=== PATIENT | female | born 1935 | race Caucasian/White ===

== ENCOUNTER 2017-07-25 06:03 | Emergency (ER) | payer MEDICARE ==
--- NOTE | 2017-07-25 06:33 | ERPHSYRPT ---
- History of Present Illness Source: patient Exam Limitations: no limitations Patient Subjective Stated Complaint: pt states she feels Sob and had a feeling of "impending doom". denies any pain. states sob worse this morning. Triage Nursing Assessment: pt pink, warm, dry. pt able to speak in full sentences. lung sounds clear and equal. Hx Tetanus, Diphtheria Vaccination/Date Given: Yes (up to date) Hx Influenza Vaccination/Date Given: Yes Hx Pneumococcal Vaccination/Date Given: Yes Immunizations Up to Date: Yes <ANDIE HUBER - Last Filed: 07/25/17 07:16> <DIONICIO JOHNSON - Last Filed: 07/25/17 07:58> - History of Present Illness Time Seen by Provider: 07/25/17 06:25 Physician History: YESTERDAY PT HAD A FEELING OF IMPENDING DOOM, NAUSEA AND HER HEART SKIPPING. FOR THE PAST HOUR PT HAS HAD SHORTNESS OF AIR. PT ALSO C/O CHRONIC LOW BACK PAIN FOR YEARS. PT DENIES CHEST PAIN, ABDOMINAL PAIN, VOMITING. (ANDIE HUBER) Allergies/Adverse Reactions: metoclopramide HCl [From Reglan] Allergy (Verified 07/25/17 06:24) Sulfa (Sulfonamide Antibiotics) Allergy (Verified 07/25/17 06:24) Home Medications: Amlodipine Besylate/Benazepril [Amlodipine-Benazepril 10-20 mg] 1 each PO DAILY 07/03/16 [History] Atenolol 50 mg [Tenormin 50 mg] 100 mg PO DAILY 07/03/16 [History] Atorvastatin Calcium [Lipitor 20MG Tablet] 20 mg PO DAILY 07/03/16 [History] Gabapentin [Neurontin] 100 mg PO 5XD 07/03/16 [History] Glimepiride 2 mg [Amaryl 2 MG] 2 mg PO DAILY 07/03/16 [History] Zafirlukast 20 mg [Accolate 20 mg] 20 mg PO BID 07/03/16 [History] Acetaminophen/Diphenhydramine [Tylenol Pm Ex-Strength Caplet] 1 each PO HS 08/26 [History] Docusate Sodium 100 mg PO HS 08/26/16 [History] Hydrocodone Bit/Acetaminophen [Hydrocodon-Acetaminophen 5-325] 1 each PO BID 12/11 [History] Magnesium Oxide 400 mg [Mag-Ox 400] 400 mg PO DAILY 08/26/16 [History] Oxazepam 15 mg PO DAILY 08/26/16 [History] Sennosides 8.6 mg PO HS 08/26/16 [History] Vit C/Shahnaz AC/Lut/Copper/Znox [Preservision Lutein Softgel] 1 each PO BID [History] Cyanocobalamin/Folic Acid [Vitamin F09-Iognu Acid Tablet] 1 each PO DAILY [History] - Review of Systems Constitutional: Other (FEELING OF IMPENDING DOOM) Respiratory: Dyspnea Cardiac: Palpitations Abdominal/Gastrointestinal: Nausea Musculoskeletal: Back Pain (CHRONIC) All Other Systems: Reviewed and Negative <ANDIE HUBER - Last Filed: 07/25/17 07:16> - Past Medical History Pertinent Past Medical History: Yes Neurological History: No Pertinent History ENT History: No Pertinent History Cardiac History: Arrhythmia, Other Respiratory History: Asthma Endocrine Medical History: Diabetes Type II Musculoskeletal History: No Pertinent History GI Medical History: Hernia History: No Pertinent History Psycho-Social History: No Pertinent History Female Reproductive Disorders: Breast Cancer - Past Surgical History Past Surgical History: Yes Neuro Surgical History: No Pertinent History Cardiac: No Pertinent History Respiratory: No Pertinent History Gastrointestinal: No Pertinent History Genitourinary: No Pertinent History Musculoskeletal: No Pertinent History Female Surgical History: Mastectomy Other Surgical History: tonsillectomy, L mastectomy - Social History Smoking Status: Never smoker Exposure to second hand smoke: No Drug Use: none Patient Lives Alone: No <ANDIE HUBER - Last Filed: 07/25/17 07:16> - Physical Exam General Appearance: alert Eye Exam: PERRL/EOMI Ears, Nose, Throat Exam: pharynx normal, moist mucous membranes Neck Exam: normal inspection Respiratory Exam: lungs clear Cardiovascular Exam: murmur (3/6 SYSTOLIC MURMUR) Gastrointestinal/Abdomen Exam: soft, normal bowel sounds Back Exam: normal inspection Extremity Exam: normal inspection Neurologic Exam: alert, cooperative Skin Exam: warm, dry SpO2 Interpretation: normal SpO2: 97 Oxygen Delivery: Room Air <ANDIE HUBER - Last Filed: 07/25/17 07:16> <DIONICIO JOHNSON - Last Filed: 07/25/17 07:58> - Nursing Vital Signs Nursing Vital Signs: Initial Vital Signs Temperature 98.2 F 07/25/17 06:05 Pulse Rate 69 07/25/17 06:05 Respiratory Rate 20 07/25/17 06:05 Blood Pressure 142/80 07/25/17 06:05 O2 Sat by Pulse Oximetry 92 L 07/25/17 06:05 Pain Scale Pain Intensity 0 - Course Nursing assessment & vital signs reviewed: Yes EKG Interpreted by Me: RATE (72), Sinus Rhythm, NORMAL AXIS, NORMAL INTERVALS <ANDIE HUBER - Last Filed: 07/25/17 07:16> Ordered Tests: Active Orders 24 hr Category Date Time Status Stem Roller STAT Care 07/25/17 06:41 Active EKG-ER Only STAT Care 07/25/17 06:37 Active IV Insertion STAT Care 07/25/17 06:37 Active Oxygen-ED Only NASAL CANNULA 2 lpm Care 07/25/17 06:37 Active Pulse Oximetry (ED) STAT Care 07/25/17 06:37 Active CHEST 1 VIEW (PORTABLE) Stat Exams 07/25/17 06:41 Taken AMYLASE Stat Lab 07/25/17 06:30 Completed CBC W DIFF Stat Lab 07/25/17 06:30 Completed CMP Stat Lab 07/25/17 06:30 Completed CULTURE,URINE Stat Lab 07/25/17 06:39 Received LIPASE Stat Lab 07/25/17 06:30 Completed MAGNESIUM Stat Lab 07/25/17 06:30 Completed NT PRO BNP Stat Lab 07/25/17 06:30 Completed PROTIME WITH INR Stat Lab 07/25/17 06:30 Completed PTT Stat Lab 07/25/17 06:30 Completed TROPONIN Q3H Lab 07/25/17 06:30 Completed TROPONIN Q3H Lab 07/25/17 09:45 Ordered TROPONIN Q3H Lab 07/25/17 12:45 Ordered TROPONIN Q3H Lab 07/25/17 15:45 Ordered TROPONIN Q3H Lab 07/25/17 18:45 Ordered UA W/ MICROSCOPIC Stat Lab 07/25/17 06:39 Completed Medication Summary Generic Name Dose Route Start Last Admin Trade Name Freq PRN Reason Stop Dose Admin Sodium Chloride 1,000 mls @ 100 mls/hr 07/25/17 06:45 07/25/17 06:46 Sodium Chloride 0.9% 1000 Ml IV 08/24/17 06:44 100 mls/hr .Q10H RICHARD Administration Ceftriaxone Sodium/Dextrose 1 g in 50 mls @ 100 mls/hr 07/25/17 07:46 07:52 Rocephin 1 Gm-D5w 50 Ml Bag IV 07/25/17 08:15 100 mls/hr STAT STA Administration Discontinued Medications Generic Name Dose Route Start Last Admin Trade Name Berenice PRN Reason Stop Dose Admin Furosemide 40 mg 07/25/17 07:46 07/25/17 07:52 Lasix 40 Mg/4 Ml IV 07/25/17 07:47 40 mg STAT ONE Administration Potassium Chloride 40 meq 07/25/17 07:38 07/25/17 07:52 Klor Con 10 Meq PO 07/25/17 07:39 40 meq STAT ONE Administration Lab/Rad Data: Laboratory Result Diagrams 07/25/17 06:30 07/25/17 06:30 Laboratory Results 07/25/17 07/25/17 07/25/17 Range/Units 06:39 06:30 06:30 WBC (4.0-10.5) K/mm3 RBC (4.1-5.4) M/mm3 Hgb (12.0-16.0) gm/dl Hct (35-47) % MCV (78-100) fl MCH (26-32) pg MCHC (32-36) g/dl RDW (11.5-14.0) % Plt Count (150-450) K/mm3 MPV (6-9.5) fl Gran % (36.0-66.0) % Lymphocytes % (24.0-44.0) % Monocytes % (0.0-12.0) % Eosinophils % (0.00-5.0) % Basophils % (0.0-0.4) % Basophils # (0-0.4) INR 1.12 (0.8-3.0) APTT 42.7 H (25.3-37.0) SECONDS Sodium (136-145) mEq/L Potassium (3.5-5.1) mEq/L Chloride (98-107) mEq/L Carbon Dioxide (21-32) mEq/L Anion Gap (5-15) MEQ/L BUN (9-20) mg/dL Creatinine (0.55-1.30) mg/dl Estimated GFR ML/MIN Glucose (70-110) MG/DL Calcium (8.5-10.1) mg/dL Magnesium (1.8-2.4) mg/dL Total Bilirubin (0.2-1.0) mg/dL AST (15-37) U/L ALT (12-78) U/L Alkaline Phosphatase (46-116) U/L Troponin I < 0.017 (0.000-0.056) ng/ml NT-Pro-B Natriuret Pep (0-450) pg/ml Serum Total Protein (6.4-8.2) gm/dL Albumin (3.4-5.0) g/dL Amylase (25-115) U/L Lipase (73-393) U/L Ur Collection Type VOID Urine Color YELLOW (YELLOW) Urine Appearance CLOUDY (CLEAR) Urine pH 6.5 (5-6) Ur Specific [place] 1.015 (1.005-1.025) Urine Protein 30 (Negative) Urine Ketones NEGATIVE (NEGATIVE) Urine Blood LARGE (0-5) Grey/ul Urine Nitrite POSITIVE (NEGATIVE) Urine Bilirubin NEGATIVE (NEGATIVE) Urine Urobilinogen NORMAL (0-1) mg/dL Ur Leukocyte Esterase LARGE (NEGATIVE) Urine Microscopic RBC 10-15 (0-2) /HPF Urine Microscopic WBC 10-15 (0-5) /HPF Ur Epithelial Cells MANY (FEW) /HPF Urine Bacteria MANY (NEGATIVE) /HPF Urine Glucose NEGATIVE (NEGATIVE) mg/dL Specimen Received 07/25/17 0736 07/25/17 07/25/17 Range/Units 06:30 06:30 WBC 6.4 (4.0-10.5) K/mm3 RBC 3.65 L (4.1-5.4) M/mm3 Hgb 11.1 L (12.0-16.0) gm/dl Hct 36.3 (35-47) % MCV 99.5 (78-100) fl MCH 30.4 (26-32) pg MCHC 30.6 L (32-36) g/dl RDW 14.2 H (11.5-14.0) % Plt Count 171 (150-450) K/mm3 MPV 11.6 H (6-9.5) fl Gran % 68.4 H (36.0-66.0) % Lymphocytes % 18.6 L (24.0-44.0) % Monocytes % 8.0 (0.0-12.0) % Eosinophils % 4.7 (0.00-5.0) % Basophils % 0.3 (0.0-0.4) % Basophils # 0.02 (0-0.4) INR (0.8-3.0) APTT (25.3-37.0) SECONDS Sodium 145 (136-145) mEq/L Potassium 3.3 L (3.5-5.1) mEq/L Chloride 108 H (98-107) mEq/L Carbon Dioxide 28.3 (21-32) mEq/L Anion Gap 11.7 (5-15) MEQ/L BUN 12 (9-20) mg/dL Creatinine 0.85 (0.55-1.30) mg/dl Estimated GFR > 60 ML/MIN Glucose 122 H (70-110) MG/DL Calcium 8.8 (8.5-10.1) mg/dL Magnesium 1.8 (1.8-2.4) mg/dL Total Bilirubin 0.40 (0.2-1.0) mg/dL AST 18 (15-37) U/L ALT 10 L (12-78) U/L Alkaline Phosphatase 75 (46-116) U/L Troponin I (0.000-0.056) ng/ml NT-Pro-B Natriuret Pep 1112 H (0-450) pg/ml Serum Total Protein 6.6 (6.4-8.2) gm/dL Albumin 3.3 L (3.4-5.0) g/dL Amylase 135 H (25-115) U/L Lipase 47 L (73-393) U/L Ur Collection Type Urine Color (YELLOW) Urine Appearance (CLEAR) Urine pH (5-6) Ur Specific [place] (1.005-1.025) Urine Protein (Negative) Urine Ketones (NEGATIVE) Urine Blood (0-5) Grey/ul Urine Nitrite (NEGATIVE) Urine Bilirubin (NEGATIVE) Urine Urobilinogen (0-1) mg/dL Ur Leukocyte Esterase (NEGATIVE) Urine Microscopic RBC (0-2) /HPF Urine Microscopic WBC (0-5) /HPF Ur Epithelial Cells (FEW) /HPF Urine Bacteria (NEGATIVE) /HPF Urine Glucose (NEGATIVE) mg/dL Specimen Received <ANDIE HUBER - Last Filed: 07/25/17 07:16> - Progress Progress: improved <DIONICIO JOHNSON - Last Filed: 07/25/17 07:58> - Progress Progress Note: 07/25/17 07:54 Pt has no shortness of breath at rest but admits to worsening shortness of breath with exertion. Pt has a CXR that shows increase vascular congestion and an elevated BNP over 1000 which is her typical BNP. Pt will be given a dose of lasix 40mg IV X 1 dose. Pt also has a UTIand will be treated with rocephin 1 gram IV X 1 dose. Pt will then be given a script for omnicef for 7 days. Pt has an appointment with her oracle data warehouse developer at 1:15pm this afternoon. (DIONICIO JOHNSON) <ANDIE HUBER - Last Filed: 07/25/17 07:16> - Departure Time of Disposition: 07:56 Departure Disposition: Home Critical Care Time: No <DIONICIO JOHNSON - Last Filed: 07/25/17 07:58> - Departure Clinical Impression: CHF (congestive heart failure) Qualifiers: Congestive heart failure type: unspecified congestive heart failure type Congestive heart failure chronicity: acute on chronic Qualified Code(s): I50.9 - Heart failure, unspecified Condition: Stable Referrals: RAY OCHOA [Primary Care Provider] - Instructions: Heart Failure Additional Instructions: Follow up with your oracle data warehouse developer today to discuss possibly increasing your dose of lasix for symptomatic relief of shortness of breath. Prescriptions: Cefdinir [Omnicef] 300 mg PO BID #14 capsule
[2017-07-25] MEDS ORDERED: Sodium Chloride 0.9% 1000 ML 1,000 ML ONE (06:45)
[2017-07-25] MEDS ORDERED: Sodium Chloride 0.9% 1000 ML 1,000 ML IV SCH (06:45)
[2017-07-25 06:58] LABS: BASOPHIL % 0.3 % (0.0-0.4); Eosinophil % 4.7 % (0.00-5.0); Granulocytes % 68.4 % (36.0-66.0); Lymphocytes % 18.6 % (24.0-44.0); Mean Cell Volume 99.5 fl (78-100); Mean Corpuscular Hemoglobin 30.4 pg (26-32); Mean Platelet Volume 11.6 fl (6-9.5); Platelet Count 171 K/mm3 (150-450); Red Blood Count 3.65 M/mm3 (4.1-5.4); Red Cell Distribution Width 14.2 % (11.5-14.0); White Blood Count 6.4 K/mm3 (4.0-10.5)
[2017-07-25 07:14] LABS: INR 1.12 (0.8-3.0); PROTIME 12.7 SECONDS (9.95-12.35)
[2017-07-25 07:16] LABS: PTT 42.7 SECONDS (25.3-37.0)
[2017-07-25 07:17] VITALS: O2SAT 97
[2017-07-25 07:36] LABS: Bilirubin NEGATIVE (NEGATIVE); Blood LARGE Ery/ul (0-5); Collection Type VOID; Glucose NEGATIVE (NEGATIVE); Leukocyte Esterase LARGE (NEGATIVE)
[2017-07-25 07:37] LABS: COMPLETE URINE MICROSCOPIC? YES
[2017-07-25 07:37] LABS: ALBUMIN 3.3 g/dL (3.4-5.0); ALKALINE PHOSPHATASE 75 U/L (46-116); ANION GAP 11.7 MEQ/L (5-15); BLOOD UREA NITROGEN 12 mg/dL (9-20); CHLORIDE 108 mEq/L (98-107); Carbon Dioxide 28.3 mEq/L (21-32); Glucose 122 MG/DL (70-110); LIPASE 47 U/L (73-393); MAGNESIUM 1.8 mg/dL (1.8-2.4); Potassium 3.3 mEq/L (3.5-5.1); SGOT/AST 18 U/L (15-37); SGPT/ALT 10 U/L (12-78); SODIUM 145 mEq/L (136-145); Total Protein 6.6 gm/dL (6.4-8.2)
[2017-07-25] MEDS ORDERED: Klor Con 10 MEQ PO ONE ×2 (07:38→07:51)
[2017-07-25 07:39] LABS: Bacteria MANY /HPF (NEGATIVE); Epithelial Cells MANY /HPF (FEW)
[2017-07-25 07:40] LABS: ADD URINE CULTURE? YES (NO)
[2017-07-25] MEDS ORDERED: Lasix 40 MG/4 ML IV ONE (07:46)
[2017-07-25] MEDS ORDERED: ROCEPHIN 1 Gm-D5w 50 ml Bag** 1 G/50 ML IVPB IV STA (07:46)
[2017-07-25] MEDS ORDERED: Lasix 40 MG/4 ML ONE (07:51)
[2017-07-25] MEDS ORDERED: ROCEPHIN 1 Gm-D5w 50 ml Bag** 1 G/50 ML IVPB IV ONE (07:51)
[2017-07-25 08:57] VITALS: BP 144/77; PULSE 88
--- NOTE | 2017-07-25 09:37 | XRAY ---
Indication: Short of breath. Comparison: September 11, 2016. Portable chest slightly rotated today translating the heart and mediastinal structures. Heart is not enlarged. There is now large hiatal hernia. No focal infiltrate, consolidation, or large effusion. Bony thorax intact again with osteopenia, degenerative changes, and scoliosis. Impression: Hiatal hernia. No acute cardiopulmonary abnormalities.
== END 2017-07-25 08:38 | disposition home or self-care (01) ==
LOC: ED 06:03
DX: I50.9 Heart failure, unspecified (principal); R06.02 Shortness of breath; R11.0 Nausea; M54.5 Low back pain; Z79.899 Other long term (current) drug therapy; E11.9 Type 2 diabetes mellitus without complications; R00.2 Palpitations; R06.00 Dyspnea, unspecified
CPT/HCPCS: 36000; 36415; 71010; 80053; 81000; 82150; 83690; 83735; 83880; 84484; 85025; 85610; 85730; 87077; 87086; 87186; 93005; 93041; 96360; 96361; 96365; 96374; 99284; 99285; J0696; J1940; A9270-GY

== ENCOUNTER 2017-07-31 04:06 | Observation (INO) | payer MEDICARE ==
[2017-07-31] MEDS ORDERED: Zithromax 500 MG/ 250 ML NaCl Premix 500 MG/250 ML IVPB IV STA (04:21)
[2017-07-31] MEDS ORDERED: Xopenex 1.25 MG/0.5 ML UD NEBULE IH ONE ×2 (04:21→04:35)
[2017-07-31] MEDS ORDERED: ROCEPHIN 1 Gm-D5w 50 ml Bag** 1 G/50 ML IVPB IV STA (04:21)
[2017-07-31] MEDS ORDERED: Sodium Chloride 0.9% 1000 ML 1,000 ML IV SCH (04:30)
[2017-07-31] MEDS ORDERED: Sodium Chloride 3 ML UD NEBULES IH ONE (04:35)
[2017-07-31 04:37] LABS: BASOPHIL % 0.2 % (0.0-0.4); Eosinophil % 5.5 % (0.00-5.0); Granulocytes % 53.6 % (36.0-66.0); Lymphocytes % 28.5 % (24.0-44.0); Mean Cell Volume 98.1 fl (78-100); Mean Corpuscular Hemoglobin 30.4 pg (26-32); Mean Platelet Volume 11.4 fl (6-9.5); Monocytes % 12.2 % (0.0-12.0); Platelet Count 206 K/mm3 (150-450); Red Blood Count 3.68 M/mm3 (4.1-5.4); Red Cell Distribution Width 13.6 % (11.5-14.0); White Blood Count 5.1 K/mm3 (4.0-10.5)
--- NOTE | 2017-07-31 04:38 | ERPHSYRPT ---
- History of Present Illness Time Seen by Provider: 07/31/17 04:15 Source: patient Exam Limitations: no limitations Physician History: PT FOR THE PAST WEEK PT HAS HAD A FEELING OF IMPENDING DOOM, NAUSEA AND HER HEART SKIPPING; FOR THE PAST 6 DAYS SHORTNESS OF AIR; FOR THE PAST 2 DAYS COUGH. PT DENIES ABDOMINAL PAIN, CHEST PAIN, VOMITING. Allergies/Adverse Reactions: metoclopramide HCl [From Reglan] Allergy (Verified 07/31/17 04:27) Sulfa (Sulfonamide Antibiotics) Allergy (Verified 07/31/17 04:27) Home Medications: Amlodipine Besylate/Benazepril [Amlodipine-Benazepril 10-20 mg] 1 each PO DAILY 07/03/16 [History] Atenolol 50 mg [Tenormin 50 mg] 100 mg PO DAILY 07/03/16 [History] Atorvastatin Calcium [Lipitor 20MG Tablet] 20 mg PO DAILY 07/03/16 [History] Gabapentin [Neurontin] 100 mg PO 5XD 07/03/16 [History] Glimepiride 2 mg [Amaryl 2 MG] 2 mg PO DAILY 07/03/16 [History] Zafirlukast 20 mg [Accolate 20 mg] 20 mg PO BID 07/03/16 [History] Acetaminophen/Diphenhydramine [Tylenol Pm Ex-Strength Caplet] 1 each PO HS 08/26 [History] Docusate Sodium 100 mg PO HS 08/26/16 [History] Hydrocodone Bit/Acetaminophen [Hydrocodon-Acetaminophen 5-325] 1 each PO BID 12/11 [History] Magnesium Oxide 400 mg [Mag-Ox 400] 400 mg PO DAILY 08/26/16 [History] Oxazepam 15 mg PO DAILY 08/26/16 [History] Sennosides 8.6 mg PO HS 08/26/16 [History] Vit C/Vit E AC/Lut/Copper/Zinc [Preservision Lutein Softgel] 1 each PO BID 08/26 [History] Cyanocobalamin/Folic Acid [Vitamin J73-Bvfvb Acid Tablet] 1 each PO DAILY [History] Hx Tetanus, Diphtheria Vaccination/Date Given: Yes (up to date) Hx Influenza Vaccination/Date Given: Yes Hx Pneumococcal Vaccination/Date Given: Yes - Review of Systems Constitutional: No Fever Respiratory: Cough, Dyspnea Cardiac: Palpitations, No Chest Pain Abdominal/Gastrointestinal: Nausea, No Abdominal Pain, No Vomiting Musculoskeletal: Back Pain (CHRONIC) All Other Systems: Reviewed and Negative - Past Medical History Pertinent Past Medical History: Yes Neurological History: No Pertinent History ENT History: No Pertinent History Cardiac History: Arrhythmia, Other Respiratory History: Asthma Endocrine Medical History: Diabetes Type II Musculoskeletal History: No Pertinent History GI Medical History: Hernia History: No Pertinent History Psycho-Social History: No Pertinent History Female Reproductive Disorders: Breast Cancer - Past Surgical History Past Surgical History: Yes Neuro Surgical History: No Pertinent History Cardiac: No Pertinent History Respiratory: No Pertinent History Gastrointestinal: No Pertinent History Genitourinary: No Pertinent History Musculoskeletal: No Pertinent History Female Surgical History: Mastectomy Other Surgical History: tonsillectomy, L mastectomy - Social History Smoking Status: Never smoker Exposure to second hand smoke: No Drug Use: none Patient Lives Alone: No - Nursing Vital Signs Nursing Vital Signs: Initial Vital Signs Temperature 98.2 F 07/31/17 04:08 Pulse Rate 75 07/31/17 04:08 Respiratory Rate 24 07/31/17 04:08 Blood Pressure 134/68 07/31/17 04:08 O2 Sat by Pulse Oximetry 96 07/31/17 04:08 Pain Scale Pain Intensity 0 - Physical Exam General Appearance: alert Eye Exam: PERRL/EOMI Ears, Nose, Throat Exam: dry mucous membranes, pharyngeal erythema Neck Exam: normal inspection Respiratory Exam: diminished breath sounds (OVER POSTERIOR BASES WITH MINIMAL EXPIRATORY WHEEZING) Cardiovascular Exam: murmur (3/6 SYSTOLIC MURMUR) Gastrointestinal/Abdomen Exam: soft, normal bowel sounds Back Exam: normal inspection Extremity Exam: normal inspection Neurologic Exam: alert, cooperative Skin Exam: warm, dry SpO2 Interpretation: normal SpO2: 96 Oxygen Delivery: Room Air - Course Nursing assessment & vital signs reviewed: Yes EKG Interpreted by Me: RATE (76), NORMAL AXIS, Non-specific ST Changes, Other ( SINUS ARRHYTHMIA) - Radiology Exams Chest X-ray Interpretation: Interpreted by me, No Pneumonia - CT Exams Chest CT Interpretation: Tele-radiologist Report (NO PE. FOCAL INFILTRATE AND POSSIBLY INTERSTITIAL PNEUMONITIS ON THE RIGHT. SEE REST OF REPORT.) Ordered Tests: Active Orders 24 hr Category Date Time Status Rug Hooker STAT Care 07/31/17 04:23 Active Clean Catch Urine Specimen STAT Care 07/31/17 04:21 Active EKG-ER Only STAT Care 07/31/17 04:21 Active EKG-ER Only STAT Care 07/31/17 04:54 Active IV Insertion STAT Care 07/31/17 04:21 Active Oxygen-ED Only NASAL CANNULA 2 lpm Care 07/31/17 04:21 Active Pulse Oximetry (ED) STAT Care 07/31/17 04:21 Active CHEST 2 VIEWS (PA AND LAT) Stat Exams 07/31/17 04:22 Taken CHEST WITH CONTRAST [CT] Stat Exams 07/31/17 05:21 Taken BLOOD CULTURE Stat Lab 07/31/17 04:50 Received CBC W DIFF Stat Lab 07/31/17 04:25 Completed CMP Stat Lab 07/31/17 04:25 Completed CULTURE, THROAT Stat Lab 07/31/17 04:52 Received CULTURE,SPUTUM Stat Lab 07/31/17 04:22 Uncollected CULTURE,URINE Stat Lab 07/31/17 06:31 Received D-DIMER QUANTITATION Stat Lab 07/31/17 04:25 Completed MAGNESIUM Stat Lab 07/31/17 04:25 Completed [place] Screen Stat Lab 07/31/17 04:25 Completed NT PRO BNP Stat Lab 07/31/17 04:25 Completed STREP SCREEN-BETA A Stat Lab 07/31/17 04:52 Completed TROPONIN Q3H Lab 07/31/17 04:25 Completed TROPONIN Q3H Lab 07/31/17 07:30 Ordered TROPONIN Q3H Lab 07/31/17 10:30 Ordered TROPONIN Q3H Lab 07/31/17 13:30 Ordered TROPONIN Q3H Lab 07/31/17 16:30 Ordered UA W/ MICROSCOPIC Stat Lab 07/31/17 06:31 Completed Respiratory Nebulizer STAT RT 07/31/17 04:46 Completed Medication Summary Generic Name Dose Route Start Last Admin Trade Name Freq PRN Reason Stop Dose Admin Sodium Chloride 1,000 mls @ 250 mls/hr 07/31/17 04:30 07/31/17 05:03 Sodium Chloride 0.9% 1000 Ml IV 08/30/17 04:29 250 mls/hr .Q4H RICHARD Administration Discontinued Medications Generic Name Dose Route Start Last Admin Trade Name Freq PRN Reason Stop Dose Admin Ceftriaxone Sodium/Dextrose 1 g in 50 mls @ 100 mls/hr 07/31/17 04:21 05:03 Rocephin 1 Gm-D5w 50 Ml Bag IV 07/31/17 04:50 100 mls/hr STAT STA Administration Azithromycin 500 mg in 250 mls @ 250 mls/hr 07/31/17 04:21 07/31/17 06:32 Zithromax 500 Mg/ 250 Ml Nacl Premix IV 07/31/17 05:20 250 mls/hr STAT STA Administration Azithromycin Confirm 07/31/17 04:56 Zithromax 500 Mg/ 250 Ml Nacl Premix Administered 07/31/17 04:57 Dose 500 mg in 250 mls @ ud IV .STK-MED ONE Ceftriaxone Sodium/Dextrose Confirm 07/31/17 04:56 Rocephin 1 Gm-D5w 50 Ml Bag Administered 07/31/17 04:57 Dose 1 g in 50 mls @ ud IV .STK-MED ONE Magnesium Sulfate/Dextrose 100 mls @ 200 mls/hr 07/31/17 05:22 07/31/17 06:36 Magnesium 1 Gm / 100 Ml D5w IV 07/31/17 05:51 200 mls/hr STAT ONE Administration Magnesium Sulfate/Dextrose Confirm 07/31/17 06:36 Magnesium 1 Gm / 100 Ml D5w Administered 07/31/17 06:37 Dose 100 mls @ ud IV .STK-MED ONE Levalbuterol HCl 1.25 mg 07/31/17 04:21 07/31/17 04:44 Xopenex 1.25 Mg/0.5 Ml Ud Nebule IH 07/31/17 04:22 1.25 mg STAT ONE Administration Levalbuterol HCl Confirm 07/31/17 04:35 Xopenex 1.25 Mg/0.5 Ml Ud Nebule Administered 07/31/17 04:36 Dose 1.25 mg IH .STK-MED ONE Ondansetron HCl 4 mg 07/31/17 05:01 07/31/17 05:03 Zofran Odt 4 Mg PO 07/31/17 05:02 4 mg STAT ONE Administration Ondansetron HCl Confirm 07/31/17 05:02 Zofran Odt 4 Mg Administered 07/31/17 05:03 Dose 4 mg .ROUTE .[email or web address] ONE Sodium Chloride Confirm 07/31/17 04:35 Sodium Chloride 3 Ml Ud Nebules Administered 07/31/17 04:36 Dose 3 ml IH .SoapetsK-MED ONE Lab/Rad Data: Laboratory Result Diagrams 07/31/17 04:25 07/31/17 04:25 Laboratory Results 07/31/17 07/31/17 07/31/17 Range/Units 06:31 04:52 04:52 WBC (4.0-10.5) K/mm3 RBC (4.1-5.4) M/mm3 Hgb (12.0-16.0) gm/dl Hct (35-47) % MCV (78-100) fl MCH (26-32) pg MCHC (32-36) g/dl RDW (11.5-14.0) % Plt Count (150-450) K/mm3 MPV (6-9.5) fl Gran % (36.0-66.0) % Lymphocytes % (24.0-44.0) % Monocytes % (0.0-12.0) % Eosinophils % (0.00-5.0) % Basophils % (0.0-0.4) % Basophils # (0-0.4) D-Dimer (0-500) ng/mL Sodium (136-145) mEq/L Potassium (3.5-5.1) mEq/L Chloride (98-107) mEq/L Carbon Dioxide (21-32) mEq/L Anion Gap (5-15) MEQ/L BUN (9-20) mg/dL Creatinine (0.55-1.30) mg/dl Estimated GFR ML/MIN Glucose (70-110) MG/DL Calcium (8.5-10.1) mg/dL Magnesium (1.8-2.4) mg/dL Total Bilirubin (0.2-1.0) mg/dL AST (15-37) U/L ALT (12-78) U/L Alkaline Phosphatase (46-116) U/L Troponin I (0.000-0.056) ng/ml NT-Pro-B Natriuret Pep (0-450) pg/ml Serum Total Protein (6.4-8.2) gm/dL Albumin (3.4-5.0) g/dL Ur Collection Type CLEAN CATCH Urine Color YELLOW (YELLOW) Urine Appearance HAZY (CLEAR) Urine pH 8.0 (5-6) Ur Specific [place] 1.010 (1.005-1.025) Urine Protein TRACE (Negative) Urine Ketones SMALL (NEGATIVE) Urine Blood NEGATIVE (0-5) Grey/ul Urine Nitrite NEGATIVE (NEGATIVE) Urine Bilirubin NEGATIVE (NEGATIVE) Urine Urobilinogen NORMAL (0-1) mg/dL Ur Leukocyte Esterase 2+ (NEGATIVE) Urine Microscopic RBC 5-10 (0-2) /HPF Urine Microscopic WBC 15-25 (0-5) /HPF Ur Epithelial Cells MODERATE (FEW) /HPF Urine Bacteria MODERATE (NEGATIVE) /HPF Urine Mucus SLIGHT (NEGATIVE) /HPF Urine Glucose NEGATIVE (NEGATIVE) mg/dL Monoscreen (Negative) Influenza Type A Ag NEGATIVE (NEGATIVE) Influenza Type B Ag NEGATIVE (NEGATIVE) RSV (PCR) NEGATIVE (Negative) Streptococcus Screen NEGATIVE (Negative) Specimen Received 07-3107/31/17 07/31/17 07/31/17 Range/Units 04:25 04:25 04:25 WBC (4.0-10.5) K/mm3 RBC (4.1-5.4) M/mm3 Hgb (12.0-16.0) gm/dl Hct (35-47) % MCV (78-100) fl MCH (26-32) pg MCHC (32-36) g/dl RDW (11.5-14.0) % Plt Count (150-450) K/mm3 MPV (6-9.5) fl Gran % (36.0-66.0) % Lymphocytes % (24.0-44.0) % Monocytes % (0.0-12.0) % Eosinophils % (0.00-5.0) % Basophils % (0.0-0.4) % Basophils # (0-0.4) D-Dimer 587 H* (0-500) ng/mL Sodium (136-145) mEq/L Potassium (3.5-5.1) mEq/L Chloride (98-107) mEq/L Carbon Dioxide (21-32) mEq/L Anion Gap (5-15) MEQ/L BUN (9-20) mg/dL Creatinine (0.55-1.30) mg/dl Estimated GFR ML/MIN Glucose (70-110) MG/DL Calcium (8.5-10.1) mg/dL Magnesium (1.8-2.4) mg/dL Total Bilirubin (0.2-1.0) mg/dL AST (15-37) U/L ALT (12-78) U/L Alkaline Phosphatase (46-116) U/L Troponin I < 0.017 (0.000-0.056) ng/ml NT-Pro-B Natriuret Pep (0-450) pg/ml Serum Total Protein (6.4-8.2) gm/dL Albumin (3.4-5.0) g/dL Ur Collection Type Urine Color (YELLOW) Urine Appearance (CLEAR) Urine pH (5-6) Ur Specific [place] (1.005-1.025) Urine Protein (Negative) Urine Ketones (NEGATIVE) Urine Blood (0-5) Grey/ul Urine Nitrite (NEGATIVE) Urine Bilirubin (NEGATIVE) Urine Urobilinogen (0-1) mg/dL Ur Leukocyte Esterase (NEGATIVE) Urine Microscopic RBC (0-2) /HPF Urine Microscopic WBC (0-5) /HPF Ur Epithelial Cells (FEW) /HPF Urine Bacteria (NEGATIVE) /HPF Urine Mucus (NEGATIVE) /HPF Urine Glucose (NEGATIVE) mg/dL Monoscreen NEGATIVE (Negative) Influenza Type A Ag (NEGATIVE) Influenza Type B Ag (NEGATIVE) RSV (PCR) (Negative) Streptococcus Screen (Negative) Specimen Received 07/31/17 07/31/17 Range/Units 04:25 04:25 WBC 5.1 (4.0-10.5) K/mm3 RBC 3.68 L (4.1-5.4) M/mm3 Hgb 11.2 L (12.0-16.0) gm/dl Hct 36.1 (35-47) % MCV 98.1 (78-100) fl MCH 30.4 (26-32) pg MCHC 31.0 L (32-36) g/dl RDW 13.6 (11.5-14.0) % Plt Count 206 (150-450) K/mm3 MPV 11.4 H (6-9.5) fl Gran % 53.6 (36.0-66.0) % Lymphocytes % 28.5 (24.0-44.0) % Monocytes % 12.2 H (0.0-12.0) % Eosinophils % 5.5 H (0.00-5.0) % Basophils % 0.2 (0.0-0.4) % Basophils # 0.01 (0-0.4) D-Dimer (0-500) ng/mL Sodium 145 (136-145) mEq/L Potassium 3.5 (3.5-5.1) mEq/L Chloride 107 (98-107) mEq/L Carbon Dioxide 24.9 (21-32) mEq/L Anion Gap 16.4 H (5-15) MEQ/L BUN 9 (9-20) mg/dL Creatinine 0.90 (0.55-1.30) mg/dl Estimated GFR > 60 ML/MIN Glucose 123 H (70-110) MG/DL Calcium 9.0 (8.5-10.1) mg/dL Magnesium 1.7 L (1.8-2.4) mg/dL Total Bilirubin 0.40 (0.2-1.0) mg/dL AST 19 (15-37) U/L ALT 13 (12-78) U/L Alkaline Phosphatase 92 (46-116) U/L Troponin I (0.000-0.056) ng/ml NT-Pro-B Natriuret Pep 1338 H (0-450) pg/ml Serum Total Protein 6.6 (6.4-8.2) gm/dL Albumin 2.9 L (3.4-5.0) g/dL Ur Collection Type Urine Color (YELLOW) Urine Appearance (CLEAR) Urine pH (5-6) Ur Specific [place] (1.005-1.025) Urine Protein (Negative) Urine Ketones (NEGATIVE) Urine Blood (0-5) Grey/ul Urine Nitrite (NEGATIVE) Urine Bilirubin (NEGATIVE) Urine Urobilinogen (0-1) mg/dL Ur Leukocyte Esterase (NEGATIVE) Urine Microscopic RBC (0-2) /HPF Urine Microscopic WBC (0-5) /HPF Ur Epithelial Cells (FEW) /HPF Urine Bacteria (NEGATIVE) /HPF Urine Mucus (NEGATIVE) /HPF Urine Glucose (NEGATIVE) mg/dL Monoscreen (Negative) Influenza Type A Ag (NEGATIVE) Influenza Type B Ag (NEGATIVE) RSV (PCR) (Negative) Streptococcus Screen (Negative) Specimen Received - Progress Discussed with : Marvin (OBS - [id number]) - Departure Time of Disposition: 07:11 Departure Disposition: Observation Clinical Impression: PNEUMONIA, UTI, MILD HYPOMAGNESEMIA, DM Condition: Stable Critical Care Time: No Referrals: RAY OCHOA [Primary Care Provider] -
[2017-07-31] MEDS ORDERED: ROCEPHIN 1 Gm-D5w 50 ml Bag** 1 G/50 ML IVPB IV ONE (04:56)
[2017-07-31] MEDS ORDERED: Sodium Chloride 0.9% 1000 ML 1,000 ML ONE (04:56)
[2017-07-31] MEDS ORDERED: Zithromax 500 MG/ 250 ML NaCl Premix 500 MG/250 ML IVPB IV ONE (04:56)
[2017-07-31] MEDS ORDERED: ZOFRAN ODT 4 MG PO ONE (05:01)
[2017-07-31] MEDS ORDERED: ZOFRAN ODT 4 MG ONE (05:02)
[2017-07-31 05:13] LABS: ALBUMIN 2.9 g/dL (3.4-5.0); ALKALINE PHOSPHATASE 92 U/L (46-116); ANION GAP 16.4 MEQ/L (5-15); BLOOD UREA NITROGEN 9 mg/dL (9-20); CHLORIDE 107 mEq/L (98-107); Carbon Dioxide 24.9 mEq/L (21-32); Glucose 123 MG/DL (70-110); MAGNESIUM 1.7 mg/dL (1.8-2.4); Potassium 3.5 mEq/L (3.5-5.1); SGOT/AST 19 U/L (15-37); SGPT/ALT 13 U/L (12-78); SODIUM 145 mEq/L (136-145); Total Protein 6.6 gm/dL (6.4-8.2)
[2017-07-31] MEDS ORDERED: Magnesium 1 Gm / 100 Ml D5W*** 100 ML IV ONE ×2 (05:22→06:36)
[2017-07-31 06:32] LABS: Bilirubin NEGATIVE (NEGATIVE); Blood NEGATIVE Ery/ul (0-5); Collection Type CLEAN CATCH; Glucose NEGATIVE (NEGATIVE); Leukocyte Esterase 2+ (NEGATIVE)
[2017-07-31 06:33] LABS: COMPLETE URINE MICROSCOPIC? YES
[2017-07-31 06:38] LABS: ADD URINE CULTURE? YES (NO); Bacteria MODERATE /HPF (NEGATIVE); Epithelial Cells MODERATE /HPF (FEW); Mucus SLIGHT /HPF (NEGATIVE); WBC 15-25 /HPF (0-5)
[2017-07-31] MEDS ORDERED: Phenergan 25 MG INJ ONE (07:21)
[2017-07-31] MEDS ORDERED: Phenergan 25 MG INJ IV ONE (07:25)
[2017-07-31] MEDS ORDERED: NovoLOG Insulin SQ PRN (07:47)
[2017-07-31] MEDS ORDERED: TYLENOL 325 MG PO PRN (07:47)
--- NOTE | 2017-07-31 08:47 | PCM.HP ---
History of Present Illness - Chief Complaint Chief Complaint: pneumonia History of Present Illness: is a 82 year old female pt of mine from [facility] with PMHx breast cancer who came to the ER this morning with chest discomfort, nausea, and feeling of impending doom. She has been feeling poorly for the past 5d; was in the ER 5d ago and dx with UTI, sent home on antibiotics. She has also been c/o nausea and decreased appetite; her weight has been steady for the past 1 year but she lost 3 lb in the past week or so. No fever. Some cough. In ER today she was found to have pneumonia and was admitted for further treatment. - Review of Systems Respiratory: Cough, Short Of Breath, Wheezing Cardiac: Chest Pain Abdominal/Gastrointestinal: Nausea, Appetite Changes Neurological: Dizziness (briefly in ER today) Psychological: Depression (at times thinks,"just kill me now" but she would never take action) All Other Systems: Reviewed and Negative Medications & Allergies Home Medications: Home Medication List Amlodipine Besylate/Benazepril [Amlodipine-Benazepril 10-20 mg] 1 each PO DAILY 07/03/16 [History Confirmed 07/25/17] Atenolol 50 mg [Tenormin 50 mg] 100 mg PO DAILY 07/03/16 [History Confirmed 07/25/17] Atorvastatin Calcium [Lipitor 20MG Tablet] 20 mg PO DAILY 07/03/16 [History Confirmed 07/25/17] Gabapentin [Neurontin] 100 mg PO 5XD 07/03/16 [History Confirmed 07/25/17] Glimepiride 2 mg [Amaryl 2 MG] 2 mg PO DAILY 07/03/16 [History Confirmed 07/25/17] Zafirlukast 20 mg [Accolate 20 mg] 20 mg PO BID 07/03/16 [History Confirmed 07/25/17] Dabigatran Etexilate Mesylate [Pradaxa] 150 mg PO BID #60 capsule 07/14/16 [Rx Confirmed 07/25/17] PANTOPRAZOLE 40 mg Tablet [Protonix 40MG Tablet] 40 mg PO DAILY #30 tab [Rx Confirmed 07/25/17] Furosemide 20 mg [Lasix 20 mg] 20 mg PO DAILY #30 tablet 07/18/16 [Rx Confirmed 07/25/17] Potassium Chloride 20 Meq Tab [Potassium Chloride 20 MEQ TABLET] 20 meq PO DAILY #30 tab 07/18/16 [Rx Confirmed 07/25/17] Acetaminophen/Diphenhydramine [Tylenol Pm Ex-Strength Caplet] 1 each PO HS 08/26 [History Confirmed 07/25/17] Docusate Sodium 100 mg PO HS 08/26/16 [History Confirmed 07/25/17] Hydrocodone Bit/Acetaminophen [Hydrocodon-Acetaminophen 5-325] 1 each PO BID 12/11 [History Confirmed 07/25/17] Magnesium Oxide 400 mg [Mag-Ox 400] 400 mg PO DAILY 08/26/16 [History Confirmed 07/25/17] Oxazepam 15 mg PO DAILY 08/26/16 [History Confirmed 07/25/17] Sennosides 8.6 mg PO HS 08/26/16 [History Confirmed 07/25/17] Vit C/Vit E AC/Lut/Copper/Zinc [Preservision Lutein Softgel] 1 each PO BID 08/26 [History Confirmed 07/25/17] Diltiazem HCl [Cardizem] 180 mg PO DAILY #30 08/29/16 [Rx Confirmed 07/25/17] Cefdinir [Omnicef] 300 mg PO BID #14 capsule 07/25/17 [Rx] Cyanocobalamin/Folic Acid [Vitamin D02-Ziiik Acid Tablet] 1 each PO DAILY [History Confirmed 07/25/17] Allergies/Adverse Reactions: Allergies Allergy/AdvReac Type Severity Reaction Status Date / Time metoclopramide HCl Allergy Verified 07/31/17 04:27 [From Reglan] Sulfa (Sulfonamide Allergy Verified 07/31/17 04:27 Antibiotics) - Past Medical History Past Medical History: Yes Neurological History: No Pertinent History ENT History: No Pertinent History Cardiac History: Arrhythmia, Other Respiratory History: Asthma Endocrine Medical History: Diabetes Type II Musculoskelatal History: No Pertinent History GI Medical History: Hernia History: No Pertinent History Pyscho-Social History: No Pertinent History Reproductive Disorders: Breast Cancer - Female History Are you now?: No - Past Surgical History Past Surgical History: Yes Neuro Surgical History: No Pertinent History Cardiac History: No Pertinent History Respiratory Surgery: No Pertinent History GI Surgical History: No Pertinent History Genitourinary Surgical Hx: No Pertinent History Musculskeletal Surgical Hx: No Pertinent History Female Surgical History: Mastectomy Other Surgical History: tonsillectomy, L mastectomy april 10 - Social History Smoking Status: Former smoker How long have you smoked: 10 Exposure to second hand smoke: No Alcohol: None Drug Use: none - Physical Exam Vital Signs: Vital Signs - 24 hr Temp Pulse Resp BP Pulse Ox 07/31/17 08:10 98.8 F 86 18 150/66 92 L 07/31/17 07:47 98.8 F 86 18 150/66 92 L 07/31/17 07:38 117 H 28 H 112/61 98 07/31/17 07:11 96 07/31/17 06:54 92 H 20 152/77 95 07/31/17 06:42 79 22 123/65 96 07/31/17 04:46 74 25 H 97 07/31/17 04:38 96 07/31/17 04:08 98.2 F 75 24 134/68 96 General Appearance: no apparent distress Neurologic Exam: alert, oriented x 3, cooperative Eye Exam: eyes nml inspection Ears, Nose, Throat Exam: moist mucous membranes Neck Exam: normal inspection, non-tender, No lymphadenopathy Respiratory Exam: diminished breath sounds, No crackles/rales, No rhonchi, No wheezing Cardiovascular Exam: regular rate/rhythm, murmur (sys murmur III/) Gastrointestinal/Abdomen Exam: soft, hernia (midline, as usual, large hernia), No tenderness, No guarding, No rebound Back Exam: normal inspection Extremity Exam: normal inspection, No pedal edema, No swelling Skin Exam: normal color, warm, dry Results - Other Procedures and Tests Respiratory Therapy 07/31/17 08:38 RT Screen per Nursing Assess ONCE Assessment/Plan (1) Pneumonia Current Visit: Yes Status: Acute Qualifiers: Pneumonia type: due to unspecified organism Laterality: right Lung location: lower lobe of lung Qualified Code(s): J18.1 - Lobar pneumonia, unspecified organism Assessment & Plan: Admitted on IV rocephin and zithromax. She will likely need a few days of IV antibiotics before she is discharged home. Code(s): J18.9 - PNEUMONIA, UNSPECIFIED ORGANISM (2) Hypomagnesemia Current Visit: Yes Status: Acute Code(s): E83.42 - HYPOMAGNESEMIA (3) Atrial fibrillation Current Visit: No Status: Chronic Qualifiers: Atrial fibrillation type: chronic Qualified Code(s): I48.2 - Chronic atrial fibrillation Assessment & Plan: Heart sounds RRR currently. Code(s): I48.91 - UNSPECIFIED ATRIAL FIBRILLATION (4) Diabetes mellitus Current Visit: No Status: Chronic Qualifiers: Diabetes mellitus type: type 2 Code(s): E11.9 - TYPE 2 DIABETES MELLITUS WITHOUT COMPLICATIONS (5) HTN (hypertension) Current Visit: No Status: Chronic Qualifiers: Hypertension type: essential hypertension Qualified Code(s): I10 - Essential (primary) hypertension Code(s): I10 - ESSENTIAL (PRIMARY) HYPERTENSION (6) Renal insufficiency Current Visit: No Status: Chronic Assessment & Plan: Cr is low currently. (7) HX: breast cancer Current Visit: Yes Status: Acute Code(s): Z85.3 - PERSONAL HISTORY OF MALIGNANT NEOPLASM OF BREAST
[2017-07-31] MEDS ORDERED: PROVENTIL 2.5 MG/3 ML NEB IH PRN (09:16)
--- NOTE | 2017-07-31 10:32 | XRAY ---
Exam: Two-view chest from 0434 hours on 07/31/2017 Comparison: AP portable chest film from 07/25/2017 and two-view chest from 09/11/2016. Indication: Short of air. Findings: AP and lateral upright images were obtained on the emergency department cart. The heart size appears at the upper limits of normal. There is at least a moderate sized retrocardiac hiatal hernia representing no change. Significant hyperinflation of the lungs is seen consistent with advanced COPD. A couple surgical clips overlie the left axilla. Apparently, the patient is status post left mastectomy. I do not see any significant lung consolidations or air space infiltrates. No central vascular congestion is seen. No pneumothorax or significant pleural effusion is evident. I cannot exclude minimal pleural reaction at the right lung base, as the right hemidiaphragm is less distinct as compared to the left hemidiaphragm on the AP image. Some chronic central bronchial wall thickening is seen. Impression: 1. The heart size appears at the upper limits of normal. No findings of acute heart failure or pulmonary edema are seen. 2. No significant air space infiltrates or pleural effusions are seen. Minimal pleural reaction adjacent to the right hemidiaphragmatic surface cannot be excluded. 3. Marked hyperinflation of the lungs consistent with advanced COPD. 4. There is at least a moderate sized retrocardiac hiatal hernia representing no change. 5. Status post left mastectomy. A couple surgical clips overlie the left axilla.
[2017-07-31] MEDS ORDERED: PROVENTIL 2.5 MG/3 ML NEB IH SCH (11:00)
[2017-07-31] MEDS ORDERED: Zofran 4 MG/2 ML VIAL IV PRN (11:30)
[2017-07-31] MEDS ORDERED: MEDICATION INTERVENTION MC PRN (11:34)
--- NOTE | 2017-07-31 11:53 | XRAY ---
Exam: CTA of the chest with IV contrast from 07/31/2017. CTDI: 20.94 Comparison: CTA of the chest with IV contrast from 07/03/2016. Indication: Dyspnea, elevated d-dimer (587). Technique: Post-IV contrast axial images were obtained through the chest using the PE protocol. 80 ML's of Isovue 370 contrast material was given intravenously. Reconstructed coronal MIP images and sagittal images were created and reviewed. The cytometry technologist stated that the patient was unable to lie in a completely supine position on the CT table. She had difficulty holding her breath. The patient appears rotated slightly toward the right. Findings: The central pulmonary arterial vasculature is adequately opacified. I see no filling defects to suggest acute or chronic pulmonary emboli. No thoracic aortic aneurysm or dissection is seen. The heart size appears borderline to slightly enlarged. Extensive coronary artery vascular calcification is seen. No abnormal mediastinal or perihilar soft tissue lymphadenopathy is seen. I again see a moderate size retrocardiac hiatal hernia. A small granulomatous calcification is seen within the medial left infrahilar projection. There is some asymmetric enlargement of the inferior aspect of the left lobe of the thyroid gland which extends through the thoracic inlet. There appears to be a 2 cm in diameter oval-shaped low-attenuation lesion within the lower pole of the left thyroid lobe. I believe this is unchanged from 05/03/2016. This would probably be difficult to image with ultrasound, as it appears retrosternal on axial image #70 of series #3. Previously noted mild posterior pleural effusions have largely resolved, although I believe there is a small amount of posterior compression atelectasis and mild posterior pleural thickening within the right lung. I believe there is a small amount of focally prominent posterior right apical pleural-parenchymal scarring on axial images #12 through #16 of series #4. Follow-up is indicated. Second, on axial images #28 through #30 there is a 7 mm in diameter nodule within the inferior aspect of the right upper lobe which is not seen on the prior study of 07/03/2016. Follow-up will be needed in this regard as well. Third, on axial image #29 there is a suggestion of a 4-5 mm nodule at the posterior right lung base on series #4. This is difficult to compare with the prior study because of the presence of the posterior right pleural effusion at that time. Fourth, on axial images #65 through #79 of series #3 there appear to be 2 soft tissue nodules adjacent to each other within the medial right lower lobe, the larger measuring about 7 mm in diameter on axial image #72 and the smaller one measuring about 5 mm in diameter on axial image #78. Follow-up will be needed. No other air space infiltrates or pneumothorax is seen. The patient is status post left mastectomy and a couple surgical clips are seen within the left axilla. Within the upper abdomen, the liver demonstrates some mild decreased attenuation. The liver reveals a 10 mm in diameter oval-shaped low-attenuation nodule at the upper lateral margin of the left hepatic lobe on axial image #118 and #119 which I believe is partially seen on axial image #121 from 07/03/2016 in retrospect. This likely represents a small hepatic cyst. It measures +9.5 Hounsfield units on axial image #118. In addition, there is a smaller stable, probable 7 mm cyst seen more inferiorly within the left lobe of the liver on axial image #128 which is essentially unchanged from axial image #131 from 07/03/2016. The adrenal glands appear unremarkable. Cholelithiasis is partially seen on the most inferior images. I also note of bilateral renal cysts, the largest measuring 4.7 cm in maximum diameter on the right. The superior portion of a ventral abdominal hernia is included on the 2 most inferior images. Nondilated small bowel is partially seen within this ventral hernia. This is incompletely evaluated by this study. Correlate clinically as to whether further investigation with a CT of the abdomen and pelvis is needed. Skeleton: A mild generalized compression fracture deformity of T9 with greater loss of the anterior vertebral body height than the posterior vertebral body height is again seen representing no change from 07/03/2016. Scoliosis is evident. There is a prominent Schmorl's node within the central aspect of the superior vertebral endplate of T12. There is also some increased loss of the T11 vertebral body height as compared 07/03/2016, largely due to erosions or Schmorl's nodes involving the inferior vertebral endplate of T11. Discitis would be in the differential diagnosis, although I believe this is less likely. Impression: 1. The current study reveals no CT evidence of acute or recurrent pulmonary embolism, thoracic aortic aneurysm, or aortic dissection. 2. Previously noted bilateral pleural effusions have essentially resolved, although I believe there is some residual minor posterior pleural thickening and adjacent subpleural atelectatic changes on the right. 3. Furthermore, there appear to be several small nodules at the inferior aspect of the right upper lobe and the posterior right lung base within the right lower lobe, as described above, which cannot be confirmed as stable. A follow-up CT examination in 6 months is recommended for monitoring. Also, there is some mild posterior right apical pleural-parenchymal density which likely represents scarring/atelectasis. The follow-up CT study will be helpful in this regard as well for monitoring. 4. Moderate sized hiatal hernia and inferior pole left thyroid lobe 2 cm nodule are again seen representing no significant change from 07/03/2016. 5. Other incidental findings within the abdomen, as described above. 6. Skeletal findings, as described above.
[2017-07-31] MEDS: PRADAXA 75 MG PO SCH ×2 (12:38→21:40)
[2017-07-31] MEDS: MAG-OX 400 PO SCH (12:38)
[2017-07-31] MEDS: Cardizem CD 180 MG PO SCH (12:39)
[2017-07-31] MEDS: ZOCOR 20MG PO SCH (12:39)
[2017-07-31] MEDS: Protonix 40MG Tablet PO SCH (12:40)
[2017-07-31] MEDS: TENORMIN 50 MG PO SCH (12:40)
[2017-07-31] MEDS: Neurontin 100 MG PO SCH ×2 (12:40→21:49)
[2017-07-31] MEDS: NORVASC 5 MG PO SCH (12:43)
[2017-07-31] MEDS: ACCOLATE 20 MG PO SCH ×2 (12:43→21:40)
[2017-07-31] MEDS: Lasix 40 MG PO SCH (12:56)
[2017-07-31] MEDS: Klor Con 10 MEQ PO SCH (12:56)
[2017-07-31] MEDS: Senokot-S Tablet PO SCH ×2 (12:56→21:39)
[2017-07-31] MEDS: Phenergan 25 MG INJ IV PRN ×2 (13:38→18:57)
[2017-07-31] MEDS: Sodium Chloride 0.9% 1000 ML 1,000 ML IV SCH (14:52)
[2017-07-31] MEDS: Norco 10/325 MG Tablet PO PRN (21:43)
[2017-07-31] MEDS: BENADRYL 25 MG CAPSULE PO SCH (21:44)
[2017-07-31] MEDS: TYLENOL EXTRA STRENGTH 500 MG PO SCH (21:45)
[2017-07-31] MEDS ORDERED: [UNRECOGNIZED DRUG - OTHER] PO SCH (22:00)
[2017-07-31] MEDS ORDERED: ACETAMINOPHEN PO SCH (22:00)
[2017-07-31] MEDS ORDERED: NON-FORMULARY ITEM (Dabigatran Etexilate Mesylate [Pradaxa] 150 MG) PO SCH (22:00)
[2017-07-31] MEDS ORDERED: DIPHENHYDRAMINE PO SCH (22:00)
[2017-08-01] MEDS: Sodium Chloride 0.9% 1000 ML 1,000 ML IV SCH ×3 (00:29→22:21)
[2017-08-01 05:40] LABS: BASOPHIL % 0.4 % (0.0-0.4); Eosinophil % 8.2 % (0.00-5.0); Granulocytes % 49.1 % (36.0-66.0); Mean Cell Volume 100.9 fl (78-100); Mean Corpuscular Hemoglobin 30.4 pg (26-32); Mean Platelet Volume 11.5 fl (6-9.5); Monocytes % 12.3 % (0.0-12.0); Platelet Count 174 K/mm3 (150-450); Red Blood Count 3.35 M/mm3 (4.1-5.4)
[2017-08-01 06:04] LABS: ALBUMIN 2.6 g/dL (3.4-5.0); ALKALINE PHOSPHATASE 79 U/L (46-116); BLOOD UREA NITROGEN 4 mg/dL (9-20); CHLORIDE 114 mEq/L (98-107); Carbon Dioxide 25.4 mEq/L (21-32); Glucose 99 MG/DL (70-110); Potassium 3.5 mEq/L (3.5-5.1); SGOT/AST 29 U/L (15-37); SGPT/ALT 13 U/L (12-78); SODIUM 149 mEq/L (136-145)
[2017-08-01] MEDS: Neurontin 100 MG PO SCH ×3 (08:18→22:22)
--- NOTE | 2017-08-01 08:37 | PCM.NOTE ---
Date and Time: 08/01/17 0832 Subjective Assessment: She is feeling better today, no nausea and tolerated breakfast! - Review of Systems Constitutional: No Fever Respiratory: Cough Objective Exam General Appearance: no apparent distress Neurologic Exam: alert, oriented x 3, cooperative Skin Exam: normal color, warm, dry Respiratory Exam: lungs clear, diminished breath sounds, No crackles/rales, No rhonchi, No wheezing Cardiovascular Exam: regular rate/rhythm, murmur (III/ sys murmur) OBJECTIVE DATA Vital Signs: Vital Signs - 24 hr Temp Pulse Resp BP BP Pulse Ox 08/01/17 07:21 64 20 92 L 08/01/17 07:09 97.8 F 74 20 146/67 92 L 08/01/17 06:00 16 08/01/17 04:15 98.1 F 74 19 128/64 93 L 08/01/17 02:00 19 08/01/17 00:00 98.2 F 69 17 122/59 91 L 07/31/17 22:00 17 07/31/17 20:00 98.6 F 67 16 143/67 97 07/31/17 18:00 16 07/31/17 15:00 98.6 F 68 18 118/59 94 L 07/31/17 14:00 20 07/31/17 13:00 89 L 07/31/17 12:40 90 130/54 07/31/17 12:19 81 20 95 07/31/17 11:37 99.0 F 82 18 155/70 92 L 07/31/17 08:57 82 18 93 L Oxygen-Last 24 hours O2 Percentage 2 Liters = 28% O2 Percentage 2 Liters = 28% O2 Percentage 2 Liters = 28% O2 Percentage 2 Liters = 28% Pain Assessment - Last Documented Pain Intensity 6 Pain Scale Used 0-10 Pain Scale Intake and Output: Intake & Output 07/29/17 07/30/17 07/31/17 08/01/17 11:59 11:59 11:59 11:59 Intake Total 2627 Output Total 0 Balance 577 Weight 74.344 kg 73.845 kg Lab Results: Accuchecks Date 07/31/17 Date 07/31/17 Date 07/31/17 Time 22:00 Time 16:30 Time 11:30 Accucheck Value: 126 Accucheck Value: 176 Accucheck Value: 159 Lab Results-Last 24 Hours 07/31/17 07/31/17 07/31/17 Range/Units 10:30 13:50 17:10 WBC (4.0-10.5) K/mm3 RBC (4.1-5.4) M/mm3 Hgb (12.0-16.0) gm/dl Hct (35-47) % MCV (78-100) fl MCH (26-32) pg MCHC (32-36) g/dl RDW (11.5-14.0) % Plt Count (150-450) K/mm3 MPV (6-9.5) fl Gran % (36.0-66.0) % Lymphocytes % (24.0-44.0) % Monocytes % (0.0-12.0) % Eosinophils % (0.00-5.0) % Basophils % (0.0-0.4) % Basophils # (0-0.4) Sodium (136-145) mEq/L Potassium (3.5-5.1) mEq/L Chloride (98-107) mEq/L Carbon Dioxide (21-32) mEq/L Anion Gap (5-15) MEQ/L BUN (9-20) mg/dL Creatinine (0.55-1.30) mg/dl Estimated GFR ML/MIN Glucose (70-110) MG/DL Calcium (8.5-10.1) mg/dL Magnesium (1.8-2.4) mg/dL Total Bilirubin (0.2-1.0) mg/dL AST (15-37) U/L ALT (12-78) U/L Alkaline Phosphatase (46-116) U/L Troponin I < 0.017 0.018 0.020 (0.000-0.056) ng/ml Serum Total Protein (6.4-8.2) gm/dL Albumin (3.4-5.0) g/dL 08/01/17 08/01/17 Range/Units 05:15 05:15 WBC 5.0 (4.0-10.5) K/mm3 RBC 3.35 L (4.1-5.4) M/mm3 Hgb 10.2 L (12.0-16.0) gm/dl Hct 33.8 L (35-47) % MCV 100.9 H (78-100) fl MCH 30.4 (26-32) pg MCHC 30.2 L (32-36) g/dl RDW 14.0 (11.5-14.0) % Plt Count 174 (150-450) K/mm3 MPV 11.5 H (6-9.5) fl Gran % 49.1 (36.0-66.0) % Lymphocytes % 30.0 (24.0-44.0) % Monocytes % 12.3 H (0.0-12.0) % Eosinophils % 8.2 H (0.00-5.0) % Basophils % 0.4 (0.0-0.4) % Basophils # 0.02 (0-0.4) Sodium 149 H (136-145) mEq/L Potassium 3.5 (3.5-5.1) mEq/L Chloride 114 H (98-107) mEq/L Carbon Dioxide 25.4 (21-32) mEq/L Anion Gap 13.0 (5-15) MEQ/L BUN 4 L (9-20) mg/dL Creatinine 0.66 (0.55-1.30) mg/dl Estimated GFR > 60 ML/MIN Glucose 99 (70-110) MG/DL Calcium 8.6 (8.5-10.1) mg/dL Magnesium 2.0 (1.8-2.4) mg/dL Total Bilirubin 0.30 (0.2-1.0) mg/dL AST 29 (15-37) U/L ALT 13 (12-78) U/L Alkaline Phosphatase 79 (46-116) U/L Troponin I (0.000-0.056) ng/ml Serum Total Protein 6.0 L (6.4-8.2) gm/dL Albumin 2.6 L (3.4-5.0) g/dL Assessment/Plan (1) Pneumonia Current Visit: Yes Status: Acute Qualifiers: Pneumonia type: due to unspecified organism Laterality: right Lung location: lower lobe of lung Qualified Code(s): J18.1 - Lobar pneumonia, unspecified organism Assessment & Plan: Some improvement today, on Day #3 of rocephin and zithromax. Still not feeling back to baseline. Systemic symptoms are improved. Will need at least another day of antibiotics before discharged, and possibly several days. Code(s): J18.9 - PNEUMONIA, UNSPECIFIED ORGANISM (2) Hypomagnesemia Current Visit: Yes Status: Acute Assessment & Plan: Normal this morning. Code(s): E83.42 - HYPOMAGNESEMIA (3) Atrial fibrillation Current Visit: No Status: Chronic Qualifiers: Atrial fibrillation type: chronic Qualified Code(s): I48.2 - Chronic atrial fibrillation Assessment & Plan: reg rhythm this morning. On pradaxa. Code(s): I48.91 - UNSPECIFIED ATRIAL FIBRILLATION (4) Diabetes mellitus Current Visit: No Status: Chronic Qualifiers: Diabetes mellitus type: type 2 Assessment & Plan: BS mid 100s since admission Code(s): E11.9 - TYPE 2 DIABETES MELLITUS WITHOUT COMPLICATIONS (5) HTN (hypertension) Current Visit: No Status: Chronic Qualifiers: Hypertension type: essential hypertension Qualified Code(s): I10 - Essential (primary) hypertension Assessment & Plan: Mildly elevated, will continue to observe on home meds. Code(s): I10 - ESSENTIAL (PRIMARY) HYPERTENSION (6) Renal insufficiency Current Visit: No Status: Chronic Assessment & Plan: Kidney function is good here. (7) HX: breast cancer Current Visit: Yes Status: Acute Code(s): Z85.3 - PERSONAL HISTORY OF MALIGNANT NEOPLASM OF BREAST
[2017-08-01] MEDS: ROCEPHIN 1 Gm-D5w 50 ml Bag** 1 G/50 ML IVPB IV SCH (09:42)
[2017-08-01] MEDS: PRADAXA 75 MG PO SCH ×2 (09:42→21:49)
[2017-08-01] MEDS: Protonix 40MG Tablet PO SCH (09:43)
[2017-08-01] MEDS: ZOCOR 20MG PO SCH (09:43)
[2017-08-01] MEDS: NORVASC 5 MG PO SCH (09:43)
[2017-08-01] MEDS: ACCOLATE 20 MG PO SCH ×2 (09:44→21:51)
[2017-08-01] MEDS: Senokot-S Tablet PO SCH ×3 (09:44→21:51)
[2017-08-01] MEDS: MAG-OX 400 PO SCH (09:44)
[2017-08-01] MEDS: Klor Con 10 MEQ PO SCH (09:44)
[2017-08-01] MEDS: Norco 10/325 MG Tablet PO PRN (09:45)
[2017-08-01] MEDS: Lasix 40 MG PO SCH (09:45)
[2017-08-01] MEDS: Cardizem CD 180 MG PO SCH (09:45)
[2017-08-01] MEDS: TENORMIN 50 MG PO SCH (09:47)
[2017-08-01] MEDS ORDERED: OXAZEPAM 15 MG PO SCH (10:00)
[2017-08-01] MEDS ORDERED: DILTIAZEM HCL 180 MG PO SCH (10:00)
[2017-08-01] MEDS ORDERED: NON-FORMULARY ITEM (Amlodipine Besylate 10 Mg [Norvasc 10 Mg] 10 MG) PO SCH (10:00)
[2017-08-01] MEDS ORDERED: NON-FORMULARY ITEM (Potassium Chloride 20 Meq Tab [Potassium Chloride 20 Meq Tablet] 20 ME PO SCH (10:00)
[2017-08-01] MEDS ORDERED: NON-FORMULARY ITEM (Atorvastatin Calcium 20 MG) PO SCH (10:00)
[2017-08-01] MEDS ORDERED: PATIENT OWN MEDICATION PO PRN (10:23)
[2017-08-01] MEDS: Zithromax 500 MG/ 250 ML NaCl Premix 500 MG/250 ML IVPB IV SCH (10:34)
[2017-08-01] MEDS: BENADRYL 25 MG CAPSULE PO SCH (21:51)
[2017-08-01] MEDS: TYLENOL EXTRA STRENGTH 500 MG PO SCH (21:52)
[2017-08-02] MEDS: Norco 10/325 MG Tablet PO PRN (04:57)
[2017-08-02 07:18] VITALS: O2SAT 94
[2017-08-02] MEDS: Sodium Chloride 0.9% 1000 ML 1,000 ML IV SCH (08:42)
[2017-08-02] MEDS: ROCEPHIN 1 Gm-D5w 50 ml Bag** 1 G/50 ML IVPB IV SCH (08:43)
[2017-08-02] MEDS: Cardizem CD 180 MG PO SCH (08:47)
[2017-08-02] MEDS: ACCOLATE 20 MG PO SCH (08:47)
[2017-08-02] MEDS: Lasix 40 MG PO SCH (08:47)
[2017-08-02] MEDS: TENORMIN 50 MG PO SCH (08:47)
[2017-08-02] MEDS: PRADAXA 75 MG PO SCH (08:47)
[2017-08-02] MEDS: Protonix 40MG Tablet PO SCH (08:48)
[2017-08-02] MEDS: ZOCOR 20MG PO SCH (08:48)
[2017-08-02] MEDS: NORVASC 5 MG PO SCH (08:48)
[2017-08-02] MEDS: MAG-OX 400 PO SCH (08:48)
[2017-08-02] MEDS: Klor Con 10 MEQ PO SCH (08:49)
[2017-08-02] MEDS: Neurontin 100 MG PO SCH (08:49)
--- NOTE | 2017-08-02 08:54 | PCM.DS ---
Discharge Summary Date of Admission: 07/31/17 07:44 Admitting Physician: JAE OCASIO Primary Care Provider: RAY OCHOA Allergies Allergies metoclopramide HCl [From Reglan] Allergy (Verified 07/31/17 04:27) Sulfa (Sulfonamide Antibiotics) Allergy (Verified 07/31/17 04:27) Hospital Summary - Hospital Course Hospital Course: Pt admitted through ER with chest pain and feeling of impending doom, found to have UTI and pneumonia and admitted for Iv antibiotics. She felt better yesterday and was able to tolerate po. Last night she was on 2L O2, but she states at home she's on 4L O2 at night. This morning she is feeling well aside from back pain, which is chronic for her. Will have nurses get the pt up and about today, if she desaturates can wear some O2 at home, but will send her home on po antibiotics. - Vitals & Intake/Output Vital Signs: Vital Signs Temperature 97.9 F 08/02/17 06:53 Pulse Rate 64 08/02/17 07:14 Respiratory Rate 18 08/02/17 07:14 Blood Pressure 124/60 08/02/17 06:53 O2 Sat by Pulse Oximetry 94 L 08/02/17 07:14 Oxygen-Last Documented O2 Percentage 4 Liters = 36% Intake & Output: Intake & Output 07/30/17 07/31/17 08/01/17 08/02/17 11:59 11:59 11:59 11:59 Intake Total 3047 5774 Output Total 2500 2450 Balance 547 3324 Weight 74.344 kg 73.845 kg 75.659 kg - Lab Result Diagrams: 08/01/17 05:15 08/01/17 05:15 Lab Results-Last 24 Hrs: Accuchecks Date 08/01/17 Time 22:00 Accucheck Value: 113 Accucheck Value: 112 Accucheck Value: 105 Accucheck Value: 147 Micro Results-Entire Visit: Accuchecks Date 08/01/17 Time 22:00 Accucheck Value: 113 Accucheck Value: 112 Accucheck Value: 105 Accucheck Value: 147 - Procedures and Test Procedures and Tests throughout Hospitalization: Therapy Orders & Screens 07/31/17 08:38 RT Screen per Nursing Assess ONCE Comment: Protocol Order Physician Instructions: Greater than 3 points order RT Admission Screen Reason For Exam: Triggered on Admission Diagnosis: pneumonia Diagnosis: pneumonia Pneumonia: Yes Home O2: Yes Asthma: Yes CHF: No Home CPAP/BIPAP: No Home Nebs/MDI: No Total Points: 12 07/31/17 09:17 Respiratory Nebulizer Comment: albuterol q4prn Diagnosis: pneumonia Discharge Exam General Appearance: no apparent distress, obese Neurologic Exam: alert, oriented x 3, cooperative Skin Exam: warm, dry, pale (as usual) Eye Exam: eyes nml inspection Respiratory Exam: diminished breath sounds, No crackles/rales, No rhonchi, No wheezing Cardiovascular Exam: regular rate/rhythm, normal heart sounds, murmur (III/ sys murmur) Gastrointestinal/Abdomen Exam: soft Extremity Exam: normal inspection Back Exam: normal inspection Final Diagnosis/Problem List - Final Discharge Diagnosis/Problem (1) Pneumonia Current Visit: Yes Status: Acute Assessment & Plan: She is much better, home on 10d po cefdinir today. Finished 3d IV zithromax. O2 at night as usual, in the daytime if needed. (2) UTI (urinary tract infection) Current Visit: Yes Status: Acute Assessment & Plan: culture pending. home on antibiotics as above. (3) Hypomagnesemia Current Visit: Yes Status: Resolved (4) Atrial fibrillation Current Visit: No Status: Chronic Assessment & Plan: stable (5) Diabetes mellitus Current Visit: No Status: Resolved Assessment & Plan: stable (6) HTN (hypertension) Current Visit: No Status: Resolved Assessment & Plan: stable (7) Renal insufficiency Current Visit: No Status: Chronic Assessment & Plan: good here (8) HX: breast cancer Current Visit: Yes Status: Acute - Discharge Disposition: Home, Self-Care Condition: Stable Prescriptions: New Albuterol Sulfate [Albuterol Sulfate Hfa] 4 puff IH QID #1 hfa.aer.ad Cefdinir 300 mg [Omnicef 300 mg] 300 mg PO BID #20 capsule Continue Zafirlukast 20 mg [Accolate 20 mg] 20 mg PO BID Glimepiride 2 mg [Amaryl 2 MG] 2 mg PO DAILY Atorvastatin Calcium [Lipitor 20MG Tablet] 20 mg PO DAILY Atenolol 50 mg [Tenormin 50 mg] 50 mg PO DAILY Gabapentin [Neurontin] 200 mg PO BID PANTOPRAZOLE 40 mg Tablet [Protonix 40MG Tablet] 40 mg PO DAILY #30 tab Dabigatran Etexilate Mesylate [Pradaxa] 150 mg PO BID #60 capsule Potassium Chloride 20 Meq Tab [Potassium Chloride 20 MEQ TABLET] 20 meq PO DAILY #30 tab Magnesium Oxide 400 mg [Mag-Ox 400] 400 mg PO DAILY Oxazepam 15 mg PO HS Acetaminophen/Diphenhydramine [Tylenol Pm Ex-Strength Caplet] 2 each PO HS Diltiazem HCl [Cardizem] 180 mg PO DAILY #30 Cyanocobalamin/Folic Acid [Vitamin X88-Gfjam Acid Tablet] 1 each PO DAILY Vit A/Vit C/Vit E/Zinc/Copper [Preservision Areds Tablet] 2 each PO DAILY Amlodipine Besylate 10 mg [Norvasc 10 MG] 10 mg PO DAILY Furosemide 40 mg [Lasix 40 MG] 40 mg PO DAILY Gabapentin 100 mg PO LUNCH Hydrocodone Bit/Acetaminophen [Hydrocodon-Acetaminophn 10-325] 1 each PO BID PRN Sennosides/Docusate Sodium [Docusate Sodium-Senna Tablet] 1 each PO HS Cholecalciferol (Vitamin D3) [Vitamin D3] 1,000 unit PO DAILY Follow up with: RAY OCHOA [Primary Care Provider] -
[2017-08-02 10:50] VITALS: BP 120/68; PULSE 78
[2017-08-02] MEDS: Zithromax 500 MG/ 250 ML NaCl Premix 500 MG/250 ML IVPB IV SCH (10:55)
== END 2017-08-02 11:20 | disposition home or self-care (01) ==
LOC: ED 04:06 → MED SURG 07:44
PROVIDERS: ADMIT Family Medicine; ATTEND Family Medicine
DX: J18.1 Lobar pneumonia, unspecified organism (principal); N39.0 Urinary tract infection, site not specified; E83.42 Hypomagnesemia; I48.2 Chronic atrial fibrillation; E11.9 Type 2 diabetes mellitus without complications; I10 Essential (primary) hypertension; N28.9 Disorder of kidney and ureter, unspecified; Z85.3 Personal history of malignant neoplasm of breast; Z79.899 Other long term (current) drug therapy
CPT/HCPCS: 36000; 36415; 71020; 71260; 80053; 81000; 82962; 83036; 83735; 83880; 84484; 85025; 85379; 86308; 87040; 87070; 87077; 87086; 87186; 87430; 87631; 93005; 93041; 93268; 94640; 94760; 96360; 96361; 96365; 96366; 96367; 96374; 96375; 99285; G0378; J0456; J0696; J2405; J2550; J3475; Q0162; A9270-GY

== ENCOUNTER 2017-08-08 05:59 | Inpatient (IN) | payer MEDICARE ==
[2017-08-08] MEDS ORDERED: Hydromorphone 1 mg/ml Ampule IV ONE (06:21)
[2017-08-08] MEDS ORDERED: Phenergan 25 MG INJ IV ONE (06:21)
[2017-08-08] MEDS ORDERED: Sodium Chloride 0.9% 1000 ML 1,000 ML IV STA (06:21)
[2017-08-08] MEDS ORDERED: Phenergan 25 MG INJ ONE (06:27)
[2017-08-08] MEDS ORDERED: Hydromorphone 1 mg/ml Ampule ONE (06:28)
[2017-08-08] MEDS ORDERED: Sodium Chloride 0.9% 1000 ML 1,000 ML ONE ×2 (06:29→07:33)
--- NOTE | 2017-08-08 06:31 | ERPHSYRPT ---
- History of Present Illness Time Seen by Provider: 08/08/17 06:14 Historian: patient Exam Limitations: no limitations Patient Subjective Stated Complaint: pt states she has been having nausea and vomiting for several days. states she was admitted recently for pne. states she has not been able to eat anything since sunday. pt also c/o abd pain at times. Triage Nursing Assessment: pt awake and alert, asnwers qeustions approp. pt to room per wheelchiar, transfer to stretcher with assist of 2 with unsteady gait ntoed. respirations nonlabored. abd sof, large hernia noted. bowel sounds present. pt belching frequently. no emesis at this time. Physician History: FOR THE PAST 3 DAYS PT HAS HAD DECREASED APPETITE, LEFT MID-LOWER ABDOMINAL PAIN , NAUSEA, DRY HEAVES AND OCCASIONAL SHORTNESS OF AIR. PT ALSO C/O A HEADACHE YESTERDAY BUT NONE TODAY. LAST BM WAS YESTERDAY & WNL. Allergies/Adverse Reactions: metoclopramide HCl [From Reglan] Allergy (Verified 08/08/17 06:12) Sulfa (Sulfonamide Antibiotics) Allergy (Verified 08/08/17 06:12) Home Medications: Atenolol 50 mg [Tenormin 50 mg] 50 mg PO DAILY 07/03/16 [History] Atorvastatin Calcium [Lipitor 20MG Tablet] 20 mg PO DAILY 07/03/16 [History] Gabapentin [Neurontin] 200 mg PO BID 07/03/16 [History] Glimepiride 2 mg [Amaryl 2 MG] 2 mg PO DAILY 07/03/16 [History] Zafirlukast 20 mg [Accolate 20 mg] 20 mg PO BID 07/03/16 [History] Acetaminophen/Diphenhydramine [Tylenol Pm Ex-Strength Caplet] 2 each PO HS 08/26 [History] Magnesium Oxide 400 mg [Mag-Ox 400] 400 mg PO DAILY 08/26/16 [History] Oxazepam 15 mg PO HS 08/26/16 [History] Cyanocobalamin/Folic Acid [Vitamin W06-Chyis Acid Tablet] 1 each PO DAILY [History] Amlodipine Besylate 10 mg [Norvasc 10 MG] 10 mg PO DAILY 07/31/17 [History] Cholecalciferol (Vitamin D3) [Vitamin D3] 1,000 unit PO DAILY 07/31/17 [History] Furosemide 40 mg [Lasix 40 MG] 40 mg PO DAILY 07/31/17 [History] Gabapentin 100 mg PO LUNCH 07/31/17 [History] Hydrocodone Bit/Acetaminophen [Hydrocodon-Acetaminophn 10-325] 1 each PO BID PRN 07/31/17 [History] Sennosides/Docusate Sodium [Docusate Sodium-Senna Tablet] 1 each PO HS 07/31/17 [History] Vit A/Vit C/Vit E/Zinc/Copper [Preservision Areds Tablet] 2 each PO DAILY [History] Hx Tetanus, Diphtheria Vaccination/Date Given: Yes (up to date) Hx Influenza Vaccination/Date Given: Yes Hx Pneumococcal Vaccination/Date Given: Yes Immunizations Up to Date: Yes - Review of Systems Respiratory: Dyspnea Cardiac: No Chest Pain Abdominal/Gastrointestinal: Abdominal Pain, Nausea, Appetite Changes (DECREASED FOR THE PAST 3 DAYS), Other (DRY HEAVES) Neurological: Headache All Other Systems: Reviewed and Negative - Past Medical History Pertinent Past Medical History: Yes Neurological History: No Pertinent History ENT History: No Pertinent History Cardiac History: Arrhythmia, Other Respiratory History: Asthma, Pneumonia Endocrine Medical History: Diabetes Type II Musculoskeletal History: No Pertinent History GI Medical History: Hernia History: No Pertinent History Psycho-Social History: No Pertinent History Female Reproductive Disorders: Breast Cancer - Past Surgical History Past Surgical History: Yes Neuro Surgical History: No Pertinent History Cardiac: No Pertinent History Respiratory: No Pertinent History Gastrointestinal: No Pertinent History Genitourinary: No Pertinent History Musculoskeletal: No Pertinent History Female Surgical History: Mastectomy Other Surgical History: tonsillectomy, L mastectomy april 10 - Social History Smoking Status: Former smoker How long have you smoked: 10 Exposure to second hand smoke: No Drug Use: none Patient Lives Alone: No - Nursing Vital Signs Nursing Vital Signs: Initial Vital Signs Temperature 99.1 F 08/08/17 06:00 Pulse Rate 79 08/08/17 06:00 Respiratory Rate 20 08/08/17 06:00 Blood Pressure 124/65 08/08/17 06:00 O2 Sat by Pulse Oximetry 96 08/08/17 06:00 Pain Scale Pain Intensity 6 - Physical Exam General Appearance: alert Eye Exam: PERRL/EOMI Ears, Nose, Throat Exam: pharynx normal, moist mucous membranes, other (CERUMEN OCCLUSION OF RIGHT EAC) Neck Exam: normal inspection Respiratory Exam: other (MINIMAL CREPS LEFT POSTERIOR BASE) Cardiovascular Exam: murmur (3/6 SYSTOLIC MURMUR) Gastrointestinal/Abdomen Exam: soft, other (B.S. MILDLY HYPERACTIVE AND NORMOTONIC; LARGE MIDLINE HERNIA WITH TENDERNESS OVER LEFT MID-LOWER ABDOMEN.) Back Exam: normal range of motion Extremity Exam: normal inspection, No pedal edema Neurologic Exam: alert, cooperative Skin Exam: warm, dry SpO2 Interpretation: normal SpO2: 96 Oxygen Delivery: Room Air - Course Nursing assessment & vital signs reviewed: Yes EKG Interpreted by Me: RATE (77), Sinus Rhythm, NORMAL AXIS, NORMAL INTERVALS, Other (ST DEPRESSION V2-V6) - Radiology Exams Chest X-ray Interpretation: Interpreted by me, No Pneumonia - CT Exams Abdomen/Pelvis CT Interpretation: Discussed w/radiologist (COMPARED TO 08/26/16: TINY BIBASILAR EFFUSIONS. AGAIN MODERATE HIATAL HERNIA WITH INTRATHORACIC STOMACH, LARGE VENTRAL HERNIA WITH INCREASING HERNIATED BOWEL LOOPS BUT NO INCARCERATION/ OBSTRUCTION; COLONIC DIVERTICULOSIS. BILATERAL RENAL CYSTS & TINY GALLSTONES. NEW KIRKLAND CATHETER.) Ordered Tests: Active Orders 24 hr Category Date Time Status Cath for Specimen-Straight STAT Care 08/08/17 06:22 Active Catheter-[place] STAT Care 08/08/17 06:57 Active EKG-ER Only STAT Care 08/08/17 06:21 Active IV Insertion STAT Care 08/08/17 06:21 Active ABDOMEN AND PELVIS W/0 CONTRAS [CT] Stat Exams 08/08/17 06:21 Taken CHEST 1 VIEW (PORTABLE) Stat Exams 08/08/17 06:21 Taken AMYLASE Stat Lab 08/08/17 06:30 Completed BLOOD CULTURE Stat Lab 08/08/17 08:05 Ordered CBC W DIFF Stat Lab 08/08/17 06:30 Completed CMP Stat Lab 08/08/17 06:30 Completed CULTURE,URINE Stat Lab 08/08/17 06:45 Received LIPASE Stat Lab 08/08/17 06:30 Completed MAGNESIUM Stat Lab 08/08/17 06:30 Completed TROPONIN Q3H Lab 08/08/17 06:30 Completed TROPONIN Q3H Lab 08/08/17 09:30 Ordered TROPONIN Q3H Lab 08/08/17 12:30 Ordered TROPONIN Q3H Lab 08/08/17 15:30 Ordered TROPONIN Q3H Lab 08/08/17 18:30 Ordered UA W/ MICROSCOPIC Stat Lab 08/08/17 06:45 Completed Medication Summary Generic Name Dose Route Start Last Admin Trade Name Berenice PRN Reason Stop Dose Admin Potassium Chloride 20 meq in 100 mls @ 50 mls/hr 08/08/17 07:23 08/08/17 07: 25 Potassium Chloride 20 Meq In Water 100ml IV 08/08/17 09:22 50 mls/hr STAT ONE Administration Levofloxacin/Dextrose 500 mg in 100 mls @ 100 mls/hr 08/08/17 07:27 Levofloxacin 500mg/100ml D5w IV 08/08/17 08:26 STAT STA Sodium Chloride 1,000 mls @ 50 mls/hr 08/08/17 07:30 08/08/17 07:57 Sodium Chloride 0.9% 1000 Ml IV 09/07/17 07:29 50 mls/hr .Q20H RICHARD Administration Discontinued Medications Generic Name Dose Route Start Last Admin Trade Name Berenice PRN Reason Stop Dose Admin Hydromorphone HCl 0.5 mg 08/08/17 06:21 08/08/17 06:34 Hydromorphone 1 Mg/Ml Ampule IV 08/08/17 06:22 0.5 mg STAT ONE Administration Hydromorphone HCl Confirm 08/08/17 06:28 Hydromorphone 1 Mg/Ml Ampule Administered 08/08/17 06:29 Dose 1 mg .ROUTE .STK-MED ONE Sodium Chloride 1,000 mls @ 999 mls/hr 08/08/17 06:21 08/08/17 06:36 Sodium Chloride 0.9% 1000 Ml IV 08/08/17 07:21 999 mls/hr .Q1H1M STA Administration Sodium Chloride Confirm 08/08/17 06:29 Sodium Chloride 0.9% 1000 Ml Administered 08/08/17 06:30 Dose 1,000 mls @ ud .ROUTE .STK-MED ONE Potassium Chloride Confirm 08/08/17 07:25 Potassium Chloride 20 Meq In Water 100ml Administered 08/08/17 07:26 Dose 100 mls @ ud IV .STK-MED ONE Promethazine HCl 12.5 mg 08/08/17 06:21 08/08/17 06:36 Phenergan 25 Mg Inj IV 08/08/17 06:22 12.5 mg STAT ONE Administration Promethazine HCl Confirm 08/08/17 06:27 Phenergan 25 Mg Inj Administered 08/08/17 06:28 Dose 25 mg .ROUTE .STK-MED ONE Lab/Rad Data: Laboratory Result Diagrams 08/08/17 06:30 08/08/17 06:30 Laboratory Results 08/08/17 08/08/17 08/08/17 Range/Units 06:45 06:30 06:30 WBC (4.0-10.5) K/mm3 RBC (4.1-5.4) M/mm3 Hgb (12.0-16.0) gm/dl Hct (35-47) % MCV (78-100) fl MCH (26-32) pg MCHC (32-36) g/dl RDW (11.5-14.0) % Plt Count (150-450) K/mm3 MPV (6-9.5) fl Gran % (36.0-66.0) % Lymphocytes % (24.0-44.0) % Monocytes % (0.0-12.0) % Eosinophils % (0.00-5.0) % Basophils % (0.0-0.4) % Basophils # (0-0.4) Sodium 146 H (136-145) mEq/L Potassium 3.0 L* (3.5-5.1) mEq/L Chloride 108 H (98-107) mEq/L Carbon Dioxide 25.3 (21-32) mEq/L Anion Gap 15.7 H (5-15) MEQ/L BUN 13 (9-20) mg/dL Creatinine 1.00 (0.55-1.30) mg/dl Estimated GFR 56 ML/MIN Glucose 161 H (70-110) MG/DL Calcium 9.3 (8.5-10.1) mg/dL Magnesium 2.0 (1.8-2.4) mg/dL Total Bilirubin 0.40 (0.2-1.0) mg/dL AST 26 (15-37) U/L ALT 12 (12-78) U/L Alkaline Phosphatase 81 (46-116) U/L Troponin I 0.027 (0.000-0.056) ng/ml Serum Total Protein 6.6 (6.4-8.2) gm/dL Albumin 3.0 L (3.4-5.0) g/dL Amylase 39 (25-115) U/L Lipase 51 L (73-393) U/L Ur Collection Type CLEAN CATCH Urine Color YELLOW (YELLOW) Urine Appearance HAZY (CLEAR) Urine pH 7.0 (5-6) Ur Specific [place] 1.010 (1.005-1.025) Urine Protein 100 (Negative) Urine Ketones MODERATE (NEGATIVE) Urine Blood 250 (0-5) Grey/ul Urine Nitrite NEGATIVE (NEGATIVE) Urine Bilirubin NEGATIVE (NEGATIVE) Urine Urobilinogen NORMAL (0-1) mg/dL Ur Leukocyte Esterase 1+ (NEGATIVE) Urine Microscopic RBC 5-10 (0-2) /HPF Urine Microscopic WBC 5-10 (0-5) /HPF Ur Epithelial Cells MODERATE (FEW) /HPF Urine Bacteria MODERATE (NEGATIVE) /HPF Urine Mucus SLIGHT (NEGATIVE) /HPF Urine Glucose NEGATIVE (NEGATIVE) mg/dL Specimen Received 08-08 0645 08/08/17 Range/Units 06:30 WBC 5.5 (4.0-10.5) K/mm3 RBC 3.68 L (4.1-5.4) M/mm3 Hgb 11.2 L (12.0-16.0) gm/dl Hct 35.9 (35-47) % MCV 97.6 (78-100) fl MCH 30.4 (26-32) pg MCHC 31.2 L (32-36) g/dl RDW 14.0 (11.5-14.0) % Plt Count 254 (150-450) K/mm3 MPV 11.1 H (6-9.5) fl Gran % 64.4 (36.0-66.0) % Lymphocytes % 24.2 (24.0-44.0) % Monocytes % 8.8 (0.0-12.0) % Eosinophils % 2.2 (0.00-5.0) % Basophils % 0.4 (0.0-0.4) % Basophils # 0.02 (0-0.4) Sodium (136-145) mEq/L Potassium (3.5-5.1) mEq/L Chloride (98-107) mEq/L Carbon Dioxide (21-32) mEq/L Anion Gap (5-15) MEQ/L BUN (9-20) mg/dL Creatinine (0.55-1.30) mg/dl Estimated GFR ML/MIN Glucose (70-110) MG/DL Calcium (8.5-10.1) mg/dL Magnesium (1.8-2.4) mg/dL Total Bilirubin (0.2-1.0) mg/dL AST (15-37) U/L ALT (12-78) U/L Alkaline Phosphatase (46-116) U/L Troponin I (0.000-0.056) ng/ml Serum Total Protein (6.4-8.2) gm/dL Albumin (3.4-5.0) g/dL Amylase (25-115) U/L Lipase (73-393) U/L Ur Collection Type Urine Color (YELLOW) Urine Appearance (CLEAR) Urine pH (5-6) Ur Specific [place] (1.005-1.025) Urine Protein (Negative) Urine Ketones (NEGATIVE) Urine Blood (0-5) Grey/ul Urine Nitrite (NEGATIVE) Urine Bilirubin (NEGATIVE) Urine Urobilinogen (0-1) mg/dL Ur Leukocyte Esterase (NEGATIVE) Urine Microscopic RBC (0-2) /HPF Urine Microscopic WBC (0-5) /HPF Ur Epithelial Cells (FEW) /HPF Urine Bacteria (NEGATIVE) /HPF Urine Mucus (NEGATIVE) /HPF Urine Glucose (NEGATIVE) mg/dL Specimen Received - Progress Discussed with DrRod: Ronnie (2014) - Departure Time of Disposition: 08:16 Departure Disposition: Observation Clinical Impression: ABDOMINAL PAIN, UTI, HYPOKALEMIA, DM Condition: Stable Critical Care Time: No Referrals: RAY OCHOA [Primary Care Provider] -
[2017-08-08 06:47] LABS: BASOPHIL % 0.4 % (0.0-0.4); Eosinophil % 2.2 % (0.00-5.0); Granulocytes % 64.4 % (36.0-66.0); Lymphocytes % 24.2 % (24.0-44.0); Mean Cell Volume 97.6 fl (78-100); Mean Corpuscular Hemoglobin 30.4 pg (26-32); Mean Platelet Volume 11.1 fl (6-9.5); Monocytes % 8.8 % (0.0-12.0); Platelet Count 254 K/mm3 (150-450); Red Blood Count 3.68 M/mm3 (4.1-5.4); White Blood Count 5.5 K/mm3 (4.0-10.5)
[2017-08-08 07:05] LABS: Collection Type CLEAN CATCH; Leukocyte Esterase 1+ (NEGATIVE)
[2017-08-08 07:06] LABS: ADD URINE CULTURE? YES (NO); Bacteria MODERATE /HPF (NEGATIVE); Bilirubin NEGATIVE (NEGATIVE); Blood 250 Ery/ul (0-5); COMPLETE URINE MICROSCOPIC? YES; Epithelial Cells MODERATE /HPF (FEW); Glucose NEGATIVE (NEGATIVE); Mucus SLIGHT /HPF (NEGATIVE)
[2017-08-08 07:07] LABS: ANION GAP 15.7 MEQ/L (5-15); BILIRUBIN,TOTAL 0.4 mg/dL (0.2-1.0); Carbon Dioxide 25.3 mEq/L (21-32); Total Protein 6.6 gm/dL (6.4-8.2)
[2017-08-08] MEDS ORDERED: POTASSIUM CHLORIDE 20 mEq IN WATER 100ML 20 MEQ/100 ML BAG IV ONE ×2 (07:23→09:15)
[2017-08-08] MEDS ORDERED: POTASSIUM CHLORIDE 20 mEq IN WATER 100ML 100 ML IV ONE (07:25)
[2017-08-08] MEDS ORDERED: Levofloxacin 500MG/100ML D5W 500 MG/100 ML BAG IV STA (07:27)
[2017-08-08] MEDS ORDERED: Sodium Chloride 0.9% 1000 ML 1,000 ML IV SCH (07:30)
--- NOTE | 2017-08-08 08:57 | XRAY ---
Indication: Upper abdominal pain. Nausea and vomiting. Multiple contiguous axial images obtained through the abdomen and pelvis without contrast as ordered. Comparison: August 26, 2016. Lung bases demonstrates tiny bibasilar pleural effusions less than before with minimal dependent atelectasis. Heart is borderline enlarged. Stable moderate sized hiatal hernia with partial intrathoracic stomach. Again left mastectomy. Noncontrasted stomach and bowel loops appear nonobstructed. Stable scattered descending and sigmoid diverticulosis without diverticulitis. Stable large midline ventral hernia with increasing herniated bowel loops with a few small bowel loops demonstrating nonspecific air-fluid leveling without abnormal distention or edema. Stable tiny gallstone, left hepatic cyst, and bilateral renal cysts. No free fluid/air. New [place] catheter empties the bladder. Remaining liver, pancreas, spleen, adrenal glands, kidneys, ureters, bladder, and uterus appear unremarkable for noncontrast exam. Again mild calcifications of the aortoiliac vessels without AAA. Stable degenerative changes throughout the spine, scoliosis, grade 2 L5 spondylolisthesis, and old right inferior pubic bone fracture. Impression: 1. Again there is a large ventral hernia with increasing herniated bowel loops again without incarceration/obstruction. 2. Stable hiatal hernia with partial intrathoracic stomach, colonic diverticulosis, gallstone, hepatic cyst, and bilateral renal cysts. 3. No new or acute intra-abdominal/pelvic abnormalities as noncontrast exam. 4. Tiny bibasilar effusions. 5. Stable chronic bony findings detailed above. CTDI 22.56
--- NOTE | 2017-08-08 09:03 | XRAY ---
Indication: Upper abdominal pain and nausea. History of left breast cancer with mastectomy. Comparison: July 31, 2017. Portable chest again hyperinflated with borderline cardiomegaly and hiatal hernia. No focal infiltrate, consolidation, or large effusion. Bony thorax intact again with mild osteopenia and degenerative changes. 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 Impression: Nonacute chest with chronic features.
[2017-08-08] MEDS ORDERED: DILAUDID 2 MG INJECTION IV PRN (09:15)
[2017-08-08] MEDS ORDERED: TYLENOL 325 MG PO PRN (09:15)
[2017-08-08] MEDS ORDERED: NovoLOG Insulin SQ PRN (09:15)
[2017-08-08] MEDS ORDERED: Phenergan 25 MG INJ IV PRN (09:15)
[2017-08-08] MEDS ORDERED: PROTONIX 40 MG IV IV SCH (10:00)
[2017-08-08] MEDS: Zofran 4 MG/2 ML VIAL IV PRN (10:54)
[2017-08-08] MEDS: Levofloxacin 500MG/100ML D5W 500 MG/100 ML BAG IV SCH (10:54)
[2017-08-08 13:18] LABS: ANION GAP 11.3 MEQ/L (5-15); BLOOD UREA NITROGEN 12 mg/dL (9-20); CHLORIDE 111 mEq/L (98-107); Carbon Dioxide 26.1 mEq/L (21-32); Glucose 185 MG/DL (70-110); Potassium 3.5 mEq/L (3.5-5.1); SODIUM 145 mEq/L (136-145)
--- NOTE | 2017-08-08 15:22 | PCM.HP ---
History of Present Illness - Chief Complaint Chief Complaint: ABDOMINAL PAIN, UTI, HYPOKALEMIA, DM History of Present Illness: is a 82 year old female who was admitted through the ER with vomiting and UTI. She was recently inpatient for pneumonia, treated and released to home. I saw her in the office yesterday, she was quite nauseated so we gave her 4mg zofran IM and sent her home with scheduled zofran. She did not tolerate this well and came back to the ER today. K+ was 3.0. CT abd/ pelvis revealed known hernias but no bowel obstruction. She had WBC and RBC in her urine, so it was sent for culture. She was admitted on IV levaquin, zofran , and phenergan. Currently she has no nausea and she did tolerate some po for lunch. - Review of Systems Constitutional: Weakness Respiratory: Short Of Breath (with activity) Cardiac: Edema, No Chest Pain Abdominal/Gastrointestinal: Abdominal Pain (intermittent), Nausea, Other (last BM 2d ago, nl.) Musculoskeletal: Back Pain Psychological: Depression (due to illness; no suicidal ideation) All Other Systems: Reviewed and Negative Medications & Allergies Home Medications: Home Medication List Atenolol 50 mg [Tenormin 50 mg] 50 mg PO DAILY 07/03/16 [History Confirmed 08/08/17] Atorvastatin Calcium [Lipitor 20MG Tablet] 20 mg PO DAILY 07/03/16 [History Confirmed 08/08/17] Gabapentin [Neurontin] 100 mg PO 0800,1200,2200 07/03/16 [History Confirmed ] Glimepiride 2 mg [Amaryl 2 MG] 2 mg PO DAILY 07/03/16 [History Confirmed 08/08/17] Zafirlukast 20 mg [Accolate 20 mg] 20 mg PO BID 07/03/16 [History Confirmed 08/08/17] Dabigatran Etexilate Mesylate [Pradaxa] 150 mg PO BID #60 capsule 07/14/16 [Rx Confirmed 08/08/17] PANTOPRAZOLE 40 mg Tablet [Protonix 40MG Tablet] 40 mg PO DAILY #30 tab [Rx Confirmed 08/08/17] Potassium Chloride 20 Meq Tab [Potassium Chloride 20 MEQ TABLET] 20 meq PO DAILY #30 tab 07/18/16 [Rx Confirmed 08/08/17] Acetaminophen/Diphenhydramine [Tylenol Pm Ex-Strength Caplet] 2 each PO HS 08/26 [History Confirmed 08/08/17] Magnesium Oxide 400 mg [Mag-Ox 400] 400 mg PO DAILY 08/26/16 [History Confirmed 08/08/17] Oxazepam 15 mg PO HS 08/26/16 [History Confirmed 08/08/17] Diltiazem HCl [Cardizem] 180 mg PO DAILY #30 08/29/16 [Rx Confirmed 08/08/17] Amlodipine Besylate 10 mg [Norvasc 10 MG] 10 mg PO DAILY 07/31/17 [History Confirmed 08/08/17] Furosemide 40 mg [Lasix 40 MG] 40 mg PO DAILY 07/31/17 [History Confirmed 08/08/17] Gabapentin 200 mg PO 1700 07/31/17 [History Confirmed 08/08/17] Hydrocodone Bit/Acetaminophen [Hydrocodon-Acetaminophn 10-325] 1 each PO BID PRN 07/31/17 [History Confirmed 08/08/17] Sennosides/Docusate Sodium [Docusate Sodium-Senna Tablet] 1 each PO BID [History Confirmed 08/08/17] Albuterol Sulfate [Albuterol Sulfate Hfa] 4 puff IH QID #1 hfa.aer.ad 08/02/17 [ Rx Confirmed 08/08/17] Anastrozole 1 mg PO DAILY 08/08/17 [History Confirmed 08/08/17] Docusate Sodium 100 mg [Colace 100 MG] 100 mg PO BID 08/08/17 [History Confirmed 08/08/17] Allergies/Adverse Reactions: Allergies Allergy/AdvReac Type Severity Reaction Status Date / Time metoclopramide HCl Allergy Verified 08/08/17 06:12 [From Reglan] Sulfa (Sulfonamide Allergy Verified 08/08/17 06:12 Antibiotics) - Past Medical History Past Medical History: Yes Neurological History: No Pertinent History ENT History: No Pertinent History Cardiac History: Arrhythmia, Other Respiratory History: Asthma, Pneumonia Endocrine Medical History: Diabetes Type II Musculoskelatal History: No Pertinent History GI Medical History: Hernia History: No Pertinent History Pyscho-Social History: No Pertinent History Reproductive Disorders: Breast Cancer Comment: A FIB - Female History Are you now?: No - Past Surgical History Past Surgical History: Yes Neuro Surgical History: No Pertinent History Cardiac History: No Pertinent History Respiratory Surgery: No Pertinent History GI Surgical History: No Pertinent History Genitourinary Surgical Hx: No Pertinent History Musculskeletal Surgical Hx: No Pertinent History Female Surgical History: Mastectomy Other Surgical History: tonsillectomy, L mastectomy april 10 - Social History Smoking Status: Former smoker How long have you smoked: 10 Exposure to second hand smoke: No Alcohol: None Drug Use: none - Physical Exam Vital Signs: Vital Signs - 24 hr Temp Pulse Resp BP Pulse Ox 08/08/17 12:00 97.9 F 84 16 155/67 94 L 08/08/17 09:18 98.3 F 85 16 137/65 95 08/08/17 08:49 79 18 116/62 08/08/17 08:16 96 08/08/17 08:05 78 12 151/107 96 08/08/17 06:00 99.1 F 79 20 124/65 96 General Appearance: no apparent distress Neurologic Exam: alert, oriented x 3, cooperative, normal mood/affect Eye Exam: eyes nml inspection Neck Exam: normal inspection, non-tender, No lymphadenopathy Respiratory Exam: normal breath sounds, lungs clear, No crackles/rales, No rhonchi, No wheezing Cardiovascular Exam: regular rate/rhythm, normal heart sounds, murmur (III/ sys murmur) Gastrointestinal/Abdomen Exam: soft, tenderness (generalized ttp), hernia ( mildline, soft), No mass, No guarding, No rebound Back Exam: normal inspection Extremity Exam: No pedal edema, No swelling Skin Exam: normal color, warm, dry, other (scattered stuck on lesions, back) Results - Labs Lab/Micro Results: Accuchecks Accucheck Value: 96 Lab Results-Last 24 Hours 08/08/17 08/08/17 08/08/17 Range/Units 09:30 12:35 12:35 Sodium 145 (136-145) mEq/L Potassium 3.5 (3.5-5.1) mEq/L Chloride 111 H (98-107) mEq/L Carbon Dioxide 26.1 (21-32) mEq/L Anion Gap 11.3 (5-15) MEQ/L BUN 12 (9-20) mg/dL Creatinine 0.83 (0.55-1.30) mg/dl Estimated GFR > 60 ML/MIN Glucose 185 H (70-110) MG/DL Calcium 8.4 L (8.5-10.1) mg/dL Troponin I 0.028 0.029 (0.000-0.056) ng/ml Accuchecks Accucheck Value: 96 - Other Procedures and Tests Respiratory Therapy 08/08/17 11:37 Oxygen NASAL CANNULA 4 lpm Assessment/Plan (1) Nausea Current Visit: Yes Status: Acute Assessment & Plan: improved on anti-emetics. May be due to UTI. Observe; would like her to be able to tolerate po off anti-emetics prior to d/c home. Code(s): R11.0 - NAUSEA (2) Abdominal pain Current Visit: Yes Status: Acute Qualifiers: Abdominal location: epigastric Qualified Code(s): R10.13 - Epigastric pain Assessment & Plan: likely related to hernia; mild and intermittent. Code(s): R10.9 - UNSPECIFIED ABDOMINAL PAIN (3) Hypokalemia Current Visit: Yes Status: Acute Assessment & Plan: repleted; recheck in a.m. Code(s): E87.6 - HYPOKALEMIA (4) UTI (urinary tract infection) Current Visit: Yes Status: Acute Qualifiers: Urinary tract infection type: acute cystitis Hematuria presence: with hematuria Qualified Code(s): N30.01 - Acute cystitis with hematuria Assessment & Plan: on IV levaquin, day #1. Urine culture pending. Code(s): N39.0 - URINARY TRACT INFECTION, SITE NOT SPECIFIED (5) Atrial fibrillation Current Visit: No Status: Chronic Qualifiers: Atrial fibrillation type: chronic Qualified Code(s): I48.2 - Chronic atrial fibrillation Assessment & Plan: currently in sinus rhythm. Code(s): I48.91 - UNSPECIFIED ATRIAL FIBRILLATION (6) Renal insufficiency Current Visit: No Status: Chronic Assessment & Plan: renal function is good currently. observe. (7) Anemia Current Visit: No Status: Chronic Qualifiers: Anemia type: iron deficiency Iron deficiency anemia type: chronic blood loss Qualified Code(s): D50.0 - Iron deficiency anemia secondary to blood loss (chronic) Assessment & Plan: mild. observe. Code(s): D64.9 - ANEMIA, UNSPECIFIED (8) HX: breast cancer Current Visit: No Status: Chronic Code(s): Z85.3 - PERSONAL HISTORY OF MALIGNANT NEOPLASM OF BREAST
[2017-08-08] MEDS ORDERED: Senokot-S Tablet PO SCH (15:45)
[2017-08-08] MEDS ORDERED: MEDICATION INTERVENTION MC PRN (15:48)
[2017-08-08] MEDS: TENORMIN 50 MG PO SCH (15:58)
[2017-08-08] MEDS: NORVASC 5 MG PO SCH (15:58)
[2017-08-08] MEDS: MAG-OX 400 PO SCH (15:58)
[2017-08-08] MEDS ORDERED: Senokot-S Tablet PO PRN (16:00)
[2017-08-08] MEDS: Neurontin 100 MG PO SCH ×2 (17:55→21:14)
[2017-08-08] MEDS: Sodium Chloride 0.9% 1000 ML 1,000 ML IV SCH (20:35)
[2017-08-08] MEDS: Norco 10/325 MG Tablet PO PRN (21:13)
[2017-08-08] MEDS: Colace 100 MG PO SCH (21:14)
[2017-08-08] MEDS: BENADRYL 25 MG CAPSULE PO SCH (21:14)
[2017-08-08] MEDS: PATIENT OWN MEDICATION PO SCH (21:14)
[2017-08-08] MEDS: ACCOLATE 20 MG PO SCH (21:14)
[2017-08-08] MEDS: PRADAXA 75 MG PO SCH (21:14)
[2017-08-08] MEDS: TYLENOL EXTRA STRENGTH 500 MG PO SCH (21:25)
[2017-08-08] MEDS ORDERED: ACETAMINOPHEN PO SCH (22:00)
[2017-08-08] MEDS ORDERED: NON-FORMULARY ITEM (Dabigatran Etexilate Mesylate [Pradaxa] 150 MG) PO SCH (22:00)
[2017-08-08] MEDS ORDERED: DIPHENHYDRAMINE PO SCH (22:00)
[2017-08-08] MEDS ORDERED: OXAZEPAM 15 MG PO SCH (22:00)
[2017-08-08] MEDS ORDERED: [UNRECOGNIZED DRUG - OTHER] PO SCH (22:00)
[2017-08-09 05:44] LABS: BASOPHIL % 0.2 % (0.0-0.4); Eosinophil % 8.9 % (0.00-5.0); Lymphocytes % 28.8 % (24.0-44.0); Mean Cell Volume 100.7 fl (78-100); Mean Platelet Volume 10.9 fl (6-9.5); Monocytes % 11.1 % (0.0-12.0); Platelet Count 187 K/mm3 (150-450); Red Blood Count 3.06 M/mm3 (4.1-5.4); Red Cell Distribution Width 14.2 % (11.5-14.0); White Blood Count 5.3 K/mm3 (4.0-10.5)
[2017-08-09 06:07] LABS: ALBUMIN 2.2 g/dL (3.4-5.0); ALKALINE PHOSPHATASE 63 U/L (46-116); ANION GAP 10.3 MEQ/L (5-15); BLOOD UREA NITROGEN 10 mg/dL (9-20); CHLORIDE 114 mEq/L (98-107); Carbon Dioxide 26.4 mEq/L (21-32); Glucose 101 MG/DL (70-110); Mean Corpuscular Hemoglobin 30.3 pg (26-32); Potassium 3.4 mEq/L (3.5-5.1); SGOT/AST 30 U/L (15-37); SGPT/ALT 11 U/L (12-78); SODIUM 147 mEq/L (136-145); Total Protein 5.3 gm/dL (6.4-8.2)
[2017-08-09] MEDS: Sodium Chloride 0.9% 1000 ML 1,000 ML IV SCH ×2 (06:24→17:20)
[2017-08-09] MEDS: Neurontin 100 MG PO SCH ×4 (07:56→21:38)
--- NOTE | 2017-08-09 08:36 | PCM.NOTE ---
Date and Time: 08/09/17 0832 Subjective Assessment: She is feeling better, last anti-emetic last night and she is tolerating breakfast well with no nausea. Urine culture, final result still pending. - Review of Systems Constitutional: No Fever Abdominal/Gastrointestinal: No Nausea Objective Exam General Appearance: no apparent distress Neurologic Exam: alert, oriented x 3, cooperative Skin Exam: normal color (skin is less pale today), warm, dry Respiratory Exam: normal breath sounds, lungs clear, No crackles/rales, No rhonchi, No wheezing Cardiovascular Exam: regular rate/rhythm, normal heart sounds, murmur (III/ sys murmur as usual) Extremity Exam: No pedal edema, No swelling Back Exam: normal inspection OBJECTIVE DATA Vital Signs: Vital Signs - 24 hr Temp Pulse Resp BP BP Pulse Ox 08/09/17 06:56 97.8 F 68 20 118/58 97 08/09/17 04:00 97.9 F 67 17 122/69 96 08/08/17 23:43 97.9 F 62 20 111/59 98 08/08/17 20:00 98.7 F 65 18 116/72 92 L 08/08/17 18:38 68 18 91 L 08/08/17 15:58 76 133/69 08/08/17 15:31 99.6 F 76 18 133/69 95 08/08/17 12:00 97.9 F 84 16 155/67 94 L 08/08/17 09:18 98.3 F 85 16 137/65 95 08/08/17 08:49 79 18 116/62 Oxygen-Last 24 hours O2 Percentage 4 Liters = 36% O2 Percentage 4 Liters = 36% Pain Assessment - Last Documented Pain Intensity 4 Pain Scale Used 0-10 Pain Scale Intake and Output: Intake & Output 08/06/17 08/07/17 08/08/17 08/09/17 11:59 11:59 11:59 11:59 Intake Total 2462 Output Total 400 Balance 2062 Weight 70.08 kg 73.482 kg Lab Results: Accuchecks Date 08/08/17 Accucheck Value: 94 Accucheck Value: 117 Accucheck Value: 123 Accucheck Value: 96 Lab Results-Last 24 Hours 08/08/17 08/08/17 08/08/17 Range/Units 09:30 12:35 12:35 WBC (4.0-10.5) K/mm3 RBC (4.1-5.4) M/mm3 Hgb (12.0-16.0) gm/dl Hct (35-47) % MCV (78-100) fl MCH (26-32) pg MCHC (32-36) g/dl RDW (11.5-14.0) % Plt Count (150-450) K/mm3 MPV (6-9.5) fl Gran % (36.0-66.0) % Lymphocytes % (24.0-44.0) % Monocytes % (0.0-12.0) % Eosinophils % (0.00-5.0) % Basophils % (0.0-0.4) % Basophils # (0-0.4) Sodium 145 (136-145) mEq/L Potassium 3.5 (3.5-5.1) mEq/L Chloride 111 H (98-107) mEq/L Carbon Dioxide 26.1 (21-32) mEq/L Anion Gap 11.3 (5-15) MEQ/L BUN 12 (9-20) mg/dL Creatinine 0.83 (0.55-1.30) mg/dl Estimated GFR > 60 ML/MIN Glucose 185 H (70-110) MG/DL Calcium 8.4 L (8.5-10.1) mg/dL Magnesium (1.8-2.4) mg/dL Total Bilirubin (0.2-1.0) mg/dL AST (15-37) U/L ALT (12-78) U/L Alkaline Phosphatase (46-116) U/L Troponin I 0.028 0.029 (0.000-0.056) ng/ml Serum Total Protein (6.4-8.2) gm/dL Albumin (3.4-5.0) g/dL 08/08/17 08/08/17 08/09/17 Range/Units 15:40 18:45 05:08 WBC 5.3 (4.0-10.5) K/mm3 RBC 3.06 L (4.1-5.4) M/mm3 Hgb 9.3 L (12.0-16.0) gm/dl Hct 30.8 L (35-47) % MCV 100.7 H (78-100) fl MCH 30.3 (26-32) pg MCHC 30.2 L (32-36) g/dl RDW 14.2 H (11.5-14.0) % Plt Count 187 (150-450) K/mm3 MPV 10.9 H (6-9.5) fl Gran % 51.0 (36.0-66.0) % Lymphocytes % 28.8 (24.0-44.0) % Monocytes % 11.1 (0.0-12.0) % Eosinophils % 8.9 H (0.00-5.0) % Basophils % 0.2 (0.0-0.4) % Basophils # 0.01 (0-0.4) Sodium (136-145) mEq/L Potassium (3.5-5.1) mEq/L Chloride (98-107) mEq/L Carbon Dioxide (21-32) mEq/L Anion Gap (5-15) MEQ/L BUN (9-20) mg/dL Creatinine (0.55-1.30) mg/dl Estimated GFR ML/MIN Glucose (70-110) MG/DL Calcium (8.5-10.1) mg/dL Magnesium (1.8-2.4) mg/dL Total Bilirubin (0.2-1.0) mg/dL AST (15-37) U/L ALT (12-78) U/L Alkaline Phosphatase (46-116) U/L Troponin I 0.031 0.022 (0.000-0.056) ng/ml Serum Total Protein (6.4-8.2) gm/dL Albumin (3.4-5.0) g/dL 08/09/17 08/09/17 Range/Units 05:08 05:08 WBC (4.0-10.5) K/mm3 RBC (4.1-5.4) M/mm3 Hgb (12.0-16.0) gm/dl Hct (35-47) % MCV (78-100) fl MCH (26-32) pg MCHC (32-36) g/dl RDW (11.5-14.0) % Plt Count (150-450) K/mm3 MPV (6-9.5) fl Gran % (36.0-66.0) % Lymphocytes % (24.0-44.0) % Monocytes % (0.0-12.0) % Eosinophils % (0.00-5.0) % Basophils % (0.0-0.4) % Basophils # (0-0.4) Sodium 147 H (136-145) mEq/L Potassium 3.4 L (3.5-5.1) mEq/L Chloride 114 H (98-107) mEq/L Carbon Dioxide 26.4 (21-32) mEq/L Anion Gap 10.3 (5-15) MEQ/L BUN 10 (9-20) mg/dL Creatinine 0.59 (0.55-1.30) mg/dl Estimated GFR > 60 ML/MIN Glucose 101 (70-110) MG/DL Calcium 8.4 L (8.5-10.1) mg/dL Magnesium 1.9 (1.8-2.4) mg/dL Total Bilirubin 0.30 (0.2-1.0) mg/dL AST 30 (15-37) U/L ALT 11 L (12-78) U/L Alkaline Phosphatase 63 (46-116) U/L Troponin I (0.000-0.056) ng/ml Serum Total Protein 5.3 L (6.4-8.2) gm/dL Albumin 2.2 L (3.4-5.0) g/dL Assessment/Plan (1) UTI (urinary tract infection) Current Visit: Yes Status: Acute Qualifiers: Urinary tract infection type: acute cystitis Hematuria presence: with hematuria Qualified Code(s): N30.01 - Acute cystitis with hematuria Assessment & Plan: With recent hospitalization; on IV levaquin. Will keep pt until urine cx is final (tomorrow per lab). Code(s): N39.0 - URINARY TRACT INFECTION, SITE NOT SPECIFIED (2) Nausea Current Visit: Yes Status: Acute Assessment & Plan: much improved, would like to see her eat well today without needing anti- emetics. Code(s): R11.0 - NAUSEA (3) Abdominal pain Current Visit: Yes Status: Acute Qualifiers: Abdominal location: epigastric Qualified Code(s): R10.13 - Epigastric pain Assessment & Plan: no complaint this morning. Code(s): R10.9 - UNSPECIFIED ABDOMINAL PAIN (4) Hypokalemia Current Visit: Yes Status: Acute Assessment & Plan: mild this morning, will recheck tomorrow,now that she's eating more would expect this to be better. Code(s): E87.6 - HYPOKALEMIA (5) Atrial fibrillation Current Visit: No Status: Chronic Qualifiers: Atrial fibrillation type: chronic Qualified Code(s): I48.2 - Chronic atrial fibrillation Assessment & Plan: has been in normal sinus rhythm for me. I discontinued the telemetry. Code(s): I48.91 - UNSPECIFIED ATRIAL FIBRILLATION (6) Renal insufficiency Current Visit: No Status: Chronic Assessment & Plan: BUN/Cr good here. (7) Anemia Current Visit: No Status: Chronic Qualifiers: Anemia type: iron deficiency Iron deficiency anemia type: chronic blood loss Qualified Code(s): D50.0 - Iron deficiency anemia secondary to blood loss (chronic) Assessment & Plan: worsened; could be partially dilutional. will recheck tomorrow. Code(s): D64.9 - ANEMIA, UNSPECIFIED (8) HX: breast cancer Current Visit: No Status: Chronic Code(s): Z85.3 - PERSONAL HISTORY OF MALIGNANT NEOPLASM OF BREAST
[2017-08-09] MEDS: TENORMIN 50 MG PO SCH (09:00)
[2017-08-09] MEDS: NORVASC 5 MG PO SCH (09:00)
[2017-08-09] MEDS: PRADAXA 75 MG PO SCH ×2 (09:00→21:38)
[2017-08-09] MEDS: Cardizem CD 180 MG PO SCH (09:01)
[2017-08-09] MEDS: Colace 100 MG PO SCH ×2 (09:01→21:38)
[2017-08-09] MEDS: ACCOLATE 20 MG PO SCH ×2 (09:01→21:38)
[2017-08-09] MEDS: MAG-OX 400 PO SCH (09:02)
[2017-08-09] MEDS: Protonix 40MG Tablet PO SCH (09:02)
[2017-08-09] MEDS: Levofloxacin 500MG/100ML D5W 500 MG/100 ML BAG IV SCH (09:04)
[2017-08-09] MEDS ORDERED: NON-FORMULARY ITEM (Amlodipine Besylate 10 Mg [Norvasc 10 Mg] 10 MG) PO SCH (10:00)
[2017-08-09] MEDS ORDERED: ANASTROZOLE 1 MG PO SCH (10:00)
[2017-08-09] MEDS ORDERED: DILTIAZEM HCL 180 MG PO SCH (10:00)
[2017-08-09] MEDS: Zofran 4 MG/2 ML VIAL IV PRN (17:27)
[2017-08-09] MEDS: Norco 10/325 MG Tablet PO PRN (21:37)
[2017-08-09] MEDS: BENADRYL 25 MG CAPSULE PO SCH (21:38)
[2017-08-09] MEDS: PATIENT OWN MEDICATION PO SCH (21:38)
[2017-08-09] MEDS: TYLENOL EXTRA STRENGTH 500 MG PO SCH (21:42)
[2017-08-10] MEDS: Sodium Chloride 0.9% 1000 ML 1,000 ML IV SCH (03:23)
[2017-08-10 06:00] LABS: Mean Cell Volume 102.3 fl (78-100); Mean Corpuscular Hemoglobin 30.5 pg (26-32); Mean Platelet Volume 11.2 fl (6-9.5); Platelet Count 165 K/mm3 (150-450); Red Blood Count 3.08 M/mm3 (4.1-5.4); Red Cell Distribution Width 14.2 % (11.5-14.0); White Blood Count 5.2 K/mm3 (4.0-10.5)
[2017-08-10 06:19] LABS: ANION GAP 12.2 MEQ/L (5-15); BLOOD UREA NITROGEN 8 mg/dL (9-20); CHLORIDE 115 mEq/L (98-107); Carbon Dioxide 24.8 mEq/L (21-32); Glucose 115 MG/DL (70-110); Potassium 3.9 mEq/L (3.5-5.1); SODIUM 148 mEq/L (136-145)
[2017-08-10] MEDS: Neurontin 100 MG PO SCH ×2 (07:26→12:24)
--- NOTE | 2017-08-10 08:39 | PCM.DS ---
Discharge Summary Date of Admission: 08/08/17 09:10 Admitting Physician: RAY OCHOA Primary Care Provider: RAY OCHOA Allergies Allergies metoclopramide HCl [From Reglan] Allergy (Verified 08/08/17 06:12) Sulfa (Sulfonamide Antibiotics) Allergy (Verified 08/08/17 06:12) Hospital Summary - Hospital Course Hospital Course: Pt admitted with nausea, UTI. Now eating well, only required anti-emetic x 1 last night after eating more than usual for supper. Urine culture is negative. Home today. - Vitals & Intake/Output Vital Signs: Vital Signs Temperature 98.1 F 08/10/17 07:17 Pulse Rate 61 08/10/17 07:17 Respiratory Rate 18 08/10/17 07:17 Blood Pressure 130/57 08/10/17 07:17 O2 Sat by Pulse Oximetry 99 08/10/17 07:17 Oxygen-Last Documented O2 Percentage 4 Liters = 36% Intake & Output: Intake & Output 08/07/17 08/08/17 08/09/17 08/10/17 11:59 11:59 11:59 11:59 Intake Total 2462 3001 Output Total 400 1999 Balance 206 1001 Weight 70.08 kg 73.482 kg 75.07 kg - Lab Result Diagrams: 08/10/17 05:30 08/10/17 05:30 Lab Results-Last 24 Hrs: Accuchecks Date 08/09/17 Accucheck Value: 108 Accucheck Value: 96 Accucheck Value: 130 Lab Results-Last 24 Hours 08/10/17 08/10/17 Range/Units 05:30 05:30 WBC 5.2 (4.0-10.5) K/mm3 RBC 3.08 L (4.1-5.4) M/mm3 Hgb 9.4 L (12.0-16.0) gm/dl Hct 31.5 L (35-47) % MCV 102.3 H (78-100) fl MCH 30.5 (26-32) pg MCHC 29.8 L (32-36) g/dl RDW 14.2 H (11.5-14.0) % Plt Count 165 (150-450) K/mm3 MPV 11.2 H (6-9.5) fl Sodium 148 H (136-145) mEq/L Potassium 3.9 (3.5-5.1) mEq/L Chloride 115 H (98-107) mEq/L Carbon Dioxide 24.8 (21-32) mEq/L Anion Gap 12.2 (5-15) MEQ/L BUN 8 L (9-20) mg/dL Creatinine 0.56 (0.55-1.30) mg/dl Estimated GFR > 60 ML/MIN Glucose 115 H (70-110) MG/DL Calcium 8.3 L (8.5-10.1) mg/dL Micro Results-Entire Visit: Accuchecks Date 08/09/17 Accucheck Value: 108 Accucheck Value: 96 Accucheck Value: 130 - Procedures and Test Procedures and Tests throughout Hospitalization: Therapy Orders & Screens 08/08/17 09:51 RT Screen per Nursing Assess ONCE Comment: Protocol Order Physician Instructions: Greater than 3 points order RT Admission Screen Reason For Exam: Triggered on Admission Diagnosis: ABDOMINAL PAIN, UTI, HYPOKALEMIA, DM Diagnosis: ABDOMINAL PAIN, UTI, HYPOKALEMIA, DM Pneumonia: Yes Home O2: Yes: 4L HS Asthma: No CHF: No Home CPAP/BIPAP: No Home Nebs/MDI: Yes Total Points: 08/08/17 11:37 Oxygen NASAL CANNULA 4 lpm Comment: Diagnosis: ABDOMINAL PAIN, UTI, HYPOKALEMIA, DM Discharge Exam General Appearance: no apparent distress, obese Neurologic Exam: alert, oriented x 3, cooperative Skin Exam: normal color, warm, dry Eye Exam: eyes nml inspection Respiratory Exam: normal breath sounds, lungs clear, No crackles/rales, No rhonchi, No wheezing Cardiovascular Exam: regular rate/rhythm, normal heart sounds, murmur (III/ sys murmur) Gastrointestinal/Abdomen Exam: soft, normal bowel sounds, distention (chronic hernias present, no change), No tenderness Back Exam: normal inspection Final Diagnosis/Problem List - Final Discharge Diagnosis/Problem (1) UTI (urinary tract infection) Current Visit: Yes Status: Acute Assessment & Plan: Her urine culture is negative, however she was recently treated for UTI and on antibiotics, so I'm unsure if the culture is accuarte. Will discharge to home on 5d of levaquin po. Antiemetics prn. (2) Nausea Current Visit: Yes Status: Resolved (3) Abdominal pain Current Visit: Yes Status: Resolved (4) Hypokalemia Current Visit: Yes Status: Resolved (5) Atrial fibrillation Current Visit: No Status: Chronic Assessment & Plan: has been in sinus rhythm here (6) Renal insufficiency Current Visit: No Status: Chronic Assessment & Plan: very good renal function here. (7) Anemia Current Visit: No Status: Chronic Assessment & Plan: recheck in 1 week. (8) HX: breast cancer Current Visit: No Status: Chronic - Discharge Disposition: Home, Self-Care Condition: Stable Prescriptions: New Levofloxacin [Levaquin] 500 mg PO DAILY #5 tablet Acetaminophen 325 mg [Tylenol 325 mg] 650 mg PO Q4H PRN PRN tablet PRN Reason: Pain And/Or Fever Continue Zafirlukast 20 mg [Accolate 20 mg] 20 mg PO BID Glimepiride 2 mg [Amaryl 2 MG] 2 mg PO DAILY Atorvastatin Calcium [Lipitor 20MG Tablet] 20 mg PO DAILY Atenolol 50 mg [Tenormin 50 mg] 50 mg PO DAILY Gabapentin [Neurontin] 100 mg PO 0800,1200,2200 PANTOPRAZOLE 40 mg Tablet [Protonix 40MG Tablet] 40 mg PO DAILY #30 tab Dabigatran Etexilate Mesylate [Pradaxa] 150 mg PO BID #60 capsule Potassium Chloride 20 Meq Tab [Potassium Chloride 20 MEQ TABLET] 20 meq PO DAILY #30 tab Magnesium Oxide 400 mg [Mag-Ox 400] 400 mg PO DAILY Oxazepam 15 mg PO HS Acetaminophen/Diphenhydramine [Tylenol Pm Ex-Strength Caplet] 2 each PO HS Diltiazem HCl [Cardizem] 180 mg PO DAILY #30 Amlodipine Besylate 10 mg [Norvasc 10 MG] 10 mg PO DAILY Furosemide 40 mg [Lasix 40 MG] 40 mg PO DAILY Gabapentin 200 mg PO 1700 Hydrocodone Bit/Acetaminophen [Hydrocodon-Acetaminophn 10-325] 1 each PO BID PRN Sennosides/Docusate Sodium [Docusate Sodium-Senna Tablet] 1 each PO BID Albuterol Sulfate [Albuterol Sulfate Hfa] 4 puff IH QID #1 hfa.aer.ad Docusate Sodium 100 mg [Colace 100 MG] 200 mg PO HS Follow up with: RAY OCHOA [Primary Care Provider] -
[2017-08-10] MEDS: PRADAXA 75 MG PO SCH (08:52)
[2017-08-10] MEDS: Protonix 40MG Tablet PO SCH (08:52)
[2017-08-10] MEDS: Cardizem CD 180 MG PO SCH (08:52)
[2017-08-10] MEDS: MAG-OX 400 PO SCH (08:53)
[2017-08-10] MEDS: NORVASC 5 MG PO SCH (08:53)
[2017-08-10] MEDS: ACCOLATE 20 MG PO SCH (08:53)
[2017-08-10] MEDS: TENORMIN 50 MG PO SCH (08:54)
[2017-08-10] MEDS: Colace 100 MG PO SCH (08:54)
[2017-08-10] MEDS: Levofloxacin 500MG/100ML D5W 500 MG/100 ML BAG IV SCH ×2 (09:38→10:50)
[2017-08-10 11:17] VITALS: BP 120/62; PULSE 60; O2SAT 94
== END 2017-08-10 12:55 | disposition home or self-care (01) | DRG 690 ==
LOC: ED 05:59 → MED SURG 09:10 → OBSVTOIN 09:10
PROVIDERS: ADMIT Family Medicine; ATTEND Family Medicine
DX: N39.0 Urinary tract infection, site not specified (principal); E87.6 Hypokalemia; I48.91 Unspecified atrial fibrillation; N28.9 Disorder of kidney and ureter, unspecified; D64.9 Anemia, unspecified; Z85.3 Personal history of malignant neoplasm of breast; E11.9 Type 2 diabetes mellitus without complications; R10.9 Unspecified abdominal pain
CPT/HCPCS: 36000; 36415; 51702; 71010; 74176; 80048; 80053; 81000; 82150; 82962; 83690; 83735; 84484; 85025; 85027; 87040; 87086; 93005; 94760; 96360; 96361; 96365; 96374; 96375; 99285; J1170; J1956; J2405; J2550; J3480; P9612; A9270-GY

== ENCOUNTER 2017-08-31 09:22 | Inpatient (IN) | payer MEDICARE ==
[2017-08-31] MEDS ORDERED: Zofran 4 MG/2 ML VIAL IV ONE (09:35)
--- NOTE | 2017-08-31 09:44 | ERPHSYRPT ---
- History of Present Illness Time Seen by Provider: 08/31/17 09:28 Source: patient, family () Patient Subjective Stated Complaint: c/o nausea, fast heart beat, rash to lower abd, urinarty tract infection. Triage Nursing Assessment: ambulated to room per self. skin w/d, color normal, resp easy. denies any chest discomfort. Physician History: CC: nausea HX: 82 y/o patient of Dr Wong with recent hospitalizations for nausea, UTI. She has chronic abdominal hernia. She feels general weakness, nausea, dry heaves , not eating, dysuria. She feels like she still has a UTI despite finishing abtx last weekend. No fever or chills. She has fatigue. No chest pain but feels palpitations and has hx of afib. Symptoms moderate. Timing/Duration: today (worse) Severity: moderate Allergies/Adverse Reactions: metoclopramide HCl [From Reglan] Allergy (Verified 08/31/17 09:35) Sulfa (Sulfonamide Antibiotics) Allergy (Verified 08/31/17 09:35) Home Medications: Atenolol 50 mg [Tenormin 50 mg] 50 mg PO DAILY 07/03/16 [History] Atorvastatin Calcium [Lipitor 20MG Tablet] 20 mg PO DAILY 07/03/16 [History] Gabapentin [Neurontin] 100 mg PO 0800,1200,2200 07/03/16 [History] Glimepiride 2 mg [Amaryl 2 MG] 2 mg PO DAILY 07/03/16 [History] Zafirlukast 20 mg [Accolate 20 mg] 20 mg PO BID 07/03/16 [History] Acetaminophen/Diphenhydramine [Tylenol Pm Ex-Strength Caplet] 2 each PO HS 08/26 [History] Magnesium Oxide 400 mg [Mag-Ox 400] 400 mg PO DAILY 08/26/16 [History] Oxazepam 15 mg PO HS 08/26/16 [History] Amlodipine Besylate 10 mg [Norvasc 10 MG] 10 mg PO DAILY 07/31/17 [History] Furosemide 40 mg [Lasix 40 MG] 40 mg PO DAILY 07/31/17 [History] Hydrocodone Bit/Acetaminophen [Hydrocodon-Acetaminophn 10-325] 1 each PO BID PRN 07/31/17 [History] Sennosides/Docusate Sodium [Docusate Sodium-Senna Tablet] 1 each PO BID [History] Docusate Sodium 100 mg [Colace 100 MG] 200 mg PO HS 08/08/17 [History] Cholecalciferol (Vitamin D3) [Vitamin D3] 1,000 unit PO DAILY 08/31/17 [History] Cyanocobalamin (Vitamin B-12) [Vitamin B12] 2,500 mcg PO DAILY 08/31/17 [History ] Vit A/Vit C/Vit E/Zinc/Copper [Preservision Areds Softgel] 1 each PO BID [History] Hx Tetanus, Diphtheria Vaccination/Date Given: Yes (up to date) Hx Influenza Vaccination/Date Given: No Hx Pneumococcal Vaccination/Date Given: Yes - Review of Systems Constitutional: Fatigue, Malaise, Weakness, No Fever, No Chills Eyes: No Symptoms Ears, Nose, & Throat: No Symptoms Respiratory: No Cough, No Dyspnea Cardiac: Palpitations, No Chest Pain, No Syncope Abdominal/Gastrointestinal: Nausea, Vomiting (dry heaves), No Abdominal Pain, No Diarrhea Genitourinary Symptoms: Dysuria Skin: Rash (under abdominal fold) Neurological: No Focal Weakness, No Headache All Other Systems: Reviewed and Negative - Past Medical History Pertinent Past Medical History: Yes Neurological History: No Pertinent History ENT History: No Pertinent History Cardiac History: Arrhythmia, Other Respiratory History: Asthma, Pneumonia Endocrine Medical History: Diabetes Type II Musculoskeletal History: No Pertinent History GI Medical History: Hernia History: No Pertinent History Psycho-Social History: No Pertinent History Female Reproductive Disorders: Breast Cancer Other Medical History: A FIB - Past Surgical History Past Surgical History: Yes Neuro Surgical History: No Pertinent History Cardiac: No Pertinent History Respiratory: No Pertinent History Gastrointestinal: No Pertinent History Genitourinary: No Pertinent History Musculoskeletal: No Pertinent History Female Surgical History: Mastectomy Other Surgical History: tonsillectomy, L mastectomy april 10 - Social History Smoking Status: Never smoker How long have you smoked: 10 Exposure to second hand smoke: No Drug Use: none Patient Lives Alone: No - Nursing Vital Signs Nursing Vital Signs: Initial Vital Signs Temperature 98 F 08/31/17 09:27 Pulse Rate 79 10/06/17 09:27 Respiratory Rate 18 08/31/17 09:27 Blood Pressure 146/71 08/31/17 09:27 O2 Sat by Pulse Oximetry 97 08/31/17 09:27 Pain Scale Pain Intensity 0 - Physical Exam General Appearance: alert, other (pale, pleasant, smiles, interactive) Eye Exam: PERRL/EOMI Ears, Nose, Throat Exam: dry mucous membranes Neck Exam: normal inspection, supple Respiratory Exam: normal breath sounds Cardiovascular Exam: regular rate/rhythm Gastrointestinal/Abdomen Exam: soft, other (anterior abdominal wall hernia), No tenderness, No distention, No guarding Extremity Exam: normal inspection, normal range of motion Neurologic Exam: alert, oriented x 3, cooperative, sensation nml, No motor deficits Skin Exam: warm, dry, rash (intertriginous rash under abdominal pannus appears to be yeast) SpO2 Interpretation: normal SpO2: 97 Oxygen Delivery: Room Air - Course Nursing assessment & vital signs reviewed: Yes EKG Interpreted by Me: RATE (77), Sinus Rhythm, NORMAL AXIS, NORMAL INTERVALS ( QTc 466), Non-specific ST Changes (L?VH unchanged from prior tracing) - Radiology Exams AAS X-ray Interpretation: Teleradiologist Report, Negative Ordered Tests: Active Orders 24 hr Category Date Time Status Cath for Specimen-Straight STAT Care 08/31/17 09:36 Active EKG-ER Only STAT Care 08/31/17 09:35 Active IV Insertion STAT Care 08/31/17 09:35 Active Rectal Temperature STAT Care 08/31/17 09:37 Active OBSTR/ACUTE ABDOMEN SERIES Stat Exams 08/31/17 09:36 Completed BLOOD CULTURE Stat Lab 08/31/17 11:23 Received CBC W DIFF Stat Lab 08/31/17 10:06 Completed CMP Stat Lab 08/31/17 10:06 Completed CULTURE,URINE Stat Lab 08/31/17 10:06 Received LIPASE Stat Lab 08/31/17 10:06 Completed Lactic Acid Stat Lab 08/31/17 10:06 Results TROPONIN Q3H Lab 08/31/17 10:06 Completed UA W/ MICROSCOPIC Stat Lab 08/31/17 10:06 Completed Medication Summary Generic Name Dose Route Start Last Admin Trade Name Freq PRN Reason Stop Dose Admin Sodium Chloride 1,000 mls @ 100 mls/hr 08/31/17 10:15 08/31/17 10:33 Sodium Chloride 0.9% 1000 Ml IV 09/30/17 09:44 100 mls/hr .Q10H RICHARD Administration Discontinued Medications Generic Name Dose Route Start Last Admin Trade Name Berenice PRN Reason Stop Dose Admin Sodium Chloride 1,000 mls @ 100 mls/hr 08/31/17 09:45 08/31/17 10:33 Sodium Chloride 0.9% 1000 Ml IV 09/30/17 09:44 Not Given .Q10H RICHARD Ondansetron HCl 4 mg 08/31/17 09:35 08/31/17 10:33 Zofran 4 Mg/2 Ml Vial IV 08/31/17 09:36 4 mg STAT ONE Administration Ondansetron HCl Confirm 08/31/17 10:30 Zofran 4 Mg/2 Ml Vial Administered 08/31/17 10:31 Dose 4 mg .ROUTE .STK-MED ONE Promethazine HCl 12.5 mg 08/31/17 11:07 08/31/17 11:10 Phenergan 25 Mg Inj IM 08/31/17 11:08 12.5 mg STAT ONE Administration Promethazine HCl Confirm 08/31/17 11:09 Phenergan 25 Mg Inj Administered 08/31/17 11:10 Dose 25 mg .ROUTE .STK-MED ONE Lab/Rad Data: Laboratory Result Diagrams 08/31/17 10:06 08/31/17 10:06 Laboratory Results 08/31/17 08/31/17 08/31/17 Range/Units 10:06 10:06 10:06 WBC (4.0-10.5) K/mm3 RBC (4.1-5.4) M/mm3 Hgb (12.0-16.0) gm/dl Hct (35-47) % MCV (78-100) fl MCH (26-32) pg MCHC (32-36) g/dl RDW (11.5-14.0) % Plt Count (150-450) K/mm3 MPV (6-9.5) fl Gran % (36.0-66.0) % Lymphocytes % (24.0-44.0) % Monocytes % (0.0-12.0) % Eosinophils % (0.00-5.0) % Basophils % (0.0-0.4) % Basophils # (0-0.4) Sodium (136-145) mEq/L Potassium (3.5-5.1) mEq/L Chloride (98-107) mEq/L Carbon Dioxide (21-32) mEq/L Anion Gap (5-15) MEQ/L BUN (9-20) mg/dL Creatinine (0.55-1.30) mg/dl Estimated GFR ML/MIN Glucose (70-110) MG/DL Lactic Acid 2.7 H (0.4-2.0) Calcium (8.5-10.1) mg/dL Total Bilirubin (0.2-1.0) mg/dL AST (15-37) U/L ALT (12-78) U/L Alkaline Phosphatase (46-116) U/L Troponin I < 0.017 (0.000-0.056) ng/ml Serum Total Protein (6.4-8.2) gm/dL Albumin (3.4-5.0) g/dL Lipase (73-393) U/L Ur Collection Type CATH Urine Color DARK YELLOW (YELLOW) Urine Appearance SLIGHTLY CLOUDY (CLEAR) Urine pH 6.0 (5-6) Ur Specific [place] 1.015 (1.005-1.025) Urine Protein 30 (Negative) Urine Ketones SMALL (NEGATIVE) Urine Blood 250 (0-5) Grey/ul Urine Nitrite POSITIVE (NEGATIVE) Urine Bilirubin NEGATIVE (NEGATIVE) Urine Urobilinogen NORMAL (0-1) mg/dL Ur Leukocyte Esterase 1+ (NEGATIVE) Urine Microscopic RBC >100 (0-2) /HPF Urine Microscopic WBC 10-15 (0-5) /HPF Ur Epithelial Cells RARE (FEW) /HPF Urine Bacteria MANY (NEGATIVE) /HPF Urine Culture Reflexed YES (NO) Urine Glucose NEGATIVE (NEGATIVE) mg/dL Specimen Received 08/31/17 1105 08/31/17 08/31/17 Range/Units 10:06 10:06 WBC 5.5 (4.0-10.5) K/mm3 RBC 3.64 L (4.1-5.4) M/mm3 Hgb 11.2 L (12.0-16.0) gm/dl Hct 35.5 (35-47) % MCV 97.5 (78-100) fl MCH 30.7 (26-32) pg MCHC 31.5 L (32-36) g/dl RDW 13.7 (11.5-14.0) % Plt Count 185 (150-450) K/mm3 MPV 11.7 H (6-9.5) fl Gran % 73.4 H (36.0-66.0) % Lymphocytes % 17.2 L (24.0-44.0) % Monocytes % 7.4 (0.0-12.0) % Eosinophils % 1.8 (0.00-5.0) % Basophils % 0.2 (0.0-0.4) % Basophils # 0.01 (0-0.4) Sodium 146 H (136-145) mEq/L Potassium 3.2 L (3.5-5.1) mEq/L Chloride 109 H (98-107) mEq/L Carbon Dioxide 24.4 (21-32) mEq/L Anion Gap 15.7 H (5-15) MEQ/L BUN 11 (9-20) mg/dL Creatinine 0.75 (0.55-1.30) mg/dl Estimated GFR > 60 ML/MIN Glucose 141 H (70-110) MG/DL Lactic Acid (0.4-2.0) Calcium 9.0 (8.5-10.1) mg/dL Total Bilirubin 0.40 (0.2-1.0) mg/dL AST 23 (15-37) U/L ALT 10 L (12-78) U/L Alkaline Phosphatase 75 (46-116) U/L Troponin I (0.000-0.056) ng/ml Serum Total Protein 6.1 L (6.4-8.2) gm/dL Albumin 3.1 L (3.4-5.0) g/dL Lipase 49 L (73-393) U/L Ur Collection Type Urine Color (YELLOW) Urine Appearance (CLEAR) Urine pH (5-6) Ur Specific [place] (1.005-1.025) Urine Protein (Negative) Urine Ketones (NEGATIVE) Urine Blood (0-5) Grey/ul Urine Nitrite (NEGATIVE) Urine Bilirubin (NEGATIVE) Urine Urobilinogen (0-1) mg/dL Ur Leukocyte Esterase (NEGATIVE) Urine Microscopic RBC (0-2) /HPF Urine Microscopic WBC (0-5) /HPF Ur Epithelial Cells (FEW) /HPF Urine Bacteria (NEGATIVE) /HPF Urine Culture Reflexed (NO) Urine Glucose (NEGATIVE) mg/dL Specimen Received - Progress Progress Note: 08/31/17 11:59 Still nauseated after zofran. IVF, phenergan given. CAlled Dr Wong. Will place in obs for IVF, rehydration, and rocephin to cover UTI. Urine sent for cx. Discussed with .: Marvin Will see patient in: hospital (observation) Counseled pt/family regarding: lab results, diagnosis, need for follow-up, rad results - Departure Time of Disposition: 12:00 Departure Disposition: Observation Clinical Impression: Candidal intertrigo, UTI (urinary tract infection), Dehydration, Cyclical vomiting Condition: Good Critical Care Time: No Referrals: RAY WONG [Primary Care Provider] -
[2017-08-31] MEDS ORDERED: Sodium Chloride 0.9% 1000 ML 1,000 ML IV SCH ×2 (09:45→10:15)
[2017-08-31 10:10] LABS: Lactic Acid 2.7 (0.4-2.0)
[2017-08-31 10:11] LABS: BASOPHIL % 0.2 % (0.0-0.4); Eosinophil % 1.8 % (0.00-5.0); Granulocytes % 73.4 % (36.0-66.0); Lymphocytes % 17.2 % (24.0-44.0); Mean Cell Volume 97.5 fl (78-100); Mean Platelet Volume 11.7 fl (6-9.5); Monocytes % 7.4 % (0.0-12.0); Platelet Count 185 K/mm3 (150-450); Red Blood Count 3.64 M/mm3 (4.1-5.4); Red Cell Distribution Width 13.7 % (11.5-14.0); White Blood Count 5.5 K/mm3 (4.0-10.5)
[2017-08-31 10:12] LABS: Collection Type CATH; Leukocyte Esterase 1+ (NEGATIVE)
[2017-08-31 10:13] LABS: Bilirubin NEGATIVE (NEGATIVE); Blood 250 Ery/ul (0-5); Glucose NEGATIVE (NEGATIVE)
[2017-08-31 10:14] LABS: COMPLETE URINE MICROSCOPIC? YES
[2017-08-31 10:18] LABS: Mean Corpuscular Hemoglobin 30.7 pg (26-32)
[2017-08-31 10:19] LABS: ADD URINE CULTURE? YES (NO); Bacteria MANY /HPF (NEGATIVE); Epithelial Cells RARE /HPF (FEW)
--- NOTE | 2017-08-31 10:28 | XRAY ---
Indication: Nausea and dry heaves. Comparison: Portable chest August 08, 2017. 2 views of the abdomen nonacute and nonobstructed with mild diffuse scattered colonic fecal debris. Solid organs unremarkable. Osseous structures demonstrate osteopenia, levorotoscoliosis, and moderate scattered vascular calcifications. Single PA chest clear. Heart and mediastinal structures within normal limits. Bony thorax intact with osteopenia and moderate dextroscoliosis. 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 Impression: 1. Mild fecal stasis without obstruction. 2. Nonacute one view chest.
[2017-08-31] MEDS ORDERED: Zofran 4 MG/2 ML VIAL ONE (10:30)
[2017-08-31] MEDS ORDERED: Sodium Chloride 0.9% 1000 ML 1,000 ML ONE (10:30)
[2017-08-31 10:42] LABS: ALBUMIN 3.1 g/dL (3.4-5.0); ALKALINE PHOSPHATASE 75 U/L (46-116); ANION GAP 15.7 MEQ/L (5-15); BLOOD UREA NITROGEN 11 mg/dL (9-20); CHLORIDE 109 mEq/L (98-107); Carbon Dioxide 24.4 mEq/L (21-32); Glucose 141 MG/DL (70-110); LIPASE 49 U/L (73-393); Potassium 3.2 mEq/L (3.5-5.1); SGOT/AST 23 U/L (15-37); SGPT/ALT 10 U/L (12-78); SODIUM 146 mEq/L (136-145); Total Protein 6.1 gm/dL (6.4-8.2)
[2017-08-31] MEDS ORDERED: Phenergan 25 MG INJ IM ONE (11:07)
[2017-08-31] MEDS ORDERED: Phenergan 25 MG INJ ONE (11:09)
[2017-08-31] MEDS ORDERED: ROCEPHIN 1 Gm-D5w 50 ml Bag** 1 G/50 ML IVPB IV STA (11:59)
[2017-08-31] MEDS ORDERED: NovoLOG Insulin SQ PRN (12:46)
[2017-08-31] MEDS: SODIUM CHLORIDE 0.45% W/ 20 mEq KCL 1,000 ML IV SCH ×2 (13:08→23:32)
[2017-08-31] MEDS: NYSTOP 30 GM CREAM TOP SCH ×2 (13:09→21:05)
[2017-08-31 13:57] LABS: Lactic Acid 1.9 (0.4-2.0)
[2017-08-31] MEDS ORDERED: ROCEPHIN 1 Gm-D5w 50 ml Bag** 1 G/50 ML IVPB IV ONE (14:00)
[2017-08-31] MEDS: ROCEPHIN 1 Gm-D5w 50 ml Bag** 1 G/50 ML IVPB IV SCH (14:01)
[2017-08-31] MEDS ORDERED: Neurontin 100 MG PO SCH (14:30)
[2017-08-31] MEDS: Zofran 4 MG/2 ML VIAL IV PRN ×2 (14:38→22:46)
[2017-08-31] MEDS: TENORMIN 50 MG PO SCH (15:45)
[2017-08-31] MEDS: ACCOLATE 20 MG PO SCH ×2 (15:45→21:05)
[2017-08-31] MEDS: PRADAXA 75 MG PO SCH ×2 (15:45→20:59)
[2017-08-31] MEDS: Cardizem CD 180 MG PO SCH (15:45)
[2017-08-31] MEDS: NORVASC 5 MG PO SCH ×2 (15:45→15:54)
[2017-08-31] MEDS: PROTONIX 40 MG IV IV SCH (15:45)
--- NOTE | 2017-08-31 16:13 | PCM.HP ---
History of Present Illness - Chief Complaint Chief Complaint: UTI, FAILED OUTPATIENT History of Present Illness: is a 82 year old female pt of mine from [facility] with PMHx breast cancer , CHF, HTN, afib, and PE came to ER today c/o 1d of vomiting. She started yesterday about noon and c/o nausea with vomiting until today. She denies abd pain or fever. This is her third episode of vomiting in the past several months ; she has come in for vomiting and severe nausea, been treated for a UTI, hydrated over several days then released. She is still having some vomiting after admission. Labs are basically wnl. - Review of Systems Constitutional: Weakness Respiratory: Short Of Breath Cardiac: Edema Abdominal/Gastrointestinal: Nausea, Vomiting, Appetite Changes Genitourinary Symptoms: Frequency Musculoskeletal: Back Pain Psychological: Other (some trouble with clarity of thinking) All Other Systems: Reviewed and Negative Medications & Allergies Home Medications: Home Medication List Atenolol 50 mg [Tenormin 50 mg] 50 mg PO DAILY 07/03/16 [History Confirmed 08/31/17] Atorvastatin Calcium [Lipitor 20MG Tablet] 20 mg PO DAILY 07/03/16 [History Confirmed 08/31/17] Gabapentin [Neurontin] 100 mg PO UD 07/03/16 [History Confirmed 08/31/17] Glimepiride 2 mg [Amaryl 2 MG] 2 mg PO DAILY 07/03/16 [History Confirmed 08/31/17] Zafirlukast 20 mg [Accolate 20 mg] 20 mg PO BID 07/03/16 [History Confirmed 08/31/17] Dabigatran Etexilate Mesylate [Pradaxa] 150 mg PO BID #60 capsule 07/14/16 [Rx Confirmed 08/31/17] PANTOPRAZOLE 40 mg Tablet [Protonix 40MG Tablet] 40 mg PO DAILY #30 tab [Rx Confirmed 08/31/17] Potassium Chloride 20 Meq Tab [Potassium Chloride 20 MEQ TABLET] 20 meq PO DAILY #30 tab 07/18/16 [Rx Confirmed 08/31/17] Acetaminophen/Diphenhydramine [Tylenol Pm Ex-Strength Caplet] 2 each PO HS 10/01 /16 [History Confirmed 08/31/17] Magnesium Oxide 400 mg [Mag-Ox 400] 400 mg PO DAILY 08/26/16 [History Confirmed 08/31/17] Oxazepam 15 mg PO HS 08/26/16 [History Confirmed 08/31/17] Amlodipine Besylate 10 mg [Norvasc 10 MG] 10 mg PO DAILY 07/31/17 [History Confirmed 08/31/17] Furosemide 40 mg [Lasix 40 MG] 40 mg PO DAILY 07/31/17 [History Confirmed 08/31/17] Hydrocodone Bit/Acetaminophen [Hydrocodon-Acetaminophn 10-325] 1 each PO BID PRN 07/31/17 [History Confirmed 08/31/17] Docusate Sodium 100 mg [Colace 100 MG] 200 mg PO HS 08/08/17 [History Confirmed 08/31/17] Acetaminophen 325 mg [Tylenol 325 mg] 650 mg PO Q4H PRN PRN tablet [Rx Confirmed 08/31/17] Cholecalciferol (Vitamin D3) [Vitamin D3] 1,000 unit PO DAILY 08/31/17 [History Confirmed 08/31/17] Cyanocobalamin (Vitamin B-12) [Vitamin B12] 2,500 mcg PO DAILY 08/31/17 [ History Confirmed 08/31/17] Diltiazem HCl [Cardizem Cd] 180 mg PO DAILY 08/31/17 [History Confirmed 08/31/17 ] Vit A/Vit C/Vit E/Zinc/Copper [Preservision Areds Softgel] 1 each PO BID [History Confirmed 08/31/17] Allergies/Adverse Reactions: Allergies Allergy/AdvReac Type Severity Reaction Status Date / Time metoclopramide HCl Allergy Verified 08/31/17 13:05 [From Reglan] Sulfa (Sulfonamide Allergy Verified 08/31/17 13:05 Antibiotics) - Past Medical History Past Medical History: Yes Neurological History: No Pertinent History ENT History: No Pertinent History Cardiac History: Arrhythmia, Other Respiratory History: Asthma, Pneumonia Endocrine Medical History: Diabetes Type II Musculoskelatal History: No Pertinent History GI Medical History: Hernia History: No Pertinent History Pyscho-Social History: No Pertinent History Reproductive Disorders: Breast Cancer Comment: A FIB - Female History Are you now?: No - Past Surgical History Past Surgical History: Yes Neuro Surgical History: No Pertinent History Cardiac History: No Pertinent History Respiratory Surgery: No Pertinent History GI Surgical History: No Pertinent History Genitourinary Surgical Hx: No Pertinent History Musculskeletal Surgical Hx: No Pertinent History Female Surgical History: Mastectomy Other Surgical History: tonsillectomy, L mastectomy april 10 - Social History Smoking Status: Never smoker How long have you smoked: 10 Exposure to second hand smoke: No Alcohol: None Drug Use: none - Physical Exam Vital Signs: Vital Signs - 24 hr Temp Pulse Resp BP BP Pulse Ox 08/31/17 15:45 93 H 158/79 08/31/17 13:08 98.1 F 93 H 16 158/79 92 L 08/31/17 12:46 98.1 F 93 H 16 158/79 92 L 08/31/17 12:29 85 18 140/66 08/31/17 12:01 97 08/31/17 11:15 76 18 143/58 99 08/31/17 10:26 99 F 08/31/17 09:27 98 F 79 18 146/71 97 General Appearance: no apparent distress, alert Neurologic Exam: oriented x 3, cooperative Eye Exam: eyes nml inspection Ears, Nose, Throat Exam: moist mucous membranes Neck Exam: normal inspection, non-tender, No lymphadenopathy Respiratory Exam: normal breath sounds, lungs clear, No crackles/rales, No rhonchi, No wheezing Cardiovascular Exam: regular rate/rhythm, normal heart sounds, murmur (II/ sys murmur) Gastrointestinal/Abdomen Exam: soft, normal bowel sounds, distention (ventral hernialarge), No tenderness Back Exam: normal inspection Extremity Exam: swelling (trace pretibial edema bilat) Skin Exam: normal color, warm, dry Results - Labs Lab/Micro Results: Lab Results-Last 24 Hours 08/31/17 Range/Units 13:50 Lactic Acid 1.9 (0.4-2.0) Assessment/Plan (1) Cyclical vomiting Current Visit: Yes Status: Acute Assessment & Plan: Unsure the etiology. She has been diagnosed with diabetic gastroparesis in the past and was in fact on reglan when she had tardive dyskinesia and had to stop. She also has a large ventral hernia. Either one of these could be contributing. After she stops vomiting, I would like to discuss with GI and send her up for an appointment while she is still feeling well. (2) UTI (urinary tract infection) Current Visit: Yes Status: Acute Qualifiers: Urinary tract infection type: acute cystitis Hematuria presence: without hematuria Qualified Code(s): N30.00 - Acute cystitis without hematuria Assessment & Plan: On IV rocephin; last ucx susceptible Code(s): N39.0 - URINARY TRACT INFECTION, SITE NOT SPECIFIED (3) Hypokalemia Current Visit: Yes Status: Acute Code(s): E87.6 - HYPOKALEMIA
[2017-08-31] MEDS: Neurontin 100 MG PO SCH (16:50)
[2017-08-31] MEDS ORDERED: NON-FORMULARY ITEM (Dabigatran Etexilate Mesylate [Pradaxa] 150 MG) PO SCH (22:00)
[2017-08-31] MEDS: TYLENOL 325 MG PO PRN (22:50)
[2017-09-01] MEDS: TYLENOL 325 MG PO PRN (03:51)
[2017-09-01] MEDS: Zofran 4 MG/2 ML VIAL IV PRN ×2 (05:32→11:38)
[2017-09-01 06:20] LABS: BASOPHIL % 0.4 % (0.0-0.4); Eosinophil % 5.3 % (0.00-5.0); Granulocytes % 63.9 % (36.0-66.0); Lymphocytes % 22.7 % (24.0-44.0); Mean Cell Volume 97.2 fl (78-100); Mean Corpuscular Hemoglobin 30.8 pg (26-32); Mean Platelet Volume 11.9 fl (6-9.5); Monocytes % 7.7 % (0.0-12.0); Platelet Count 169 K/mm3 (150-450); Red Cell Distribution Width 13.8 % (11.5-14.0); White Blood Count 4.9 K/mm3 (4.0-10.5)
[2017-09-01 06:40] LABS: ALBUMIN 3.1 g/dL (3.4-5.0); ALKALINE PHOSPHATASE 75 U/L (46-116); ANION GAP 13.7 MEQ/L (5-15); BLOOD UREA NITROGEN 8 mg/dL (9-20); CHLORIDE 109 mEq/L (98-107); Carbon Dioxide 22.9 mEq/L (21-32); Glucose 136 MG/DL (70-110); Potassium 3.5 mEq/L (3.5-5.1); SGOT/AST 27 U/L (15-37); SGPT/ALT 11 U/L (12-78); SODIUM 142 mEq/L (136-145); Total Protein 6.3 gm/dL (6.4-8.2)
[2017-09-01] MEDS: Neurontin 100 MG PO SCH ×3 (07:59→18:27)
[2017-09-01] MEDS: SODIUM CHLORIDE 0.45% W/ 20 mEq KCL 1,000 ML IV SCH ×2 (08:07→18:46)
[2017-09-01] MEDS: PROTONIX 40 MG IV IV SCH (09:24)
[2017-09-01] MEDS: ROCEPHIN 1 Gm-D5w 50 ml Bag** 1 G/50 ML IVPB IV SCH (09:25)
[2017-09-01] MEDS: NYSTOP 30 GM CREAM TOP SCH ×2 (09:26→22:05)
[2017-09-01] MEDS: Cardizem CD 180 MG PO SCH (09:26)
[2017-09-01] MEDS: PRADAXA 75 MG PO SCH ×2 (09:26→22:00)
[2017-09-01] MEDS: TENORMIN 50 MG PO SCH (09:27)
[2017-09-01] MEDS ORDERED: NON-FORMULARY ITEM (Amlodipine Besylate 10 Mg [Norvasc 10 Mg] 10 MG) PO SCH (10:00)
[2017-09-01] MEDS ORDERED: FLUZONE HIGH-DOSE 2017-18 SYR IM ONE (10:00)
[2017-09-01] MEDS ORDERED: Norco 10/325 MG Tablet PO ONE (10:37)
[2017-09-01] MEDS ORDERED: MAG-OX 400 PO ONE (11:00)
--- NOTE | 2017-09-01 12:25 | PCM.NOTE ---
Date and Time: 09/01/17 1220 Subjective Assessment: Patient was upset last night that her home dose of hydrocodone and sleeping medicine was not ordered but she stayed overnight anyway. She would like to try some more solid foods but does report that her stomach seemed to roll all night. - Review of Systems Constitutional: No Symptoms Eyes: No Symptoms Ears, Nose, & Throat: No Symptoms Respiratory: No Symptoms Cardiac: No Symptoms Abdominal/Gastrointestinal: Abdominal Pain, Nausea Genitourinary Symptoms: No Symptoms Musculoskeletal: No Symptoms Skin: No Symptoms Neurological: No Symptoms Objective Exam General Appearance: no apparent distress, other Neurologic Exam: alert, cooperative, normal mood/affect Skin Exam: normal color, warm, dry, No rash Respiratory Exam: normal breath sounds, lungs clear, No crackles/rales, No rhonchi, No wheezing Cardiovascular Exam: regular rate/rhythm, normal heart sounds, No murmur, No friction rub, No gallop Gastrointestinal/Abdomen Exam: soft, normal bowel sounds, other (large hernia, mildly tender, no rigidity), No guarding Extremity Exam: other (no c/c/e) OBJECTIVE DATA Vital Signs: Vital Signs - 24 hr Temp Pulse Resp BP BP Pulse Ox 09/01/17 09:27 72 164/71 09/01/17 07:33 97.2 F 74 18 126/74 95 09/01/17 04:00 97.2 F 74 18 126/74 95 09/01/17 00:00 95.7 F 79 18 128/70 95 08/31/17 20:00 98.2 F 71 18 122/74 96 08/31/17 16:00 98.8 F 75 20 118/65 96 08/31/17 15:45 93 H 158/79 08/31/17 13:08 98.1 F 93 H 16 158/79 92 L 08/31/17 12:46 98.1 F 93 H 16 158/79 92 L 08/31/17 12:29 85 18 140/66 Pain Assessment - Last Documented Pain Intensity 6 Pain Scale Used 0-10 Pain Scale Intake and Output: Intake & Output 08/30/17 08/31/17 09/01/17 09/02/17 06:59 06:59 06:59 06:59 Intake Total 1200 Output Total 350 Balance 850 Weight 71.356 kg Lab Results: Accuchecks Date 09/01/17 Date 09/01/17 Date 08/31/17 Time 11:43 Time 07:24 Time 21:00 Accucheck Value: 155 Accucheck Value: 136 Accucheck Value: 110 Accucheck Value: 141 Lab Results-Last 24 Hours 08/31/17 09/01/17 09/01/17 Range/Units 13:50 05:20 05:20 WBC 4.9 (4.0-10.5) K/mm3 RBC 3.60 L (4.1-5.4) M/mm3 Hgb 11.1 L (12.0-16.0) gm/dl Hct 35.0 (35-47) % MCV 97.2 (78-100) fl MCH 30.8 (26-32) pg MCHC 31.7 L (32-36) g/dl RDW 13.8 (11.5-14.0) % Plt Count 169 (150-450) K/mm3 MPV 11.9 H (6-9.5) fl Gran % 63.9 (36.0-66.0) % Lymphocytes % 22.7 L (24.0-44.0) % Monocytes % 7.7 (0.0-12.0) % Eosinophils % 5.3 H (0.00-5.0) % Basophils % 0.4 (0.0-0.4) % Basophils # 0.02 (0-0.4) Sodium 142 (136-145) mEq/L Potassium 3.5 (3.5-5.1) mEq/L Chloride 109 H (98-107) mEq/L Carbon Dioxide 22.9 (21-32) mEq/L Anion Gap 13.7 (5-15) MEQ/L BUN 8 L (9-20) mg/dL Creatinine 0.61 (0.55-1.30) mg/dl Estimated GFR > 60 ML/MIN Glucose 136 H (70-110) MG/DL Lactic Acid 1.9 (0.4-2.0) Calcium 9.0 (8.5-10.1) mg/dL Magnesium (1.8-2.4) mg/dL Total Bilirubin 0.50 (0.2-1.0) mg/dL AST 27 (15-37) U/L ALT 11 L (12-78) U/L Alkaline Phosphatase 75 (46-116) U/L Serum Total Protein 6.3 L (6.4-8.2) gm/dL Albumin 3.1 L (3.4-5.0) g/dL 09/01/17 Range/Units 05:20 WBC (4.0-10.5) K/mm3 RBC (4.1-5.4) M/mm3 Hgb (12.0-16.0) gm/dl Hct (35-47) % MCV (78-100) fl MCH (26-32) pg MCHC (32-36) g/dl RDW (11.5-14.0) % Plt Count (150-450) K/mm3 MPV (6-9.5) fl Gran % (36.0-66.0) % Lymphocytes % (24.0-44.0) % Monocytes % (0.0-12.0) % Eosinophils % (0.00-5.0) % Basophils % (0.0-0.4) % Basophils # (0-0.4) Sodium (136-145) mEq/L Potassium (3.5-5.1) mEq/L Chloride (98-107) mEq/L Carbon Dioxide (21-32) mEq/L Anion Gap (5-15) MEQ/L BUN (9-20) mg/dL Creatinine (0.55-1.30) mg/dl Estimated GFR ML/MIN Glucose (70-110) MG/DL Lactic Acid (0.4-2.0) Calcium (8.5-10.1) mg/dL Magnesium 1.7 L (1.8-2.4) mg/dL Total Bilirubin (0.2-1.0) mg/dL AST (15-37) U/L ALT (12-78) U/L Alkaline Phosphatase (46-116) U/L Serum Total Protein (6.4-8.2) gm/dL Albumin (3.4-5.0) g/dL Assessment/Plan (1) Cyclical vomiting Current Visit: Yes Status: Acute Assessment & Plan: Continue IV fluids, nausea medication and try to advance diet to full liquids. (2) UTI (urinary tract infection) Current Visit: Yes Status: Acute Qualifiers: Urinary tract infection type: acute cystitis Hematuria presence: without hematuria Qualified Code(s): N30.00 - Acute cystitis without hematuria Assessment & Plan: Urine culture in lab. On ceftriaxone. Code(s): N39.0 - URINARY TRACT INFECTION, SITE NOT SPECIFIED (3) Insomnia Current Visit: Yes Status: Acute Assessment & Plan: Home medication reordered. Code(s): G47.00 - INSOMNIA, UNSPECIFIED (4) Hypomagnesemia Current Visit: Yes Status: Acute Assessment & Plan: Home magnesium oxide reordered. Code(s): E83.42 - HYPOMAGNESEMIA (5) Chronic pain Current Visit: Yes Status: Acute Assessment & Plan: Home pain medication reordered. Code(s): G89.29 - OTHER CHRONIC PAIN
[2017-09-01] MEDS: ACCOLATE 20 MG PO SCH ×2 (12:56→22:00)
[2017-09-01] MEDS ORDERED: MEDICATION INTERVENTION MC SCH (13:30)
[2017-09-01] MEDS ORDERED: NON-FORMULARY ITEM PO SCH (22:00)
[2017-09-01] MEDS: Norco 10/325 MG Tablet PO SCH (22:00)
[2017-09-01] MEDS ORDERED: PATIENT OWN MEDICATION PO SCH (22:00)
[2017-09-02] MEDS: SODIUM CHLORIDE 0.45% W/ 20 mEq KCL 1,000 ML IV SCH (04:47)
[2017-09-02] MEDS: Zofran 4 MG/2 ML VIAL IV PRN (08:51)
[2017-09-02] MEDS: Neurontin 100 MG PO SCH ×2 (08:53→11:47)
[2017-09-02] MEDS: Norco 10/325 MG Tablet PO SCH (08:54)
--- NOTE | 2017-09-02 09:53 | PCM.NOTE ---
Date and Time: 09/02/17 0950 Subjective Assessment: She reports she was able to take some by mouth but she did have a little nausea this AM. She would like to go home later today if her lunch goes ok. - Review of Systems Constitutional: No Symptoms Eyes: No Symptoms Ears, Nose, & Throat: No Symptoms Respiratory: No Symptoms Cardiac: No Symptoms Abdominal/Gastrointestinal: Nausea, No Abdominal Pain, No Diarrhea, No Constipation Genitourinary Symptoms: No Symptoms Musculoskeletal: No Symptoms Objective Exam General Appearance: no apparent distress, alert, obese Neurologic Exam: alert, cooperative, normal mood/affect, other ( at bedside) Skin Exam: normal color, warm, dry, No rash Respiratory Exam: normal breath sounds, lungs clear, No crackles/rales, No rhonchi, No wheezing Cardiovascular Exam: regular rate/rhythm, normal heart sounds, No murmur, No friction rub, No gallop Gastrointestinal/Abdomen Exam: soft, normal bowel sounds, hernia, other (large periumbilical hernia), No tenderness, No distention, No mass, No guarding Extremity Exam: other (no c/c/e) OBJECTIVE DATA Vital Signs: Vital Signs - 24 hr Temp Pulse Resp BP Pulse Ox 09/02/17 07:12 98.2 F 54 L 18 139/62 94 L 09/02/17 04:00 97.4 F 58 L 16 116/64 99 09/02/17 00:00 98 F 51 L 16 125/60 98 09/01/17 20:00 97.2 F 76 18 125/71 98 09/01/17 19:01 95 09/01/17 14:50 98.0 F 59 L 18 131/59 98 09/01/17 12:00 97.2 F 72 18 126/74 95 Oxygen-Last 24 hours O2 Percentage 2 Liters = 28% O2 Percentage 2 Liters = 28% O2 Percentage 2 Liters = 28% Pain Assessment - Last Documented Pain Intensity 4 Pain Scale Used 0-10 Pain Scale Intake and Output: Intake & Output 08/31/17 09/01/17 09/02/17 09/03/17 06:59 06:59 06:59 06:59 Intake Total 1200 4219 Output Total 350 800 Balance 850 3419 Weight 71.356 kg 71.696 kg Lab Results: Accuchecks Date 09/02/17 Date 09/01/17 Date 09/01/17 Time 07:30 Time 21:00 Time 11:43 Accucheck Value: 110 Accucheck Value: 105 Accucheck Value: 155 Assessment/Plan (1) Cyclical vomiting Current Visit: Yes Status: Acute Assessment & Plan: Improving. May go home after lunch today if she tolerates lunch. (2) UTI (urinary tract infection) Current Visit: Yes Status: Acute Qualifiers: Urinary tract infection type: acute cystitis Hematuria presence: without hematuria Qualified Code(s): N30.00 - Acute cystitis without hematuria Code(s): N39.0 - URINARY TRACT INFECTION, SITE NOT SPECIFIED (3) Insomnia Current Visit: Yes Status: Acute Assessment & Plan: Urine culture growing E. Coli susceptible to ceftriaxone. This will be Day 3 of antibiotics for this so this will finish her course. Code(s): G47.00 - INSOMNIA, UNSPECIFIED (4) Hypomagnesemia Current Visit: Yes Status: Acute Assessment & Plan: Continue magnesium Code(s): E83.42 - HYPOMAGNESEMIA (5) Chronic pain Current Visit: Yes Status: Acute Assessment & Plan: Continue home medication. Code(s): G89.29 - OTHER CHRONIC PAIN
[2017-09-02] MEDS ORDERED: MAG-OX 400 PO SCH (10:00)
[2017-09-02 11:32] VITALS: PULSE 60; O2SAT 92
[2017-09-02] MEDS: PRADAXA 75 MG PO SCH (11:43)
[2017-09-02] MEDS: Cardizem CD 180 MG PO SCH (11:43)
[2017-09-02] MEDS: ACCOLATE 20 MG PO SCH (11:43)
[2017-09-02] MEDS: PROTONIX 40 MG IV IV SCH (11:44)
[2017-09-02] MEDS: NYSTOP 30 GM CREAM TOP SCH (11:44)
[2017-09-02] MEDS: TENORMIN 50 MG PO SCH (11:45)
[2017-09-02] MEDS: ROCEPHIN 1 Gm-D5w 50 ml Bag** 1 G/50 ML IVPB IV SCH (11:45)
[2017-09-02 11:47] VITALS: BP 164/71
--- NOTE | 2017-09-03 15:26 | DS ---
DISCHARGE DIAGNOSES: 1) CYCLICAL VOMITING. 2) URINARY TRACT INFECTION. 3) INSOMNIA. 4) HYPOMAGNESEMIA. 5) CHRONIC PAIN. DISCHARGE PHYSICAL EXAMINATION: VITALS: Temperature current 98.2F, temperature max 98.2F, heart rate 51 to 72, respiratory rate 16 to 18, blood pressure 116 to 131 over 59 to 71. Oxygen saturation 95 to 99% on room air. GENERAL: The patient is a pleasant talkative lady sitting up in no acute distress with her at the bedside. She was alert and oriented. CVS: She had a regular rate and rhythm. No murmurs, gallops or rubs were appreciated. CHEST: Clear to auscultation bilaterally. No crackles or wheezes were appreciated. ABDOMEN: Soft, nontender, nondistended with a large periumbilical hernia. No mass. No guarding. EXTREMITIES: No clubbing, cyanosis or edema. SKIN: Warm, dry and intact. HOSPITAL COURSE: 1) CYCLICAL VOMITING: She was given anti-nausea medications during the hospital stay and was able to tolerate lunch without any problems and wanting to return home on her home medications. She will follow up with her primary care doctor, Dr. Wong. 2) URINARY TRACT INFECTION: Her urine culture grew Escherichia coli that was susceptible to ceftriaxone. She was given three days of antibiotics so her course of antibiotics is finished for the urinary tract infection. 3) INSOMNIA: She was continued on her home medication. 4) HYPERMAGNESEMIA: She was continued on her home dose magnesium. 5) CHRONIC PAIN: She was continued on her home dose of pain medication. DISCHARGE MEDICATIONS: Please see the discharge order. DISPOSITION: The patient was discharged to home in fair condition to follow up with Dr. Wong her family doctor in one week.
== END 2017-09-02 13:15 | disposition home or self-care (01) | DRG 999 ==
LOC: ED 09:22 → MED SURG 12:40 → OBSVTOIN 13:21
PROVIDERS: ADMIT Family Medicine; ATTEND Family Medicine
DX: G43.A0 Cyclical vomiting, in migraine, not intractable (principal); N39.0 Urinary tract infection, site not specified; B96.20 Unspecified Escherichia coli [E. coli] as the cause of diseases classified elsewhere; Z79.899 Other long term (current) drug therapy; G47.00 Insomnia, unspecified; E83.42 Hypomagnesemia; G89.29 Other chronic pain; Z85.3 Personal history of malignant neoplasm of breast; E87.6 Hypokalemia; K43.9 Ventral hernia without obstruction or gangrene
CPT/HCPCS: 36000; 36415; 74022; 80053; 81000; 82962; 83605; 83690; 83735; 84484; 85025; 87040; 87077; 87086; 87186; 93005; 94760; 96360; 96361; 96372; 96374; 99285; G0008; J0696; J2405; J2550; P9612; 90662; A9270-GY

== ENCOUNTER 2017-10-10 05:51 | Emergency (ER) | payer MEDICARE ==
[2017-10-10] MEDS ORDERED: Sodium Chloride 0.9% 1000 ML 1,000 ML IV STA (06:30)
--- NOTE | 2017-10-10 06:30 | ERPHSYRPT ---
<TYLER SEGOVIA - Last Filed: 10/10/17 09:29> - History of Present Illness Source: patient Exam Limitations: no limitations Patient Subjective Stated Complaint: pt states she has been vomiting since yesterday. states she was on clear liquid diet for egd prep yesterday and wasnt able to tolerate Triage Nursing Assessment: pt alert and oriented. asnwers questions approp. pt ambulate from wheelchair to stretcher with minimal assist. skin pink warm and dry. respirations nonlabored with lungs cta. abd soft, asymmetrical, ot states she has a large hernia to lt abd. bowel sounds present. Hx Tetanus, Diphtheria Vaccination/Date Given: Yes (up to date) Hx Influenza Vaccination/Date Given: Yes Hx Pneumococcal Vaccination/Date Given: Yes Immunizations Up to Date: Yes <ANDIE HUBER - Last Filed: 10/12/17 21:23> - History of Present Illness Time Seen by Provider: 10/10/17 06:15 Physician History: FOR THE PAST 3 DAYS PT HAS HAD VOMITING X30 WITHOUT BLOOD; FOR THE PAST 2 DAYS DULL ACHING MID ABDOMINAL PAIN, LEFT ANTERIOR CHEST PAIN, HEADACHE AND HEART FLUTTERING. LAST BM WAS YESTERDAY & WNL. (ANDIE HUBER) Allergies/Adverse Reactions: metoclopramide HCl [From Reglan] Allergy (Verified 10/11/17 12:38) vomiting Sulfa (Sulfonamide Antibiotics) Allergy (Verified 10/11/17 12:38) rash Home Medications: Atenolol 50 mg [Tenormin 50 mg] 50 mg PO DAILY 07/03/16 [History] Atorvastatin Calcium [Lipitor 20MG Tablet] 20 mg PO DAILY 07/03/16 [History] Gabapentin [Neurontin] 100 mg PO UD 07/03/16 [History] Glimepiride 2 mg [Amaryl 2 MG] 2 mg PO DAILY 07/03/16 [History] Zafirlukast 20 mg [Accolate 20 mg] 20 mg PO BID 07/03/16 [History] Acetaminophen/Diphenhydramine [Tylenol Pm Ex-Strength Caplet] 2 each PO HS 08/26 [History] Magnesium Oxide 400 mg [Mag-Ox 400] 400 mg PO DAILY 08/26/16 [History] Oxazepam 15 mg PO HS 08/26/16 [History] Furosemide 40 mg [Lasix 40 MG] 40 mg PO DAILY 07/31/17 [History] Hydrocodone Bit/Acetaminophen [Hydrocodon-Acetaminophn 10-325] 1 each PO BID PRN 07/31/17 [History] Docusate Sodium 100 mg [Colace 100 MG] 300 mg PO HS 08/08/17 [History] Cholecalciferol (Vitamin D3) [Vitamin D3] 1,000 unit PO DAILY 08/31/17 [History] Cyanocobalamin (Vitamin B-12) [Vitamin B12] 1,000 mcg PO DAILY 08/31/17 [History ] Diltiazem HCl [Cardizem Cd] 180 mg PO DAILY 08/31/17 [History] Vit A/Vit C/Vit E/Zinc/Copper [Preservision Areds Softgel] 1 each PO BID [History] Esomeprazole Magnesium [Nexium] 20 mg PO DAILY 10/10/17 [History] - Review of Systems Cardiac: Chest Pain, Palpitations Abdominal/Gastrointestinal: Abdominal Pain, Vomiting Neurological: Headache All Other Systems: Reviewed and Negative <ANDIE HUBER - Last Filed: 10/12/17 21:23> - Past Medical History Pertinent Past Medical History: Yes Neurological History: No Pertinent History ENT History: No Pertinent History Cardiac History: Arrhythmia, Other Respiratory History: Asthma, Pneumonia Endocrine Medical History: Diabetes Type II Musculoskeletal History: No Pertinent History GI Medical History: Hernia History: No Pertinent History Psycho-Social History: No Pertinent History Female Reproductive Disorders: Breast Cancer Other Medical History: A FIB - Past Surgical History Past Surgical History: Yes Neuro Surgical History: No Pertinent History Cardiac: No Pertinent History Respiratory: No Pertinent History Gastrointestinal: No Pertinent History Genitourinary: No Pertinent History Musculoskeletal: No Pertinent History Female Surgical History: Mastectomy Other Surgical History: tonsillectomy, L mastectomy april 10 - Social History Smoking Status: Former smoker How long have you smoked: 10 Exposure to second hand smoke: No Drug Use: none Patient Lives Alone: No <ANDIE HUBER - Last Filed: 10/12/17 21:23> <TYLER SEGOVIA - Last Filed: 10/10/17 09:29> - Physical Exam General Appearance: alert Eye Exam: eyes nml inspection Ears, Nose, Throat Exam: dry mucous membranes Neck Exam: normal inspection Respiratory Exam: lungs clear Cardiovascular Exam: murmur (3/6 MURMUR) Gastrointestinal/Abdomen Exam: soft, normal bowel sounds, tenderness (MILD MID ABDOMINAL TENDERNESS), hernia (LARGE MID ABDOMINAL HERNIA) Back Exam: other (KYPHOSIS) Extremity Exam: normal inspection Neurologic Exam: alert, cooperative Skin Exam: pale SpO2 Interpretation: normal SpO2: 97 Oxygen Delivery: Room Air <ANDIE HUBER - Last Filed: 10/12/17 21:23> - Nursing Vital Signs Nursing Vital Signs: Initial Vital Signs Temperature 98.0 F 10/10/17 06:01 Pulse Rate 69 10/10/17 06:01 Respiratory Rate 18 10/10/17 06:01 Blood Pressure 183/82 10/10/17 06:01 O2 Sat by Pulse Oximetry 97 10/10/17 06:01 Pain Scale Pain Intensity 0 - Course Nursing assessment & vital signs reviewed: Yes EKG Interpreted by Me: Other (nsr 68 lvh no stemi, similar to 08/2017) - Radiology Exams Abdomen X-ray Interpretation: Discussed w/ radiologist, Other (nap) - CT Exams Abdomen CT Interpretation: Discussed w/radiologist, Other (nap) <TYLER SEGOVIA - Last Filed: 10/10/17 09:29> - Course Nursing assessment & vital signs reviewed: Yes <ANDIE HUBER - Last Filed: 10/12/17 21:23> Ordered Tests: Medication Summary Discontinued Medications Generic Name Dose Route Start Last Admin Trade Name Berenice PRN Reason Stop Dose Admin Fentanyl Citrate 50 mcg 10/10/17 06:34 10/10/17 06:44 Sublimaze 100 Mcg/2 Ml IV 10/10/17 06:35 50 mcg STAT ONE Administration Fentanyl Citrate Confirm 10/10/17 06:40 Sublimaze 100 Mcg/2 Ml Administered 10/10/17 06:41 Dose 100 mcg .ROUTE .STK-MED ONE Sodium Chloride 1,000 mls @ 999 mls/hr 10/10/17 06:30 10/10/17 06:44 Sodium Chloride 0.9% 1000 Ml IV 10/10/17 07:30 999 mls/hr .Q1H1M STA Administration Sodium Chloride Confirm 10/10/17 06:40 Sodium Chloride 0.9% 1000 Ml Administered 10/10/17 06:41 Dose 1,000 mls @ ud .ROUTE .STK-MED ONE Promethazine HCl 12.5 mg 10/10/17 06:34 10/10/17 06:44 Phenergan 25 Mg Inj IV 10/10/17 06:35 12.5 mg STAT ONE Administration Promethazine HCl Confirm 10/10/17 06:39 Phenergan 25 Mg Inj Administered 10/10/17 06:40 Dose 25 mg .ROUTE .STK-MED ONE Lab/Rad Data: Laboratory Result Diagrams 10/10/17 06:35 10/10/17 06:35 Laboratory Results 10/10/17 10/10/17 10/10/17 Range/Units 07:30 06:35 06:35 WBC (4.0-10.5) K/mm3 RBC (4.1-5.4) M/mm3 Hgb (12.0-16.0) gm/dl Hct (35-47) % MCV (78-100) fl MCH (26-32) pg MCHC (32-36) g/dl RDW (11.5-14.0) % Plt Count (150-450) K/mm3 MPV (6-9.5) fl Gran % (36.0-66.0) % Lymphocytes % (24.0-44.0) % Monocytes % (0.0-12.0) % Eosinophils % (0.00-5.0) % Basophils % (0.0-0.4) % Basophils # (0-0.4) INR 1.03 (0.8-3.0) APTT 31.4 (25.3-37.0) SECONDS Sodium (136-145) mEq/L Potassium (3.5-5.1) mEq/L Chloride (98-107) mEq/L Carbon Dioxide (21-32) mEq/L Anion Gap (5-15) MEQ/L BUN (9-20) mg/dL Creatinine (0.55-1.30) mg/dl Estimated GFR ML/MIN Glucose (70-110) MG/DL Calcium (8.5-10.1) mg/dL Magnesium (1.8-2.4) mg/dL Total Bilirubin (0.2-1.0) mg/dL AST (15-37) U/L ALT (12-78) U/L Alkaline Phosphatase (46-116) U/L Troponin I < 0.017 (0.000-0.056) ng/ml NT-Pro-B Natriuret Pep (0-450) pg/ml Serum Total Protein (6.4-8.2) gm/dL Albumin (3.4-5.0) g/dL Amylase (25-115) U/L Lipase (73-393) U/L Ur Collection Type CATH Urine Color YELLOW (YELLOW) Urine Appearance CLEAR (CLEAR) Urine pH 8.0 (5-6) Ur Specific Holt 1.005 (1.005-1.025) Urine Protein NEGATIVE (Negative) Urine Ketones NEGATIVE (NEGATIVE) Urine Blood 250 (0-5) Grey/ul Urine Nitrite POSITIVE (NEGATIVE) Urine Bilirubin NEGATIVE (NEGATIVE) Urine Urobilinogen NORMAL (0-1) mg/dL Ur Leukocyte Esterase TRACE (NEGATIVE) Urine Microscopic RBC 10-15 (0-2) /HPF Urine Microscopic WBC 2-5 (0-5) /HPF Ur Epithelial Cells FEW (FEW) /HPF Urine Bacteria PACKED (NEGATIVE) /HPF Urine Culture Reflexed YES (NO) Urine Glucose NEGATIVE (NEGATIVE) mg/dL Specimen Received 10/10/17 0730 10/10/17 10/10/17 Range/Units 06:35 06:35 WBC 4.8 (4.0-10.5) K/mm3 RBC 3.65 L (4.1-5.4) M/mm3 Hgb 10.9 L (12.0-16.0) gm/dl Hct 35.8 (35-47) % MCV 98.1 (78-100) fl MCH 29.8 (26-32) pg MCHC 30.4 L (32-36) g/dl RDW 14.2 H (11.5-14.0) % Plt Count 172 (150-450) K/mm3 MPV 11.2 H (6-9.5) fl Gran % 68.2 H (36.0-66.0) % Lymphocytes % 19.7 L (24.0-44.0) % Monocytes % 9.6 (0.0-12.0) % Eosinophils % 2.3 (0.00-5.0) % Basophils % 0.2 (0.0-0.4) % Basophils # 0.01 (0-0.4) INR (0.8-3.0) APTT (25.3-37.0) SECONDS Sodium 144 (136-145) mEq/L Potassium 3.0 L* (3.5-5.1) mEq/L Chloride 109 H (98-107) mEq/L Carbon Dioxide 27.4 (21-32) mEq/L Anion Gap 10.8 (5-15) MEQ/L BUN 12 (9-20) mg/dL Creatinine 0.89 (0.55-1.30) mg/dl Estimated GFR > 60 ML/MIN Glucose 148 H (70-110) MG/DL Calcium 8.7 (8.5-10.1) mg/dL Magnesium 1.9 (1.8-2.4) mg/dL Total Bilirubin 0.40 (0.2-1.0) mg/dL AST 21 (15-37) U/L ALT 12 (12-78) U/L Alkaline Phosphatase 67 (46-116) U/L Troponin I (0.000-0.056) ng/ml NT-Pro-B Natriuret Pep 2271 H (0-450) pg/ml Serum Total Protein 6.5 (6.4-8.2) gm/dL Albumin 3.1 L (3.4-5.0) g/dL Amylase 33 (25-115) U/L Lipase 50 L (73-393) U/L Ur Collection Type Urine Color (YELLOW) Urine Appearance (CLEAR) Urine pH (5-6) Ur Specific Holt (1.005-1.025) Urine Protein (Negative) Urine Ketones (NEGATIVE) Urine Blood (0-5) Grey/ul Urine Nitrite (NEGATIVE) Urine Bilirubin (NEGATIVE) Urine Urobilinogen (0-1) mg/dL Ur Leukocyte Esterase (NEGATIVE) Urine Microscopic RBC (0-2) /HPF Urine Microscopic WBC (0-5) /HPF Ur Epithelial Cells (FEW) /HPF Urine Bacteria (NEGATIVE) /HPF Urine Culture Reflexed (NO) Urine Glucose (NEGATIVE) mg/dL Specimen Received - Progress Progress: improved Discussed with : Marvin Will see patient in: office Counseled pt/family regarding: lab results, diagnosis, need for follow-up, rad results (see Dr Wong with whom the case was discussed, keflex, phenergan warnings, kdur, return if worse) <TYLER SEGOVIA - Last Filed: 10/10/17 09:29> - Departure Time of Disposition: 09:33 Departure Disposition: Home Critical Care Time: No <TYLER SEGOVIA - Last Filed: 10/10/17 09:29> <ANDIE HUBER - Last Filed: 10/12/17 21:23> - Departure Clinical Impression: UTI (urinary tract infection) Qualifiers: Urinary tract infection type: acute cystitis Hematuria presence: with hematuria Qualified Code(s): N30.01 - Acute cystitis with hematuria Vomiting Qualifiers: Vomiting type: unspecified Vomiting Intractability: non-intractable Nausea presence: with nausea Qualified Code(s): R11.2 - Nausea with vomiting, unspecified Condition: Stable Referrals: RAY WONG [Primary Care Provider] - Instructions: Vomiting -- Adult Additional Instructions: see Dr Wong return if worse oral fluids phenergan warnings given kdur keflex Prescriptions: Cephalexin Mh 500 mg [Keflex 500 mg] 1 cap PO QID #40 capsule Promethazine HCl 25 mg [Phenergan 25 mg] 25 mg PO BID #10 tablet
[2017-10-10] MEDS ORDERED: Phenergan 25 MG INJ IV ONE (06:34)
[2017-10-10] MEDS ORDERED: SUBLIMAZE 100 MCG/2 ML IV ONE (06:34)
[2017-10-10] MEDS ORDERED: Phenergan 25 MG INJ ONE (06:39)
[2017-10-10] MEDS ORDERED: SUBLIMAZE 100 MCG/2 ML ONE (06:40)
[2017-10-10] MEDS ORDERED: Sodium Chloride 0.9% 1000 ML 1,000 ML ONE (06:40)
[2017-10-10 06:47] LABS: BASOPHIL % 0.2 % (0.0-0.4); Eosinophil % 2.3 % (0.00-5.0); Granulocytes % 68.2 % (36.0-66.0); Lymphocytes % 19.7 % (24.0-44.0); Mean Cell Volume 98.1 fl (78-100); Mean Platelet Volume 11.2 fl (6-9.5); Monocytes % 9.6 % (0.0-12.0); Platelet Count 172 K/mm3 (150-450); Red Blood Count 3.65 M/mm3 (4.1-5.4); Red Cell Distribution Width 14.2 % (11.5-14.0); White Blood Count 4.8 K/mm3 (4.0-10.5)
[2017-10-10 07:00] LABS: Mean Corpuscular Hemoglobin 29.8 pg (26-32)
[2017-10-10 07:02] LABS: INR 1.03 (0.8-3.0); PROTIME 11.5 SECONDS (9.95-12.35)
[2017-10-10 07:05] LABS: PTT 31.4 SECONDS (25.3-37.0)
[2017-10-10 07:18] LABS: ALBUMIN 3.1 g/dL (3.4-5.0); ALKALINE PHOSPHATASE 67 U/L (46-116); ANION GAP 10.8 MEQ/L (5-15); BLOOD UREA NITROGEN 12 mg/dL (9-20); CHLORIDE 109 mEq/L (98-107); Carbon Dioxide 27.4 mEq/L (21-32); Glucose 148 MG/DL (70-110); LIPASE 50 U/L (73-393); MAGNESIUM 1.9 mg/dL (1.8-2.4); SGOT/AST 21 U/L (15-37); SGPT/ALT 12 U/L (12-78); SODIUM 144 mEq/L (136-145); Total Protein 6.5 gm/dL (6.4-8.2)
[2017-10-10 07:46] LABS: Bilirubin NEGATIVE (NEGATIVE); Blood 250 Ery/ul (0-5); COMPLETE URINE MICROSCOPIC? YES; Collection Type CATH; Glucose NEGATIVE (NEGATIVE); Leukocyte Esterase TRACE (NEGATIVE)
[2017-10-10 07:57] LABS: Bacteria PACKED /HPF (NEGATIVE); Epithelial Cells FEW /HPF (FEW)
[2017-10-10 07:58] LABS: ADD URINE CULTURE? YES (NO)
--- NOTE | 2017-10-10 09:05 | XRAY ---
Indication: Abdomen pain. Multiple contiguous axial images obtained through the abdomen and pelvis without contrast as ordered. Comparison: September 05, 2017. Lung bases again demonstrates small bibasilar pleural effusions with minimal dependent atelectasis less than before. Heart remains borderline enlarged. Stable moderate sized hiatal hernia with partial intrathoracic stomach. Noncontrasted stomach and bowel loops again appear nonobstructed with scattered descending and sigmoid diverticulosis without diverticulitis. Stable large midline ventral hernia with again herniated small/large bowel loops without obstruction/incarceration. Stable tiny gallstone, left hepatic cyst, and bilateral renal cysts. No free fluid/air. There again air bubbles in the urinary bladder lumen slightly increased concerning for airforming bacterial infection. Remaining liver, pancreas, spleen, adrenal glands, kidneys, ureters, bladder, and uterus appear unremarkable for noncontrast exam. Again mild calcifications of the aortoiliac vessels without AAA. Stable degenerative changes throughout the spine, levorotoscoliosis, grade 2 L5 spondylolisthesis, and old right inferior pubic bone fracture. Impression: 1. Stable large ventral hernia with herniated small/large bowel loops again without incarceration/obstruction. 2. Increasing air bubbles in the urinary bladder lumen. Rule out gas-forming bacterial infection. 3. Stable hiatal hernia with partial intrathoracic stomach, colonic diverticulosis, gallstone, hepatic cyst, and bilateral renal cysts. 4. No new intra-abdominal/pelvic abnormalities on this noncontrast exam. CTDI 22.83
[2017-10-10 09:07] VITALS: BP 174/97; PULSE 70
--- NOTE | 2017-10-10 09:07 | XRAY ---
Indication: Abdominal pain. Emesis. Comparison: August 31, 2017. 2 views of the abdomen remains nonacute and nonobstructed with scattered aortic calcifications. Solid organs unremarkable. Osseous structures intact again with osteopenia, degenerative changes, and levorotoscoliosis. Single PA chest remains clear. Heart is not enlarged. Known hiatal hernia and left mastectomy. Bony thorax intact again with osteopenia, scoliosis, and degenerative changes. Impression: 1. Stable nonacute nonobstructed abdomen with chronic features. 2. Stable nonacute one view chest with chronic features.
[2017-10-12 21:23] VITALS: O2SAT 97
== END 2017-10-10 09:52 | disposition home or self-care (01) ==
LOC: ED 05:51
DX: N30.01 Acute cystitis with hematuria (principal); R11.2 Nausea with vomiting, unspecified
CPT/HCPCS: 93041; 96374; 99284; 36000; 96360; 96375; 93005; 82150; 81000; 85610; 85730; 36415; 83690; 83880; 87186; 83735; 85025; 87077; 80053; 84484; 87086; 74022; 74176; P9612; J2550; J3010

== ENCOUNTER 2017-10-11 07:56 | Emergency (ER) | payer MEDICARE ==
[2017-10-11] MEDS ORDERED: BABY ASPIRIN 81 MG CHEW PO ONE (08:36)
[2017-10-11] MEDS ORDERED: CARDIZEM DRIP 100 MG/100 ML D5W 100 ML IV PRN (08:38)
[2017-10-11 08:42] VITALS: O2SAT 97
--- NOTE | 2017-10-11 08:42 | ERPHSYRPT ---
- History of Present Illness Time Seen by Provider: 10/11/17 08:39 Source: patient Exam Limitations: no limitations Patient Subjective Stated Complaint: c/o shortness of breath and dizziness began this morning Triage Nursing Assessment: c/o SOA and dizziness this am. Vomiting after d/c home from ED yesterday and treatment for UTI. States hasn't been able to start abx yet due to vomiting Physician History: mild to mod palpitations and dizzy today, no loc, +shortness of breath, hx atrial fib, no chest pain, no fever, seen recently for NV Timing/Duration: today Severity: mild Modifying Factors: Improves With: nothing Associated Symptoms: shortness of breath, No vomiting, No chest pain, No fever, No syncope Allergies/Adverse Reactions: metoclopramide HCl [From Reglan] Allergy (Verified 10/11/17 12:38) vomiting Sulfa (Sulfonamide Antibiotics) Allergy (Verified 10/11/17 12:38) rash Home Medications: Atenolol 50 mg [Tenormin 50 mg] 50 mg PO DAILY 07/03/16 [History] Atorvastatin Calcium [Lipitor 20MG Tablet] 20 mg PO DAILY 07/03/16 [History] Gabapentin [Neurontin] 100 mg PO UD 07/03/16 [History] Glimepiride 2 mg [Amaryl 2 MG] 2 mg PO DAILY 07/03/16 [History] Zafirlukast 20 mg [Accolate 20 mg] 20 mg PO BID 07/03/16 [History] Acetaminophen/Diphenhydramine [Tylenol Pm Ex-Strength Caplet] 2 each PO HS 08/26 [History] Magnesium Oxide 400 mg [Mag-Ox 400] 400 mg PO DAILY 08/26/16 [History] Oxazepam 15 mg PO HS 08/26/16 [History] Furosemide 40 mg [Lasix 40 MG] 40 mg PO DAILY 07/31/17 [History] Hydrocodone Bit/Acetaminophen [Hydrocodon-Acetaminophn 10-325] 1 each PO BID PRN 07/31/17 [History] Docusate Sodium 100 mg [Colace 100 MG] 300 mg PO HS 08/08/17 [History] Cholecalciferol (Vitamin D3) [Vitamin D3] 1,000 unit PO DAILY 08/31/17 [History] Cyanocobalamin (Vitamin B-12) [Vitamin B12] 1,000 mcg PO DAILY 08/31/17 [History ] Diltiazem HCl [Cardizem Cd] 180 mg PO DAILY 08/31/17 [History] Vit A/Vit C/Vit E/Zinc/Copper [Preservision Areds Softgel] 1 each PO BID [History] Esomeprazole Magnesium [Nexium] 20 mg PO DAILY 10/10/17 [History] Hx Tetanus, Diphtheria Vaccination/Date Given: Yes (up to date) Hx Influenza Vaccination/Date Given: Yes Hx Pneumococcal Vaccination/Date Given: Yes - Review of Systems Constitutional: No Fever Eyes: No Symptoms Ears, Nose, & Throat: No Symptoms Respiratory: Dyspnea, No Cyanosis Cardiac: Palpitations, No Chest Pain, No Syncope Abdominal/Gastrointestinal: No Symptoms Musculoskeletal: No Symptoms Skin: No Symptoms Neurological: Dizziness Psychological: No Symptoms - Past Medical History Pertinent Past Medical History: Yes Neurological History: No Pertinent History ENT History: No Pertinent History Cardiac History: Arrhythmia, Other Respiratory History: Asthma, Pneumonia Endocrine Medical History: Diabetes Type II Musculoskeletal History: No Pertinent History GI Medical History: Hernia History: No Pertinent History Psycho-Social History: No Pertinent History Female Reproductive Disorders: Breast Cancer Other Medical History: A FIB - Past Surgical History Past Surgical History: Yes Neuro Surgical History: No Pertinent History Cardiac: No Pertinent History Respiratory: No Pertinent History Gastrointestinal: No Pertinent History Genitourinary: No Pertinent History Musculoskeletal: No Pertinent History Female Surgical History: Mastectomy Other Surgical History: tonsillectomy, L mastectomy april 10 - Social History Smoking Status: Former smoker How long have you smoked: 10 Exposure to second hand smoke: No Drug Use: none Patient Lives Alone: No - Nursing Vital Signs Nursing Vital Signs: Initial Vital Signs Temperature 97.9 F 10/11/17 08:10 Pulse Rate 126 H 10/11/17 08:10 Respiratory Rate 22 10/11/17 08:10 Blood Pressure 151/75 10/11/17 08:10 O2 Sat by Pulse Oximetry 99 10/11/17 08:10 Pain Scale Pain Intensity 0 - Physical Exam General Appearance: no apparent distress Eye Exam: PERRL/EOMI Ears, Nose, Throat Exam: moist mucous membranes Neck Exam: normal inspection Respiratory Exam: normal breath sounds Cardiovascular Exam: tachycardia, irregular Gastrointestinal/Abdomen Exam: soft, No tenderness Back Exam: No vertebral tenderness Extremity Exam: normal inspection Neurologic Exam: alert, oriented x 3, cooperative Skin Exam: normal color, warm, dry SpO2 Interpretation: normal SpO2: 97 Oxygen Delivery: Room Air - Course Nursing assessment & vital signs reviewed: Yes EKG Interpreted by Me: Other (atrial fib 130 no stemi) - Radiology Exams Chest X-ray Interpretation: Discussed w/ radiologist, Negative - CT Exams Chest CT Interpretation: Discussed w/radiologist, Other (no PE) Ordered Tests: Active Orders 24 hr Category Date Time Status Stereo Compiler STAT Care 10/11/17 08:36 Active EKG-ER Only STAT Care 10/11/17 08:35 Active IV Insertion STAT Care 10/11/17 08:35 Active Pulse Oximetry (ED) STAT Care 10/11/17 08:36 Active CHEST 1 VIEW (PORTABLE) Stat Exams 10/11/17 08:36 Completed CHEST WITH CONTRAST [CT] Stat Exams 10/11/17 09:43 Completed CBC W DIFF Stat Lab 10/11/17 08:15 Completed CMP Stat Lab 10/11/17 08:15 Completed D-DIMER QUANTITATION Stat Lab 10/11/17 08:15 Completed NT PRO BNP Stat Lab 10/11/17 08:15 Completed PROTIME WITH INR Stat Lab 10/11/17 08:15 Completed TROPONIN Q3H Lab 10/11/17 08:15 Completed TROPONIN Q3H Lab 10/11/17 12:00 Received TROPONIN Q3H Lab 10/11/17 14:45 Ordered TROPONIN Q3H Lab 10/11/17 17:45 Ordered TROPONIN Q3H Lab 10/11/17 20:45 Ordered TROPONIN Q3H Lab 10/11/17 22:45 Stop Req Transfer Order Routine Transfer 10/11/17 Ordered Medication Summary Generic Name Dose Route Start Last Admin Trade Name Freq PRN Reason Stop Dose Admin Diltiazem HCl 100 mls @ 5 mls/hr 10/11/17 08:38 10/11/17 08:49 Cardizem Drip 100 Mg/100 Ml D5w IV 11/10/17 08:37 5 mg/hr .Q20H PRN 5 mls/hr HEART RATE/ A-FIB Administration Protocol 5 MG/HR Discontinued Medications Generic Name Dose Route Start Last Admin Trade Name Freq PRN Reason Stop Dose Admin Aspirin 324 mg 10/11/17 08:36 10/11/17 08:47 Baby Aspirin 81 Mg Chew PO 10/11/17 08:37 324 mg STAT ONE Administration Aspirin Confirm 10/11/17 08:43 Baby Aspirin 81 Mg Chew Administered 10/11/17 08:44 Dose 324 mg .ROUTE .STK-MED ONE Nicardipine HCl Confirm 10/11/17 08:44 Cardene 25 Mg/10 Ml Administered 10/11/17 08:45 Dose 25 mg IV .STK-MED ONE Ondansetron HCl 4 mg 10/11/17 09:42 10/11/17 09:54 Zofran 4 Mg/2 Ml Vial IV 10/11/17 09:43 4 mg STAT ONE Administration Ondansetron HCl Confirm 10/11/17 09:53 Zofran 4 Mg/2 Ml Vial Administered 10/11/17 09:54 Dose 4 mg .ROUTE .STK-MED ONE Potassium Bicarbonate 25 meq 10/11/17 09:51 10/11/17 09:54 K-Lyte 25 Meq PO 10/11/17 09:52 25 meq STAT ONE Administration Potassium Bicarbonate Confirm 10/11/17 09:53 K-Lyte 25 Meq Administered 10/11/17 09:54 Dose 25 meq .ROUTE .STK-MED ONE Potassium Chloride 40 meq 10/11/17 10:00 Potassium Chl 40 Meq/30 Ml Oral Solution PO 11/10/17 09:59 DAILY RICHARD Lab/Rad Data: Laboratory Result Diagrams 10/11/17 08:15 10/11/17 08:15 Laboratory Results 10/11/17 10/11/17 10/11/17 Range/Units 08:15 08:15 08:15 WBC (4.0-10.5) K/mm3 RBC (4.1-5.4) M/mm3 Hgb (12.0-16.0) gm/dl Hct (35-47) % MCV (78-100) fl MCH (26-32) pg MCHC (32-36) g/dl RDW (11.5-14.0) % Plt Count (150-450) K/mm3 MPV (6-9.5) fl Gran % (36.0-66.0) % Lymphocytes % (24.0-44.0) % Monocytes % (0.0-12.0) % Eosinophils % (0.00-5.0) % Basophils % (0.0-0.4) % Basophils # (0-0.4) INR 1.02 (0.8-3.0) D-Dimer 851 H* (0-500) ng/mL Sodium 146 H (136-145) mEq/L Potassium 3.0 L* (3.5-5.1) mEq/L Chloride 109 H (98-107) mEq/L Carbon Dioxide 20.2 L (21-32) mEq/L Anion Gap 19.6 H (5-15) MEQ/L BUN 12 (9-20) mg/dL Creatinine 1.05 (0.55-1.30) mg/dl Estimated GFR 53 ML/MIN Glucose 186 H (70-110) MG/DL Calcium 9.2 (8.5-10.1) mg/dL Total Bilirubin 0.50 (0.2-1.0) mg/dL AST 43 H (15-37) U/L ALT 14 (12-78) U/L Alkaline Phosphatase 70 (46-116) U/L Troponin I 0.044 (0.000-0.056) ng/ml NT-Pro-B Natriuret Pep 2427 H (0-450) pg/ml Serum Total Protein 7.0 (6.4-8.2) gm/dL Albumin 3.4 (3.4-5.0) g/dL 10/11/ Range/Units 08:15 WBC 7.1 (4.0-10.5) K/mm3 RBC 3.88 L (4.1-5.4) M/mm3 Hgb 11.8 L (12.0-16.0) gm/dl Hct 37.8 (35-47) % MCV 97.4 (78-100) fl MCH 30.4 (26-32) pg MCHC 31.2 L (32-36) g/dl RDW 14.4 H (11.5-14.0) % Plt Count 208 (150-450) K/mm3 MPV 11.6 H (6-9.5) fl Gran % 66.5 H (36.0-66.0) % Lymphocytes % 23.8 L (24.0-44.0) % Monocytes % 7.1 (0.0-12.0) % Eosinophils % 2.3 (0.00-5.0) % Basophils % 0.3 (0.0-0.4) % Basophils # 0.02 (0-0.4) INR (0.8-3.0) D-Dimer (0-500) ng/mL Sodium (136-145) mEq/L Potassium (3.5-5.1) mEq/L Chloride (98-107) mEq/L Carbon Dioxide (21-32) mEq/L Anion Gap (5-15) MEQ/L BUN (9-20) mg/dL Creatinine (0.55-1.30) mg/dl Estimated GFR ML/MIN Glucose (70-110) MG/DL Calcium (8.5-10.1) mg/dL Total Bilirubin (0.2-1.0) mg/dL AST (15-37) U/L ALT (12-78) U/L Alkaline Phosphatase (46-116) U/L Troponin I (0.000-0.056) ng/ml NT-Pro-B Natriuret Pep (0-450) pg/ml Serum Total Protein (6.4-8.2) gm/dL Albumin (3.4-5.0) g/dL - Progress Progress: improved Discussed with : Marvin Will see patient in: hospital (observation) Counseled pt/family regarding: lab results, diagnosis, rad results - Departure Time of Disposition: 12:40 Departure Disposition: Observation Clinical Impression: Hypokalemia Atrial fibrillation Qualifiers: Atrial fibrillation type: paroxysmal Qualified Code(s): I48.0 - Paroxysmal atrial fibrillation Condition: Stable Critical Care Time: No Referrals: RAY OCHOA [Primary Care Provider] -
[2017-10-11] MEDS ORDERED: BABY ASPIRIN 81 MG CHEW ONE (08:43)
[2017-10-11] MEDS ORDERED: CARDIZEM DRIP 100 MG/100 ML D5W 100 ML IV ONE (08:44)
[2017-10-11] MEDS ORDERED: CARDENE 25 MG/10 ML IV ONE (08:44)
[2017-10-11 08:46] LABS: BASOPHIL % 0.3 % (0.0-0.4); Eosinophil % 2.3 % (0.00-5.0); Granulocytes % 66.5 % (36.0-66.0); INR 1.02 (0.8-3.0); Lymphocytes % 23.8 % (24.0-44.0); Mean Cell Volume 97.4 fl (78-100); Mean Corpuscular Hemoglobin 30.4 pg (26-32); Mean Platelet Volume 11.6 fl (6-9.5); Monocytes % 7.1 % (0.0-12.0); PROTIME 11.3 SECONDS (9.95-12.35); Platelet Count 208 K/mm3 (150-450); Red Blood Count 3.88 M/mm3 (4.1-5.4); Red Cell Distribution Width 14.4 % (11.5-14.0); White Blood Count 7.1 K/mm3 (4.0-10.5)
[2017-10-11 09:01] LABS: ALBUMIN 3.4 g/dL (3.4-5.0); ANION GAP 19.6 MEQ/L (5-15); BILIRUBIN,TOTAL 0.5 mg/dL (0.2-1.0); Carbon Dioxide 20.2 mEq/L (21-32)
--- NOTE | 2017-10-11 09:41 | XRAY ---
Indication: Short of breath. Comparison: One day earlier. Portable chest remains clear. Heart is not enlarged for AP portable technique. Again hiatal hernia and left mastectomy. No new/acute findings.
[2017-10-11] MEDS ORDERED: Zofran 4 MG/2 ML VIAL IV ONE (09:42)
[2017-10-11] MEDS ORDERED: K-LYTE 25 MEQ PO ONE (09:51)
[2017-10-11] MEDS ORDERED: Zofran 4 MG/2 ML VIAL ONE (09:53)
[2017-10-11] MEDS ORDERED: K-LYTE 25 MEQ ONE (09:53)
[2017-10-11] MEDS ORDERED: POTASSIUM CHL 40 MEQ/30 ML ORAL SOLUTION PO SCH (10:00)
--- NOTE | 2017-10-11 11:09 | XRAY ---
Indication: Short of breath and dizziness. Elevated d-dimer. Multiple contiguous axial images obtained through the chest using 80 cc Isovue 370 contrast and PE protocol. Comparison: July 31, 2017. There is adequate opacification of the pulmonary arteries to including lobar and segmental branches. Again no filling defect or pulmonary embolus. Heart remains borderline enlarged. Aorta remains minimally arteriosclerotic without aneurysm/dissection. No pathologic mediastinal/hilar lymphadenopathy. There remains moderate sized hiatal hernia with partial intrathoracic stomach. Examination of the lung parenchyma again demonstrates mild right posterior dependent atelectasis and minimal right apical pleural thickening. No suspicious pulmonary mass, infiltrate, or effusion. Bony thorax again demonstrates moderate degenerative changes throughout the spine, double curvature scoliosis, and remote T9 fracture. Limited upper abdomen again demonstrates fatty liver, tiny left lobe hepatic cyst/hemangioma, tiny gallstone, fatty replaced pancreas, bilateral renal cysts, and partially visualized ventral hernia. Impression: 1. Again negative pulmonary embolus. 2. No new/acute cardiopulmonary abnormalities. 3. Stable hiatal hernia with intrathoracic stomach, scoliosis, remote T9 fracture, fatty liver, hepatic cyst/hemangioma, gallstone, bilateral renal cysts, and partially visualized ventral hernia. CT DI 18.39
[2017-10-11 14:30] VITALS: BP 142/58; PULSE 118
== END 2017-10-11 14:15 | disposition short-term general hospital (02) ==
LOC: ED 07:56
DX: I48.0 Paroxysmal atrial fibrillation (principal); E87.6 Hypokalemia; R06.02 Shortness of breath; R42 Dizziness and giddiness; R00.2 Palpitations; E11.9 Type 2 diabetes mellitus without complications; Z79.899 Other long term (current) drug therapy; Z79.891 Long term (current) use of opiate analgesic
CPT/HCPCS: 36000; 36415; 71010; 71260; 80053; 83880; 84484; 85025; 85379; 85610; 93005; 93041; 96365; 96366; 96374; 99285; J2405; A9270-GY

== ENCOUNTER 2017-10-22 09:41 | Observation (INO) | payer MEDICARE ==
[2017-10-22] MEDS ORDERED: BABY ASPIRIN 81 MG CHEW PO ONE (10:09)
[2017-10-22] MEDS ORDERED: BABY ASPIRIN 81 MG CHEW ONE (10:15)
--- NOTE | 2017-10-22 10:17 | ERPHSYRPT ---
- History of Present Illness Time Seen by Provider: 10/22/17 10:01 Historian: patient Exam Limitations: no limitations Patient Subjective Stated Complaint: pt arrived per wc for low heart rate, sob , nausea. has recently been treated for a uti , pt denies any difficulty with urination Triage Nursing Assessment: pt alert, resp easy, chest clear, skin w/d pale, no edema. moves all ext well Physician History: 82-year-old white female with history of atrial fibrillation, asthma, pneumonia , diabetes Patient arrives with complaint of shortness of breath, she states that yesterday she had a heaviness in her anterior chest today she states she has sharp pains in her upper anterior chest radiating to her back seconds in duration she has had some nausea she states yesterday her heart rate was running low. Patient has not had any fevers that she had some nonspecific lower abdominal pain earlier. Patient has been recently treated for urinary tract infection. Past medical history includes arrhythmia, atrial fibrillation, asthma, pneumonia , diabetes type 2, hernia, breast cancer, Past surgical history includes mastectomy, tonsillectomy Patient is on Pradaxa Social history very distant history of tobacco use quit in the 1960s Timing/Duration: yesterday Activities at Onset: none Quality: other (heaviness yesterday anterior chest today sharp pains upper anterior chest seconds in duration radiating to back occurring around 9:00) Location: substernal, other (left upper chest) Chest Pain Radiation: back Severity of Pain-Max: moderate Severity of Pain-Current: none Modifying Factors: Improves With: nothing Associated Symptoms: nausea, shortness of breath, No vomiting, No palpitations, No heartburn, No abdominal pain, No cough, No hurts to breathe, No diaphoresis, No chills, No fever, No fatigue, No weakness, No swelling/lump in chest, No syncope, No rash, No headache, No dizziness, No edema, No back pain Nitro Today/Relief: no nitro taken today Aspirin Treatment Today: 81 mg x 1 (81 mg in the emergency room) Allergies/Adverse Reactions: metoclopramide HCl [From Reglan] Allergy (Verified 10/22/17 09:55) vomiting Sulfa (Sulfonamide Antibiotics) Allergy (Verified 10/22/17 09:55) rash Home Medications: Atenolol 50 mg [Tenormin 50 mg] 50 mg PO DAILY 07/03/16 [History] Atorvastatin Calcium [Lipitor 20MG Tablet] 20 mg PO DAILY 07/03/16 [History] Gabapentin [Neurontin] 100 mg PO UD 07/03/16 [History] Glimepiride 2 mg [Amaryl 2 MG] 2 mg PO DAILY 07/03/16 [History] Zafirlukast 20 mg [Accolate 20 mg] 20 mg PO BID 07/03/16 [History] Acetaminophen/Diphenhydramine [Tylenol Pm Ex-Strength Caplet] 2 each PO HS 08/26 [History] Oxazepam 15 mg PO HS 08/26/16 [History] Furosemide 40 mg [Lasix 40 MG] 40 mg PO DAILY 07/31/17 [History] Hydrocodone Bit/Acetaminophen [Hydrocodon-Acetaminophn 10-325] 1 each PO BID PRN 07/31/17 [History] Docusate Sodium 100 mg [Colace 100 MG] 300 mg PO HS 08/08/17 [History] Cholecalciferol (Vitamin D3) [Vitamin D3] 1,000 unit PO DAILY 08/31/17 [History] Cyanocobalamin (Vitamin B-12) [Vitamin B12] 1,000 mcg PO DAILY 08/31/17 [History ] Diltiazem HCl [Cardizem Cd] 180 mg PO DAILY 08/31/17 [History] Vit A/Vit C/Vit E/Zinc/Copper [Preservision Areds Softgel] 1 each PO BID [History] Esomeprazole Magnesium [Nexium] 20 mg PO DAILY 10/10/17 [History] Magnesium Oxide 400 mg [Mag-Ox 400] 400 mg DAILY 10/22/17 [History] Hx Tetanus, Diphtheria Vaccination/Date Given: Yes (up to date) Hx Influenza Vaccination/Date Given: Yes Hx Pneumococcal Vaccination/Date Given: Yes - Review of Systems Constitutional: No Fever, No Chills Eyes: No Symptoms Ears, Nose, & Throat: No Symptoms, No Ear Pain, No Ear Discharge, No Hearing Changes, No Tinnitus, No Nose Pain, No Nose Congestion, No Nose Discharge, No Sinus Drainage, No Epistaxis, No Mouth Pain, No Mouth Swelling Respiratory: Dyspnea, No Cough, No Cyanosis, No Dyspnea on Exertion (AYALA), No Stridor, No Wheezing Cardiac: Chest Pain (chest heaviness yesterday, sharp anterior upper left chest radiating to back this morning seconds in duration at 09:00) Abdominal/Gastrointestinal: Abdominal Pain (vague discomfort generalized this morning), Nausea, No Vomiting, No Diarrhea, No Constipation, No Hematemesis, No Hematochezia, No Melena, No Dysphagia, No Appetite Changes Genitourinary Symptoms: Other (recently treated for UTI), No Dysuria Musculoskeletal: No Back Pain, No Neck Pain Skin: No Rash Neurological: No Dizziness, No Focal Weakness, No Sensory Changes Psychological: No Symptoms Endocrine: No Symptoms All Other Systems: Reviewed and Negative - Past Medical History Pertinent Past Medical History: Yes Neurological History: No Pertinent History ENT History: No Pertinent History Cardiac History: Arrhythmia, Other Respiratory History: Asthma, Pneumonia Endocrine Medical History: Diabetes Type II Musculoskeletal History: No Pertinent History GI Medical History: Hernia History: No Pertinent History Psycho-Social History: No Pertinent History Female Reproductive Disorders: Breast Cancer Other Medical History: A FIB - Past Surgical History Past Surgical History: Yes Neuro Surgical History: No Pertinent History Cardiac: Cardiac Catheterization Respiratory: No Pertinent History Gastrointestinal: No Pertinent History Genitourinary: No Pertinent History Musculoskeletal: No Pertinent History Female Surgical History: Mastectomy Other Surgical History: tonsillectomy, L mastectomy april 10 - Social History Smoking Status: Former smoker How long have you smoked: 10 Exposure to second hand smoke: No Drug Use: none Patient Lives Alone: No - Female History Hx Last Menstrual Period: post Hx Now: No - Nursing Vital Signs Nursing Vital Signs: Initial Vital Signs Temperature 97.4 F 10/22/17 09:46 Pulse Rate 73 10/22/17 09:46 Respiratory Rate 18 10/22/17 09:46 Blood Pressure 154/107 10/22/17 09:46 O2 Sat by Pulse Oximetry 97 10/22/17 09:46 Pain Scale Pain Intensity 0 - Physical Exam General Appearance: no apparent distress, alert Eye Exam: PERRL/EOMI, eyes nml inspection Ears, Nose, Throat Exam: normal ENT inspection, moist mucous membranes Neck Exam: normal inspection, non-tender, supple, full range of motion Respiratory Exam: normal breath sounds, lungs clear, No respiratory distress Cardiovascular Exam: normal peripheral pulses, murmur (II/ systolic ejection murmur) Gastrointestinal/Abdomen Exam: soft, No tenderness, No mass Back Exam: normal inspection, No CVA tenderness, No vertebral tenderness Extremity Exam: normal inspection, normal range of motion Neurologic Exam: alert, oriented x 3, cooperative, normal mood/affect, sensation nml, No motor deficits Skin Exam: normal color, warm, dry SpO2 Interpretation: normal (97% on room air) SpO2: 97 Oxygen Delivery: Room Air - Course Nursing assessment & vital signs reviewed: Yes EKG Interpreted by Me: RATE (68), Sinus Rhythm, Other (EKG: Sinus rhythm, 68 bpm , no acute ST or T wave changes , compared to October 11, 2017) - Radiology Exams Chest X-ray Interpretation: Discussed w/ radiologist, Other (portable chest x-ray: Impression: Stable nonacute chest with chronic features.) Ordered Tests: Active Orders 24 hr Category Date Time Status Program Support Assistant STAT Care 10/22/17 10:10 Active Cath for Specimen-Straight STAT Care 10/22/17 10:38 Active EKG-ER Only STAT Care 10/22/17 10:09 Active EKG-ER Only STAT Care 10/22/17 11:14 Active IV Insertion STAT Care 10/22/17 10:09 Active Pulse Oximetry (ED) STAT Care 10/22/17 10:09 Active CHEST 1 VIEW (PORTABLE) Stat Exams 10/22/17 10:10 Completed AMYLASE Stat Lab 10/22/17 10:00 Completed CBC W DIFF Stat Lab 10/22/17 10:00 Completed CMP Stat Lab 10/22/17 10:00 Completed CULTURE,URINE Stat Lab 10/22/17 10:40 Received D-DIMER QUANTITATION Stat Lab 10/22/17 10:00 Completed LIPASE Stat Lab 10/22/17 10:00 Completed NT PRO BNP Stat Lab 10/22/17 10:00 Completed PROTIME WITH INR Stat Lab 10/22/17 10:00 Completed PTT Stat Lab 10/22/17 10:00 Completed TROPONIN Q3H Lab 10/22/17 10:00 Completed TROPONIN Q3H Lab 10/22/17 13:15 Ordered TROPONIN Q3H Lab 10/22/17 16:15 Ordered TROPONIN Q3H Lab 10/22/17 19:15 Ordered TROPONIN Q3H Lab 10/22/17 22:15 Ordered UA W/ MICROSCOPIC Stat Lab 10/22/17 10:40 Completed Transfer Order Routine Transfer 10/22/17 Ordered Medication Summary Discontinued Medications Generic Name Dose Route Start Last Admin Trade Name Berenice PRN Reason Stop Dose Admin Aspirin 81 mg 10/22/17 10:09 10/22/17 10:17 Baby Aspirin 81 Mg Chew PO 10/22/17 10:10 81 mg STAT ONE Administration Aspirin Confirm 10/22/17 10:15 Baby Aspirin 81 Mg Chew Administered 10/22/17 10:16 Dose 81 mg .ROUTE .STK-MED ONE Potassium Chloride 20 meq 10/22/17 11:03 10/22/17 11:09 Klor Con 10 Meq PO 10/22/17 11:04 20 meq STAT ONE Administration Potassium Chloride Confirm 10/22/17 11:07 Klor Con 10 Meq Administered 10/22/17 11:08 Dose 20 meq PO .STK-MED ONE Lab/Rad Data: Laboratory Result Diagrams 10/22/17 10:00 10/22/17 10:00 Laboratory Results 10/22/17 10/22/17 10/22/17 Range/Units 10:40 10:00 10:00 WBC (4.0-10.5) K/mm3 RBC (4.1-5.4) M/mm3 Hgb (12.0-16.0) gm/dl Hct (35-47) % MCV (78-100) fl MCH (26-32) pg MCHC (32-36) g/dl RDW (11.5-14.0) % Plt Count (150-450) K/mm3 MPV (6-9.5) fl Gran % (36.0-66.0) % Lymphocytes % (24.0-44.0) % Monocytes % (0.0-12.0) % Eosinophils % (0.00-5.0) % Basophils % (0.0-0.4) % Basophils # (0-0.4) INR (0.8-3.0) APTT (25.3-37.0) SECONDS D-Dimer (0-500) ng/mL Sodium (136-145) mEq/L Potassium (3.5-5.1) mEq/L Chloride (98-107) mEq/L Carbon Dioxide (21-32) mEq/L Anion Gap (5-15) MEQ/L BUN (9-20) mg/dL Creatinine (0.55-1.30) mg/dl Estimated GFR ML/MIN Glucose (70-110) MG/DL Calcium (8.5-10.1) mg/dL Total Bilirubin (0.2-1.0) mg/dL AST (15-37) U/L ALT (12-78) U/L Alkaline Phosphatase (46-116) U/L Troponin I 0.025 (0.000-0.056) ng/ml NT-Pro-B Natriuret Pep (0-450) pg/ml Serum Total Protein (6.4-8.2) gm/dL Albumin (3.4-5.0) g/dL Amylase 29 (25-115) U/L Lipase 50 L (73-393) U/L Ur Collection Type VOID Urine Color YELLOW (YELLOW) Urine Appearance CLEAR (CLEAR) Urine pH 7.0 (5-6) Ur Specific Reagan 1.005 (1.005-1.025) Urine Protein NEGATIVE (Negative) Urine Ketones NEGATIVE (NEGATIVE) Urine Blood 5-10 (0-5) Grey/ul Urine Nitrite NEGATIVE (NEGATIVE) Urine Bilirubin NEGATIVE (NEGATIVE) Urine Urobilinogen NORMAL (0-1) mg/dL Ur Leukocyte Esterase TRACE (NEGATIVE) Urine Microscopic RBC 0-2 (0-2) /HPF Urine Microscopic WBC 5-10 (0-5) /HPF Ur Epithelial Cells FEW (FEW) /HPF Urine Bacteria FEW (NEGATIVE) /HPF Urine Culture Reflexed YES (NO) Urine Glucose NEGATIVE (NEGATIVE) mg/dL Specimen Received 10/22/17 1040 10/22/17 10/22/17 10/22/17 Range/Units 10:00 10:00 10:00 WBC 4.3 (4.0-10.5) K/mm3 RBC 3.64 L (4.1-5.4) M/mm3 Hgb 11.0 L (12.0-16.0) gm/dl Hct 35.2 (35-47) % MCV 96.7 (78-100) fl MCH 30.2 (26-32) pg MCHC 31.3 L (32-36) g/dl RDW 14.3 H (11.5-14.0) % Plt Count 168 (150-450) K/mm3 MPV 11.8 H (6-9.5) fl Gran % 64.7 (36.0-66.0) % Lymphocytes % 23.7 L (24.0-44.0) % Monocytes % 8.1 (0.0-12.0) % Eosinophils % 3.0 (0.00-5.0) % Basophils % 0.5 (0.0-0.4) % Basophils # 0.02 (0-0.4) INR 1.11 (0.8-3.0) APTT 38.2 H (25.3-37.0) SECONDS D-Dimer 896 H* (0-500) ng/mL Sodium 145 (136-145) mEq/L Potassium 3.2 L (3.5-5.1) mEq/L Chloride 110 H (98-107) mEq/L Carbon Dioxide 23.8 (21-32) mEq/L Anion Gap 14.6 (5-15) MEQ/L BUN 14 (9-20) mg/dL Creatinine 0.77 (0.55-1.30) mg/dl Estimated GFR > 60 ML/MIN Glucose 167 H (70-110) MG/DL Calcium 9.0 (8.5-10.1) mg/dL Total Bilirubin 0.30 (0.2-1.0) mg/dL AST 21 (15-37) U/L ALT 14 (12-78) U/L Alkaline Phosphatase 61 (46-116) U/L Troponin I (0.000-0.056) ng/ml NT-Pro-B Natriuret Pep 2742 H (0-450) pg/ml Serum Total Protein 6.7 (6.4-8.2) gm/dL Albumin 3.1 L (3.4-5.0) g/dL Amylase (25-115) U/L Lipase (73-393) U/L Ur Collection Type Urine Color (YELLOW) Urine Appearance (CLEAR) Urine pH (5-6) Ur Specific Reagan (1.005-1.025) Urine Protein (Negative) Urine Ketones (NEGATIVE) Urine Blood (0-5) Grey/ul Urine Nitrite (NEGATIVE) Urine Bilirubin (NEGATIVE) Urine Urobilinogen (0-1) mg/dL Ur Leukocyte Esterase (NEGATIVE) Urine Microscopic RBC (0-2) /HPF Urine Microscopic WBC (0-5) /HPF Ur Epithelial Cells (FEW) /HPF Urine Bacteria (NEGATIVE) /HPF Urine Culture Reflexed (NO) Urine Glucose (NEGATIVE) mg/dL Specimen Received - Progress Progress: improved Air Movement: fair Progress Note: 10/22/17 10:19 82-year-old white female with history of arrhythmia, atrial fibrillation, asthma , pneumonia, diabetes who has had breast cancer in the past with mastectomy. Arrives with complaints of heaviness in her chest yesterday anterior chest shortness of breath today she states she had sharp pains in her left upper chest radiating to her back still has some shortness of breath some nausea. Her chest pains this morning were fleeting in nature. Patient did arrive with a heart rate of 73 blood pressure was elevated at 154/ 107. EKG sinus rhythm 68 bpm, normal axis, no acute ST or T wave changes, blood pressure has come down sponntaneously Patient does state that yesterday she had a low heart rate. Patient is on Pradaxa. Will give patient aspirin 81 mg orally go ahead and run CBC CMP troponin and d- dimer EKG chest x-ray. Patient also with a urinary tract infection recently she has some slight vague abdominal pain will obtain amylase lipase and a urine. Patient appears to be stable at this time 10/22/17 11:16 Patient is feeling better no pain at this time Troponin within normal limits d-dimer is elevated at 896 however it was a 851 on October 11 with a normal CTA chest Patient did have a mildly low potassium of 3.2 she is given potassium 20 mEq orally. She has been given aspirin 81 mg. Case has been discussed with Dr. Wong will place on observation and obtain serial troponins Will obtain consult with Dr. Nunez. currently monitor shows sinus rhythm blood pressure 163/77 - Departure Time of Disposition: 11:29 Departure Disposition: Observation Clinical Impression: Shortness of breath Chest pain Qualifiers: Chest pain type: unspecified Qualified Code(s): R07.9 - Chest pain, unspecified Condition: Fair Critical Care Time: No
[2017-10-22 10:20] LABS: BASOPHIL % 0.5 % (0.0-0.4); Granulocytes % 64.7 % (36.0-66.0); Lymphocytes % 23.7 % (24.0-44.0); Mean Cell Volume 96.7 fl (78-100); Mean Corpuscular Hemoglobin 30.2 pg (26-32); Mean Platelet Volume 11.8 fl (6-9.5); Monocytes % 8.1 % (0.0-12.0); Platelet Count 168 K/mm3 (150-450); Red Blood Count 3.64 M/mm3 (4.1-5.4); Red Cell Distribution Width 14.3 % (11.5-14.0); White Blood Count 4.3 K/mm3 (4.0-10.5)
--- NOTE | 2017-10-22 10:33 | XRAY ---
Indication: Chest pain and short of breath. Comparison: October 11, at 2017. Portable chest remains clear. Heart is not enlarged. Stable hiatal hernia. Bony thorax intact again with mild osteopenia, left mastectomy, and left axillary karma dissection. Impression: Stable nonacute chest with chronic features.
[2017-10-22 10:44] LABS: INR 1.11 (0.8-3.0); PROTIME 12.3 SECONDS (9.95-12.35)
[2017-10-22 10:46] LABS: PTT 38.2 SECONDS (25.3-37.0)
[2017-10-22 10:49] LABS: ALBUMIN 3.1 g/dL (3.4-5.0); ALKALINE PHOSPHATASE 61 U/L (46-116); ANION GAP 14.6 MEQ/L (5-15); BLOOD UREA NITROGEN 14 mg/dL (9-20); CHLORIDE 110 mEq/L (98-107); Carbon Dioxide 23.8 mEq/L (21-32); Glucose 167 MG/DL (70-110); Potassium 3.2 mEq/L (3.5-5.1); SGOT/AST 21 U/L (15-37); SGPT/ALT 14 U/L (12-78); SODIUM 145 mEq/L (136-145); Total Protein 6.7 gm/dL (6.4-8.2)
[2017-10-22 10:50] LABS: LIPASE 50 U/L (73-393)
[2017-10-22 10:58] LABS: Bacteria FEW /HPF (NEGATIVE); Bilirubin NEGATIVE (NEGATIVE); COMPLETE URINE MICROSCOPIC? YES; Collection Type VOID; Epithelial Cells FEW /HPF (FEW); Glucose NEGATIVE (NEGATIVE); Leukocyte Esterase TRACE (NEGATIVE)
[2017-10-22 10:59] LABS: ADD URINE CULTURE? YES (NO)
[2017-10-22] MEDS ORDERED: Klor Con 10 MEQ PO ONE ×2 (11:03→11:07)
[2017-10-22] MEDS ORDERED: ZOFRAN ODT 4 MG PO PRN (17:13)
[2017-10-22] MEDS ORDERED: TYLENOL 325 MG PO PRN (17:13)
[2017-10-22] MEDS ORDERED: MEDICATION INTERVENTION MC PRN (17:31)
[2017-10-22] MEDS: Protonix 40MG Tablet PO SCH (17:52)
[2017-10-22] MEDS: TENORMIN 50 MG PO SCH (17:52)
[2017-10-22] MEDS: Lasix 40 MG/4 ML IV SCH (17:52)
[2017-10-22] MEDS: MAG-OX 400 PO SCH (17:52)
[2017-10-22] MEDS: Neurontin 100 MG PO SCH (17:52)
[2017-10-22 18:20] LABS: MAGNESIUM 1.9 mg/dL (1.8-2.4)
[2017-10-22] MEDS ORDERED: NON-FORMULARY ITEM (Atorvastatin Calcium 20 MG) PO SCH (22:00)
[2017-10-22] MEDS ORDERED: OXAZEPAM 15 MG PO SCH (22:00)
[2017-10-22] MEDS ORDERED: NON-FORMULARY ITEM (Dabigatran Etexilate Mesylate [Pradaxa] 150 MG) PO SCH (22:00)
[2017-10-22] MEDS: PRADAXA 75 MG PO SCH (22:06)
[2017-10-22] MEDS: Colace 100 MG PO SCH (22:07)
[2017-10-22] MEDS: ACCOLATE 20 MG PO SCH (22:07)
[2017-10-22] MEDS: ZOCOR 20MG PO SCH (22:07)
[2017-10-22] MEDS: Norco 10/325 MG Tablet PO PRN (22:20)
[2017-10-23 05:50] LABS: BASOPHIL % 0.4 % (0.0-0.4); Eosinophil % 6.6 % (0.00-5.0); Granulocytes % 51.4 % (36.0-66.0); Lymphocytes % 29.2 % (24.0-44.0); Mean Cell Volume 98.1 fl (78-100); Mean Platelet Volume 11.8 fl (6-9.5); Monocytes % 12.4 % (0.0-12.0); Platelet Count 158 K/mm3 (150-450); Red Blood Count 3.14 M/mm3 (4.1-5.4); Red Cell Distribution Width 14.3 % (11.5-14.0); White Blood Count 5.2 K/mm3 (4.0-10.5)
[2017-10-23 05:59] LABS: Mean Corpuscular Hemoglobin 30.2 pg (26-32)
[2017-10-23 06:10] LABS: ALBUMIN 2.6 g/dL (3.4-5.0); ALKALINE PHOSPHATASE 49 U/L (46-116); ANION GAP 10.9 MEQ/L (5-15); BLOOD UREA NITROGEN 12 mg/dL (9-20); CHLORIDE 110 mEq/L (98-107); Carbon Dioxide 27.3 mEq/L (21-32); Glucose 117 MG/DL (70-110); SGOT/AST 16 U/L (15-37); SGPT/ALT 10 U/L (12-78); SODIUM 146 mEq/L (136-145); Total Protein 5.5 gm/dL (6.4-8.2)
[2017-10-23 06:14] LABS: Potassium 2.9 mEq/L (3.5-5.1)
[2017-10-23] MEDS ORDERED: Sodium Chloride 0.9% 500 ML 500 ML IV SCH (06:30)
[2017-10-23] MEDS: POTASSIUM CHLORIDE 20 mEq IN WATER 100ML 20 MEQ/100 ML BAG IV SCH ×2 (06:45→09:40)
[2017-10-23] MEDS: Neurontin 100 MG PO SCH ×3 (08:21→17:57)
[2017-10-23] MEDS: Amaryl 2 MG PO SCH (08:21)
--- NOTE | 2017-10-23 08:26 | PCM.HP ---
History of Present Illness - Chief Complaint Chief Complaint: CHEST PAIN, SHORTNESS OF BREATH History of Present Illness: is a 82 year old female pt of mine from [facility] who came in yesterday c /o HR into the 40s with SOB. She was admitted with troponin detectable but in the normal range. She had been to [facility] wiht an elevated HR into the 130s the week before. Two days ago she noticed wiht her home pulse ox that her HR was decreased. Yesterday she called Dr. Garcia and he told her to go to the ER. She did have a telecardiology consult wiht him yesterday and he stopped her cardizem. Her other troponins have trended down and the last one was < 0.017. - Review of Systems Respiratory: Short Of Breath (with any exertion. Using bedside commode.) Cardiac: Palpitations Abdominal/Gastrointestinal: Appetite Changes (decreased), No Abdominal Pain Psychological: Anxiety, No Depression, No Suicidal Ideations, No Homicidal Ideations All Other Systems: Reviewed and Negative Medications & Allergies Home Medications: Home Medication List Atenolol 50 mg [Tenormin 50 mg] 50 mg PO DAILY 07/03/16 [History Confirmed 10/22/17] Atorvastatin Calcium [Lipitor 20MG Tablet] 20 mg PO HS 07/03/16 [History Confirmed 10/22/17] Gabapentin [Neurontin] 100 mg PO TID 07/03/16 [History Confirmed 10/22/17] Glimepiride 2 mg [Amaryl 2 MG] 2 mg PO DAILY 07/03/16 [History Confirmed 10/22/17] Zafirlukast 20 mg [Accolate 20 mg] 20 mg PO UD 07/03/16 [History Confirmed 10/22/17] Dabigatran Etexilate Mesylate [Pradaxa] 150 mg PO BID #60 capsule 07/14/16 [Rx Confirmed 10/22/17] Acetaminophen/Diphenhydramine [Tylenol Pm Ex-Strength Caplet] 3 each PO HS 08/26 [History Confirmed 10/22/17] Oxazepam 15 mg PO HS 08/26/16 [History Confirmed 10/22/17] Furosemide 40 mg [Lasix 40 MG] 40 mg PO DAILY 07/31/17 [History Confirmed 10/22/17] Hydrocodone Bit/Acetaminophen [Hydrocodon-Acetaminophn 10-325] 1 each PO BID PRN 07/31/17 [History Confirmed 10/22/17] Docusate Sodium 100 mg [Colace 100 MG] 300 mg PO HS 08/08/17 [History Confirmed 10/22/17] Acetaminophen 325 mg [Tylenol 325 mg] 650 mg PO Q4H PRN PRN tablet [Rx Confirmed 10/22/17] Cholecalciferol (Vitamin D3) [Vitamin D3] 1,000 unit PO DAILY 08/31/17 [History Confirmed 10/22/17] Cyanocobalamin (Vitamin B-12) [Vitamin B12] 1,000 mcg PO DAILY 08/31/17 [ History Confirmed 10/22/17] Diltiazem HCl [Cardizem Cd] 180 mg PO DAILY 08/31/17 [History Confirmed 10/22/17 ] Vit A/Vit C/Vit E/Zinc/Copper [Preservision Areds Softgel] 1 each PO BID [History Confirmed 10/22/17] Esomeprazole Magnesium [Nexium] 20 mg PO DAILY 10/10/17 [History Confirmed 10/22] Ibuprofen 200 mg [Motrin 200 mg] 200 mg PO Q4HPRN PRN 10/22/17 [History Confirmed 10/22/17] Magnesium Oxide 400 mg [Mag-Ox 400] 400 mg PO DAILY 10/22/17 [History Confirmed 10/22/17] Ondansetron [Ondansetron Odt] 4 mg PO Q4H PRN PRN 10/22/17 [History Confirmed ] PANTOPRAZOLE 40 mg Tablet [Protonix 40MG Tablet] 40 mg PO LUNCH 10/22/17 [ History Confirmed 10/22/17] Potassium Chloride 20 Meq Tab [Potassium Chloride 20 MEQ TABLET] 20 meq PO LUNCH 10/22/17 [History Confirmed 10/22/17] Allergies/Adverse Reactions: Allergies Allergy/AdvReac Type Severity Reaction Status Date / Time metoclopramide HCl Allergy Verified 10/22/17 09:55 [From Reglan] Sulfa (Sulfonamide Allergy Verified 10/22/17 09:55 Antibiotics) - Past Medical History Past Medical History: Yes Neurological History: No Pertinent History ENT History: No Pertinent History Cardiac History: Arrhythmia, Other Respiratory History: Asthma, Pneumonia Endocrine Medical History: Diabetes Type II Musculoskelatal History: No Pertinent History GI Medical History: Hernia History: No Pertinent History Pyscho-Social History: No Pertinent History Reproductive Disorders: Breast Cancer Comment: A FIB - Female History Hx Last Menstrual Period: post Are you now?: No - Past Surgical History Past Surgical History: Yes Neuro Surgical History: No Pertinent History Cardiac History: Cardiac Catheterization Respiratory Surgery: No Pertinent History GI Surgical History: No Pertinent History Genitourinary Surgical Hx: No Pertinent History Musculskeletal Surgical Hx: No Pertinent History Female Surgical History: Mastectomy Other Surgical History: tonsillectomy, L mastectomy april 10 - Social History Smoking Status: Former smoker How long have you smoked: 10 Exposure to second hand smoke: No Alcohol: None Drug Use: none - Physical Exam Vital Signs: Vital Signs - 24 hr Temp Pulse Resp BP Pulse Ox 10/23/17 07:03 98.0 F 52 L 16 148/64 95 10/23/17 04:00 97.4 F 62 20 138/63 99 10/23/17 00:00 98.7 F 52 L 18 114/56 98 10/22/17 20:43 97 10/22/17 20:00 98.4 F 71 19 142/69 92 L 10/22/17 17:52 78 10/22/17 16:00 98.2 F 72 18 164/69 96 10/22/17 15:40 99 10/22/17 11:55 98.3 F 66 18 131/60 92 L 10/22/17 11:50 97 10/22/17 11:50 95 10/22/17 10:53 61 20 175/72 95 10/22/17 10:37 66 161/74 97 10/22/17 10:17 97 10/22/17 09:53 18 97 10/22/17 09:46 97.4 F 73 18 154/107 97 Oxygen-Last 24 hours O2 Percentage 3 Liters = 32% General Appearance: no apparent distress, alert, obese Neurologic Exam: oriented x 3, cooperative Eye Exam: eyes nml inspection Neck Exam: normal inspection Respiratory Exam: normal breath sounds, lungs clear, No crackles/rales, No rhonchi, No wheezing Cardiovascular Exam: regular rate/rhythm, normal heart sounds, murmur (III/) Gastrointestinal/Abdomen Exam: soft, normal bowel sounds, distention (chronic hernia) Back Exam: normal inspection, No rash Extremity Exam: No pedal edema, No swelling Skin Exam: normal color, warm, dry, No rash Results - Labs Lab/Micro Results: Accuchecks Date 10/22/17 Time 22:00 Accucheck Value: 113 Accucheck Value: 111 Lab Results-Last 24 Hours 10/22/17 10/22/17 10/22/17 Range/Units 13:20 16:22 16:22 WBC (4.0-10.5) K/mm3 RBC (4.1-5.4) M/mm3 Hgb (12.0-16.0) gm/dl Hct (35-47) % MCV (78-100) fl MCH (26-32) pg MCHC (32-36) g/dl RDW (11.5-14.0) % Plt Count (150-450) K/mm3 MPV (6-9.5) fl Gran % (36.0-66.0) % Lymphocytes % (24.0-44.0) % Monocytes % (0.0-12.0) % Eosinophils % (0.00-5.0) % Basophils % (0.0-0.4) % Basophils # (0-0.4) Sodium (136-145) mEq/L Potassium (3.5-5.1) mEq/L Chloride (98-107) mEq/L Carbon Dioxide (21-32) mEq/L Anion Gap (5-15) MEQ/L BUN (9-20) mg/dL Creatinine (0.55-1.30) mg/dl Estimated GFR ML/MIN Glucose (70-110) MG/DL Calcium (8.5-10.1) mg/dL Magnesium 1.9 (1.8-2.4) mg/dL Total Bilirubin (0.2-1.0) mg/dL AST (15-37) U/L ALT (12-78) U/L Alkaline Phosphatase (46-116) U/L Troponin I 0.034 0.034 (0.000-0.056) ng/ml Serum Total Protein (6.4-8.2) gm/dL Albumin (3.4-5.0) g/dL TSH 3rd Generation 0.933 (0.358-3.740) mIU/L 10/22/17 10/22/17 10/23/17 Range/Units 19:27 22:39 05:10 WBC 5.2 (4.0-10.5) K/mm3 RBC 3.14 L (4.1-5.4) M/mm3 Hgb 9.5 L (12.0-16.0) gm/dl Hct 30.8 L (35-47) % MCV 98.1 (78-100) fl MCH 30.2 (26-32) pg MCHC 30.8 L (32-36) g/dl RDW 14.3 H (11.5-14.0) % Plt Count 158 (150-450) K/mm3 MPV 11.8 H (6-9.5) fl Gran % 51.4 (36.0-66.0) % Lymphocytes % 29.2 (24.0-44.0) % Monocytes % 12.4 H (0.0-12.0) % Eosinophils % 6.6 H (0.00-5.0) % Basophils % 0.4 (0.0-0.4) % Basophils # 0.02 (0-0.4) Sodium (136-145) mEq/L Potassium (3.5-5.1) mEq/L Chloride (98-107) mEq/L Carbon Dioxide (21-32) mEq/L Anion Gap (5-15) MEQ/L BUN (9-20) mg/dL Creatinine (0.55-1.30) mg/dl Estimated GFR ML/MIN Glucose (70-110) MG/DL Calcium (8.5-10.1) mg/dL Magnesium (1.8-2.4) mg/dL Total Bilirubin (0.2-1.0) mg/dL AST (15-37) U/L ALT (12-78) U/L Alkaline Phosphatase (46-116) U/L Troponin I 0.034 < 0.017 (0.000-0.056) ng/ml Serum Total Protein (6.4-8.2) gm/dL Albumin (3.4-5.0) g/dL TSH 3rd Generation (0.358-3.740) mIU/L 10/23/17 Range/Units 05:10 WBC (4.0-10.5) K/mm3 RBC (4.1-5.4) M/mm3 Hgb (12.0-16.0) gm/dl Hct (35-47) % MCV (78-100) fl MCH (26-32) pg MCHC (32-36) g/dl RDW (11.5-14.0) % Plt Count (150-450) K/mm3 MPV (6-9.5) fl Gran % (36.0-66.0) % Lymphocytes % (24.0-44.0) % Monocytes % (0.0-12.0) % Eosinophils % (0.00-5.0) % Basophils % (0.0-0.4) % Basophils # (0-0.4) Sodium 146 H (136-145) mEq/L Potassium 2.9 L* (3.5-5.1) mEq/L Chloride 110 H (98-107) mEq/L Carbon Dioxide 27.3 (21-32) mEq/L Anion Gap 10.9 (5-15) MEQ/L BUN 12 (9-20) mg/dL Creatinine 0.90 (0.55-1.30) mg/dl Estimated GFR > 60 ML/MIN Glucose 117 H (70-110) MG/DL Calcium 8.6 (8.5-10.1) mg/dL Magnesium 2.0 (1.8-2.4) mg/dL Total Bilirubin 0.30 (0.2-1.0) mg/dL AST 16 (15-37) U/L ALT 10 L (12-78) U/L Alkaline Phosphatase 49 (46-116) U/L Troponin I (0.000-0.056) ng/ml Serum Total Protein 5.5 L (6.4-8.2) gm/dL Albumin 2.6 L (3.4-5.0) g/dL TSH 3rd Generation (0.358-3.740) mIU/L Accuchecks Date 10/22/17 Time 22:00 Accucheck Value: 113 Accucheck Value: 111 - Other Procedures and Tests Respiratory Therapy 11/27/17 17:54 Oxygen NASAL CANNULA 3 lpm 10/24/17 05:00 EKG ONCE 10/25/17 05:00 EKG ONCE Assessment/Plan (1) Shortness of breath Current Visit: Yes Status: Acute Assessment & Plan: CA ruled out. Still short of breath with minimal exertion. She did have an elevated d-dimer, but was not much changed from previously elevated d-dimer with negative CTA of the chest. If persistent SOB would consider VQ scan. Code(s): R06.02 - SHORTNESS OF BREATH (2) Bradycardia Current Visit: Yes Status: Acute Assessment & Plan: Dr. Garcia consulted, thank you. Down into the 50s today; 60s-70s yesterday. Code(s): R00.1 - BRADYCARDIA, UNSPECIFIED (3) Chronic pain Current Visit: No Status: Chronic Qualifiers: Chronic pain type: chronic pain syndrome Qualified Code(s): G89.4 - Chronic pain syndrome Assessment & Plan: continue home meds Code(s): G89.29 - OTHER CHRONIC PAIN (4) Atrial fibrillation Current Visit: No Status: Chronic Qualifiers: Atrial fibrillation type: chronic Code(s): I48.91 - UNSPECIFIED ATRIAL FIBRILLATION
[2017-10-23] MEDS: PRADAXA 75 MG PO SCH ×2 (08:33→21:25)
[2017-10-23] MEDS: Norco 10/325 MG Tablet PO PRN ×2 (08:33→21:26)
[2017-10-23] MEDS: ECOTRIN 81 MG PO SCH (08:34)
[2017-10-23] MEDS: TENORMIN 50 MG PO SCH (08:34)
[2017-10-23] MEDS: Protonix 40MG Tablet PO SCH (08:34)
[2017-10-23] MEDS: MAG-OX 400 PO SCH (08:35)
[2017-10-23] MEDS: Lasix 40 MG/4 ML IV SCH (09:39)
[2017-10-23] MEDS ORDERED: NON-FORMULARY ITEM (Esomeprazole Magnesium [Nexium] 20 MG) PO SCH (10:00)
[2017-10-23] MEDS ORDERED: NON-FORMULARY ITEM (Potassium Chloride 20 Meq Tab [Potassium Chloride 20 Meq Tablet] 20 ME PO SCH (12:00)
[2017-10-23] MEDS: Klor Con 10 MEQ PO SCH (12:34)
[2017-10-23] MEDS: NYSTOP 30 GM CREAM TOP SCH ×2 (12:34→21:27)
[2017-10-23] MEDS: ACCOLATE 20 MG PO SCH ×2 (13:00→21:25)
[2017-10-23 16:02] LABS: MAGNESIUM 1.8 mg/dL (1.8-2.4); Potassium 3.8 mEq/L (3.5-5.1)
[2017-10-23] MEDS: Colace 100 MG PO SCH (21:25)
[2017-10-23] MEDS: ZOCOR 20MG PO SCH (21:27)
[2017-10-23] MEDS ORDERED: PATIENT OWN MEDICATION PO SCH (22:00)
--- NOTE | 2017-10-24 08:37 | PCM.DS ---
Discharge Summary Date of Admission: 10/22/17 11:39 Admitting Physician: RAY OCHOA Consults: Consults on Case 10/22/17 11:59 Tele-Health Consult ROUTINE Primary Care Provider: RAY OCHOA Allergies Allergies metoclopramide HCl [From Reglan] Allergy (Verified 10/22/17 09:55) vomiting Sulfa (Sulfonamide Antibiotics) Allergy (Verified 10/22/17 09:55) [facility] Hospital Summary - Hospital Course Hospital Course: Pt went to ER per Dr. Han's suggestion wtih HR in the 40s. The week before she had been to [facility] with tachycardia. Dr. Han stopped her cardizem at this admission. She was sob on admission with elevated D-dimer but level was approximately what her d-dimer was last month with neg CTA chest. She is not having shortness of breath like she was previously. HR has been 52- 76. Austyn po. Up walking well. - Vitals & Intake/Output Vital Signs: Vital Signs Temperature 98.2 F 10/24/17 07:20 Pulse Rate 68 10/24/17 07:20 Respiratory Rate 18 10/24/17 07:20 Blood Pressure 137/65 10/24/17 07:20 O2 Sat by Pulse Oximetry 97 10/24/17 07:26 Oxygen-Last Documented O2 Percentage 3 Liters = 32% Intake & Output: Intake & Output 10/21/17 10/22/17 10/23/17 10/24/17 11:59 11:59 11:59 11:59 Intake Total 1760 1541 Output Total 3300 1100 Balance -1540 441 Weight 71.123 kg - Lab Result Diagrams: 10/23/17 05:10 10/23/17 15:10 Lab Results-Last 24 Hrs: Accuchecks Date 10/23/17 Time 22:00 Accucheck Value: 83 Accucheck Value: 73 Accucheck Value: 114 Lab Results-Last 24 Hours 10/23/17 Range/Units 15:10 Potassium 3.8 (3.5-5.1) mEq/L Magnesium 1.8 (1.8-2.4) mg/dL Micro Results-Entire Visit: Accuchecks Date 10/23/17 Time 22:00 Accucheck Value: 83 Accucheck Value: 73 Accucheck Value: 114 - Procedures and Test Procedures and Tests throughout Hospitalization: Therapy Orders & Screens 10/22/17 17:54 Oxygen NASAL CANNULA 3 lpm Comment: Diagnosis: CHEST PAIN, SHORTNESS OF BREATH 10/22/17 17:56 EKG ONCE Comment: Diagnosis: CHEST PAIN, SHORTNESS OF BREATH 10/23/17 05:00 EKG ONCE Comment: Diagnosis: CHEST PAIN, SHORTNESS OF BREATH 10/23/17 08:47 PT Eval & Treat ( Order) ROUTINE Evaluate: Yes Treat: Yes Reason for Eval:: gen weakness, SOB Diagnosis: CHEST PAIN, SHORTNESS OF BREATH 10/24/17 05:00 EKG ONCE Comment: Diagnosis: CHEST PAIN, SHORTNESS OF BREATH 10/25/17 05:00 EKG ONCE Comment: Diagnosis: CHEST PAIN, SHORTNESS OF BREATH Discharge Exam General Appearance: no apparent distress, alert, obese Neurologic Exam: oriented x 3, cooperative Skin Exam: normal color, warm, dry Eye Exam: eyes nml inspection Neck Exam: non-tender Respiratory Exam: normal breath sounds, lungs clear, No crackles/rales, No rhonchi, No wheezing Cardiovascular Exam: regular rate/rhythm, normal heart sounds, murmur (III/ sys murmur) Gastrointestinal/Abdomen Exam: soft, normal bowel sounds, hernia (midline ventral) Extremity Exam: No pedal edema, No swelling Final Diagnosis/Problem List - Final Discharge Diagnosis/Problem (1) Shortness of breath Current Visit: Yes Status: Acute Assessment & Plan: much improved. (2) Bradycardia Current Visit: Yes Status: Acute Assessment & Plan: improved. If Dr. Han is agreeable, will d/c pt to home on current meds. (3) Chronic pain Current Visit: No Status: Chronic (4) Atrial fibrillation Current Visit: No Status: Chronic - Discharge Disposition: Home, Self-Care Condition: Fair Prescriptions: No Action Zafirlukast 20 mg [Accolate 20 mg] 20 mg PO UD Glimepiride 2 mg [Amaryl 2 MG] 2 mg PO DAILY Atorvastatin Calcium [Lipitor 20MG Tablet] 20 mg PO HS Atenolol 50 mg [Tenormin 50 mg] 50 mg PO DAILY Gabapentin [Neurontin] 100 mg PO TID Dabigatran Etexilate Mesylate [Pradaxa] 150 mg PO BID #60 capsule Oxazepam 15 mg PO HS Acetaminophen/Diphenhydramine [Tylenol Pm Ex-Strength Caplet] 3 each PO HS Furosemide 40 mg [Lasix 40 MG] 40 mg PO DAILY Hydrocodone Bit/Acetaminophen [Hydrocodon-Acetaminophn 10-325] 1 each PO BID PRN Docusate Sodium 100 mg [Colace 100 MG] 300 mg PO HS Acetaminophen 325 mg [Tylenol 325 mg] 650 mg PO Q4H PRN PRN tablet PRN Reason: Pain And/Or Fever Cyanocobalamin (Vitamin B-12) [Vitamin B12] 1,000 mcg PO DAILY Vit A/Vit C/Vit E/Zinc/Copper [Preservision Areds Softgel] 1 each PO BID Cholecalciferol (Vitamin D3) [Vitamin D3] 1,000 unit PO DAILY Diltiazem HCl [Cardizem Cd] 180 mg PO DAILY Esomeprazole Magnesium [Nexium] 20 mg PO DAILY Magnesium Oxide 400 mg [Mag-Ox 400] 400 mg PO DAILY Potassium Chloride 20 Meq Tab [Potassium Chloride 20 MEQ TABLET] 20 meq PO LUNCH PANTOPRAZOLE 40 mg Tablet [Protonix 40MG Tablet] 40 mg PO LUNCH Ibuprofen 200 mg [Motrin 200 mg] 200 mg PO Q4HPRN PRN PRN Reason: Pain Ondansetron [Ondansetron Odt] 4 mg PO Q4H PRN PRN PRN Reason: Nausea Follow up with: SERVANDO HAN [CONSULTING PHYSICIAN] - Call for Appointment (make an appt to be seen in 2 weeks) RAY OCHOA [Primary Care Provider] -
[2017-10-24] MEDS: TENORMIN 50 MG PO SCH (09:16)
[2017-10-24] MEDS: MAG-OX 400 PO SCH (09:16)
[2017-10-24] MEDS: Neurontin 100 MG PO SCH ×3 (09:16→17:02)
[2017-10-24] MEDS: PRADAXA 75 MG PO SCH (09:16)
[2017-10-24] MEDS: NYSTOP 30 GM CREAM TOP SCH (09:25)
[2017-10-24] MEDS: Amaryl 2 MG PO SCH (09:25)
[2017-10-24] MEDS: ECOTRIN 81 MG PO SCH (09:25)
[2017-10-24] MEDS: Protonix 40MG Tablet PO SCH (09:25)
[2017-10-24] MEDS: Norco 10/325 MG Tablet PO PRN (09:31)
[2017-10-24] MEDS ORDERED: Apresoline 25 MG TABLET PO SCH (10:15)
[2017-10-24] MEDS: ACCOLATE 20 MG PO SCH (12:24)
[2017-10-24] MEDS: Klor Con 10 MEQ PO SCH (12:24)
[2017-10-24 15:58] VITALS: BP 165/69; PULSE 68; O2SAT 94
[2017-10-24] MEDS ORDERED: NORVASC 5 MG PO ONE (16:25)
[2017-10-25] MEDS ORDERED: NORVASC 5 MG PO SCH (10:00)
== END 2017-10-24 17:10 | disposition home or self-care (01) ==
LOC: ED 09:41 → MED SURG 11:39
PROVIDERS: ADMIT Family Medicine; ATTEND Family Medicine
DX: R06.02 Shortness of breath (principal); R00.1 Bradycardia, unspecified; G89.4 Chronic pain syndrome; F45.42 Pain disorder with related psychological factors; I48.91 Unspecified atrial fibrillation; E11.9 Type 2 diabetes mellitus without complications; J45.909 Unspecified asthma, uncomplicated; Z79.01 Long term (current) use of anticoagulants; Z79.899 Other long term (current) drug therapy; Z85.3 Personal history of malignant neoplasm of breast; Z87.891 Personal history of nicotine dependence
CPT/HCPCS: 82962 ×3; 93268 ×3; 93041; 99285; 36000; 93005 ×4; 82150; 81000; 84443; 85610; 85730; 36415 ×2; 84132; 83690; 83880; 83735 ×2; 85379; 85025 ×2; 80053 ×2; 84484; 87086; 71010; 97161; 94760 ×3; P9612; G0378; J1940; J3480; Q3014; A9270-GY

== ENCOUNTER 2017-11-21 07:23 | Emergency (ER) | payer MEDICARE ==
[2017-11-21] MEDS ORDERED: Zofran 4 MG/2 ML VIAL IV ONE (07:52)
--- NOTE | 2017-11-21 07:57 | ERPHSYRPT ---
- History of Present Illness Time Seen by Provider: 11/21/17 07:47 Historian: patient Exam Limitations: no limitations Patient Subjective Stated Complaint: PT REPORTS VOMITING BEGINNING VENANCIO YESTERDAY -REPORTS ABD TENDERNESS THAT IS USUAL FOR THE PT SHE HAS A HERNIA-NASUEA- DENIES DIARRHEA Triage Nursing Assessment: PT PALE WARM ET [id number] ALL QUESTIONS APPROPRIATELY-BOWEL SOUNDS HYPOACTIVE-ABD TENDER TO PALP Physician History: 82-year-old white female with history of chronic ventral hernia, arrhythmia, asthma, pneumonia, diabetes Patient states she had vomiting yesterday she has abdominal pain mild today states she feels nauseous today. She has not had any fevers no diarrhea. Past medical history includes arrhythmia, asthma, pneumonia, diabetes type 2, hernia, breast cancer, atrial fibrillation, urinary tract infections. Past surgical history includes cardiac catheter, mastectomy on the left, tonsillectomy Timing/Duration: yesterday Activities at Onset: none Quality: cramping Abdominal Pain Onset Location: other (left fifth middle and upper quadrant) Pain Radiation: no radiation Severity of Pain-Max: moderate Severity of Pain-Current: mild Associated Symptoms: nausea, vomiting, No back, No chest pain, No diaphoresis, No diarrhea, No fever/chills, No fatigue, No headache, No heartburn, No loss of appetite, No neck pain, No rash, No shortness of breath, No syncope Previous symptoms: same symptoms as today Allergies/Adverse Reactions: metoclopramide HCl [From Reglan] Allergy (Verified 11/21/17 07:36) vomiting Sulfa (Sulfonamide Antibiotics) Allergy (Verified 11/21/17 07:36) rash Home Medications: Atenolol 50 mg [Tenormin 50 mg] 50 mg PO DAILY 07/03/16 [History] Atorvastatin Calcium [Lipitor 20MG Tablet] 20 mg PO HS 07/03/16 [History] Gabapentin [Neurontin] 100 mg PO TID 07/03/16 [History] Glimepiride 2 mg [Amaryl 2 MG] 2 mg PO DAILY 07/03/16 [History] Zafirlukast 20 mg [Accolate 20 mg] 20 mg PO UD 07/03/16 [History] Acetaminophen/Diphenhydramine [Tylenol Pm Ex-Strength Caplet] 3 each PO HS 08/26 [History] Oxazepam 15 mg PO HS 08/26/16 [History] Furosemide 40 mg [Lasix 40 MG] 40 mg PO DAILY 07/31/17 [History] Hydrocodone Bit/Acetaminophen [Hydrocodon-Acetaminophn 10-325] 1 each PO BID PRN 07/31/17 [History] Docusate Sodium 100 mg [Colace 100 MG] 300 mg PO HS 08/08/17 [History] Cholecalciferol (Vitamin D3) [Vitamin D3] 1,000 unit PO DAILY 08/31/17 [History] Cyanocobalamin (Vitamin B-12) [Vitamin B12] 1,000 mcg PO DAILY 08/31/17 [History ] Diltiazem HCl [Cardizem Cd] 180 mg PO DAILY 08/31/17 [History] Vit A/Vit C/Vit E/Zinc/Copper [Preservision Areds Softgel] 1 each PO BID [History] Esomeprazole Magnesium [Nexium] 20 mg PO DAILY 10/10/17 [History] Ibuprofen 200 mg [Motrin 200 mg] 200 mg PO Q4HPRN PRN 10/22/17 [History] Magnesium Oxide 400 mg [Mag-Ox 400] 400 mg PO DAILY 10/22/17 [History] PANTOPRAZOLE 40 mg Tablet [Protonix 40MG Tablet] 40 mg PO LUNCH 10/22/17 [ History] Potassium Chloride 20 Meq Tab [Potassium Chloride 20 MEQ TABLET] 20 meq PO LUNCH 10/22/17 [History] Promethazine HCl 25 mg [Phenergan 25 mg] 25 mg PO UD 11/21/17 [History] Hx Tetanus, Diphtheria Vaccination/Date Given: Yes Hx Influenza Vaccination/Date Given: Yes Hx Pneumococcal Vaccination/Date Given: Yes Immunizations Up to Date: Yes - Review of Systems Constitutional: No Fever, No Chills Eyes: No Symptoms Ears, Nose, & Throat: No Symptoms Respiratory: No Cough, No Dyspnea Cardiac: No Chest Pain, No Edema, No Syncope Abdominal/Gastrointestinal: Abdominal Pain (mild left upper and middle quadrant abdominal pain), Nausea, Vomiting, No Diarrhea, No Constipation, No Hematemesis , No Hematochezia, No Melena, No Dysphagia, No Appetite Changes Genitourinary Symptoms: No Dysuria Musculoskeletal: No Back Pain, No Neck Pain Skin: No Rash Neurological: No Dizziness, No Focal Weakness, No Sensory Changes Psychological: No Symptoms Endocrine: No Symptoms All Other Systems: Reviewed and Negative - Past Medical History Pertinent Past Medical History: Yes Neurological History: No Pertinent History ENT History: No Pertinent History Cardiac History: Arrhythmia, Other Respiratory History: Asthma, Pneumonia Endocrine Medical History: Diabetes Type II Musculoskeletal History: No Pertinent History GI Medical History: Hernia History: No Pertinent History Psycho-Social History: No Pertinent History Female Reproductive Disorders: Breast Cancer Other Medical History: A FIB - Past Surgical History Past Surgical History: Yes Neuro Surgical History: No Pertinent History Cardiac: Cardiac Catheterization Respiratory: No Pertinent History Gastrointestinal: No Pertinent History Genitourinary: No Pertinent History Musculoskeletal: No Pertinent History Female Surgical History: Mastectomy Other Surgical History: tonsillectomy, L mastectomy april 10 - Social History Smoking Status: Former smoker How long have you smoked: 10 Exposure to second hand smoke: No Drug Use: none Patient Lives Alone: No - Female History Hx Now: No - Nursing Vital Signs Nursing Vital Signs: Initial Vital Signs Temperature 97.8 F 11/21/17 07:31 Pulse Rate 73 11/21/17 07:31 Respiratory Rate 18 11/21/17 07:31 Blood Pressure 182/68 11/21/17 07:31 O2 Sat by Pulse Oximetry 96 11/21/17 07:31 Pain Scale Pain Intensity 3 - Physical Exam General Appearance: no apparent distress, alert Eye Exam: PERRL/EOMI, eyes nml inspection Ears, Nose, Throat Exam: normal ENT inspection, pharynx normal, moist mucous membranes Neck Exam: normal inspection, non-tender, supple, full range of motion Respiratory Exam: normal breath sounds, lungs clear, No respiratory distress Cardiovascular Exam: regular rate/rhythm, normal heart sounds Gastrointestinal/Abdomen Exam: soft, normal bowel sounds, tenderness (mild left upper and middle quadrant abdominal pain), distention (mildly distended left upper abdomen) Back Exam: normal inspection, normal range of motion, No CVA tenderness, No vertebral tenderness Extremity Exam: normal inspection, normal range of motion, pelvis stable Neurologic Exam: alert, oriented x 3, cooperative, device engineer II-XII nml as tested, normal mood/affect, nml cerebellar function, sensation nml, No motor deficits Skin Exam: normal color, warm, dry SpO2 Interpretation: normal (96%) SpO2: 96 Oxygen Delivery: Room Air - Radiology Exams Abdomen X-ray Interpretation: Discussed w/ radiologist (non obstructive abdomen with moderart fecal stasis, chr hyrerinflated no acute changes) Ordered Tests: Active Orders 24 hr Category Date Time Status IV Insertion STAT Care 11/21/17 07:52 Active OBSTR/ACUTE ABDOMEN SERIES Stat Exams 11/21/17 07:53 Completed AMYLASE Stat Lab 11/21/17 08:00 Completed CBC W DIFF Stat Lab 11/21/17 08:00 Completed CMP Stat Lab 11/21/17 08:00 Completed CULTURE,URINE Stat Lab 11/21/17 08:50 Received LIPASE Stat Lab 11/21/17 08:00 Completed UA W/ MICROSCOPIC Stat Lab 11/21/17 08:50 Completed Medication Summary Generic Name Dose Route Start Last Admin Trade Name Freq PRN Reason Stop Dose Admin Sodium Chloride 1,000 mls @ 100 mls/hr 11/21/17 08:00 11/21/17 08:08 Sodium Chloride 0.9% 1000 Ml IV 12/21/17 07:59 100 mls/hr .Q10H RICHARD Administration Discontinued Medications Generic Name Dose Route Start Last Admin Trade Name Freq PRN Reason Stop Dose Admin Ceftriaxone Sodium/Dextrose 1 g in 50 mls @ 100 mls/hr 11/21/17 09:39 09:51 Rocephin 1 Gm-D5w 50 Ml Bag IV 11/21/17 10:08 100 mls/hr STAT STA Administration Ceftriaxone Sodium/Dextrose Confirm 11/21/17 09:51 Rocephin 1 Gm-D5w 50 Ml Bag Administered 11/21/17 09:52 Dose 1 g in 50 mls @ ud IV .STK-MED ONE Ondansetron HCl 4 mg 11/21/17 07:52 11/21/17 08:08 Zofran 4 Mg/2 Ml Vial IV 11/21/17 07:53 4 mg STAT ONE Administration Ondansetron HCl Confirm 11/21/17 08:06 Zofran 4 Mg/2 Ml Vial Administered 11/21/17 08:07 Dose 4 mg .ROUTE .STK-MED ONE Potassium Chloride 40 meq 11/21/17 08:39 11/21/17 08:45 Klor Con 10 Meq PO 11/21/17 08:40 40 meq STAT ONE Administration Potassium Chloride Confirm 11/21/17 08:45 Klor Con 10 Meq Administered 11/21/17 08:46 Dose 40 meq PO .STK-MED ONE Lab/Rad Data: Laboratory Result Diagrams 11/21/17 08:00 11/21/17 08:00 Laboratory Results 11/21/17 11/21/17 11/21/17 Range/Units 08:50 08:00 08:00 WBC 6.3 (4.0-10.5) K/mm3 RBC 3.23 L (4.1-5.4) M/mm3 Hgb 9.7 L (12.0-16.0) gm/dl Hct 31.6 L (35-47) % MCV 97.8 (78-100) fl MCH 30.0 (26-32) pg MCHC 30.7 L (32-36) g/dl RDW 14.3 H (11.5-14.0) % Plt Count 155 (150-450) K/mm3 MPV 11.4 H (6-9.5) fl Gran % 77.2 H (36.0-66.0) % Lymphocytes % 13.7 L (24.0-44.0) % Monocytes % 6.2 (0.0-12.0) % Eosinophils % 2.7 (0.00-5.0) % Basophils % 0.2 (0.0-0.4) % Basophils # 0.01 (0-0.4) Sodium 147 H (136-145) mEq/L Potassium 3.1 L (3.5-5.1) mEq/L Chloride 112 H (98-107) mEq/L Carbon Dioxide 24.0 (21-32) mEq/L Anion Gap 13.7 (5-15) MEQ/L BUN 19 (9-20) mg/dL Creatinine 0.83 (0.55-1.30) mg/dl Estimated GFR > 60 ML/MIN Glucose 141 H (70-110) MG/DL Calcium 8.6 (8.5-10.1) mg/dL Total Bilirubin 0.30 (0.2-1.0) mg/dL AST 20 (15-37) U/L ALT 8 L (12-78) U/L Alkaline Phosphatase 65 (46-116) U/L Serum Total Protein 6.3 L (6.4-8.2) gm/dL Albumin 2.9 L (3.4-5.0) g/dL Amylase 41 (25-115) U/L Lipase 48 L (73-393) U/L Ur Collection Type VOID Urine Color YELLOW (YELLOW) Urine Appearance CLOUDY (CLEAR) Urine pH 6.0 (5-6) Ur Specific [place] 1.015 (1.005-1.025) Urine Protein 1+ (Negative) Urine Ketones TRACE (NEGATIVE) Urine Blood 250 (0-5) Grey/ul Urine Nitrite POSITIVE (NEGATIVE) Urine Bilirubin NEGATIVE (NEGATIVE) Urine Urobilinogen NORMAL (0-1) mg/dL Ur Leukocyte Esterase 2+ (NEGATIVE) Urine Microscopic RBC >100 (0-2) /HPF Urine Microscopic WBC 25-50 (0-5) /HPF Ur Epithelial Cells RARE (FEW) /HPF Urine Bacteria MANY (NEGATIVE) /HPF Urine Culture Reflexed YES (NO) Urine Glucose NEGATIVE (NEGATIVE) mg/dL Specimen Received 11/21/17 6097 - Progress Progress: improved Progress Note: 11/21/17 09:35 Patient with 25-50 white cells per high-power field greater than 100 red cells. Patient with a chronic UTI but not currently on antibiotics. Will go ahead and give patient Rocephin 1 g IV home on Cipro 500 by mouth twice a day. Patient is feeling better after IV normal saline and Zofran. I have offered to send the patient home with Zofran however she states she will not take it she doesn't like how it makes her feel she states she has Phenergan at home and will take this. - Departure Time of Disposition: 09:42 Departure Disposition: Home Clinical Impression: Nausea and vomiting Qualifiers: Vomiting type: unspecified Vomiting Intractability: non-intractable Qualified Code(s): R11.2 - Nausea with vomiting, unspecified UTI (urinary tract infection) Qualifiers: Urinary tract infection type: site unspecified Hematuria presence: with hematuria Qualified Code(s): N39.0 - Urinary tract infection, site not specified Condition: Fair Critical Care Time: No Referrals: RAY OCHOA [Primary Care Provider] - Instructions: Vomiting -- Adult Additional Instructions: Return home. Plenty of fluids clear fluids only 24-48 hours if nausea or vomiting. Phenergan as prescribed by your family doctor as needed for nausea and vomiting. Cipro 500 mg orally twice a day for 7 days. Follow-up with your family doctor call and arrange an appointment. Return for acute distress or for severe symptoms. Prescriptions: Ciprofloxacin [Cipro 500 MG] 0 mg PO BIDAC #14 tablet
[2017-11-21] MEDS ORDERED: Sodium Chloride 0.9% 1000 ML 1,000 ML IV SCH (08:00)
[2017-11-21] MEDS ORDERED: Zofran 4 MG/2 ML VIAL ONE (08:06)
[2017-11-21] MEDS ORDERED: Sodium Chloride 0.9% 1000 ML 1,000 ML ONE (08:06)
[2017-11-21 08:08] LABS: BASOPHIL % 0.2 % (0.0-0.4); Basophil (Absolute #) 0.01 (0-0.4); Eosinophil % 2.7 % (0.00-5.0); Eosinophil (Absolute #) 0.17 (0-0.5); Granulocyte Absolute (ANC) 4.86 (1.4-6.9); Granulocytes % 77.2 % (36.0-66.0); Hematocrit 31.6 % (35-47); Hemoglobin 9.7 gm/dl (12.0-16.0); Lymphocyte (Absolute #) 0.86 (1.0-4.6); Lymphocytes % 13.7 % (24.0-44.0); Mean Cell Volume 97.8 fl (78-100); Mean Corpuscular Hgb Concent. 30.7 g/dl (32-36); Mean Platelet Volume 11.4 fl (6-9.5); Monocyte (Absolute #) 0.39 (0.0-1.3); Monocytes % 6.2 % (0.0-12.0); Platelet Count 155 K/mm3 (150-450); Red Blood Count 3.23 M/mm3 (4.1-5.4); Red Cell Distribution Width 14.3 % (11.5-14.0); White Blood Count 6.3 K/mm3 (4.0-10.5)
[2017-11-21 08:27] LABS: ALBUMIN 2.9 g/dL (3.4-5.0); ALKALINE PHOSPHATASE 65 U/L (46-116); AMYLASE 41 U/L (25-115); ANION GAP 13.7 MEQ/L (5-15); BLOOD UREA NITROGEN 19 mg/dL (9-20); CHLORIDE 112 mEq/L (98-107); Calcium 8.6 mg/dL (8.5-10.1); Creatinine 1 0.83 mg/dl (0.55-1.30); EST GLOMERULAR FILTRATION RATE > 60 ML/MIN; Glucose 141 MG/DL (70-110); LIPASE 48 U/L (73-393); Potassium 3.1 mEq/L (3.5-5.1); SGOT/AST 20 U/L (15-37); SGPT/ALT 8 U/L (12-78); SODIUM 147 mEq/L (136-145); Total Protein 6.3 gm/dL (6.4-8.2)
[2017-11-21] MEDS ORDERED: Klor Con 10 MEQ PO ONE ×2 (08:39→08:45)
[2017-11-21 09:05] LABS: Appearance CLOUDY (CLEAR); Bilirubin NEGATIVE (NEGATIVE); Blood 250 Ery/ul (0-5); Glucose NEGATIVE (NEGATIVE); Ketones TRACE (NEGATIVE); Leukocyte Esterase 2+ (NEGATIVE); Nitrite POSITIVE (NEGATIVE); Protein,Urine Dip 1+ (Negative); Specific Gravity 1.015 (1.005-1.025); Urobilinogen NORMAL mg/dL (0-1)
[2017-11-21 09:18] LABS: Bacteria MANY /HPF (NEGATIVE); Epithelial Cells RARE /HPF (FEW); WBC 25-50 /HPF (0-5)
--- NOTE | 2017-11-21 09:24 | XRAY ---
Indication: Abdominal pain and vomiting. Comparison: Chest exam October 22, 2017. 2 views of the abdomen nonacute and nonobstructed with mild scattered colonic fecal debris. Solid organs unremarkable. Moderate scattered aortic calcifications. Osseous structures intact with osteopenia, multilevel degenerative spondylosis, and thoracolumbar double curvature scoliosis. Single PA chest hyperinflated and clear. Heart is not enlarged. Again previous left axillary karma dissection. Impression: Mild fecal stasis without obstruction. Nonacute hyperinflated one view chest.
[2017-11-21] MEDS ORDERED: ROCEPHIN 1 Gm-D5w 50 ml Bag** 1 G/50 ML IVPB IV STA (09:39)
[2017-11-21] MEDS ORDERED: ROCEPHIN 1 Gm-D5w 50 ml Bag** 1 G/50 ML IVPB IV ONE (09:51)
[2017-11-21 10:44] VITALS: BP 160/57; PULSE 67; O2SAT 98
== END 2017-11-21 10:47 | disposition home or self-care (01) ==
LOC: ED 07:23
DX: R11.2 Nausea with vomiting, unspecified (principal); N39.0 Urinary tract infection, site not specified; R10.12 Left upper quadrant pain; E11.9 Type 2 diabetes mellitus without complications; J45.909 Unspecified asthma, uncomplicated; Z90.12 Acquired absence of left breast and nipple; Z87.891 Personal history of nicotine dependence; Z79.899 Other long term (current) drug therapy
CPT/HCPCS: 36000; 36415; 74022; 80053; 81000; 82150; 83690; 85025; 87077; 87086; 87186; 96360; 96365; 96374; 99284; J0696; J2405; A9270-GY

== ENCOUNTER 2017-12-24 09:43 | Emergency (ER) | payer MEDICARE ==
[2017-12-24] MEDS ORDERED: Sodium Chloride 0.9% 1000 ML 1,000 ML IV SCH (10:00)
[2017-12-24] MEDS ORDERED: BENADRYL 50 MG/ML IV ONE (10:00)
[2017-12-24] MEDS ORDERED: SUBLIMAZE 100 MCG/2 ML IV ONE (10:00)
[2017-12-24] MEDS ORDERED: Pepcid 20 MG VIAL IV ONE ×2 (10:00→10:22)
--- NOTE | 2017-12-24 10:04 | ERPHSYRPT ---
- History of Present Illness Time Seen by Provider: 12/24/17 09:46 Historian: patient, family Patient Subjective Stated Complaint: pt here for abd pain to left side this morning when trying to get up out of bed, sudden onset.. no nausea or fever Triage Nursing Assessment: pt alert, arrived per wc, resp easy, skin w/d/p. has large hernia to abd , pt states pain pill helped today Physician History: CC: abd pain Hx: 82 y/o patient of Dr Wong. She has abd pain since 8AM upon awakening. Different than usual. Never had this pain before. No V/D. Normal urination. She has large known chronic ventral hernia. She took a vicodin with some relief. Allergies/Adverse Reactions: metoclopramide HCl [From Reglan] Allergy (Verified 12/24/17 10:00) vomiting Sulfa (Sulfonamide Antibiotics) Allergy (Verified 12/24/17 10:00) rash Home Medications: Atenolol 50 mg [Tenormin 50 mg] 50 mg PO DAILY 07/03/16 [History] Atorvastatin Calcium [Lipitor 20MG Tablet] 20 mg PO HS 07/03/16 [History] Gabapentin [Neurontin] 100 mg PO TID 07/03/16 [History] Glimepiride 2 mg [Amaryl 2 MG] 2 mg PO DAILY 07/03/16 [History] Zafirlukast 20 mg [Accolate 20 mg] 20 mg PO UD 07/03/16 [History] Acetaminophen/Diphenhydramine [Tylenol Pm Ex-Strength Caplet] 3 each PO HS 08/26 [History] Oxazepam 15 mg PO HS 08/26/16 [History] Furosemide 40 mg [Lasix 40 MG] 40 mg PO DAILY 07/31/17 [History] Hydrocodone Bit/Acetaminophen [Hydrocodon-Acetaminophn 10-325] 1 each PO BID PRN 07/31/17 [History] Docusate Sodium 100 mg [Colace 100 MG] 300 mg PO HS 08/08/17 [History] Cholecalciferol (Vitamin D3) [Vitamin D3] 1,000 unit PO DAILY 08/31/17 [History] Cyanocobalamin (Vitamin B-12) [Vitamin B12] 1,000 mcg PO DAILY 08/31/17 [History ] Diltiazem HCl [Cardizem Cd] 180 mg PO DAILY 08/31/17 [History] Vit A/Vit C/Vit E/Zinc/Copper [Preservision Areds Softgel] 1 each PO BID [History] Esomeprazole Magnesium [Nexium] 20 mg PO DAILY 10/10/17 [History] Ibuprofen 200 mg [Motrin 200 mg] 200 mg PO Q4HPRN PRN 10/22/17 [History] Magnesium Oxide 400 mg [Mag-Ox 400] 400 mg PO DAILY 10/22/17 [History] PANTOPRAZOLE 40 mg Tablet [Protonix 40MG Tablet] 40 mg PO LUNCH 10/22/17 [ History] Potassium Chloride 20 Meq Tab [Potassium Chloride 20 MEQ TABLET] 20 meq PO LUNCH 10/22/17 [History] Promethazine HCl 25 mg [Phenergan 25 mg] 25 mg PO UD 11/21/17 [History] Dabigatran Etexilate Mesylate [Pradaxa] 150 mg BID 12/24/17 [History] Hx Tetanus, Diphtheria Vaccination/Date Given: Yes Hx Influenza Vaccination/Date Given: Yes Hx Pneumococcal Vaccination/Date Given: Yes - Review of Systems Constitutional: Malaise, Weakness, No Fever, No Chills Eyes: No Symptoms Ears, Nose, & Throat: No Symptoms Respiratory: No Cough, No Dyspnea Cardiac: No Chest Pain Abdominal/Gastrointestinal: Abdominal Pain, No Nausea, No Vomiting, No Diarrhea Genitourinary Symptoms: No Dysuria, No Hematuria Musculoskeletal: No Back Pain Skin: No Rash Neurological: No Headache All Other Systems: Reviewed and Negative - Past Medical History Pertinent Past Medical History: Yes Neurological History: No Pertinent History ENT History: No Pertinent History Cardiac History: Arrhythmia, Other Respiratory History: Asthma, Pneumonia Endocrine Medical History: Diabetes Type II Musculoskeletal History: No Pertinent History GI Medical History: Hernia History: No Pertinent History Psycho-Social History: No Pertinent History Female Reproductive Disorders: Breast Cancer Other Medical History: A FIB - Past Surgical History Past Surgical History: Yes Neuro Surgical History: No Pertinent History Cardiac: Cardiac Catheterization Respiratory: No Pertinent History Gastrointestinal: No Pertinent History Genitourinary: No Pertinent History Musculoskeletal: No Pertinent History Female Surgical History: Mastectomy Other Surgical History: tonsillectomy, L mastectomy april 10 - Social History Smoking Status: Never smoker How long have you smoked: 10 Exposure to second hand smoke: No Drug Use: none Patient Lives Alone: No - Female History Hx Last Menstrual Period: post Hx Now: No - Nursing Vital Signs Nursing Vital Signs: Initial Vital Signs Temperature 98.0 F 12/24/17 09:54 Pulse Rate 78 12/24/17 09:54 Respiratory Rate 18 12/24/17 09:54 Blood Pressure 190/84 12/24/17 09:54 O2 Sat by Pulse Oximetry 98 12/24/17 09:54 Pain Scale Pain Intensity 3 - Physical Exam General Appearance: alert Eye Exam: PERRL/EOMI Ears, Nose, Throat Exam: normal ENT inspection, dry mucous membranes Neck Exam: normal inspection, non-tender, supple Respiratory Exam: normal breath sounds, lungs clear Cardiovascular Exam: regular rate/rhythm, murmur Gastrointestinal/Abdomen Exam: soft, tenderness (mid left lower abdomen, large nonreducible ventral hernia, some redness overlying is mild) Back Exam: normal inspection, normal range of motion Extremity Exam: normal inspection, normal range of motion Neurologic Exam: alert, oriented x 3, 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, 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, sensation nml, No motor deficits Skin Exam: warm, dry, No rash SpO2 Interpretation: normal SpO2: 98 Oxygen Delivery: Room Air - Course Nursing assessment & vital signs reviewed: Yes EKG Interpreted by Me: RATE (67), Sinus Rhythm, NORMAL AXIS, NORMAL INTERVALS ( QTc 451), Q-wave (lateral), NORMAL ST-T Ordered Tests: Active Orders 24 hr Category Date Time Status Cath for Specimen-Straight STAT Care 12/24/17 10:01 Active EKG-ER Only STAT Care 12/24/17 10:00 Active IV Insertion STAT Care 12/24/17 10:00 Active NPO (ED) STAT Care 12/24/17 10:00 Active ABDOMEN AND PELVIS W CONTRAST [CT] Routine Exams 12/24/17 11:23 Completed CBC W DIFF Stat Lab 12/24/17 10:38 Completed CMP Stat Lab 12/24/17 10:38 Completed CULTURE,URINE Stat Lab 12/24/17 10:38 Received LIPASE Stat Lab 12/24/17 10:38 Completed Lactic Acid Stat Lab 12/24/17 10:00 Completed UA W/ MICROSCOPIC Stat Lab 12/24/17 10:38 Completed Medication Summary Generic Name Dose Route Start Last Admin Trade Name Berenice PRN Reason Stop Dose Admin Sodium Chloride 1,000 mls @ 100 mls/hr 12/24/17 10:00 12/24/17 10:28 Sodium Chloride 0.9% 1000 Ml IV 01/23/18 09:59 100 mls/hr .Q10H RICHARD Administration Discontinued Medications Generic Name Dose Route Start Last Admin Trade Name Berenice PRN Reason Stop Dose Admin Diphenhydramine HCl 12.5 mg 12/24/17 10:00 12/24/17 10:24 Benadryl 50 Mg/Ml IV 12/24/17 10:01 12.5 mg STAT ONE Administration Diphenhydramine HCl Confirm 12/24/17 10:22 Benadryl 50 Mg/Ml Administered 12/24/17 10:23 Dose 50 mg .ROUTE .STK-MED ONE Famotidine 20 mg 12/24/17 10:00 12/24/17 10:24 Pepcid 20 Mg Vial IV 12/24/17 10:01 20 mg STAT ONE Administration Famotidine Confirm 12/24/17 10:22 Pepcid 20 Mg Vial Administered 12/24/17 10:23 Dose 20 mg IV .STK-MED ONE Fentanyl Citrate 25 mcg 12/24/17 10:00 12/24/17 10:25 Sublimaze 100 Mcg/2 Ml IV 12/24/17 10:01 25 mcg STAT ONE Administration Fentanyl Citrate Confirm 12/24/17 10:22 Sublimaze 100 Mcg/2 Ml Administered 12/24/17 10:23 Dose 100 mcg .ROUTE .STK-MED ONE Lab/Rad Data: Laboratory Result Diagrams 12/24/17 10:38 12/24/17 10:38 Laboratory Results 12/24/17 12/24/17 12/24/17 Range/Units 10:38 10:38 10:38 WBC 4.5 (4.0-10.5) K/mm3 RBC 3.12 L (4.1-5.4) M/mm3 Hgb 9.4 L (12.0-16.0) gm/dl Hct 31.4 L (35-47) % MCV 100.6 H (78-100) fl MCH 30.1 (26-32) pg MCHC 29.9 L (32-36) g/dl RDW 14.3 H (11.5-14.0) % Plt Count 150 (150-450) K/mm3 MPV 10.6 H (6-9.5) fl Gran % 66.1 H (36.0-66.0) % Lymphocytes % 17.4 L (24.0-44.0) % Monocytes % 11.4 (0.0-12.0) % Eosinophils % 4.9 (0.00-5.0) % Basophils % 0.2 (0.0-0.4) % Basophils # 0.01 (0-0.4) Sodium 148 H (136-145) mEq/L Potassium 3.6 (3.5-5.1) mEq/L Chloride 115 H (98-107) mEq/L Carbon Dioxide 24.6 (21-32) mEq/L Anion Gap 12.3 (5-15) MEQ/L BUN 20 (9-20) mg/dL Creatinine 0.83 (0.55-1.30) mg/dl Estimated GFR > 60 ML/MIN Glucose 80 (70-110) MG/DL Lactic Acid (0.4-2.0) Calcium 8.5 (8.5-10.1) mg/dL Total Bilirubin 0.20 (0.2-1.0) mg/dL AST 18 (15-37) U/L ALT 9 L (12-78) U/L Alkaline Phosphatase 65 (46-116) U/L Serum Total Protein 5.8 L (6.4-8.2) gm/dL Albumin 2.7 L (3.4-5.0) g/dL Lipase 55 L (73-393) U/L Ur Collection Type CATH Urine Color YELLOW (YELLOW) Urine Appearance CLEAR (CLEAR) Urine pH 5.0 (5-6) Ur Specific [place] 1.025 (1.005-1.025) Urine Protein TRACE (Negative) Urine Ketones NEGATIVE (NEGATIVE) Urine Blood 250 (0-5) Grey/ul Urine Nitrite POSITIVE (NEGATIVE) Urine Bilirubin NEGATIVE (NEGATIVE) Urine Urobilinogen NORMAL (0-1) mg/dL Ur Leukocyte Esterase TRACE (NEGATIVE) Urine Microscopic RBC 5-10 (0-2) /HPF Urine Microscopic WBC 5-10 (0-5) /HPF Ur Epithelial Cells FEW (FEW) /HPF Urine Bacteria MODERATE (NEGATIVE) /HPF Urine Culture Reflexed YES (NO) Urine Glucose NEGATIVE (NEGATIVE) mg/dL Specimen Received 12/24 1040 12/24/17 Range/Units 10:00 WBC (4.0-10.5) K/mm3 RBC (4.1-5.4) M/mm3 Hgb (12.0-16.0) gm/dl Hct (35-47) % MCV (78-100) fl MCH (26-32) pg MCHC (32-36) g/dl RDW (11.5-14.0) % Plt Count (150-450) K/mm3 MPV (6-9.5) fl Gran % (36.0-66.0) % Lymphocytes % (24.0-44.0) % Monocytes % (0.0-12.0) % Eosinophils % (0.00-5.0) % Basophils % (0.0-0.4) % Basophils # (0-0.4) Sodium (136-145) mEq/L Potassium (3.5-5.1) mEq/L Chloride (98-107) mEq/L Carbon Dioxide (21-32) mEq/L Anion Gap (5-15) MEQ/L BUN (9-20) mg/dL Creatinine (0.55-1.30) mg/dl Estimated GFR ML/MIN Glucose (70-110) MG/DL Lactic Acid 1.6 (0.4-2.0) Calcium (8.5-10.1) mg/dL Total Bilirubin (0.2-1.0) mg/dL AST (15-37) U/L ALT (12-78) U/L Alkaline Phosphatase (46-116) U/L Serum Total Protein (6.4-8.2) gm/dL Albumin (3.4-5.0) g/dL Lipase (73-393) U/L Ur Collection Type Urine Color (YELLOW) Urine Appearance (CLEAR) Urine pH (5-6) Ur Specific [place] (1.005-1.025) Urine Protein (Negative) Urine Ketones (NEGATIVE) Urine Blood (0-5) Grey/ul Urine Nitrite (NEGATIVE) Urine Bilirubin (NEGATIVE) Urine Urobilinogen (0-1) mg/dL Ur Leukocyte Esterase (NEGATIVE) Urine Microscopic RBC (0-2) /HPF Urine Microscopic WBC (0-5) /HPF Ur Epithelial Cells (FEW) /HPF Urine Bacteria (NEGATIVE) /HPF Urine Culture Reflexed (NO) Urine Glucose (NEGATIVE) mg/dL Specimen Received - Progress Progress Note: 12/24/17 10:05 She is on pradaxa. 12/24/17 13:47 CT scan stable. She has had multiple UTI. She wants to wait on cx. Appt to see Dr Marvin Hankins at 12:30 made. Pt has ambulated to . She appears stable. Counseled pt/family regarding: lab results, diagnosis, need for follow-up, rad results - Departure Time of Disposition: 13:49 Departure Disposition: Home Clinical Impression: Abdominal pain, Ventral hernia Condition: Stable Critical Care Time: No Referrals: RAY WONG [Primary Care Provider] - Instructions: Acute Abdomen (Belly Pain), Adult (DC), Abdominal Hernia (DC) Additional Instructions: ABDOMINAL PAIN 1. There are several different causes for abdominal pain, some of which may not be able to be identified on initial examination. 2. The important thing to remember is that bodily functions can change in a short period of time. If you notice any of the following symptoms, return to the emergency department or consult your doctor immediately: A. Worsening pain or no improvement in the next 12 hours. B. Increasing, severe abdominal pain C. Blood in stool D. Black stools E. Persistent vomiting F. Fever or chills or other symptoms [place] diet. See Dr Wong SundayDecember 26 at 12:30 PM in office. Return for problems or concerns. Check on urine culture results with Dr Wong.
[2017-12-24] MEDS ORDERED: BENADRYL 50 MG/ML ONE (10:22)
[2017-12-24] MEDS ORDERED: SUBLIMAZE 100 MCG/2 ML ONE (10:22)
[2017-12-24] MEDS ORDERED: Sodium Chloride 0.9% 1000 ML 1,000 ML ONE (10:23)
[2017-12-24 10:44] LABS: BASOPHIL % 0.2 % (0.0-0.4); Basophil (Absolute #) 0.01 (0-0.4); Eosinophil % 4.9 % (0.00-5.0); Eosinophil (Absolute #) 0.22 (0-0.5); Granulocyte Absolute (ANC) 2.96 (1.4-6.9); Granulocytes % 66.1 % (36.0-66.0); Hematocrit 31.4 % (35-47); Hemoglobin 9.4 gm/dl (12.0-16.0); Lymphocyte (Absolute #) 0.78 (1.0-4.6); Lymphocytes % 17.4 % (24.0-44.0); Mean Cell Volume 100.6 fl (78-100); Mean Corpuscular Hemoglobin 30.1 pg (26-32); Mean Corpuscular Hgb Concent. 29.9 g/dl (32-36); Mean Platelet Volume 10.6 fl (6-9.5); Monocyte (Absolute #) 0.51 (0.0-1.3); Monocytes % 11.4 % (0.0-12.0); Platelet Count 150 K/mm3 (150-450); Red Blood Count 3.12 M/mm3 (4.1-5.4); Red Cell Distribution Width 14.3 % (11.5-14.0); White Blood Count 4.5 K/mm3 (4.0-10.5)
[2017-12-24 10:50] LABS: Appearance CLEAR (CLEAR); Bilirubin NEGATIVE (NEGATIVE); Blood 250 Ery/ul (0-5); Glucose NEGATIVE (NEGATIVE); Ketones NEGATIVE (NEGATIVE); Leukocyte Esterase TRACE (NEGATIVE); Nitrite POSITIVE (NEGATIVE); Protein,Urine Dip TRACE (Negative); Specific Gravity 1.025 (1.005-1.025); Urobilinogen NORMAL mg/dL (0-1)
[2017-12-24 10:51] LABS: Bacteria MODERATE /HPF (NEGATIVE); Epithelial Cells FEW /HPF (FEW)
[2017-12-24 11:08] LABS: ALBUMIN 2.7 g/dL (3.4-5.0); ALKALINE PHOSPHATASE 65 U/L (46-116); ANION GAP 12.3 MEQ/L (5-15); BLOOD UREA NITROGEN 20 mg/dL (9-20); CHLORIDE 115 mEq/L (98-107); Calcium 8.5 mg/dL (8.5-10.1); Carbon Dioxide 24.6 mEq/L (21-32); Creatinine 1 0.83 mg/dl (0.55-1.30); EST GLOMERULAR FILTRATION RATE > 60 ML/MIN; Glucose 80 MG/DL (70-110); LIPASE 55 U/L (73-393); Potassium 3.6 mEq/L (3.5-5.1); SGOT/AST 18 U/L (15-37); SGPT/ALT 9 U/L (12-78); SODIUM 148 mEq/L (136-145); Total Protein 5.8 gm/dL (6.4-8.2)
--- NOTE | 2017-12-24 12:33 | XRAY ---
Indication: Lower abdominal pain. Multiple contiguous axial images obtained through the abdomen and pelvis using 80 cc Isovue 370 contrast only. Comparison: September 05 and October 10, 2017. Lung bases again demonstrates small bibasilar pleural effusions with dependent atelectasis slightly greater than before. Heart remains borderline enlarged. Stable moderate sized hiatal hernia with partial intrathoracic stomach. Noncontrasted stomach and bowel loops again appear nonobstructed with scattered descending and sigmoid diverticulosis without diverticulitis. Stable large midline ventral hernia with again herniated small/large bowel loops. Today several of the herniated small bowel loops are mildly fluid distended without wall thickening. Stable tiny gallstone, left hepatic cyst, and bilateral renal cysts. No free fluid/air. There is again air bubble in the urinary bladder lumen either from catheterization versus airforming bacterial infection. Remaining liver, pancreas, spleen, adrenal glands, kidneys, ureters, bladder, and uterus appear unremarkable. Again mild calcifications of the aortoiliac vessels without AAA. Stable moderate/advanced degenerative changes throughout the spine, levorotoscoliosis, grade 2 L5 spondylolisthesis, and old right inferior pubic bone fracture. Impression: 1. Stable large ventral hernia with herniated small/large bowel loops. Herniated small bowel loops are now mildly fluid distended. 2. Again air bubble in the urinary bladder lumen either from recent catheterization versus gas-forming bacterial infection. 3. Stable hiatal hernia with partial intrathoracic stomach, colonic diverticulosis, gallstone, hepatic cyst, and bilateral renal cysts. 4. Stable degenerative spondylosis, scoliosis, and grade 2 L5 spondylolisthesis. CTDI 22.83
[2017-12-24 12:39] VITALS: BP 139/62; PULSE 71
[2017-12-24 13:51] VITALS: O2SAT 98
== END 2017-12-24 14:27 | disposition home or self-care (01) ==
LOC: ED 09:43
DX: R10.9 Unspecified abdominal pain (principal); K43.9 Ventral hernia without obstruction or gangrene; E11.9 Type 2 diabetes mellitus without complications; I48.91 Unspecified atrial fibrillation; Z79.01 Long term (current) use of anticoagulants; Z79.899 Other long term (current) drug therapy
CPT/HCPCS: 96374; 99284; 36000; 96360; 96375; 93005; 81000; 36415; 83690; 87186; 85025; 87077; 80053; 87086; 74177; 83605; P9612; J1200; J3010

== ENCOUNTER 2018-09-22 09:05 | Emergency (ER) | payer MEDICARE ==
[2018-09-22] MEDS ORDERED: Zofran 4 MG/2 ML VIAL ONE ×2 (10:06→11:17)
[2018-09-22] MEDS ORDERED: Sodium Chloride 0.9% 1000 ML 1,000 ML ONE (10:06)
[2018-09-22] MEDS ORDERED: Zofran 4 MG/2 ML VIAL IV ONE ×2 (10:15→11:07)
[2018-09-22] MEDS ORDERED: Sodium Chloride 0.9% 1000 ML 1,000 ML IV SCH (10:15)
--- NOTE | 2018-09-22 10:15 | ERPHSYRPT ---
- History of Present Illness Time Seen by Provider: 09/22/18 09:35 Source: patient Exam Limitations: clinical condition Patient Subjective Stated Complaint: pain in the small of her back, hx of multiple UTI's, began vomiting which is usually the start of her UTI's , hasn't ate since Sunday night Triage Nursing Assessment: Pt c/o of back pain in the small of her back, vomiting since , hasn't ate since Sunday, feels that it is a UTI due to a long history of them, denies pain with palpation of abdomen, lungs clear, heart murmur heard, bowel sounds heard in all 4 quadrants, pulses normal, BP 168 /79, tachycardic Physician History: PATIENT WITH A HISTORY OF TYPE 2 DIABETES, HYPERTENSION, FREQUENT URINARY TRACT INFECTIONS COMPLAINS OF URGENCY, FREQUENCY OF URINATION AND DYSURIA X 2 DAYS, POOR APPETITE. DENIES ABDOMINAL PAIN, EMESIS, FEVER. ALSO COMPLAINS OF ASSOCIATED RIGHT FLANK PAIN. Timing/Duration: day(s) Activites at Onset: none Quality: pressure Onset Location: urethral Pain Radiation: right flank Severity of Pain-Max: mild Severity of Pain-Current: mild Sexual intercourse history: non-contributory Modifying Factors: Improves With: urinating Associated Symptoms: abdominal pain, dysuria, urinary frequency, other (URINARY INCONTINENCE) Allergies/Adverse Reactions: metoclopramide HCl [From Reglan] Allergy (Verified 09/22/18 09:30) vomiting Sulfa (Sulfonamide Antibiotics) Allergy (Verified 09/22/18 09:30) rash Home Medications: Atenolol 50 mg [Tenormin 50 mg] 50 mg PO DAILY 07/03/16 [History] Atorvastatin Calcium [Lipitor 20MG Tablet] 20 mg PO HS 07/03/16 [History] Gabapentin [Neurontin] 100 mg PO BID 07/03/16 [History] Glimepiride 2 mg [Amaryl 2 MG] 2 mg PO DAILY 07/03/16 [History] Zafirlukast 20 mg [Accolate 20 mg] 20 mg PO BID 07/03/16 [History] Acetaminophen/Diphenhydramine [Tylenol Pm Ex-Strength Caplet] 2 each PO HS 08/26 [History] Oxazepam 15 mg PO HS 08/26/16 [History] Furosemide 40 mg [Lasix 40 MG] 40 mg PO DAILY 07/31/17 [History] Hydrocodone Bit/Acetaminophen [Hydrocodon-Acetaminophn 10-325] 1 each PO BID PRN 07/31/17 [History] Docusate Sodium 100 mg [Colace 100 MG] 300 mg PO HS 08/08/17 [History] Cholecalciferol (Vitamin D3) [Vitamin D3] 1,000 unit PO DAILY 08/31/17 [History] Cyanocobalamin (Vitamin B-12) [Vitamin B12] 1,000 mcg PO DAILY 08/31/17 [History ] Vit A/Vit C/Vit E/Zinc/Copper [Preservision Areds Softgel] 1 each PO BID [History] Esomeprazole Magnesium [Nexium] 20 mg PO DAILY 10/10/17 [History] Ibuprofen 200 mg [Motrin 200 mg] 200 mg PO Q4HPRN PRN 10/22/17 [History] PANTOPRAZOLE 40 mg Tablet [Protonix 40MG Tablet] 40 mg PO LUNCH 10/22/17 [ History] Promethazine HCl 25 mg [Phenergan 25 mg] 25 mg PO BID 11/21/17 [History] Dabigatran Etexilate Mesylate [Pradaxa] 150 mg PO BID 12/24/17 [History] Diltiazem HCl [Diltiazem 24Hr ER] 120 mg PO DAILY 09/22/18 [History] Famotidine 20 mg [Pepcid 20 MG] 10 mg PO DAILY 09/22/18 [History] Hx Tetanus, Diphtheria Vaccination/Date Given: Yes Hx Influenza Vaccination/Date Given: Yes Hx Pneumococcal Vaccination/Date Given: Yes - Review of Systems Constitutional: No Fever, No Chills Eyes: No Symptoms Ears, Nose, & Throat: No Symptoms Respiratory: No Symptoms, No Cough, No Dyspnea Cardiac: No Symptoms, No Chest Pain, No Edema, No Syncope Abdominal/Gastrointestinal: Abdominal Pain, No Nausea, No Vomiting, No Diarrhea Genitourinary Symptoms: Dysuria, Hesitancy, Incontinence, Urgency Musculoskeletal: No Back Pain, No Neck Pain Skin: No Rash Neurological: No Dizziness, No Focal Weakness, No Sensory Changes Psychological: No Symptoms Endocrine: No Symptoms All Other Systems: Reviewed and Negative - Past Medical History Pertinent Past Medical History: Yes Neurological History: No Pertinent History ENT History: No Pertinent History Cardiac History: Arrhythmia, Other Respiratory History: Asthma, Pneumonia Endocrine Medical History: Diabetes Type II Musculoskeletal History: No Pertinent History GI Medical History: Hernia History: No Pertinent History Psycho-Social History: No Pertinent History Female Reproductive Disorders: Breast Cancer Other Medical History: A FIB - Past Surgical History Past Surgical History: Yes Neuro Surgical History: No Pertinent History Cardiac: Cardiac Catheterization Respiratory: No Pertinent History Gastrointestinal: No Pertinent History Genitourinary: No Pertinent History Musculoskeletal: No Pertinent History Female Surgical History: Mastectomy Other Surgical History: tonsillectomy, L mastectomy april 10 - Social History Smoking Status: Former smoker How long have you smoked: 10 Exposure to second hand smoke: No Drug Use: none Patient Lives Alone: No - Female History Hx Now: No - Nursing Vital Signs Nursing Vital Signs: Initial Vital Signs Temperature 97.9 F 09/22/18 09:10 Pulse Rate 107 H 09/22/18 09:10 Blood Pressure 168/79 09/22/18 09:10 O2 Sat by Pulse Oximetry 98 09/22/18 09:10 Pain Scale Pain Intensity 2 - Physical Exam Neck Exam: normal inspection, non-tender, supple, full range of motion Respiratory Exam: normal breath sounds, lungs clear, No respiratory distress Cardiovascular Exam: regular rate/rhythm, normal heart sounds, normal peripheral pulses Gastrointestinal/Abdomen Exam: soft, normal bowel sounds, hernia (MARKED INFRAUMBILICAL HERNIA, MINIMAL TENDERNESS MEASURING 22 X 12 CM), No tenderness, No mass Back Exam: normal inspection, normal range of motion Extremity Exam: normal inspection, normal range of motion SpO2: 98 Oxygen Delivery: Room Air - CT Exams Abdomen/Pelvis CT Interpretation: Tele-radiologist Report (ANTERIOR ABDOMINAL WALL MIDLINE LARGE HERNIA WITH THE HERNIA SAC MEASURING ABOUT 22 X 10 X 12 CM. NO EVIDENCE OF STRANGULATION) Ordered Tests: Active Orders 24 hr Category Date Time Status Cath for Specimen-Straight STAT Care 09/22/18 10:16 Active IV Insertion STAT Care 09/22/18 10:15 Active ABDOMEN AND PELVIS W/0 CONTRAS [CT] Stat Exams 09/22/18 10:16 Taken BLOOD CULTURE Stat Lab 09/22/18 10:30 Received CBC W DIFF Stat Lab 09/22/18 10:10 Completed CMP Stat Lab 09/22/18 10:10 Completed CULTURE,URINE Stat Lab 09/22/18 10:20 Received UA W/RFX UR CULTURE Stat Lab 09/22/18 10:20 Completed Medication Summary Generic Name Dose Route Start Last Admin Trade Name Berenice PRN Reason Stop Dose Admin Sodium Chloride 1,000 mls @ 200 mls/hr 09/22/18 10:15 09/22/18 10:21 Sodium Chloride 0.9% 1000 Ml IV 10/22/18 10:14 200 mls/hr .Q5H RICHARD Administration Discontinued Medications Generic Name Dose Route Start Last Admin Trade Name Freq PRN Reason Stop Dose Admin Sodium Chloride Confirm 09/22/18 10:06 Sodium Chloride 0.9% 1000 Ml Administered 09/22/18 10:07 Dose 1,000 mls @ ud .ROUTE .STK-MED ONE Morphine Sulfate 2 mg 09/22/18 11:09 09/22/18 11:21 Morphine Sulfate 2 Mg Inj IV 09/22/18 11:10 2 mg STAT ONE Administration Morphine Sulfate Confirm 09/22/18 11:17 Morphine Sulfate 4 Mg Inj Administered 09/22/18 11:18 Dose 4 mg .ROUTE .STK-MED ONE Morphine Sulfate Confirm 09/22/18 11:20 Morphine Sulfate 2 Mg Inj Administered 09/22/18 11:21 Dose 2 mg .ROUTE .STK-MED ONE Ondansetron HCl Confirm 09/22/18 10:06 Zofran 4 Mg/2 Ml Vial Administered 09/22/18 10:07 Dose 4 mg .ROUTE .STK-MED ONE Ondansetron HCl 4 mg 09/22/18 10:15 09/22/18 10:21 Zofran 4 Mg/2 Ml Vial IV 09/22/18 10:16 4 mg STAT ONE Administration Ondansetron HCl 4 mg 09/22/18 11:07 09/22/18 11:19 Zofran 4 Mg/2 Ml Vial IV 09/22/18 11:08 4 mg STAT ONE Administration Ondansetron HCl Confirm 09/22/18 11:17 Zofran 4 Mg/2 Ml Vial Administered 09/22/18 11:18 Dose 4 mg .ROUTE .STK-MED ONE Lab/Rad Data: Laboratory Result Diagrams 09/22/18 10:10 09/22/18 10:10 Laboratory Results 09/22/18 09/22/18 09/22/18 Range/Units 10:20 10:10 10:10 WBC 4.5 (4.0-10.5) K/mm3 RBC 3.37 L (4.1-5.4) M/mm3 Hgb 9.8 L (12.0-16.0) gm/dl Hct 32.4 L (35-47) % MCV 96.1 (78-100) fl MCH 29.0 (26-32) pg MCHC 30.2 L (32-36) g/dl RDW 14.9 H (11.5-14.0) % Plt Count 191 (150-450) K/mm3 MPV 11.7 H (6-9.5) fl Gran % 71.3 H (36.0-66.0) % Eos # (Auto) 0.15 (0-0.5) Absolute Lymphs (auto) 0.70 L (1.0-4.6) Absolute Monos (auto) 0.42 (0.0-1.3) Lymphocytes % 15.6 L (24.0-44.0) % Monocytes % 9.4 (0.0-12.0) % Eosinophils % 3.3 (0.00-5.0) % Basophils % 0.4 (0.0-0.4) % Absolute Granulocytes 3.20 (1.4-6.9) Basophils # 0.02 (0-0.4) Sodium 142 (137-145) mmol/L Potassium 3.7 (3.5-5.1) mmol/L Chloride 110 H (98-107) mmol/L Carbon Dioxide 24 (22-30) mmol/L Anion Gap 11.1 (5-15) MEQ/L BUN 12 (7-17) mg/dL Creatinine 0.67 (0.52-1.04) mg/dL Estimated GFR > 60.0 ML/MIN Glucose 158 H (74-106) mg/dL Calcium 8.9 (8.4-10.2) mg/dL Total Bilirubin 0.30 (0.2-1.3) mg/dL AST 20 (14-36) U/L ALT 11 (0-35) U/L Alkaline Phosphatase 79 (38-126) U/L Serum Total Protein 6.0 L (6.3-8.2) g/dL Albumin 3.2 L (3.5-5.0) g/dL Urine Color YELLOW (YELLOW) Urine Appearance CLEAR (CLEAR) Urine pH 6.0 (5-6) Ur Specific [place] 1.016 (1.005-1.025) Urine Protein NEGATIVE (Negative) Urine Ketones NEGATIVE (NEGATIVE) Urine Blood NEGATIVE (0-5) Grey/ul Urine Nitrite POSITIVE (NEGATIVE) Urine Bilirubin NEGATIVE (NEGATIVE) Urine Urobilinogen NEGATIVE (0-1) mg/dL Ur Leukocyte Esterase NEGATIVE (NEGATIVE) Urine WBC (Auto) 3-5 (0-5) /HPF Urine RBC (Auto) NONE (0-2) /HPF U Hyaline Cast (Auto) 0-2 (0-2) /LPF U Epithel Cells (Auto) RARE (FEW) /HPF Urine Bacteria (Auto) MODERATE (NEGATIVE) /HPF Urine Mucus (Auto) SLIGHT (NEGATIVE) /HPF Urine Culture Reflexed YES (NO) Urine Glucose NEGATIVE (NEGATIVE) mg/dL - Progress Progress Note: 09/22/18 12:44 IV NORMAL SALINE 100MG/HR, LEVAQUIN 500MG IVPB AFTER 2 SETS OF BLOOD CULTURES OBTAINED - Departure Time of Disposition: 13:36 Departure Disposition: Home Clinical Impression: URINARY TRACT INFECTION, ABDOMINAL HERNIA Condition: Stable Critical Care Time: No Referrals: RAY OCHOA [Primary Care Provider] - Additional Instructions: ANTIBIOTIC LEVAQUIN 500MG DAILY FOR 10 DAYS. CONTINUE ALL CURRENT MEDICATIONS. FOLLOWUP WITH YOUR PRIMARY CARE PROVIDER IN 1 WEEK. Prescriptions: Levofloxacin [Levaquin] 500 mg PO DAILY #10 tablet
[2018-09-22 10:25] LABS: BASOPHIL % 0.4 % (0.0-0.4); Basophil (Absolute #) 0.02 (0-0.4); Eosinophil % 3.3 % (0.00-5.0); Eosinophil (Absolute #) 0.15 (0-0.5); Granulocytes % 71.3 % (36.0-66.0); Hematocrit 32.4 % (35-47); Hemoglobin 9.8 gm/dl (12.0-16.0); Lymphocytes % 15.6 % (24.0-44.0); Mean Cell Volume 96.1 fl (78-100); Mean Corpuscular Hgb Concent. 30.2 g/dl (32-36); Mean Platelet Volume 11.7 fl (6-9.5); Monocyte (Absolute #) 0.42 (0.0-1.3); Monocytes % 9.4 % (0.0-12.0); Platelet Count 191 K/mm3 (150-450); Red Blood Count 3.37 M/mm3 (4.1-5.4); Red Cell Distribution Width 14.9 % (11.5-14.0); White Blood Count 4.5 K/mm3 (4.0-10.5)
[2018-09-22 10:47] LABS: ALBUMIN 3.2 g/dL (3.5-5.0); ALKALINE PHOSPHATASE 79 U/L (38-126); ANION GAP 11.1 MEQ/L (5-15); BLOOD UREA NITROGEN 12 mg/dL (7-17); CHLORIDE 110 mmol/L (98-107); Calcium 8.9 mg/dL (8.4-10.2); Carbon Dioxide 24 mmol/L (22-30); Creatinine 1 0.67 mg/dL (0.52-1.04); Glucose 158 mg/dL (74-106); Potassium 3.7 mmol/L (3.5-5.1); SGOT/AST 20 U/L (14-36); SGPT/ALT 11 U/L (0-35); SODIUM 142 mmol/L (137-145)
[2018-09-22 10:59] LABS: Appearance CLEAR (CLEAR); Bilirubin NEGATIVE (NEGATIVE); Blood NEGATIVE Ery/ul (0-5); Glucose NEGATIVE (NEGATIVE); Ketones NEGATIVE (NEGATIVE); Leukocyte Esterase NEGATIVE (NEGATIVE); Nitrite POSITIVE (NEGATIVE); Protein,Urine Dip NEGATIVE (Negative); Specific Gravity 1.016 (1.005-1.025); Urobilinogen NEGATIVE mg/dL (0-1)
[2018-09-22] MEDS ORDERED: MORPHINE SULFATE 2 MG INJ IV ONE (11:09)
[2018-09-22] MEDS ORDERED: MORPHINE SULFATE 4 MG INJ ONE (11:17)
[2018-09-22] MEDS ORDERED: MORPHINE SULFATE 2 MG INJ ONE (11:20)
[2018-09-22 12:50] VITALS: O2SAT 98
[2018-09-22 13:10] VITALS: BP 176/81; PULSE 70
--- NOTE | 2018-09-22 15:43 | XRAY ---
Indication: Lower abdominal pain. Burning urination. Multiple contiguous axial images obtained through the abdomen and pelvis without contrast as ordered. Comparison: December 24, 2017. Lung bases demonstrates slight increasing small bibasilar effusions with compressive atelectasis. Heart remains borderline enlarged. Stable large hiatal hernia with partial intrathoracic stomach. Noncontrasted stomach and bowel loops appear nonobstructed. Stable large midline ventral hernia again with herniated omental fat and small/large bowel loops without incarceration/obstruction. Stable descending and sigmoid diverticulosis. No free fluid/air. Stable tiny gallstone, tiny left hepatic cyst, and bilateral renal cysts. Again tiny air bubble in the urinary bladder lumen either from catheterization versus airforming bacterial infection. Remaining liver, pancreas, spleen, adrenal glands, kidneys, ureters, bladder, and uterus appear unremarkable for noncontrast exam. There remains mild/moderate aortoiliac calcifications without AAA. Osseous structures intact again with advanced multilevel degenerative spondylosis, levorotoscoliosis, grade 2 L4-L5 spondylolisthesis, and old right inferior pubic bone fracture. Impression: 1. Stable large ventral hernia with herniated small bowel and large bowel loops without obstruction/incarceration. 2. Stable large hiatal hernia with partial intrathoracic stomach. 3. Interval increasing small bibasilar pleural effusions with stable borderline cardiomegaly. 4. Stable air bubble in the bladder lumen either from recent catheterization versus gas-forming bacterial infection. 5. Stable colonic diverticulosis, tiny gallstone, hepatic cysts, and bilateral renal cysts. 6. Stable multilevel degenerative spondylosis, scoliosis, and grade 2 L4-L5 spondylolisthesis. Comment: Preliminary interpretation was made by [facility]. No discrepancy. CTDI 23.39
== END 2018-09-22 13:50 | disposition home or self-care (01) ==
LOC: ED 09:05
DX: N39.0 Urinary tract infection, site not specified (principal); K46.9 Unspecified abdominal hernia without obstruction or gangrene; E11.9 Type 2 diabetes mellitus without complications; I10 Essential (primary) hypertension; R39.15 Urgency of urination; R30.0 Dysuria; Z79.899 Other long term (current) drug therapy
CPT/HCPCS: 36415; 74176; 80053; 81001; 85025; 87040; 87086; 96360; 96361; 96374; 96375; 96376; 99284; P9612; 87077; 87186; J2270; J2405

== ENCOUNTER 2018-09-27 06:46 | Inpatient (IN) | payer MEDICARE ==
--- NOTE | 2018-09-27 07:22 | ERPHSYRPT ---
- History of Present Illness Time Seen by Provider: 09/27/18 07:00 Historian: patient, family Exam Limitations: no limitations Patient Subjective Stated Complaint: Pt states she has been nauseous and had episodes of vomiting since Sunday. Has not been able to eat for 2 days. States she wonders if her hernia is causing problems. States she was seen here in the ER on Sunday for the same problem Triage Nursing Assessment: Pt alert & oriented. Was able to transfer from wheelchair to bed on her own. Skin warm, pale, and dry. Bowel sounds hypoactive. Pt has a large hernia in the lower left side of her abdomen Physician History: this is an 83 y/o white female on anticoag tx, pacemaker in place and presents with recurrent abd pain, n/v. pt has known large abd wall hernia. enlarged per pt report since 5 days ago. pt was in this ED for same sx, sent home with tx for and dx of uti. dr. spencer wilkes, general surgeon, has evaluated pts hernia 2 to 3 years ago. pt has not been able to eat or drink in 1 to 2 days. Timing/Duration: day(s) (2), constant Activities at Onset: none Quality: cramping, pressure Abdominal Pain Onset Location: generalized abdomen Pain Radiation: no radiation Severity of Pain-Max: moderate Severity of Pain-Current: moderate Modifying Factors: Improves With: vomiting Associated Symptoms: loss of appetite, nausea, vomiting Previous symptoms: same symptoms as today Allergies/Adverse Reactions: metoclopramide HCl [From Reglan] Allergy (Verified 09/22/18 09:30) vomiting Sulfa (Sulfonamide Antibiotics) Allergy (Verified 09/22/18 09:30) rash Home Medications: Atenolol 50 mg [Tenormin 50 mg] 50 mg PO DAILY 07/03/16 [History] Atorvastatin Calcium [Lipitor 20MG Tablet] 20 mg PO HS 07/03/16 [History] Gabapentin [Neurontin] 100 mg PO BID 07/03/16 [History] Glimepiride 2 mg [Amaryl 2 MG] 2 mg PO DAILY 07/03/16 [History] Zafirlukast 20 mg [Accolate 20 mg] 20 mg PO BID 07/03/16 [History] Acetaminophen/Diphenhydramine [Tylenol Pm Ex-Strength Caplet] 2 each PO HS 08/26 [History] Oxazepam 15 mg PO HS 08/26/16 [History] Furosemide 40 mg [Lasix 40 MG] 40 mg PO DAILY 07/31/17 [History] Hydrocodone Bit/Acetaminophen [Hydrocodon-Acetaminophn 10-325] 1 each PO BID PRN 07/31/17 [History] Docusate Sodium 100 mg [Colace 100 MG] 300 mg PO HS 08/08/17 [History] Cholecalciferol (Vitamin D3) [Vitamin D3] 1,000 unit PO DAILY 08/31/17 [History] Cyanocobalamin (Vitamin B-12) [Vitamin B12] 1,000 mcg PO DAILY 08/31/17 [History ] Vit A/Vit C/Vit E/Zinc/Copper [Preservision Areds Softgel] 1 each PO BID [History] Esomeprazole Magnesium [Nexium] 20 mg PO DAILY 10/10/17 [History] Ibuprofen 200 mg [Motrin 200 mg] 200 mg PO Q4HPRN PRN 10/22/17 [History] PANTOPRAZOLE 40 mg Tablet [Protonix 40MG Tablet] 40 mg PO LUNCH 10/22/17 [ History] Promethazine HCl 25 mg [Phenergan 25 mg] 25 mg PO BID 11/21/17 [History] Dabigatran Etexilate Mesylate [Pradaxa] 150 mg PO BID 12/24/17 [History] Diltiazem HCl [Diltiazem 24Hr ER] 120 mg PO DAILY 09/22/18 [History] Famotidine 20 mg [Pepcid 20 MG] 10 mg PO DAILY 09/22/18 [History] Hx Tetanus, Diphtheria Vaccination/Date Given: Yes Hx Influenza Vaccination/Date Given: (not this year) Hx Pneumococcal Vaccination/Date Given: Yes - Review of Systems Constitutional: No Symptoms Eyes: No Symptoms Ears, Nose, & Throat: No Symptoms Respiratory: No Symptoms Cardiac: No Symptoms Abdominal/Gastrointestinal: Abdominal Pain, Nausea, Vomiting Genitourinary Symptoms: No Symptoms, No Dysuria, No Frequency, No Hematuria Musculoskeletal: No Symptoms Skin: No Symptoms Neurological: No Symptoms Psychological: No Symptoms Endocrine: No Symptoms Hematologic/Lymphatic: No Symptoms Immunological/Allergic: No Symptoms All Other Systems: Reviewed and Negative - Past Medical History Pertinent Past Medical History: Yes Neurological History: No Pertinent History ENT History: No Pertinent History Cardiac History: Arrhythmia, Other Respiratory History: Asthma, Pneumonia Endocrine Medical History: Diabetes Type II Musculoskeletal History: No Pertinent History GI Medical History: Hernia History: No Pertinent History Psycho-Social History: No Pertinent History Female Reproductive Disorders: Breast Cancer Other Medical History: A FIB - Past Surgical History Past Surgical History: Yes Neuro Surgical History: No Pertinent History Cardiac: Cardiac Catheterization Respiratory: No Pertinent History Gastrointestinal: No Pertinent History Genitourinary: No Pertinent History Musculoskeletal: No Pertinent History Female Surgical History: Mastectomy Other Surgical History: tonsillectomy, L mastectomy april 10 - Social History Smoking Status: Former smoker How long have you smoked: 10 Exposure to second hand smoke: No Drug Use: none Patient Lives Alone: No - Female History Hx Now: No - Nursing Vital Signs Nursing Vital Signs: Initial Vital Signs Temperature 98.8 F 09/27/18 07:01 Pulse Rate 60 09/27/18 07:01 Respiratory Rate 18 09/27/18 07:01 Blood Pressure 161/78 09/27/18 07:01 O2 Sat by Pulse Oximetry 95 09/27/18 07:01 Pain Scale Pain Intensity 5 - Physical Exam General Appearance: mild distress, alert, anxiety Eye Exam: PERRL/EOMI, eyes nml inspection Ears, Nose, Throat Exam: normal ENT inspection, moist mucous membranes Neck Exam: normal inspection, non-tender, supple, full range of motion Respiratory Exam: normal breath sounds, lungs clear, airway intact, No chest tenderness, No respiratory distress, No accessory muscle use, No rhonchi, No wheezing, No stridor Cardiovascular Exam: regular rate/rhythm, normal heart sounds, normal peripheral pulses Gastrointestinal/Abdomen Exam: tenderness, guarding, other (very large incarcerated abd wall hernia) Pelvic Exam: not done Rectal Exam: not done Back Exam: normal inspection, normal range of motion, No CVA tenderness, No vertebral tenderness Extremity Exam: normal inspection, normal range of motion, pelvis stable Neurologic Exam: alert, oriented x 3, cooperative, [employer]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 Skin Exam: normal color, warm, dry Lymphatic Exam: adenopathy SpO2 Interpretation: normal SpO2: 95 Oxygen Delivery: Room Air - Course Nursing assessment & vital signs reviewed: Yes Ordered Tests: Active Orders 24 hr Category Date Time Status IV Insertion STAT Care 09/27/18 07:34 Active ABDOMEN AND PELVIS W CONTRAST [CT] Stat Exams 09/27/18 07:27 Completed AMYLASE Stat Lab 09/27/18 07:42 Completed CBC W DIFF Stat Lab 09/27/18 07:42 Completed CMP Stat Lab 09/27/18 07:42 Completed CULTURE,URINE Stat Lab 09/27/18 07:39 Received LIPASE Stat Lab 09/27/18 07:42 Completed Lactic Acid Stat Lab 09/27/18 07:43 Completed UA W/RFX UR CULTURE Stat Lab 09/27/18 07:39 Completed Transfer Order Routine Transfer 09/27/18 Ordered Medication Summary Discontinued Medications Generic Name Dose Route Start Last Admin Trade Name Freq PRN Reason Stop Dose Admin Hydromorphone HCl 0.5 mg 09/27/18 07:26 09/27/18 08:27 Hydromorphone 1 Mg/Ml Ampule IV 09/27/18 07:27 0.5 mg STAT ONE Administration Hydromorphone HCl Confirm 09/27/18 08:26 Hydromorphone 1 Mg/Ml Ampule Administered 09/27/18 08:27 Dose 1 mg .ROUTE .STK-MED ONE Sodium Chloride 1,000 mls @ 999 mls/hr 09/27/18 07:26 09/27/18 07:55 Sodium Chloride 0.9% 1000 Ml IV 09/27/18 08:26 999 mls/hr .Q1H1M STA Administration Sodium Chloride Confirm 09/27/18 07:49 Sodium Chloride 0.9% 1000 Ml Administered 09/27/18 07:50 Dose 1,000 mls @ ud .ROUTE .STK-MED ONE Ondansetron HCl 4 mg 09/27/18 07:26 09/27/18 07:55 Zofran 4 Mg/2 Ml Vial IV 09/27/18 07:27 4 mg STAT ONE Administration Ondansetron HCl Confirm 09/27/18 07:48 Zofran 4 Mg/2 Ml Vial Administered 09/27/18 07:49 Dose 4 mg .ROUTE .STK-MED ONE Lab/Rad Data: Laboratory Result Diagrams 09/27/18 07:42 09/27/18 07:42 Laboratory Results 09/27/18 09/27/18 09/27/18 Range/Units 07:43 07:42 07:42 WBC 4.6 (4.0-10.5) K/mm3 RBC 3.22 L (4.1-5.4) M/mm3 Hgb 9.2 L (12.0-16.0) gm/dl Hct 31.0 L (35-47) % MCV 96.3 (78-100) fl MCH 28.5 (26-32) pg MCHC 29.7 L (32-36) g/dl RDW 15.1 H (11.5-14.0) % Plt Count 197 (150-450) K/mm3 MPV 11.9 H (6-9.5) fl Gran % 72.8 H (36.0-66.0) % Eos # (Auto) 0.04 (0-0.5) Absolute Lymphs (auto) 0.73 L (1.0-4.6) Absolute Monos (auto) 0.46 (0.0-1.3) Lymphocytes % 16.0 L (24.0-44.0) % Monocytes % 10.1 (0.0-12.0) % Eosinophils % 0.9 (0.00-5.0) % Basophils % 0.2 (0.0-0.4) % Absolute Granulocytes 3.31 (1.4-6.9) Basophils # 0.01 (0-0.4) Sodium 141 (137-145) mmol/L Potassium 3.5 (3.5-5.1) mmol/L Chloride 110 H (98-107) mmol/L Carbon Dioxide 24 (22-30) mmol/L Anion Gap 11.0 (5-15) MEQ/L BUN 11 (7-17) mg/dL Creatinine 0.75 (0.52-1.04) mg/dL Estimated GFR > 60.0 ML/MIN Glucose 118 H (74-106) mg/dL Lactic Acid 1.4 (0.4-2.0) Calcium 9.0 (8.4-10.2) mg/dL Total Bilirubin 0.30 (0.2-1.3) mg/dL AST 30 (14-36) U/L ALT 13 (0-35) U/L Alkaline Phosphatase 72 (38-126) U/L Serum Total Protein 6.1 L (6.3-8.2) g/dL Albumin 3.3 L (3.5-5.0) g/dL Amylase 39 (30-110) U/L Lipase 14 L (23-300) U/L Urine Color (YELLOW) Urine Appearance (CLEAR) Urine pH (5-6) Ur Specific [place] (1.005-1.025) Urine Protein (Negative) Urine Ketones (NEGATIVE) Urine Blood (0-5) Grey/ul Urine Nitrite (NEGATIVE) Urine Bilirubin (NEGATIVE) Urine Urobilinogen (0-1) mg/dL Ur Leukocyte Esterase (NEGATIVE) Urine WBC (Auto) (0-5) /HPF Urine RBC (Auto) (0-2) /HPF Urine Bacteria (Auto) (NEGATIVE) /HPF Urine Culture Reflexed (NO) Urine Glucose (NEGATIVE) mg/dL 09/27/18 Range/Units 07:39 WBC (4.0-10.5) K/mm3 RBC (4.1-5.4) M/mm3 Hgb (12.0-16.0) gm/dl Hct (35-47) % MCV (78-100) fl MCH (26-32) pg MCHC (32-36) g/dl RDW (11.5-14.0) % Plt Count (150-450) K/mm3 MPV (6-9.5) fl Gran % (36.0-66.0) % Eos # (Auto) (0-0.5) Absolute Lymphs (auto) (1.0-4.6) Absolute Monos (auto) (0.0-1.3) Lymphocytes % (24.0-44.0) % Monocytes % (0.0-12.0) % Eosinophils % (0.00-5.0) % Basophils % (0.0-0.4) % Absolute Granulocytes (1.4-6.9) Basophils # (0-0.4) Sodium (137-145) mmol/L Potassium (3.5-5.1) mmol/L Chloride (98-107) mmol/L Carbon Dioxide (22-30) mmol/L Anion Gap (5-15) MEQ/L BUN (7-17) mg/dL Creatinine (0.52-1.04) mg/dL Estimated GFR ML/MIN Glucose (74-106) mg/dL Lactic Acid (0.4-2.0) Calcium (8.4-10.2) mg/dL Total Bilirubin (0.2-1.3) mg/dL AST (14-36) U/L ALT (0-35) U/L Alkaline Phosphatase (38-126) U/L Serum Total Protein (6.3-8.2) g/dL Albumin (3.5-5.0) g/dL Amylase (30-110) U/L Lipase (23-300) U/L Urine Color YELLOW (YELLOW) Urine Appearance SLIGHTLY CLOUDY (CLEAR) Urine pH 6.0 (5-6) Ur Specific [place] 1.013 (1.005-1.025) Urine Protein NEGATIVE (Negative) Urine Ketones NEGATIVE (NEGATIVE) Urine Blood NEGATIVE (0-5) Grey/ul Urine Nitrite POSITIVE (NEGATIVE) Urine Bilirubin NEGATIVE (NEGATIVE) Urine Urobilinogen NEGATIVE (0-1) mg/dL Ur Leukocyte Esterase MODERATE (NEGATIVE) Urine WBC (Auto) 16-25 (0-5) /HPF Urine RBC (Auto) 0-2 (0-2) /HPF Urine Bacteria (Auto) PACKED (NEGATIVE) /HPF Urine Culture Reflexed YES (NO) Urine Glucose NEGATIVE (NEGATIVE) mg/dL - Progress Progress: improved, re-examined Progress Note: 09/27/18 10:[address] luanne wilkes, general surgery, at 0958. he will see pt in consult. at [address] avitia, pts pcp, who will admit her. i reviewed pt hx, condition, vs, lab and xray results. Discussed with : Marvin Engel Will see patient in: hospital (full admit) Counseled pt/family regarding: lab results, diagnosis, rad results - Departure Time of Disposition: 10:09 Departure Disposition: In-patient Admission Clinical Impression: Bowel obstruction, UTI (urinary tract infection), Incarcerated ventral hernia Condition: Stable Critical Care Time: No Referrals: RAY AVITIA [Primary Care Provider] -
[2018-09-27] MEDS ORDERED: Sodium Chloride 0.9% 1000 ML 1,000 ML IV STA (07:26)
[2018-09-27] MEDS ORDERED: Hydromorphone 1 mg/ml Ampule IV ONE (07:26)
[2018-09-27] MEDS ORDERED: Zofran 4 MG/2 ML VIAL IV ONE (07:26)
[2018-09-27] MEDS ORDERED: Zofran 4 MG/2 ML VIAL ONE (07:48)
[2018-09-27] MEDS ORDERED: Sodium Chloride 0.9% 1000 ML 1,000 ML ONE (07:49)
[2018-09-27 07:58] LABS: BASOPHIL % 0.2 % (0.0-0.4); Basophil (Absolute #) 0.01 (0-0.4); Eosinophil % 0.9 % (0.00-5.0); Eosinophil (Absolute #) 0.04 (0-0.5); Granulocyte Absolute (ANC) 3.31 (1.4-6.9); Granulocytes % 72.8 % (36.0-66.0); Hemoglobin 9.2 gm/dl (12.0-16.0); Lymphocyte (Absolute #) 0.73 (1.0-4.6); Mean Cell Volume 96.3 fl (78-100); Mean Corpuscular Hemoglobin 28.5 pg (26-32); Mean Corpuscular Hgb Concent. 29.7 g/dl (32-36); Mean Platelet Volume 11.9 fl (6-9.5); Monocyte (Absolute #) 0.46 (0.0-1.3); Monocytes % 10.1 % (0.0-12.0); Platelet Count 197 K/mm3 (150-450); Red Blood Count 3.22 M/mm3 (4.1-5.4); Red Cell Distribution Width 15.1 % (11.5-14.0); White Blood Count 4.6 K/mm3 (4.0-10.5)
[2018-09-27 08:01] LABS: Appearance SLIGHTLY CLOUDY (CLEAR); Bilirubin NEGATIVE (NEGATIVE); Blood NEGATIVE Ery/ul (0-5); Glucose NEGATIVE (NEGATIVE); Ketones NEGATIVE (NEGATIVE); Leukocyte Esterase MODERATE (NEGATIVE); Nitrite POSITIVE (NEGATIVE); Protein,Urine Dip NEGATIVE (Negative); Specific Gravity 1.013 (1.005-1.025); Urobilinogen NEGATIVE mg/dL (0-1)
[2018-09-27] MEDS ORDERED: Hydromorphone 1 mg/ml Ampule ONE (08:26)
[2018-09-27 08:34] LABS: ALBUMIN 3.3 g/dL (3.5-5.0); ALKALINE PHOSPHATASE 72 U/L (38-126); AMYLASE 39 U/L (30-110); BLOOD UREA NITROGEN 11 mg/dL (7-17); CHLORIDE 110 mmol/L (98-107); Carbon Dioxide 24 mmol/L (22-30); Creatinine 1 0.75 mg/dL (0.52-1.04); Glucose 118 mg/dL (74-106); LIPASE 14 U/L (23-300); Potassium 3.5 mmol/L (3.5-5.1); SGOT/AST 30 U/L (14-36); SGPT/ALT 13 U/L (0-35); SODIUM 141 mmol/L (137-145); Total Protein 6.1 g/dL (6.3-8.2)
--- NOTE | 2018-09-27 08:48 | XRAY ---
Indication: Abdomen pain, nausea, and vomiting. Multiple contiguous axial images obtained through the abdomen and pelvis using 80 cc Isovue 370 contrast only. Comparison: September 22, 2018. Lung bases again demonstrates small bibasilar effusions, atelectasis, borderline cardiomegaly, and large hiatal hernia with partial intrathoracic stomach. Stable large ventral hernia again with herniated omental fat and small/large bowel loops. Herniated transverse colon does demonstrate interval increasing fecal debris and distention with little fecal debris and bowel gas distally, possible early/mild obstruction. Stable descending/sigmoid diverticulosis, tiny gallstone, tiny hepatic cyst, fatty replaced pancreas, bilateral renal cysts, and urinary bladder intraluminal air bubbles. No free fluid/air. Remaining spleen and adrenal glands appear unremarkable. Stable mild/moderate aortoiliac calcifications again without AAA. No pathologic retroperitoneal lymphadenopathy. Osseous structures again demonstrates advanced multilevel degenerative spondylosis, levorotoscoliosis, grade 1-2 L4-S1 spondylolisthesis, and old right inferior pubic bone fracture. Impression: 1. Again large ventral hernia with herniated omental fat/bowel loops. Herniated transverse colon demonstrates increasing fecal debris/distention with little distal fecal debris and bowel gas concerning for possible early/mild obstruction. 2. Stable large hiatal hernia with partial intrathoracic stomach and bibasilar effusions. 3. Stable urinary bladder intraluminal air bubbles either from recent catheterization versus gas-forming bacterial infection. 4. Stable colonic diverticulosis, gallstone, hepatic cyst, and bilateral renal cysts. 5. Stable chronic bony findings. CT DI 27.91
[2018-09-27] MEDS ORDERED: ROCEPHIN 1 Gm-D5w 50 ml Bag** 1 G/50 ML IVPB IV ONE ×2 (10:52→10:54)
[2018-09-27] MEDS: Sodium Chloride 0.9% 1000 ML 1,000 ML IV SCH ×2 (11:32→21:57)
[2018-09-27] MEDS ORDERED: NORVASC 5 MG PO ONE (15:11)
[2018-09-27] MEDS ORDERED: MEDICATION INTERVENTION MC SCH (15:15)
[2018-09-27] MEDS: Cardizem CD 120 MG PO SCH (15:20)
[2018-09-27] MEDS: ACCOLATE 20 MG PO SCH ×2 (15:21→21:45)
[2018-09-27] MEDS: TENORMIN 50 MG PO SCH (15:21)
[2018-09-27] MEDS: DILAUDID 2 MG INJECTION IV PRN ×2 (15:24→21:45)
--- NOTE | 2018-09-27 15:49 | PCM.HP ---
History of Present Illness - Chief Complaint Chief Complaint: incarcerated bowel History of Present Illness: is a 83 year old female pt of mine from [facility], with PMHx DMII, afib, CHF (with pacemaker), CVA, aortic stenosis, hx breast ca, hx PE, hx GI hemorrhage and hyper thyroidism who was admitted through ER with partial bowel obstruction and UTI. She was in the hospital 5d ago and released (treated for UTI). She had worsening vomiting the past few days with decreased po intake. She noted that her known ventral hernia was more distended yesterday so she came to the ER last night. She had vomiting. no fever. - Review of Systems Constitutional: Weakness Respiratory: Short Of Breath Cardiac: Palpitations Abdominal/Gastrointestinal: Nausea, Vomiting Genitourinary Symptoms: Frequency Musculoskeletal: Arthralgias Psychological: Anxiety, No Depression, No Suicidal Ideations All Other Systems: Reviewed and Negative Medications & Allergies Home Medications: Home Medication List Atenolol 50 mg [Tenormin 50 mg] 50 mg PO DAILY 07/03/16 [History Confirmed 09/27/18] Atorvastatin Calcium [Lipitor 20MG Tablet] 20 mg PO HS 07/03/16 [History Confirmed 09/27/18] Gabapentin [Neurontin] 100 mg PO BID 07/03/16 [History Confirmed 09/27/18] Glimepiride 2 mg [Amaryl 2 MG] 2 mg PO DAILY 07/03/16 [History Confirmed 09/27/18] Zafirlukast 20 mg [Accolate 20 mg] 20 mg PO BID 07/03/16 [History Confirmed 09/27/18] Acetaminophen/Diphenhydramine [Tylenol Pm Ex-Strength Caplet] 2 each PO HS PRN 08/26/16 [History Confirmed 09/27/18] Oxazepam 15 mg PO HS 08/26/16 [History Confirmed 09/27/18] Furosemide 40 mg [Lasix 40 MG] 20 mg PO DAILY 07/31/17 [History Confirmed 09/27/18] Hydrocodone Bit/Acetaminophen [Hydrocodon-Acetaminophn 10-325] 1 each PO BID PRN 07/31/17 [History Confirmed 09/27/18] Docusate Sodium 100 mg [Colace 100 MG] 200 mg PO HS 08/08/17 [History Confirmed 09/27/18] Vit A/Vit C/Vit E/Zinc/Copper [Preservision Areds Softgel] 1 each PO BID [History Confirmed 09/27/18] Esomeprazole Magnesium [Nexium] 20 mg PO DAILY 10/10/17 [History Confirmed 09/27] Ibuprofen 200 mg [Motrin 200 mg] 200 mg PO Q4HPRN PRN 10/22/17 [History Confirmed 09/27/18] PANTOPRAZOLE 40 mg Tablet [Protonix 40MG Tablet] 40 mg PO LUNCH 10/22/17 [ History Confirmed 09/27/18] Promethazine HCl 25 mg [Phenergan 25 mg] 25 mg PO BID 11/21/17 [History Confirmed 09/27/18] Dabigatran Etexilate Mesylate [Pradaxa] 150 mg PO BID 12/24/17 [History Confirmed 09/27/18] Diltiazem HCl [Diltiazem 24Hr ER] 120 mg PO DAILY 09/22/18 [History Confirmed ] Famotidine 20 mg [Pepcid 20 MG] 20 mg PO HS 09/22/18 [History Confirmed ] Levofloxacin [Levaquin] 500 mg PO DAILY #10 tablet 09/22/18 [Rx Confirmed ] Gabapentin 100 mg PO EVENING MEAL 09/27/18 [History Confirmed 09/27/18] Allergies/Adverse Reactions: Allergies Allergy/AdvReac Type Severity Reaction Status Date / Time metoclopramide HCl Allergy Verified 09/22/18 09:30 [From Reglan] Sulfa (Sulfonamide Allergy Verified 09/22/18 09:30 Antibiotics) - Past Medical History Past Medical History: Yes Neurological History: No Pertinent History ENT History: No Pertinent History Cardiac History: Arrhythmia, Other Respiratory History: Asthma, Pneumonia Endocrine Medical History: Diabetes Type II Musculoskelatal History: No Pertinent History GI Medical History: Hernia History: No Pertinent History Pyscho-Social History: No Pertinent History Reproductive Disorders: Breast Cancer Comment: A FIB - Female History Are you now?: No - Past Surgical History Past Surgical History: Yes Neuro Surgical History: No Pertinent History Cardiac History: Cardiac Catheterization Respiratory Surgery: No Pertinent History GI Surgical History: No Pertinent History Genitourinary Surgical Hx: No Pertinent History Musculskeletal Surgical Hx: No Pertinent History Female Surgical History: Mastectomy Other Surgical History: tonsillectomy, L mastectomy april 10 - Social History Smoking Status: Current some day smoker How long have you smoked: 10 Exposure to second hand smoke: No Alcohol: None Drug Use: none - Physical Exam Vital Signs: Vital Signs - 24 hr Temp Pulse Resp BP Pulse Ox 09/27/18 15:21 78 09/27/18 11:48 98.9 F 67 20 183/77 91 L 09/27/18 11:12 98.9 F 67 20 183/77 91 L 09/27/18 10:44 67 18 180/78 94 L 09/27/18 10:19 95 09/27/18 08:31 71 16 186/66 96 09/27/18 07:01 98.8 F 60 18 161/78 95 General Appearance: no apparent distress, alert, obese Neurologic Exam: oriented x 3, cooperative Eye Exam: eyes nml inspection Ears, Nose, Throat Exam: moist mucous membranes Neck Exam: normal inspection, non-tender, supple, No lymphadenopathy Respiratory Exam: normal breath sounds, lungs clear, No crackles/rales, No rhonchi, No wheezing Cardiovascular Exam: regular rate/rhythm, murmur (II/ sys murmur) Gastrointestinal/Abdomen Exam: soft, distention (ventral hernia), No normal bowel sounds (hyperactive), No tenderness, No mass, No guarding, No rebound Extremity Exam: No pedal edema, No swelling, No tenderness Skin Exam: normal color, warm, dry, No rash Results - Labs Lab/Micro Results: Lab Results-Last 24 Hours 09/27/18 09/27/18 09/27/18 Range/Units 07:39 07:42 07:42 WBC 4.6 (4.0-10.5) K/mm3 RBC 3.22 L (4.1-5.4) M/mm3 Hgb 9.2 L (12.0-16.0) gm/dl Hct 31.0 L (35-47) % MCV 96.3 (78-100) fl MCH 28.5 (26-32) pg MCHC 29.7 L (32-36) g/dl RDW 15.1 H (11.5-14.0) % Plt Count 197 (150-450) K/mm3 MPV 11.9 H (6-9.5) fl Gran % 72.8 H (36.0-66.0) % Eos # (Auto) 0.04 (0-0.5) Absolute Lymphs (auto) 0.73 L (1.0-4.6) Absolute Monos (auto) 0.46 (0.0-1.3) Lymphocytes % 16.0 L (24.0-44.0) % Monocytes % 10.1 (0.0-12.0) % Eosinophils % 0.9 (0.00-5.0) % Basophils % 0.2 (0.0-0.4) % Absolute Granulocytes 3.31 (1.4-6.9) Basophils # 0.01 (0-0.4) Sodium 141 (137-145) mmol/L Potassium 3.5 (3.5-5.1) mmol/L Chloride 110 H (98-107) mmol/L Carbon Dioxide 24 (22-30) mmol/L Anion Gap 11.0 (5-15) MEQ/L BUN 11 (7-17) mg/dL Creatinine 0.75 (0.52-1.04) mg/dL Estimated GFR > 60.0 ML/MIN Glucose 118 H (74-106) mg/dL Lactic Acid (0.4-2.0) Calcium 9.0 (8.4-10.2) mg/dL Total Bilirubin 0.30 (0.2-1.3) mg/dL AST 30 (14-36) U/L ALT 13 (0-35) U/L Alkaline Phosphatase 72 (38-126) U/L Serum Total Protein 6.1 L (6.3-8.2) g/dL Albumin 3.3 L (3.5-5.0) g/dL Amylase 39 (30-110) U/L Lipase 14 L (23-300) U/L Urine Color YELLOW (YELLOW) Urine Appearance SLIGHTLY CLOUDY (CLEAR) Urine pH 6.0 (5-6) Ur Specific [place] 1.013 (1.005-1.025) Urine Protein NEGATIVE (Negative) Urine Ketones NEGATIVE (NEGATIVE) Urine Blood NEGATIVE (0-5) Grey/ul Urine Nitrite POSITIVE (NEGATIVE) Urine Bilirubin NEGATIVE (NEGATIVE) Urine Urobilinogen NEGATIVE (0-1) mg/dL Ur Leukocyte Esterase MODERATE (NEGATIVE) Urine WBC (Auto) 16-25 (0-5) /HPF Urine RBC (Auto) 0-2 (0-2) /HPF Urine Bacteria (Auto) PACKED (NEGATIVE) /HPF Urine Culture Reflexed YES (NO) Urine Glucose NEGATIVE (NEGATIVE) mg/dL 09/27/18 Range/Units 07:43 WBC (4.0-10.5) K/mm3 RBC (4.1-5.4) M/mm3 Hgb (12.0-16.0) gm/dl Hct (35-47) % MCV (78-100) fl MCH (26-32) pg MCHC (32-36) g/dl RDW (11.5-14.0) % Plt Count (150-450) K/mm3 MPV (6-9.5) fl Gran % (36.0-66.0) % Eos # (Auto) (0-0.5) Absolute Lymphs (auto) (1.0-4.6) Absolute Monos (auto) (0.0-1.3) Lymphocytes % (24.0-44.0) % Monocytes % (0.0-12.0) % Eosinophils % (0.00-5.0) % Basophils % (0.0-0.4) % Absolute Granulocytes (1.4-6.9) Basophils # (0-0.4) Sodium (137-145) mmol/L Potassium (3.5-5.1) mmol/L Chloride (98-107) mmol/L Carbon Dioxide (22-30) mmol/L Anion Gap (5-15) MEQ/L BUN (7-17) mg/dL Creatinine (0.52-1.04) mg/dL Estimated GFR ML/MIN Glucose (74-106) mg/dL Lactic Acid 1.4 (0.4-2.0) Calcium (8.4-10.2) mg/dL Total Bilirubin (0.2-1.3) mg/dL AST (14-36) U/L ALT (0-35) U/L Alkaline Phosphatase (38-126) U/L Serum Total Protein (6.3-8.2) g/dL Albumin (3.5-5.0) g/dL Amylase (30-110) U/L Lipase (23-300) U/L Urine Color (YELLOW) Urine Appearance (CLEAR) Urine pH (5-6) Ur Specific [place] (1.005-1.025) Urine Protein (Negative) Urine Ketones (NEGATIVE) Urine Blood (0-5) Grey/ul Urine Nitrite (NEGATIVE) Urine Bilirubin (NEGATIVE) Urine Urobilinogen (0-1) mg/dL Ur Leukocyte Esterase (NEGATIVE) Urine WBC (Auto) (0-5) /HPF Urine RBC (Auto) (0-2) /HPF Urine Bacteria (Auto) (NEGATIVE) /HPF Urine Culture Reflexed (NO) Urine Glucose (NEGATIVE) mg/dL - Radiology Impressions Radiology Exams & Impressions: Radiology Procedures Category Date Time Status ABDOMEN AND PELVIS W CONTRAST [CT] Stat Exams 09/27/18 07:27 Completed Assessment/Plan (1) Bowel obstruction Current Visit: Yes Status: Acute Assessment & Plan: She thinks the distension of her abdomen is better. NPO. No NG tube is needed at this time. surgery has been consulted, thank you. Code(s): K56.609 - UNSP INTESTNL OBST, UNSP TO PARTIAL VERSUS COMPLETE OBST (2) UTI (urinary tract infection) Current Visit: Yes Status: Acute Qualifiers: Urinary tract infection type: acute cystitis Hematuria presence: without hematuria Qualified Code(s): N30.00 - Acute cystitis without hematuria Assessment & Plan: On IV rocephin. UCx is pending. 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 (4) Atrial fibrillation Current Visit: No Status: Chronic Qualifiers: Atrial fibrillation type: chronic Assessment & Plan: rate has been controlled on her meds - she has been seeing Dr. Garcia every 2 to 4 weeks recently and had a pacemaker placed in April 2018. Code(s): I48.91 - UNSPECIFIED ATRIAL FIBRILLATION (5) HX: breast cancer Current Visit: No Status: Resolved Code(s): Z85.3 - PERSONAL HISTORY OF MALIGNANT NEOPLASM OF BREAST
[2018-09-27] MEDS: Neurontin 100 MG PO SCH (17:36)
[2018-09-27] MEDS ORDERED: Dulcolax 10 MG SUPP PR ONE (19:03)
[2018-09-27] MEDS: Ativan 0.5 MG PO SCH (21:45)
[2018-09-27] MEDS ORDERED: OXAZEPAM 15 MG PO SCH (22:00)
[2018-09-27] MEDS ORDERED: PRADAXA 75 MG PO SCH (22:00)
[2018-09-28] MEDS: DILAUDID 2 MG INJECTION IV PRN ×4 (02:51→19:04)
[2018-09-28 05:43] LABS: BASOPHIL % 0.2 % (0.0-0.4); Basophil (Absolute #) 0.01 (0-0.4); Eosinophil % 3.7 % (0.00-5.0); Eosinophil (Absolute #) 0.23 (0-0.5); Granulocyte Absolute (ANC) 3.99 (1.4-6.9); Hemoglobin 8.9 gm/dl (12.0-16.0); Lymphocyte (Absolute #) 1.43 (1.0-4.6); Mean Cell Volume 96.8 fl (78-100); Mean Corpuscular Hemoglobin 28.7 pg (26-32); Mean Corpuscular Hgb Concent. 29.7 g/dl (32-36); Mean Platelet Volume 10.9 fl (6-9.5); Monocyte (Absolute #) 0.57 (0.0-1.3); Monocytes % 9.1 % (0.0-12.0); Platelet Count 173 K/mm3 (150-450); Red Cell Distribution Width 15.4 % (11.5-14.0); White Blood Count 6.2 K/mm3 (4.0-10.5)
[2018-09-28 06:02] LABS: ALKALINE PHOSPHATASE 66 U/L (38-126); ANION GAP 9.3 MEQ/L (5-15); BLOOD UREA NITROGEN 9 mg/dL (7-17); CHLORIDE 112 mmol/L (98-107); Calcium 8.4 mg/dL (8.4-10.2); Carbon Dioxide 24 mmol/L (22-30); Glucose 126 mg/dL (74-106); Potassium 3.6 mmol/L (3.5-5.1); SGOT/AST 69 U/L (14-36); SGPT/ALT 16 U/L (0-35); SODIUM 141 mmol/L (137-145); Total Protein 5.8 g/dL (6.3-8.2)
[2018-09-28 06:32] LABS: INR 1.18 (0.8-3.0)
[2018-09-28] MEDS: Sodium Chloride 0.9% 1000 ML 1,000 ML IV SCH (07:55)
[2018-09-28] MEDS: Cardizem CD 120 MG PO SCH (10:11)
[2018-09-28] MEDS: TENORMIN 50 MG PO SCH (10:11)
[2018-09-28] MEDS: Neurontin 100 MG PO SCH ×2 (10:12→18:12)
[2018-09-28] MEDS: Pepcid 20 MG VIAL IV SCH (10:12)
--- NOTE | 2018-09-28 10:14 | PCM.NOTE ---
Date and Time: 09/28/18 1009 Subjective Assessment: She is having intermittent abdominal pains still took some pain medication a few hours ago. She has no nausea and is hungry. She had a few small hard pellets of stool she states after the suppository. She is considering surgery but leaning against having it done. she denies chest pain or shortness of breath. Objective Exam General Appearance: no apparent distress, alert Neurologic Exam: alert, oriented x 3, cooperative, normal mood/affect, No motor deficits Skin Exam: normal color, warm, dry Eye Exam: PERRL, EOMI, eyes nml inspection Ears, Nose, Throat Exam: normal ENT inspection, pharynx normal, moist mucous membranes Neck Exam: normal inspection, non-tender, supple, full range of motion Respiratory Exam: normal breath sounds, lungs clear, No respiratory distress Cardiovascular Exam: murmur, irregular Gastrointestinal/Abdomen Exam: soft, normal bowel sounds, hernia (large ventral) , No tenderness, No distention, No mass, No guarding, No rebound Extremity Exam: normal inspection, normal range of motion Back Exam: normal inspection, normal range of motion, No CVA tenderness, No vertebral tenderness Pelvic Exam: deferred Rectal Exam: deferred OBJECTIVE DATA Vital Signs: Vital Signs - 24 hr Temp Pulse Resp BP Pulse Ox 09/28/18 08:00 98.0 F 84 17 142/68 91 L 09/28/18 04:00 98.1 F 82 16 135/83 94 L 09/28/18 00:00 98.4 F 86 17 158/72 94 L 09/27/18 20:19 150/66 09/27/18 19:58 98.1 F 67 17 179/77 92 L 09/27/18 16:41 97.8 F 84 18 136/78 95 09/27/18 15:21 78 09/27/18 11:48 98.9 F 67 20 183/77 91 L 09/27/18 11:12 98.9 F 67 20 183/77 91 L 09/27/18 10:44 67 18 180/78 94 L 09/27/18 10:19 95 Pain Assessment - Last Documented Pain Intensity 4 Pain Scale Used 0-10 Pain Scale Intake and Output: Intake & Output 09/25/18 09/26/18 09/27/18 09/28/18 11:59 11:59 11:59 11:59 Intake Total 0 Output Total 250 1300 Balance -250 -1300 Weight 73.5 kg 73.3 kg Lab Results: Lab Results-Last 24 Hours 09/28/18 09/28/18 09/28/18 Range/Units 05:36 05:36 05:36 WBC 6.2 (4.0-10.5) K/mm3 RBC 3.10 L (4.1-5.4) M/mm3 Hgb 8.9 L (12.0-16.0) gm/dl Hct 30.0 L (35-47) % MCV 96.8 (78-100) fl MCH 28.7 (26-32) pg MCHC 29.7 L (32-36) g/dl RDW 15.4 H (11.5-14.0) % Plt Count 173 (150-450) K/mm3 MPV 10.9 H (6-9.5) fl Gran % 64.0 (36.0-66.0) % Eos # (Auto) 0.23 (0-0.5) Absolute Lymphs (auto) 1.43 (1.0-4.6) Absolute Monos (auto) 0.57 (0.0-1.3) Lymphocytes % 23.0 L (24.0-44.0) % Monocytes % 9.1 (0.0-12.0) % Eosinophils % 3.7 (0.00-5.0) % Basophils % 0.2 (0.0-0.4) % Absolute Granulocytes 3.99 (1.4-6.9) Basophils # 0.01 (0-0.4) PT 13.8 H (9.95-12.35) SECONDS INR 1.18 (0.8-3.0) Sodium 141 (137-145) mmol/L Potassium 3.6 (3.5-5.1) mmol/L Chloride 112 H (98-107) mmol/L Carbon Dioxide 24 (22-30) mmol/L Anion Gap 9.3 (5-15) MEQ/L BUN 9 (7-17) mg/dL Creatinine 0.60 (0.52-1.04) mg/dL Estimated GFR > 60.0 ML/MIN Glucose 126 H (74-106) mg/dL Calcium 8.4 (8.4-10.2) mg/dL Total Bilirubin 0.30 (0.2-1.3) mg/dL AST 69 H (14-36) U/L ALT 16 (0-35) U/L Alkaline Phosphatase 66 (38-126) U/L Serum Total Protein 5.8 L (6.3-8.2) g/dL Albumin 3.0 L (3.5-5.0) g/dL Radiology Exams: Radiology Procedures Category Date Time Status ABDOMEN AND PELVIS W CONTRAST [CT] Stat Exams 09/27/18 07:27 Completed Assessment/Plan (1) Large bowel obstruction Current Visit: Yes Status: Acute Assessment & Plan: secondary to ventraly hernia with trapped transverse colon she has passes a small amount of hard stool the pain is improving on nausea currently she is hungry Surgery is following and considering surgery but the patient is not sure she is willing to undergo this. npo surgery following for diet orders change fluids to D5 1/2 ns with 20 KCl monitor lytes in am Code(s): K56.609 - UNSP INTESTNL OBST, UNSP TO PARTIAL VERSUS COMPLETE OBST (2) Ventral hernia Current Visit: Yes Status: Acute Code(s): K43.9 - VENTRAL HERNIA WITHOUT OBSTRUCTION OR GANGRENE (3) Anemia Current Visit: Yes Status: Chronic Qualifiers: Anemia type: iron deficiency Iron deficiency anemia type: chronic blood loss Qualified Code(s): D50.0 - Iron deficiency anemia secondary to blood loss (chronic) Code(s): D64.9 - ANEMIA, UNSPECIFIED (4) Atrial fibrillation Current Visit: Yes Status: Chronic Qualifiers: Atrial fibrillation type: chronic Code(s): I48.91 - UNSPECIFIED ATRIAL FIBRILLATION
[2018-09-28] MEDS: D5W/0.45NS W/ 20mEq KCl 1000 ML 1,000 ML IV SCH ×2 (11:46→22:05)
[2018-09-28] MEDS: ACCOLATE 20 MG PO SCH ×2 (11:46→21:58)
[2018-09-28] MEDS: Zofran 4 MG/2 ML VIAL IV PRN (19:06)
[2018-09-28] MEDS: Ativan 0.5 MG PO SCH (21:58)
[2018-09-29 05:39] LABS: Hematocrit 27.2 % (35-47); Hemoglobin 8.1 gm/dl (12.0-16.0); Mean Cell Volume 97.1 fl (78-100); Mean Corpuscular Hemoglobin 28.9 pg (26-32); Mean Corpuscular Hgb Concent. 29.8 g/dl (32-36); Mean Platelet Volume 11.2 fl (6-9.5); Platelet Count 141 K/mm3 (150-450); Red Cell Distribution Width 15.3 % (11.5-14.0); White Blood Count 4.8 K/mm3 (4.0-10.5)
[2018-09-29 05:42] LABS: ANION GAP 6.7 MEQ/L (5-15); BLOOD UREA NITROGEN 9 mg/dL (7-17); CHLORIDE 111 mmol/L (98-107); Calcium 8.1 mg/dL (8.4-10.2); Carbon Dioxide 24 mmol/L (22-30); Creatinine 1 0.62 mg/dL (0.52-1.04); Glucose 176 mg/dL (74-106); Potassium 3.7 mmol/L (3.5-5.1); SODIUM 138 mmol/L (137-145)
[2018-09-29] MEDS: DILAUDID 2 MG INJECTION IV PRN ×4 (06:31→20:12)
[2018-09-29] MEDS: D5W/0.45NS W/ 20mEq KCl 1000 ML 1,000 ML IV SCH ×2 (06:57→22:59)
[2018-09-29 08:14] LABS: ANISOCYTOSIS 1+; Eosinophil 1 % (0.00-3.0); Hypersegmented Polys 1+; Lymphocytes 7 % (24-44); Monocyte 13 % (0.0-12.0); Neutrophils 79 % (36.0-66.0); Platelet Estimate DECREASED (NORMAL); Polychromasia 1+; Total Cells Counted 100
[2018-09-29] MEDS ORDERED: PROTONIX 40 MG IV IV ONE (08:35)
--- NOTE | 2018-09-29 08:37 | PCM.NOTE ---
Date and Time: 09/29/18823 Objective Exam General Appearance: no apparent distress, alert Neurologic Exam: alert, oriented x 3, cooperative, normal mood/affect, sensation nml, No motor deficits Skin Exam: normal color, warm, dry, pale Eye Exam: PERRL, EOMI, eyes nml inspection, pale conjunctivae Ears, Nose, Throat Exam: normal ENT inspection, pharynx normal, moist mucous membranes Neck Exam: normal inspection, non-tender, supple, full range of motion Respiratory Exam: normal breath sounds, lungs clear, No respiratory distress Cardiovascular Exam: murmur, irregular Gastrointestinal/Abdomen Exam: soft, normal bowel sounds, hernia, No tenderness , No mass, No guarding, No rebound Extremity Exam: normal inspection, normal range of motion, pedal edema (trace kavitha LE) Back Exam: normal inspection, normal range of motion, No CVA tenderness, No vertebral tenderness Pelvic Exam: deferred Rectal Exam: deferred OBJECTIVE DATA Vital Signs: Vital Signs - 24 hr Temp Pulse Resp BP Pulse Ox 09/29/18 07:00 98.6 F 65 18 170/74 96 09/29/18 03:00 97.9 F 63 20 175/77 94 L 09/29/18 00:00 98.1 F 62 17 141/62 93 L 09/28/18 19:27 98.6 F 77 18 170/77 93 L 09/28/18 16:00 98.8 F 76 17 140/67 93 L 09/28/18 12:00 98.8 F 84 18 154/73 90 L 09/28/18 10:11 75 Pain Assessment - Last Documented Pain Intensity 0 Pain Scale Used 0-10 Pain Scale Intake and Output: Intake & Output 09/26/18 09/27/18 09/28/18 09/29/18 11:59 11:59 11:59 10:59 Intake Total 0 1245 Output Total 250 1300 600 Balance -250 -1300 645 Weight 73.5 kg 73.3 kg 75.5 kg Lab Results: Accuchecks Date 09/29/18 Date 09/28/18 Time 07:30 Time 22:00 Accucheck Value: 201 Accucheck Value: 195 Lab Results-Last 24 Hours 09/29/18 09/29/18 Range/Units 05:20 05:20 WBC 4.8 (4.0-10.5) K/mm3 RBC 2.80 L (4.1-5.4) M/mm3 Hgb 8.1 L (12.0-16.0) gm/dl Hct 27.2 L (35-47) % MCV 97.1 (78-100) fl MCH 28.9 (26-32) pg MCHC 29.8 L (32-36) g/dl RDW 15.3 H (11.5-14.0) % Plt Count 141 L (150-450) K/mm3 MPV 11.2 H (6-9.5) fl Segmented Neutrophils 79 H (36.0-66.0) % Lymphocytes (Manual) 7 L (24-44) % Monocytes (Manual) 13 H (0.0-12.0) % Eosinophils (Manual) 1 (0.00-3.0) % Hypersegmented Polys 1+ Platelet Estimate DECREASED (NORMAL) RBC Morphology ABNORMAL Polychromasia 1+ Anisocytosis 1+ Sodium 138 (137-145) mmol/L Potassium 3.7 (3.5-5.1) mmol/L Chloride 111 H (98-107) mmol/L Carbon Dioxide 24 (22-30) mmol/L Anion Gap 6.7 (5-15) MEQ/L BUN 9 (7-17) mg/dL Creatinine 0.62 (0.52-1.04) mg/dL Estimated GFR > 60.0 ML/MIN Glucose 176 H (74-106) mg/dL Calcium 8.1 L (8.4-10.2) mg/dL Magnesium 1.9 (1.6-2.3) mg/dL Assessment/Plan (1) Large bowel obstruction Current Visit: Yes Status: Acute Assessment & Plan: elected against surgery with Dr. Rasheed diet per surgery at clear liquid now will resume her pradaxa as she has elected against surgery decrease her fluids to 60ml/h check iron studies and b12 folate with the normocytic anemia slightly worse this am no evidence of bleeding will give protonix iv today and a chewable tums for the heartburn after drinking all the juice this am she will continue on the chronic famotidine Code(s): K56.609 - UNSP INTESTNL OBST, UNSP TO PARTIAL VERSUS COMPLETE OBST (2) Ventral hernia Current Visit: Yes Status: Acute Code(s): K43.9 - VENTRAL HERNIA WITHOUT OBSTRUCTION OR GANGRENE (3) Anemia Current Visit: Yes Status: Chronic Qualifiers: Anemia type: iron deficiency Iron deficiency anemia type: chronic blood loss Qualified Code(s): D50.0 - Iron deficiency anemia secondary to blood loss (chronic) Code(s): D64.9 - ANEMIA, UNSPECIFIED (4) Atrial fibrillation Current Visit: Yes Status: Chronic Qualifiers: Atrial fibrillation type: chronic Code(s): I48.91 - UNSPECIFIED ATRIAL FIBRILLATION (5) UTI (urinary tract infection) Current Visit: Yes Status: Acute Qualifiers: Urinary tract infection type: acute cystitis Hematuria presence: without hematuria Qualified Code(s): N30.00 - Acute cystitis without hematuria Assessment & Plan: resume the ceftriaxone culture returned E. coli now symptomatic Code(s): N39.0 - URINARY TRACT INFECTION, SITE NOT SPECIFIED
[2018-09-29] MEDS ORDERED: Tums EX 750 MG PO ONE (08:45)
[2018-09-29] MEDS: Pepcid 20 MG VIAL IV SCH (09:00)
[2018-09-29] MEDS: ROCEPHIN 1 Gm-D5w 50 ml Bag** 1 G/50 ML IVPB IV SCH (09:05)
[2018-09-29] MEDS: Neurontin 100 MG PO SCH ×2 (09:08→17:13)
[2018-09-29] MEDS: TENORMIN 50 MG PO SCH (09:08)
[2018-09-29] MEDS: PRADAXA 75 MG PO SCH ×2 (09:08→20:11)
[2018-09-29] MEDS: Cardizem CD 120 MG PO SCH (09:08)
[2018-09-29] MEDS ORDERED: APRESOLINE 20 MG/ML INJ IV ONE (10:51)
[2018-09-29] MEDS: ACCOLATE 20 MG PO SCH ×2 (11:12→20:11)
[2018-09-29] MEDS: Apresoline 25 MG TABLET PO SCH (20:11)
[2018-09-29] MEDS: PATIENT OWN MEDICATION PO SCH (20:12)
[2018-09-30 05:46] LABS: Hematocrit 29.2 % (35-47); Hemoglobin 8.5 gm/dl (12.0-16.0); Mean Cell Volume 97.3 fl (78-100); Mean Corpuscular Hemoglobin 28.3 pg (26-32); Mean Corpuscular Hgb Concent. 29.1 g/dl (32-36); Mean Platelet Volume 11.9 fl (6-9.5); Platelet Count 130 K/mm3 (150-450); Red Cell Distribution Width 15.6 % (11.5-14.0); White Blood Count 3.9 K/mm3 (4.0-10.5)
[2018-09-30 05:57] LABS: ANION GAP 7.2 MEQ/L (5-15); BLOOD UREA NITROGEN 5 mg/dL (7-17); CHLORIDE 112 mmol/L (98-107); Calcium 8.8 mg/dL (8.4-10.2); Carbon Dioxide 26 mmol/L (22-30); Creatinine 1 0.58 mg/dL (0.52-1.04); Glucose 136 mg/dL (74-106); Potassium 4.6 mmol/L (3.5-5.1); SODIUM 141 mmol/L (137-145)
[2018-09-30] MEDS: Zofran 4 MG/2 ML VIAL IV PRN (06:06)
[2018-09-30 06:19] LABS: Iron 25 ug/dL (37-170); Iron Saturation 8 % (20-39); TIBC 330 ug/dL (265-462)
[2018-09-30 07:45] LABS: Slide Review YES
[2018-09-30] MEDS ORDERED: Phenergan 25 MG INJ IV PRN (08:42)
[2018-09-30] MEDS: DILAUDID 2 MG INJECTION IV PRN ×3 (08:59→21:10)
--- NOTE | 2018-09-30 09:08 | PCM.NOTE ---
Date and Time: 09/30/18 09 Subjective Assessment: Over the weekend she was started on CLD. Has opted against surgery. Had some abd pain and nausea earlier this morning. Began having nausea again during our interview. Objective Exam General Appearance: no apparent distress, alert, other (pt woke from sleep to voice) Neurologic Exam: oriented x 3, cooperative Skin Exam: normal color, warm, dry, No rash Ears, Nose, Throat Exam: dry mucous membranes (dry lips) Respiratory Exam: normal breath sounds, lungs clear, No crackles/rales, No rhonchi, No wheezing Cardiovascular Exam: regular rate/rhythm, murmur (III/ murmur) Gastrointestinal/Abdomen Exam: soft, normal bowel sounds, tenderness (mild, diffuse), distention (as usual, but soft), No mass, No guarding, No rebound OBJECTIVE DATA Vital Signs: Vital Signs - 24 hr Temp Pulse Resp BP Pulse Ox 09/30/18 07:08 96 09/30/18 07:00 97.9 F 62 18 169/76 97 09/30/18 03:00 97.9 F 70 18 180/80 94 L 09/29/18 23:00 98.5 F 82 17 121/64 95 09/29/18 19:00 98.5 F 66 18 172/75 92 L 09/29/18 15:00 98.6 F 64 18 163/74 92 L 09/29/18 12:45 94 L 09/29/18 11:00 98.5 F 63 18 141/65 93 L 09/29/18 09:08 65 Oxygen-Last 24 hours O2 Percentage 2 Liters = 28% O2 Percentage 2 Liters = 28% Pain Assessment - Last Documented Pain Intensity 4 Pain Scale Used 0-10 Pain Scale Intake and Output: Intake & Output 09/27/18 09/28/18 09/29/18 09/30/18 12:59 12:59 11:59 11:59 Intake Total 600 Output Total 1550 Balance -950 Weight 75.5 kg Lab Results: Lab Results-Last 24 Hours 09/30/18 09/30/18 09/30/18 Range/Units 05:25 05:25 05:25 WBC 3.9 L (4.0-10.5) K/mm3 RBC 3.00 L (4.1-5.4) M/mm3 Hgb 8.5 L (12.0-16.0) gm/dl Hct 29.2 L (35-47) % MCV 97.3 (78-100) fl MCH 28.3 (26-32) pg MCHC 29.1 L (32-36) g/dl RDW 15.6 H (11.5-14.0) % Plt Count 130 L (150-450) K/mm3 MPV 11.9 H (6-9.5) fl Sodium 141 (137-145) mmol/L Potassium 4.6 (3.5-5.1) mmol/L Chloride 112 H (98-107) mmol/L Carbon Dioxide 26 (22-30) mmol/L Anion Gap 7.2 (5-15) MEQ/L BUN 5 L (7-17) mg/dL Creatinine 0.58 (0.52-1.04) mg/dL Estimated GFR > 60.0 ML/MIN Glucose 136 H (74-106) mg/dL Calcium 8.8 (8.4-10.2) mg/dL Iron 25 L (37-170) ug/dL TIBC 330 (265-462) ug/dL Iron Saturation 8 L (20-39) % Slides for Path Review YES Assessment/Plan (1) Bowel obstruction Current Visit: Yes Status: Acute Qualifiers: Intestinal obstruction type: unspecified Intestinal obstruction extent: partial Qualified Code(s): K56.600 - Partial intestinal obstruction, unspecified as to cause Assessment & Plan: Conservative managment, surgery advancing diet, thank you. Code(s): K56.609 - UNSP INTESTNL OBST, UNSP TO PARTIAL VERSUS COMPLETE OBST (2) UTI (urinary tract infection) Current Visit: Yes Status: Acute Qualifiers: Urinary tract infection type: acute cystitis Hematuria presence: without hematuria Qualified Code(s): N30.00 - Acute cystitis without hematuria Assessment & Plan: On IV rocephin Code(s): N39.0 - URINARY TRACT INFECTION, SITE NOT SPECIFIED (3) Cyclical vomiting Current Visit: Yes Status: Chronic Qualifiers: Vomiting Intractability: non-intractable Nausea presence: unspecified Qualified Code(s): G43.A0 - Cyclical vomiting, not intractable Assessment & Plan: no vomiting here (4) Atrial fibrillation Current Visit: Yes Status: Chronic Qualifiers: Atrial fibrillation type: chronic Code(s): I48.91 - UNSPECIFIED ATRIAL FIBRILLATION (5) HX: breast cancer Current Visit: No Status: Resolved Code(s): Z85.3 - PERSONAL HISTORY OF MALIGNANT NEOPLASM OF BREAST (6) Polyuria Current Visit: Yes Status: Chronic Assessment & Plan: Will consider starting ditropan or similar at some point Code(s): R35.8 - OTHER POLYURIA (7) Muscular deconditioning Current Visit: Yes Status: Chronic Assessment & Plan: Will likely need therapy prior to discharge to home. Code(s): R29.898 - OT SYMPTOMS AND SIGNS INVOLVING THE MUSCULOSKELETAL SYSTEM
[2018-09-30] MEDS: ROCEPHIN 1 Gm-D5w 50 ml Bag** 1 G/50 ML IVPB IV SCH (10:06)
[2018-09-30] MEDS: Neurontin 100 MG PO SCH ×2 (10:06→17:20)
[2018-09-30] MEDS: TENORMIN 50 MG PO SCH (10:06)
[2018-09-30] MEDS: Pepcid 20 MG VIAL IV SCH (10:12)
[2018-09-30] MEDS: Apresoline 25 MG TABLET PO SCH ×3 (10:12→21:10)
[2018-09-30] MEDS: Cardizem CD 120 MG PO SCH (10:12)
--- NOTE | 2018-09-30 10:13 | CONS ---
CONSULT DATE: 09/27/2018 HISTORY: This patient is an 83 year-old female who presents with nausea, vomiting and abdominal pain. She was at the hospital five days ago treated and released for urinary tract infection. She was having nausea and vomiting since that time intermittently. She came back to the emergency room today because she had additional nausea and vomiting. She felt like her ventral hernia was more bloated and more firm feeling and she was also having some abdominal pain and she went to the emergency room last night. She denies any fever. She denies any chest pain or shortness of breath. She took her Pradaxa last night. REVIEW OF SYSTEMS: Twelve systems reviewed and negative except for as noted in the history of present illness. PAST MEDICAL HISTORY: Atrial fibrillation, congestive heart failure, diabetes, hypothyroidism, pulmonary embolism, gastroparesis. PAST SURGICAL HISTORY: Mastectomy 2016. Pacemaker. MEDICATIONS: Reviewed in the EMR including Pradaxa. ALLERGIES: REGLAN, SULFA. SOCIAL HISTORY: Remote tobacco. No alcohol. FAMILY HISTORY: Breast cancer. PHYSICAL EXAMINATION: GENERAL: No acute distress. HEENT: Sclera nonicteric. Extraocular movements intact. NECK: Supple. No JVD. CHEST: Nonlabored breathing. ABDOMEN: Soft, large incarcerated ventral hernia periumbilical left lower abdomen. Hernia contents are soft. There is minimal tenderness on palpation. It is not reducible. The rest of her abdomen is soft and nontender. LAB DATA AND TESTS: White blood cell 4.6, hemoglobin 9.2, PLT 197,000. Creatinine 0.75, lactic acid normal. Glucose 118. CT scan with stable appearance of large ventral hernia with colon and small intestine incarcerated in the hernia with somewhat more stool than on prior CT scan in the colon with the possibility of early or partial bowel obstruction. ASSESSMENT: Large incarcerated ventral hernia. The patient appears nontoxic and does not appear to be any acute ischemia to the bowel in the hernia. Options of surgical repair versus observation discussed extensively with the patient including the tangential risk of bowel ischemia or bowel obstruction if nonoperative management. The patient is aware of the risk. She does not want to have surgery today. She would like to wait and see how things go and decide at a later point whether she will want this fixed or not, repair of this large ventral hernia in this elderly patient with multiple comorbidities would have significant risk of morbidity and mortality. PLAN: Continue NPO, hold anticoagulation and will re-evaluate tomorrow.
[2018-09-30] MEDS: PRADAXA 75 MG PO SCH ×2 (10:23→21:10)
[2018-09-30 11:11] LABS: Folate (Folic Acid) 19.6 ng/mL (2.76 - >20)
[2018-09-30] MEDS: Tums EX 750 MG PO PRN ×2 (11:41→19:46)
[2018-09-30] MEDS: D5W/0.45NS W/ 20mEq KCl 1000 ML 1,000 ML IV SCH (13:02)
[2018-09-30] MEDS: ACCOLATE 20 MG PO SCH ×2 (13:06→21:10)
[2018-09-30] MEDS: NORVASC 5 MG PO SCH (13:09)
[2018-09-30] MEDS: PATIENT OWN MEDICATION PO SCH (21:09)
[2018-10-01] MEDS: Zofran 4 MG/2 ML VIAL IV PRN (07:01)
[2018-10-01] MEDS: D5W/0.45NS W/ 20mEq KCl 1000 ML 1,000 ML IV SCH (07:01)
[2018-10-01] MEDS: DILAUDID 2 MG INJECTION IV PRN ×2 (07:33→13:25)
--- NOTE | 2018-10-01 08:53 | PCM.NOTE ---
Date and Time: 10/01/18 0848 Subjective Assessment: Pt was having some abd pain this morning and required a dose of dilaudid. She also had some nausea. Currently she is feeling hungry. Tolerated cream of chicken soup last night. Had a bowel movement! - Review of Systems Constitutional: No Fever Abdominal/Gastrointestinal: Abdominal Pain, Nausea Objective Exam General Appearance: no apparent distress, alert, obese Neurologic Exam: oriented x 3, cooperative Skin Exam: normal color, warm, dry, No rash Respiratory Exam: normal breath sounds, lungs clear, No crackles/rales, No rhonchi, No wheezing Cardiovascular Exam: regular rate/rhythm, normal heart sounds, murmur (III/ sys murmur) Gastrointestinal/Abdomen Exam: soft, normal bowel sounds, tenderness (mild, of hernia), distention (but soft) Extremity Exam: No pedal edema, No swelling OBJECTIVE DATA Vital Signs: Vital Signs - 24 hr Temp Pulse Resp BP BP Pulse Ox 10/01/18 07:14 97.7 F 68 18 152/66 97 10/01/18 04:00 98 F 75 22 142/62 96 10/01/18 00:00 98.3 F 68 24 131/58 95 09/30/18 21:53 89 L 09/30/18 20:00 98.6 F 65 16 157/72 91 L 09/30/18 16:37 154/70 09/30/18 15:00 97.9 F 68 18 171/74 92 L 09/30/18 11:00 98.4 F 77 18 146/67 92 L 09/30/18 10:06 80 189/84 Oxygen-Last 24 hours O2 Percentage 2 Liters = 28% O2 Percentage 2 Liters = 28% Pain Assessment - Last Documented Pain Intensity 4 Pain Scale Used 0-10 Pain Scale Intake and Output: Intake & Output 09/28/18 09/29/18 09/30/18 10/01/18 12:59 11:59 11:59 11:59 Intake Total 600 2754 Output Total 2350 2400 Balance -1750 354 Weight 75.5 kg 76.1 kg Lab Results: Lab Results-Last 24 Hours 09/30/18 Range/Units 05:28 Vitamin B12 982 H (239-931) pg/mL Folic Acid 19.6 (2.76 - >20) ng/mL Radiology Exams: Radiology Procedures Category Date Time Status ABDOMEN 2 VIEW Urgent Exams 10/01/18 Ordered Multi-Disciplinary Progress Notes: Multi-Disciplinary Progress Notes 09/30/18 09:45 (created 09/30/18 13:11) Case Management Note by Neetu Preciado NORMALLY INDEPENDENT WITH ALL ADL'S. THERE TO ASSIST IF NEEDED. DENIES ADDNL NEEDS FOR DISCHARGE. WILL CONTINUE TO FOLLOW FOR ALL DC NEEDS. Initialized on 09/30/18 13:11 - END OF NOTE Assessment/Plan (1) Bowel obstruction Current Visit: Yes Status: Acute Qualifiers: Intestinal obstruction type: unspecified Intestinal obstruction extent: partial Qualified Code(s): K56.600 - Partial intestinal obstruction, unspecified as to cause Assessment & Plan: Overall improving. Austyn po and had a BM. I did order an XR this morning as she had required pain meds. Labs are also pending. She will be discharged today to swing bed for continued treatment and rehab. Code(s): K56.609 - UNSP INTESTNL OBST, UNSP TO PARTIAL VERSUS COMPLETE OBST (2) UTI (urinary tract infection) Current Visit: Yes Status: Acute Qualifiers: Urinary tract infection type: acute cystitis Hematuria presence: without hematuria Qualified Code(s): N30.00 - Acute cystitis without hematuria Assessment & Plan: treated with IV rocephinx 5d. Will d/c that now. Code(s): N39.0 - URINARY TRACT INFECTION, SITE NOT SPECIFIED (3) Cyclical vomiting Current Visit: Yes Status: Chronic Qualifiers: Vomiting Intractability: non-intractable Nausea presence: unspecified Qualified Code(s): G43.A0 - Cyclical vomiting, not intractable (4) Atrial fibrillation Current Visit: Yes Status: Chronic Qualifiers: Atrial fibrillation type: chronic Code(s): I48.91 - UNSPECIFIED ATRIAL FIBRILLATION (5) HX: breast cancer Current Visit: No Status: Resolved Code(s): Z85.3 - PERSONAL HISTORY OF MALIGNANT NEOPLASM OF BREAST (6) Polyuria Current Visit: Yes Status: Chronic Code(s): R35.8 - OTHER POLYURIA (7) Muscular deconditioning Current Visit: Yes Status: Chronic Code(s): R29.898 - OTH SYMPTOMS AND SIGNS INVOLVING THE MUSCULOSKELETAL SYSTEM
--- NOTE | 2018-10-01 08:59 | PCM.DS ---
Discharge Summary Date of Admission: 09/27/18 11:07 Admitting Physician: RAY OCHOA Consults: Consults on Case 09/27/18 11:12 Consult Surgery ROUTINE Primary Care Provider: RAY OCHOA Allergies Allergies metoclopramide HCl [From Reglan] Allergy (Verified 09/22/18 09:30) vomiting Sulfa (Sulfonamide Antibiotics) Allergy (Verified 09/22/18 09:30) rash Hospital Summary - Hospital Course Hospital Course: Pt is 83 yo with CHF, afib, , hx PE, and hx breast ca with large ventral hernia admitted through ER on 09/27/18 for partial large bowel obstruction. There is large bowel in the ventral hernia on CT scan. Surgery was consulted and discussed surgical intervention with patient; she did start to feel better and opted against surgery. They restarted her blood thinner and started her on CLD. She has been advancing and is now on FLD and tolerating po well. Had a bowel movement yesterday. She is hungry this morning. Will go ahead and transfer her to a swing bed for further tx and rehab. Yesterday pt's WBC, Hgb, and platelets were all decreased - may be dilutional; will observe. Renal function has been preserved. - Vitals & Intake/Output Vital Signs: Vital Signs Temperature 97.7 F 10/01/18 07:14 Pulse Rate 68 10/01/18 07:14 Respiratory Rate 18 10/01/18 07:14 Blood Pressure 152/66 10/01/18 07:14 O2 Sat by Pulse Oximetry 97 10/01/18 07:14 Oxygen-Last Documented O2 Percentage 2 Liters = 28% Intake & Output: Intake & Output 09/28/18 09/29/18 09/30/18 10/01/18 12:59 11:59 11:59 11:59 Intake Total 600 3114 Output Total 2350 3200 Balance -1750 -86 Weight 75.5 kg 76.1 kg - Lab Result Diagrams: 09/30/18 05:25 09/30/18 05:25 Lab Results-Last 24 Hrs: Lab Results-Last 24 Hours 09/30/18 Range/Units 05:28 Vitamin B12 982 H (239-931) pg/mL Folic Acid 19.6 (2.76 - >20) ng/mL Micro Results-Entire Visit: Microbiology 09/27/18 07:39 Urine Culture - Final Clean Catch Midstream Escherichia Coli - Radiology Exams Ordered Rad Exams-Entire Visit: Radiology Procedures Category Date Time Status ABDOMEN 2 VIEW Urgent Exams 10/01/18 Ordered - Procedures and Test Procedures and Tests throughout Hospitalization: Therapy Orders & Screens 09/29/18 12:44 Oxygen NASAL CANNULA 2 lpm Comment: 2l hs Diagnosis: incarcerated bowel 09/30/18 09:08 PT Eval & Treat ( Order) ROUTINE Reason for Eval:: deconditioning Diagnosis: incarcerated bowel Discharge Exam General Appearance: no apparent distress, alert, obese Neurologic Exam: oriented x 3, cooperative Skin Exam: normal color, warm, dry, No rash Eye Exam: eyes nml inspection Ears, Nose, Throat Exam: moist mucous membranes Respiratory Exam: normal breath sounds, lungs clear, No crackles/rales, No rhonchi, No wheezing Cardiovascular Exam: regular rate/rhythm, normal heart sounds, murmur (III/ sys murmur) Gastrointestinal/Abdomen Exam: soft, normal bowel sounds, distention (but soft) , hernia (ventral), No tenderness, No mass, No guarding, No rebound Extremity Exam: No pedal edema, No swelling Final Diagnosis/Problem List - Final Discharge Diagnosis/Problem (1) Bowel obstruction Current Visit: Yes Status: Acute Assessment & Plan: Doing well, advancing diet per surgery. (2) UTI (urinary tract infection) Current Visit: Yes Status: Acute Assessment & Plan: Was treated with 5d IV rocephin. Stopped now. (3) Cyclical vomiting Current Visit: Yes Status: Chronic (4) Atrial fibrillation Current Visit: Yes Status: Chronic (5) HX: breast cancer Current Visit: No Status: Resolved (6) Polyuria Current Visit: Yes Status: Chronic (7) Muscular deconditioning Current Visit: Yes Status: Chronic (8) Thrombocytopenia Current Visit: Yes Status: Acute (9) Leukopenia Current Visit: Yes Status: Acute (10) Anemia Current Visit: Yes Status: Chronic - Discharge Disposition: Swing Bed @ [facility] Condition: Stable Prescriptions: No Action Zafirlukast 20 mg [Accolate 20 mg] 20 mg PO BID Glimepiride 2 mg [Amaryl 2 MG] 2 mg PO DAILY Atorvastatin Calcium [Lipitor 20MG Tablet] 20 mg PO HS Atenolol 50 mg [Tenormin 50 mg] 50 mg PO DAILY Gabapentin [Neurontin] 100 mg PO BID Oxazepam 15 mg PO HS Acetaminophen/Diphenhydramine [Tylenol Pm Ex-Strength Caplet] 2 each PO HS PRN PRN Reason: sleep\ Furosemide 40 mg [Lasix 40 MG] 20 mg PO DAILY Hydrocodone Bit/Acetaminophen [Hydrocodon-Acetaminophn 10-325] 1 each PO BID PRN Docusate Sodium 100 mg [Colace 100 MG] 200 mg PO HS Vit A/Vit C/Vit E/Zinc/Copper [Preservision Areds Softgel] 1 each PO BID Esomeprazole Magnesium [Nexium] 20 mg PO DAILY PANTOPRAZOLE 40 mg Tablet [Protonix 40MG Tablet] 40 mg PO LUNCH Ibuprofen 200 mg [Motrin 200 mg] 200 mg PO Q4HPRN PRN PRN Reason: Pain Promethazine HCl 25 mg [Phenergan 25 mg] 25 mg PO BID Dabigatran Etexilate Mesylate [Pradaxa] 150 mg PO BID Diltiazem HCl [Diltiazem 24Hr ER] 120 mg PO DAILY Famotidine 20 mg [Pepcid 20 MG] 20 mg PO HS Levofloxacin [Levaquin] 500 mg PO DAILY #10 tablet Gabapentin 100 mg PO EVENING MEAL Follow up with: RAY OCHOA [Primary Care Provider] - 1 Week
[2018-10-01 09:01] LABS: BASOPHIL % 0.3 % (0.0-0.4); Basophil (Absolute #) 0.02 (0-0.4); Eosinophil % 4.8 % (0.00-5.0); Granulocyte Absolute (ANC) 4.45 (1.4-6.9); Granulocytes % 71.2 % (36.0-66.0); Hematocrit 33.3 % (35-47); Hemoglobin 9.8 gm/dl (12.0-16.0); Lymphocyte (Absolute #) 0.87 (1.0-4.6); Lymphocytes % 13.9 % (24.0-44.0); Mean Cell Volume 97.7 fl (78-100); Mean Corpuscular Hemoglobin 28.7 pg (26-32); Mean Corpuscular Hgb Concent. 29.4 g/dl (32-36); Mean Platelet Volume 11.7 fl (6-9.5); Monocyte (Absolute #) 0.61 (0.0-1.3); Monocytes % 9.8 % (0.0-12.0); Platelet Count 150 K/mm3 (150-450); Red Blood Count 3.41 M/mm3 (4.1-5.4); Red Cell Distribution Width 15.7 % (11.5-14.0); White Blood Count 6.3 K/mm3 (4.0-10.5)
--- NOTE | 2018-10-01 09:25 | XRAY ---
Indication: Nausea and vomiting. Large ventral hernia. Possible obstruction. Comparison: None 2 views of the abdomen demonstrates nonspecific nonobstructed bowel gas pattern. No free air. Solid organs unremarkable. Osseous structures intact with mild multilevel degenerative spondylosis and marked levorotoscoliosis. Lung bases demonstrates small bibasilar effusions, hiatal hernia, and right-sided dual-lead pacemaker. Impression: Nonacute nonobstructed abdomen. Incidental bibasilar pleural effusions and hiatal hernia.
[2018-10-01 09:56] LABS: ANION GAP 9.8 MEQ/L (5-15); BLOOD UREA NITROGEN 4 mg/dL (7-17); CHLORIDE 110 mmol/L (98-107); Calcium 9.8 mg/dL (8.4-10.2); Carbon Dioxide 26 mmol/L (22-30); Creatinine 1 0.61 mg/dL (0.52-1.04); Glucose 181 mg/dL (74-106); Potassium 4.6 mmol/L (3.5-5.1); SODIUM 141 mmol/L (137-145)
[2018-10-01] MEDS: Pepcid 20 MG VIAL IV SCH (11:09)
[2018-10-01] MEDS: PRADAXA 75 MG PO SCH (11:09)
[2018-10-01] MEDS: NORVASC 5 MG PO SCH (11:09)
[2018-10-01] MEDS: Cardizem CD 120 MG PO SCH (11:10)
[2018-10-01] MEDS: TENORMIN 50 MG PO SCH (11:10)
[2018-10-01] MEDS: Neurontin 100 MG PO SCH (11:11)
[2018-10-01] MEDS: Apresoline 25 MG TABLET PO SCH (11:11)
[2018-10-01 12:18] VITALS: BP 148/68; PULSE 66; O2SAT 96
[2018-10-01] MEDS: ACCOLATE 20 MG PO SCH (12:54)
[2018-10-01] MEDS ORDERED: Colace 100 MG PO SCH (22:00)
== END 2018-10-01 15:02 | disposition swing bed (61) | DRG 389 ==
LOC: ED 06:46 → MED SURG 11:07
PROVIDERS: ADMIT Family Medicine; ATTEND Family Medicine
DX: K56.609 Unspecified intestinal obstruction, unspecified as to partial versus complete obstruction (principal); N39.0 Urinary tract infection, site not specified; G43.A0 Cyclical vomiting, in migraine, not intractable; K43.9 Ventral hernia without obstruction or gangrene; J45.909 Unspecified asthma, uncomplicated; R35.8 Other polyuria; R29.898 Other symptoms and signs involving the musculoskeletal system; D69.6 Thrombocytopenia, unspecified; D72.819 Decreased white blood cell count, unspecified; D64.9 Anemia, unspecified; E11.9 Type 2 diabetes mellitus without complications; I50.9 Heart failure, unspecified; Z86.73 Personal history of transient ischemic attack (TIA), and cerebral infarction without residual deficits; Z85.3 Personal history of malignant neoplasm of breast; Z79.899 Other long term (current) drug therapy; I35.0 Nonrheumatic aortic (valve) stenosis; Z86.711 Personal history of pulmonary embolism; E05.80 Other thyrotoxicosis without thyrotoxic crisis or storm; I48.91 Unspecified atrial fibrillation; Z79.01 Long term (current) use of anticoagulants; Z23 Encounter for immunization; Z72.0 Tobacco use; R10.9 Unspecified abdominal pain; Z95.0 Presence of cardiac pacemaker
CPT/HCPCS: 36000; 36415; 74021; 74177; 80048; 80053; 81001; 82150; 82607; 82746; 82962; 83540; 83550; 83605; 83690; 83735; 85025; 85027; 85610; 87077; 87086; 87186; 90662; 94760; 96360; 96365; 96374; 96375; 99285; G0008; J0360; J0696; J1170; J2405; J2550; 97110-GP; A9270-GY

== ENCOUNTER 2018-10-01 09:54 | Inpatient (IN) | payer MEDICARE ==
[2018-10-01] MEDS ORDERED: Tums EX 750 MG PO PRN (14:35)
[2018-10-01] MEDS ORDERED: Phenergan 25 MG INJ IV PRN (14:35)
[2018-10-01] MEDS: Apresoline 25 MG TABLET PO SCH ×2 (16:56→20:21)
[2018-10-01] MEDS: Neurontin 100 MG PO SCH (18:00)
[2018-10-01] MEDS: PRADAXA 75 MG PO SCH (20:20)
[2018-10-01] MEDS: DILAUDID 2 MG INJECTION IV PRN (20:21)
[2018-10-01] MEDS: Colace 100 MG PO SCH (20:21)
[2018-10-01] MEDS: PATIENT OWN MEDICATION PO SCH (20:31)
[2018-10-01] MEDS: ACCOLATE 20 MG PO SCH (20:36)
[2018-10-02] MEDS: D5W/0.45NS W/ 20mEq KCl 1000 ML 1,000 ML IV SCH ×2 (01:34→17:42)
[2018-10-02] MEDS: Zofran 4 MG/2 ML VIAL IV PRN (07:27)
[2018-10-02] MEDS: DILAUDID 2 MG INJECTION IV PRN ×3 (07:27→20:25)
[2018-10-02] MEDS: NORVASC 5 MG PO SCH (09:05)
[2018-10-02] MEDS: TENORMIN 50 MG PO SCH (09:05)
[2018-10-02] MEDS: Neurontin 100 MG PO SCH ×2 (09:05→17:32)
[2018-10-02] MEDS: PRADAXA 75 MG PO SCH ×2 (09:05→20:30)
[2018-10-02] MEDS: Apresoline 25 MG TABLET PO SCH ×3 (09:05→20:31)
[2018-10-02] MEDS: Pepcid 20 MG VIAL IV SCH (09:06)
[2018-10-02] MEDS: Cardizem CD 120 MG PO SCH (09:06)
--- NOTE | 2018-10-02 09:43 | PROG NOTE ---
HISTORY: An 83 year-old female who just moved over to swing-bed. She has a long-standing ventral hernia. She did have a bowel movement. She was tolerating p.o. She is working on some rehab at this time. Her abdomen is soft. Again, long-standing chronic hernia. She does not desire any repair on this at this time. She is moving and not obstructed. No emergent surgery necessary. Continue medical management. If things change please let our office or Dr. Rasheed know.
[2018-10-02] MEDS ORDERED: Aplisol ID ONE (10:28)
[2018-10-02] MEDS: ACCOLATE 20 MG PO SCH ×2 (11:59→20:28)
[2018-10-02] MEDS: Colace 100 MG PO SCH (20:28)
[2018-10-02] MEDS: PATIENT OWN MEDICATION PO SCH (20:30)
[2018-10-03] MEDS: Zofran 4 MG/2 ML VIAL IV PRN ×2 (05:14→18:45)
[2018-10-03] MEDS: DILAUDID 2 MG INJECTION IV PRN ×3 (05:25→21:43)
[2018-10-03] MEDS: TENORMIN 50 MG PO SCH (09:21)
[2018-10-03] MEDS: Cardizem CD 120 MG PO SCH (09:21)
[2018-10-03] MEDS: Apresoline 25 MG TABLET PO SCH ×3 (09:21→21:42)
[2018-10-03] MEDS: NORVASC 5 MG PO SCH (09:21)
[2018-10-03] MEDS: PRADAXA 75 MG PO SCH ×2 (09:21→21:42)
[2018-10-03] MEDS: Pepcid 20 MG VIAL IV SCH (09:23)
[2018-10-03] MEDS: Neurontin 100 MG PO SCH ×2 (09:24→17:30)
[2018-10-03] MEDS: D5W/0.45NS W/ 20mEq KCl 1000 ML 1,000 ML IV SCH (11:02)
[2018-10-03] MEDS: ACCOLATE 20 MG PO SCH ×2 (12:15→21:43)
[2018-10-03] MEDS: Colace 100 MG PO SCH (21:42)
[2018-10-03] MEDS: PATIENT OWN MEDICATION PO SCH (21:42)
[2018-10-04] MEDS: D5W/0.45NS W/ 20mEq KCl 1000 ML 1,000 ML IV SCH ×2 (03:17→19:53)
[2018-10-04] MEDS: Zofran 4 MG/2 ML VIAL IV PRN (07:31)
[2018-10-04] MEDS: DILAUDID 2 MG INJECTION IV PRN ×2 (09:14→18:53)
[2018-10-04] MEDS: NORVASC 5 MG PO SCH (09:14)
[2018-10-04] MEDS: Cardizem CD 120 MG PO SCH (09:15)
[2018-10-04] MEDS: Apresoline 25 MG TABLET PO SCH ×3 (09:15→21:50)
[2018-10-04] MEDS: PRADAXA 75 MG PO SCH ×2 (09:15→21:49)
[2018-10-04] MEDS: Pepcid 20 MG VIAL IV SCH (09:15)
[2018-10-04] MEDS: Neurontin 100 MG PO SCH ×2 (09:16→17:46)
[2018-10-04] MEDS: TENORMIN 50 MG PO SCH (09:16)
[2018-10-04] MEDS: ACCOLATE 20 MG PO SCH ×2 (11:48→21:53)
[2018-10-04] MEDS: NORCO 5/325 MG PO PRN (13:25)
[2018-10-04] MEDS: PATIENT OWN MEDICATION PO SCH (18:47)
[2018-10-04] MEDS: Colace 100 MG PO SCH (21:49)
[2018-10-05] MEDS: DILAUDID 2 MG INJECTION IV PRN ×2 (05:37→11:47)
[2018-10-05] MEDS: Cardizem CD 120 MG PO SCH (09:36)
[2018-10-05] MEDS: Apresoline 25 MG TABLET PO SCH ×3 (09:36→22:09)
[2018-10-05] MEDS: Neurontin 100 MG PO SCH ×2 (09:41→18:17)
[2018-10-05] MEDS: Pepcid 20 MG VIAL IV SCH (09:41)
[2018-10-05] MEDS: NORVASC 5 MG PO SCH (09:41)
[2018-10-05] MEDS: TENORMIN 50 MG PO SCH (09:42)
[2018-10-05] MEDS: PRADAXA 75 MG PO SCH ×2 (09:42→22:09)
[2018-10-05] MEDS: Zofran 4 MG/2 ML VIAL IV PRN (10:16)
[2018-10-05] MEDS: NORCO 5/325 MG PO PRN ×2 (10:46→19:32)
[2018-10-05] MEDS: D5W/0.45NS W/ 20mEq KCl 1000 ML 1,000 ML IV SCH (11:46)
[2018-10-05] MEDS: ACCOLATE 20 MG PO SCH ×2 (11:47→22:11)
--- NOTE | 2018-10-05 13:16 | PCM.NOTE ---
Date and Time: 10/05/18 1312 Subjective Assessment: Pt has been feeling better but today she is more nauseated than she has been. Has been tolerating full liquid diet for the most part, although pt's diet is limited at baseline. she cannot ever tolerate tomato or milk-based soups. Eating cream of wheat frequently. Asked for IV diluadid today for abd pain, but knows she will need to stay with po pain meds from now on. Has been walking well with PT. Working with OT as well. - Review of Systems Constitutional: No Fever Abdominal/Gastrointestinal: Abdominal Pain, Nausea, No Vomiting Objective Exam General Appearance: no apparent distress, alert, obese Neurologic Exam: oriented x 3, cooperative Skin Exam: normal color, warm, dry, No rash Respiratory Exam: normal breath sounds, lungs clear, No crackles/rales, No rhonchi, No wheezing Cardiovascular Exam: regular rate/rhythm, normal heart sounds, murmur (III/ sys murmur) Gastrointestinal/Abdomen Exam: soft, normal bowel sounds, distention (as usual) , No tenderness, No mass, No guarding, No rebound Extremity Exam: No pedal edema, No swelling Back Exam: normal inspection, No rash OBJECTIVE DATA Vital Signs: Vital Signs - 24 hr Temp Pulse Resp BP BP Pulse Ox 10/05/18 09:42 68 169/74 10/05/18 07:37 97.8 F 68 20 169/74 97 10/04/18 21:45 93 L 10/04/18 19:28 98.4 F 72 16 141/60 93 L Pain Assessment - Last Documented Pain Intensity 5 Pain Scale Used 0-10 Pain Scale Intake and Output: Intake & Output 10/03/18 10/04/18 10/05/18 10/06/18 11:59 11:59 11:59 11:59 Intake Total 1584 3311 1684 Output Total 2800 1250 Balance 1584 511 434 Weight 74.2 kg Assessment/Plan (1) Bowel obstruction Current Visit: No Status: Acute Qualifiers: Intestinal obstruction type: other intestinal obstruction Intestinal obstruction extent: partial Qualified Code(s): K56.690 - Other partial intestinal obstruction Assessment & Plan: Seemed to be improving, but will not stop IV fluids today since she has increased nausea. If feeling better tomorrow, may lock off fluids and advance to soft diet. Code(s): K56.609 - UNSP INTESTNL OBST, UNSP TO PARTIAL VERSUS COMPLETE OBST (2) Atrial fibrillation Current Visit: No Status: Chronic Qualifiers: Atrial fibrillation type: paroxysmal Qualified Code(s): I48.0 - Paroxysmal atrial fibrillation Code(s): I48.91 - UNSPECIFIED ATRIAL FIBRILLATION (3) Muscular deconditioning Current Visit: No Status: Acute Assessment & Plan: in therapy, thank you. Code(s): R29.898 - OT SYMPTOMS AND SIGNS INVOLVING THE MUSCULOSKELETAL SYSTEM (4) Renal insufficiency Current Visit: No Status: Chronic Assessment & Plan: rechecking labs.
[2018-10-05 16:07] LABS: BASOPHIL % 0.4 % (0.0-0.4); Basophil (Absolute #) 0.02 (0-0.4); Eosinophil % 6.2 % (0.00-5.0); Eosinophil (Absolute #) 0.33 (0-0.5); Granulocyte Absolute (ANC) 3.36 (1.4-6.9); Granulocytes % 63.5 % (36.0-66.0); Hematocrit 28.2 % (35-47); Hemoglobin 8.3 gm/dl (12.0-16.0); Lymphocyte (Absolute #) 1.03 (1.0-4.6); Lymphocytes % 19.5 % (24.0-44.0); Mean Cell Volume 97.9 fl (78-100); Mean Corpuscular Hemoglobin 28.8 pg (26-32); Mean Corpuscular Hgb Concent. 29.4 g/dl (32-36); Mean Platelet Volume 13.1 fl (6-9.5); Monocyte (Absolute #) 0.55 (0.0-1.3); Monocytes % 10.4 % (0.0-12.0); Platelet Count 137 K/mm3 (150-450); Red Blood Count 2.88 M/mm3 (4.1-5.4); Red Cell Distribution Width 15.4 % (11.5-14.0); White Blood Count 5.3 K/mm3 (4.0-10.5)
[2018-10-05 16:10] LABS: ALBUMIN 2.6 g/dL (3.5-5.0); ALKALINE PHOSPHATASE 66 U/L (38-126); ANION GAP 10.6 MEQ/L (5-15); BLOOD UREA NITROGEN 10 mg/dL (7-17); CHLORIDE 104 mmol/L (98-107); Calcium 8.6 mg/dL (8.4-10.2); Carbon Dioxide 28 mmol/L (22-30); Glucose 285 mg/dL (74-106); Potassium 4.4 mmol/L (3.5-5.1); SGOT/AST 19 U/L (14-36); SGPT/ALT 17 U/L (0-35); SODIUM 139 mmol/L (137-145); Total Protein 5.1 g/dL (6.3-8.2)
[2018-10-05] MEDS: PATIENT OWN MEDICATION PO SCH (19:27)
[2018-10-05] MEDS: Colace 100 MG PO SCH (22:09)
[2018-10-06] MEDS: D5W/0.45NS W/ 20mEq KCl 1000 ML 1,000 ML IV SCH (03:26)
[2018-10-06] MEDS: Cardizem CD 120 MG PO SCH (08:11)
[2018-10-06] MEDS: PRADAXA 75 MG PO SCH ×2 (08:12→21:11)
[2018-10-06] MEDS: Apresoline 25 MG TABLET PO SCH ×3 (08:12→21:11)
[2018-10-06] MEDS: NORVASC 5 MG PO SCH (08:12)
[2018-10-06] MEDS: Pepcid 20 MG VIAL IV SCH (08:12)
[2018-10-06] MEDS: TENORMIN 50 MG PO SCH (08:12)
[2018-10-06] MEDS: Neurontin 100 MG PO SCH ×3 (08:53→17:53)
[2018-10-06] MEDS: Zofran 4 MG/2 ML VIAL IV PRN ×2 (08:53→17:53)
[2018-10-06] MEDS: ACCOLATE 20 MG PO SCH ×2 (11:50→21:11)
[2018-10-06] MEDS: NORCO 5/325 MG PO PRN ×2 (11:51→21:14)
[2018-10-06] MEDS: PATIENT OWN MEDICATION PO SCH (21:11)
[2018-10-06] MEDS: Colace 100 MG PO SCH (21:11)
[2018-10-07] MEDS: NORCO 5/325 MG PO PRN ×2 (08:17→20:35)
[2018-10-07] MEDS: ZOFRAN ODT 4 MG PO PRN (08:46)
[2018-10-07] MEDS: Apresoline 25 MG TABLET PO SCH ×3 (09:32→20:32)
[2018-10-07] MEDS: Neurontin 100 MG PO SCH ×2 (09:32→17:12)
[2018-10-07] MEDS: TENORMIN 50 MG PO SCH (09:32)
[2018-10-07] MEDS: Cardizem CD 120 MG PO SCH (09:32)
[2018-10-07] MEDS: NORVASC 5 MG PO SCH (09:32)
[2018-10-07] MEDS: PRADAXA 75 MG PO SCH ×2 (09:33→20:31)
[2018-10-07] MEDS: ACCOLATE 20 MG PO SCH ×2 (11:22→20:31)
[2018-10-07] MEDS: Pepcid 20 MG PO SCH ×2 (11:22→20:32)
[2018-10-07] MEDS ORDERED: TYLENOL 325 MG PO PRN (16:23)
[2018-10-07] MEDS ORDERED: PHENERGAN 25 MG PO PRN (16:44)
[2018-10-07] MEDS: PATIENT OWN MEDICATION PO SCH (20:30)
[2018-10-07] MEDS: Colace 100 MG PO SCH (20:31)
[2018-10-08] MEDS: ZOFRAN ODT 4 MG PO PRN (06:20)
[2018-10-08 07:15] VITALS: BP 155/74
[2018-10-08 07:30] VITALS: O2SAT 94
[2018-10-08] MEDS: NORCO 5/325 MG PO PRN (07:54)
--- NOTE | 2018-10-08 08:46 | PCM.DS ---
Discharge Summary Date of Admission: 10/01/18 15:13 Admitting Physician: RAY OCHOA Consults: Consults on Case 10/01/18 14:35 Consult Surgery ROUTINE Primary Care Provider: RAY OCHOA Allergies Allergies metoclopramide HCl [From Reglan] Allergy (Verified 09/22/18 09:30) vomiting Sulfa (Sulfonamide Antibiotics) Allergy (Verified 09/22/18 09:30) rash Hospital Summary - Hospital Course Hospital Course: Pt is 83 yo female with large ventral hernia who was admitted through the ER with increased vomiting and abd pain and was found to have a partial obstruction and large bowel present in the hernia. Also had UTI and was treated with IV antibiotics. She opted against surgery for the hernia and was treated conservatively. She did gradually improve and was moved to a swing bed. During her swing bed stay she has basically done well, aside from a few episodes of vomiting. Her abd pain has improved. She has been doing well with PT. Pt's afib was stable during her stay. Pt's anemia was stable between 8.5-9.5 hgb. Pt has renal insufficiency but her renal function was very good on with eGFR > 60. She is tolerating po well, in general, although some foods make her nauseated and cause vomiting but this is true for her at baseline. - Vitals & Intake/Output Vital Signs: Vital Signs Temperature 97.6 F 10/08/18 07:13 Pulse Rate 86 10/08/18 07:13 Respiratory Rate 20 10/08/18 07:13 Blood Pressure 155/74 10/08/18 07:13 O2 Sat by Pulse Oximetry 94 L 10/08/18 07:29 Oxygen-Last Documented O2 Percentage 2 Liters = 28% Intake & Output: Intake & Output 10/05/18 10/06/18 10/07/18 10/08/18 11:59 11:59 11:59 11:59 Intake Total 1684 1925 1792 240 Output Total 8597 279 4000 1250 Balance 434 1150 -333 -1010 Weight 74.2 kg 75.3 kg - Lab Result Diagrams: 10/05/18 14:45 10/05/18 14:45 - Procedures and Test Procedures and Tests throughout Hospitalization: Therapy Orders & Screens 10/01/18 14:35 Oxygen NASAL CANNULA 2 lpm Comment: 2l hs Diagnosis: incarcerated bowel 10/01/18 16:09 PT Eval & Treat ( Order) ROUTINE Reason for Eval:: DECONDITIONING R/T BOWEL OBSTRUCTION AND INCARCERATED BOWEL Diagnosis: incarcerated bowel 10/01/18 21:36 Respiratory Therapy Assessment DAILY Comment: Diagnosis: incarcerated bowel 10/02/18 10:30 OT Eval and Treat ( Order) ROUTINE Comment: Consulting Provider: Physician Instructions: Reason For Exam: Diagnosis: incarcerated bowel PT Eval & Treat ( Order) ROUTINE Reason for Eval:: deconditioning r/t incarcerated hernia, bowel obstruction Diagnosis: incarcerated bowel Discharge Exam General Appearance: no apparent distress, alert, obese Neurologic Exam: oriented x 3, cooperative Skin Exam: normal color, warm, dry, No rash Ears, Nose, Throat Exam: moist mucous membranes Neck Exam: normal inspection Respiratory Exam: normal breath sounds, lungs clear, No crackles/rales, No rhonchi, No wheezing Cardiovascular Exam: normal heart sounds, murmur (II/ sys murmur), irregular Gastrointestinal/Abdomen Exam: soft, normal bowel sounds, distention (as usual) , No tenderness, No mass, No guarding, No rebound Extremity Exam: No pedal edema, No swelling Final Diagnosis/Problem List - Final Discharge Diagnosis/Problem (1) Bowel obstruction Current Visit: No Status: Resolved Assessment & Plan: Austyn po well. home on phenergan and zofran po prn. (2) Atrial fibrillation Current Visit: No Status: Chronic Assessment & Plan: stable (3) Muscular deconditioning Current Visit: No Status: Acute Assessment & Plan: much improved; has done great in therapy (4) Renal insufficiency Current Visit: No Status: Chronic Assessment & Plan: doing great currently. (5) HTN (hypertension) Current Visit: Yes Status: Acute Assessment & Plan: added hydralazine TID during her stay - Discharge Disposition: Home, Self-Care Condition: Good Prescriptions: New HydrALAzine HCL 25 MG TAB [Apresoline 25 MG TABLET] 25 mg PO TID #90 tablet Continue Zafirlukast 20 mg [Accolate 20 mg] 20 mg PO BID Glimepiride 2 mg [Amaryl 2 MG] 2 mg PO DAILY Atorvastatin Calcium [Lipitor 20MG Tablet] 20 mg PO HS Atenolol 50 mg [Tenormin 50 mg] 50 mg PO DAILY Gabapentin [Neurontin] 100 mg PO BID Oxazepam 15 mg PO HS Acetaminophen/Diphenhydramine [Tylenol Pm Ex-Strength Caplet] 2 each PO HS PRN PRN Reason: sleep\ Furosemide 40 mg [Lasix 40 MG] 20 mg PO DAILY Docusate Sodium 100 mg [Colace 100 MG] 200 mg PO HS Vit A/Vit C/Vit E/Zinc/Copper [Preservision Areds Softgel] 1 each PO BID Esomeprazole Magnesium [Nexium] 20 mg PO DAILY PANTOPRAZOLE 40 mg Tablet [Protonix 40MG Tablet] 40 mg PO LUNCH Promethazine HCl 25 mg [Phenergan 25 mg] 25 mg PO BID Dabigatran Etexilate Mesylate [Pradaxa] 150 mg PO BID Diltiazem HCl [Diltiazem 24Hr ER] 120 mg PO DAILY Famotidine 20 mg [Pepcid 20 MG] 20 mg PO HS Gabapentin 100 mg PO EVENING MEAL Changed Hydrocodone Bit/Acetaminophen [Hydrocodon-Acetaminophn 10-325] 1 each PO TID PRN PRN #90 tablet MDD 3 PRN Reason: Pain Discontinued Ibuprofen 200 mg [Motrin 200 mg] 200 mg PO Q4HPRN PRN PRN Reason: Pain Levofloxacin [Levaquin] 500 mg PO DAILY #10 tablet Follow up with: JARAD BNOILLA [ACTIVE STAFF] - 1 Week RAY OCHOA [Primary Care Provider] - 1 Week
[2018-10-08] MEDS: TENORMIN 50 MG PO SCH (09:20)
[2018-10-08] MEDS: Pepcid 20 MG PO SCH (09:20)
[2018-10-08 09:21] VITALS: PULSE 68
[2018-10-08] MEDS: NORVASC 5 MG PO SCH (09:21)
[2018-10-08] MEDS: Apresoline 25 MG TABLET PO SCH (09:21)
[2018-10-08] MEDS: PRADAXA 75 MG PO SCH (09:21)
[2018-10-08] MEDS: Cardizem CD 120 MG PO SCH (09:21)
[2018-10-08] MEDS: Neurontin 100 MG PO SCH (09:21)
== END 2018-10-08 11:15 | disposition home or self-care (01) | DRG 389 ==
LOC: MED SURG 15:13
PROVIDERS: ADMIT Family Medicine; ATTEND Family Medicine
DX: K56.600 Partial intestinal obstruction, unspecified as to cause (principal); N39.0 Urinary tract infection, site not specified; I48.91 Unspecified atrial fibrillation; R29.898 Other symptoms and signs involving the musculoskeletal system; N28.9 Disorder of kidney and ureter, unspecified; I10 Essential (primary) hypertension; E11.9 Type 2 diabetes mellitus without complications; I50.9 Heart failure, unspecified; E05.90 Thyrotoxicosis, unspecified without thyrotoxic crisis or storm; J45.909 Unspecified asthma, uncomplicated; Z79.899 Other long term (current) drug therapy; Z95.0 Presence of cardiac pacemaker; Z85.3 Personal history of malignant neoplasm of breast; Z72.0 Tobacco use
CPT/HCPCS: 36415; 80053; 85025; 94760; J1170; J2405; J2550; Q0162; 97110-GP; A9270-GY

== ENCOUNTER 2018-10-09 21:44 | Inpatient (IN) | payer MEDICARE ==
[2018-10-09] MEDS ORDERED: MORPHINE SULFATE 2 MG INJ IV ONE ×2 (22:18→23:17)
--- NOTE | 2018-10-09 22:24 | ERPHSYRPT ---
- History of Present Illness Time Seen by Provider: 10/09/18 22:10 Historian: patient, family Exam Limitations: no limitations Patient Subjective Stated Complaint: pt is alert and oriented. pt brought in via ambulance. pt is is lying in semi fowlers in bed. pt states she is having pressure pain in her lower abdomen. pt rates this pain a 9 on a 1-10 scale. pt bowel sounds present x4 quadrants. pt has a large hernia located on her central abdomen leaning towards the left side. belly is soft. herniated area is slightly firm. pt states that she had a small hard bowel movement "earlier today ". pt states that she vomited "earlier today" pt is unsure of the timing. Triage Nursing Assessment: see above Physician History: 83-year-old white female recently released from the hospital where she was admitted for a partial small bowel obstruction patient arrives with complaint of pain in her lower abdomen described as crampy symptoms all day long. She states she had one episode of vomiting she had one hard stool no bloody stools no melena no hematochezia. Past medical history includes arrhythmia, asthma, diabetes, hernia, breast cancer, atrial fib, bowel obstruction Past surgical history includes mastectomy tonsillectomy cardiac catheter pacer Timing/Duration: today (all day) Activities at Onset: none Quality: cramping Abdominal Pain Onset Location: suprapubic Severity of Pain-Max: moderate Severity of Pain-Current: moderate Modifying Factors: Improves With: nothing Associated Symptoms: other (constipation) Previous symptoms: same symptoms as today (released yesterday for small bowel obstruction) Allergies/Adverse Reactions: metoclopramide HCl [From Reglan] Allergy (Verified 09/22/18 09:30) vomiting Sulfa (Sulfonamide Antibiotics) Allergy (Verified 09/22/18 09:30) rash Home Medications: Atenolol 50 mg [Tenormin 50 mg] 50 mg PO DAILY 07/03/16 [History] Atorvastatin Calcium [Lipitor 20MG Tablet] 20 mg PO HS 07/03/16 [History] Gabapentin [Neurontin] 100 mg PO BID 07/03/16 [History] Glimepiride 2 mg [Amaryl 2 MG] 2 mg PO DAILY 07/03/16 [History] Zafirlukast 20 mg [Accolate 20 mg] 20 mg PO BID 07/03/16 [History] Acetaminophen/Diphenhydramine [Tylenol Pm Ex-Strength Caplet] 2 each PO HS PRN 08/26/16 [History] Oxazepam 15 mg PO HS 08/26/16 [History] Furosemide 40 mg [Lasix 40 MG] 20 mg PO DAILY 07/31/17 [History] Docusate Sodium 100 mg [Colace 100 MG] 200 mg PO HS 08/08/17 [History] Vit A/Vit C/Vit E/Zinc/Copper [Preservision Areds Softgel] 1 each PO BID [History] Esomeprazole Magnesium [Nexium] 20 mg PO DAILY 10/10/17 [History] PANTOPRAZOLE 40 mg Tablet [Protonix 40MG Tablet] 40 mg PO LUNCH 10/22/17 [ History] Promethazine HCl 25 mg [Phenergan 25 mg] 25 mg PO BID 11/21/17 [History] Dabigatran Etexilate Mesylate [Pradaxa] 150 mg PO BID 12/24/17 [History] Diltiazem HCl [Diltiazem 24Hr ER] 120 mg PO DAILY 09/22/18 [History] Famotidine 20 mg [Pepcid 20 MG] 20 mg PO HS 09/22/18 [History] Gabapentin 100 mg PO EVENING MEAL 09/27/18 [History] Hx Tetanus, Diphtheria Vaccination/Date Given: Yes Hx Influenza Vaccination/Date Given: (not this year) Hx Pneumococcal Vaccination/Date Given: Yes Immunizations Up to Date: Yes - Review of Systems Constitutional: No Fever, No Chills Eyes: No Symptoms Ears, Nose, & Throat: No Symptoms Respiratory: No Cough, No Dyspnea Cardiac: No Chest Pain, No Edema, No Syncope Abdominal/Gastrointestinal: Abdominal Pain, Nausea, Vomiting, Constipation, No Diarrhea, No Hematemesis, No Hematochezia, No Melena, No Dysphagia, No Appetite Changes Genitourinary Symptoms: No Dysuria Musculoskeletal: No Back Pain, No Neck Pain Skin: No Rash Neurological: No Dizziness, No Focal Weakness, No Sensory Changes Psychological: No Symptoms Endocrine: No Symptoms All Other Systems: Reviewed and Negative - Past Medical History Pertinent Past Medical History: Yes Neurological History: No Pertinent History ENT History: No Pertinent History Cardiac History: Arrhythmia, Other Respiratory History: Asthma, Pneumonia Endocrine Medical History: Diabetes Type II Musculoskeletal History: No Pertinent History GI Medical History: Hernia History: No Pertinent History Psycho-Social History: No Pertinent History Female Reproductive Disorders: Breast Cancer Other Medical History: A FIB - Past Surgical History Past Surgical History: Yes Neuro Surgical History: No Pertinent History Cardiac: Cardiac Catheterization, Pacemaker Respiratory: No Pertinent History Gastrointestinal: No Pertinent History Genitourinary: No Pertinent History Musculoskeletal: No Pertinent History Female Surgical History: Mastectomy Other Surgical History: tonsillectomy, L mastectomy april 10 - Social History Smoking Status: Former smoker How long have you smoked: 10 Exposure to second hand smoke: No Drug Use: none Patient Lives Alone: No - Female History Hx Now: No - Nursing Vital Signs Nursing Vital Signs: Initial Vital Signs Temperature 97.9 F 10/09/18 21:49 Pulse Rate 91 H 10/09/18 21:49 Respiratory Rate 18 10/09/18 21:49 Blood Pressure 139/95 10/09/18 21:49 O2 Sat by Pulse Oximetry 94 L 10/09/18 21:49 Pain Scale Pain Intensity 9 - Physical Exam General Appearance: moderate distress, alert Eye Exam: PERRL/EOMI, eyes nml inspection Ears, Nose, Throat Exam: normal ENT inspection, pharynx normal, moist mucous membranes Neck Exam: normal inspection, non-tender, supple, full range of motion Respiratory Exam: normal breath sounds, lungs clear, No respiratory distress Cardiovascular Exam: regular rate/rhythm, normal heart sounds Gastrointestinal/Abdomen Exam: soft, other (Positive ventral hernia upper abdomen distended, positive bowel sounds tenderness with palpation lower abdomen ), No rebound Rectal Exam: other (rectal examination moderate amount of firm stool, no masses no gross blood) Back Exam: normal inspection, normal range of motion, No CVA tenderness, No vertebral tenderness Extremity Exam: normal inspection, normal range of motion, pelvis stable Neurologic Exam: alert, oriented x 3, cooperative, 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 Small complex ventral hernia again demonstrated containing multiple small bowel loops, appendix and proximal to mid colon. 2. Mild to moderately distended bowel loops within the hernia sac suggesting mild ileus versus partial or developing bowel obstruction. 3. Extensive distal colon diverticulosis 4. Distal colon and rectal thickenin with mild fat stranding. Differential diagnosis includes mild diverticulitis versusdistal colitis. 5 cholelithiasis. 6. Large hiatal hernia 7. Mild posterior pleural effusions and bilateral atelectasis.) Ordered Tests: Active Orders 24 hr Category Date Time Status EKG-ER Only STAT Care 10/10/18 01:04 Active IV Insertion STAT Care 10/09/18 22:18 Active ABDOMEN AND PELVIS W CONTRAST [CT] Stat Exams 10/09/18 23:19 Taken AMYLASE Stat Lab 10/09/18 22:50 Completed CBC W DIFF Stat Lab 10/09/18 22:50 Completed CMP Stat Lab 10/09/18 22:50 Completed LIPASE Stat Lab 10/09/18 22:50 Completed Occult Blood,Stool Other Stat Lab 10/09/18 22:18 Completed UA W/RFX UR CULTURE Stat Lab 10/09/18 22:30 Completed Medication Summary Generic Name Dose Route Start Last Admin Trade Name Freq PRN Reason Stop Dose Admin Sodium Chloride 1,000 mls @ 100 mls/hr 10/09/18 22:30 10/09/18 22:49 Sodium Chloride 0.9% 1000 Ml IV 11/08/18 22:29 100 mls/hr .Q10H RICHARD Administration Discontinued Medications Generic Name Dose Route Start Last Admin Trade Name Freq PRN Reason Stop Dose Admin Morphine Sulfate 2 mg 10/09/18 22:18 10/09/18 22:49 Morphine Sulfate 2 Mg Inj IV 10/09/18 22:19 2 mg STAT ONE Administration Morphine Sulfate Confirm 10/09/18 22:42 Morphine Sulfate 2 Mg Inj Administered 10/09/18 22:43 Dose 2 mg .ROUTE .STK-MED ONE Morphine Sulfate 2 mg 10/09/18 23:17 10/09/18 23:25 Morphine Sulfate 2 Mg Inj IV 10/09/18 23:18 2 mg STAT ONE Administration Morphine Sulfate Confirm 10/09/18 23:21 Morphine Sulfate 2 Mg Inj Administered 10/09/18 23:22 Dose 2 mg .ROUTE .STK-MED ONE Ondansetron HCl 4 mg 10/09/18 22:57 10/09/18 23:02 Zofran 4 Mg/2 Ml Vial IV 10/09/18 22:58 4 mg STAT ONE Administration Ondansetron HCl Confirm 10/09/18 22:58 Zofran 4 Mg/2 Ml Vial Administered 10/09/18 22:59 Dose 4 mg .ROUTE .STK-MED ONE Lab/Rad Data: Laboratory Result Diagrams 10/09/18 22:50 10/09/18 22:50 Laboratory Results 10/09/18 10/09/18 10/09/18 Range/Units 22:50 22:50 22:30 WBC 4.8 (4.0-10.5) K/mm3 RBC 3.08 L (4.1-5.4) M/mm3 Hgb 8.8 L (12.0-16.0) gm/dl Hct 29.9 L (35-47) % MCV 97.1 (78-100) fl MCH 28.5 (26-32) pg MCHC 29.4 L (32-36) g/dl RDW 15.6 H (11.5-14.0) % Plt Count 155 (150-450) K/mm3 MPV 12.0 H (6-9.5) fl Gran % 78.9 H (36.0-66.0) % Eos # (Auto) 0.13 (0-0.5) Absolute Lymphs (auto) 0.54 L (1.0-4.6) Absolute Monos (auto) 0.33 (0.0-1.3) Lymphocytes % 11.3 L (24.0-44.0) % Monocytes % 6.9 (0.0-12.0) % Eosinophils % 2.7 (0.00-5.0) % Basophils % 0.2 (0.0-0.4) % Absolute Granulocytes 3.79 (1.4-6.9) Basophils # 0.01 (0-0.4) Sodium 140 (137-145) mmol/L Potassium 3.8 (3.5-5.1) mmol/L Chloride 107 (98-107) mmol/L Carbon Dioxide 27 (22-30) mmol/L Anion Gap 9.8 (5-15) MEQ/L BUN 17 (7-17) mg/dL Creatinine 0.64 (0.52-1.04) mg/dL Estimated GFR > 60.0 ML/MIN Glucose 162 H (74-106) mg/dL Calcium 8.4 (8.4-10.2) mg/dL Total Bilirubin 0.30 (0.2-1.3) mg/dL AST 24 (14-36) U/L ALT 13 (0-35) U/L Alkaline Phosphatase 93 (38-126) U/L Serum Total Protein 5.7 L (6.3-8.2) g/dL Albumin 2.9 L (3.5-5.0) g/dL Amylase 62 (30-110) U/L Lipase 11 L (23-300) U/L Urine Color YELLOW (YELLOW) Urine Appearance CLEAR (CLEAR) Urine pH 7.0 (5-6) Ur Specific [place] 1.017 (1.005-1.025) Urine Protein NEGATIVE (Negative) Urine Ketones NEGATIVE (NEGATIVE) Urine Blood SMALL (0-5) Grey/ul Urine Nitrite NEGATIVE (NEGATIVE) Urine Bilirubin NEGATIVE (NEGATIVE) Urine Urobilinogen NEGATIVE (0-1) mg/dL Ur Leukocyte Esterase NEGATIVE (NEGATIVE) Urine WBC (Auto) 3-5 (0-5) /HPF Urine RBC (Auto) 11-15 (0-2) /HPF U Hyaline Cast (Auto) 0-2 (0-2) /LPF U Epithel Cells (Auto) RARE (FEW) /HPF Urine Bacteria (Auto) RARE (NEGATIVE) /HPF Urine Mucus (Auto) SLIGHT (NEGATIVE) /HPF Urine Culture Reflexed NO (NO) Urine Glucose NEGATIVE (NEGATIVE) mg/dL Stool Occult Blood (Negative) Slides for Path Review YES 10/09/18 Range/Units 22:18 WBC (4.0-10.5) K/mm3 RBC (4.1-5.4) M/mm3 Hgb (12.0-16.0) gm/dl Hct (35-47) % MCV (78-100) fl MCH (26-32) pg MCHC (32-36) g/dl RDW (11.5-14.0) % Plt Count (150-450) K/mm3 MPV (6-9.5) fl Gran % (36.0-66.0) % Eos # (Auto) (0-0.5) Absolute Lymphs (auto) (1.0-4.6) Absolute Monos (auto) (0.0-1.3) Lymphocytes % (24.0-44.0) % Monocytes % (0.0-12.0) % Eosinophils % (0.00-5.0) % Basophils % (0.0-0.4) % Absolute Granulocytes (1.4-6.9) Basophils # (0-0.4) Sodium (137-145) mmol/L Potassium (3.5-5.1) mmol/L Chloride (98-107) mmol/L Carbon Dioxide (22-30) mmol/L Anion Gap (5-15) MEQ/L BUN (7-17) mg/dL Creatinine (0.52-1.04) mg/dL Estimated GFR ML/MIN Glucose (74-106) mg/dL Calcium (8.4-10.2) mg/dL Total Bilirubin (0.2-1.3) mg/dL AST (14-36) U/L ALT (0-35) U/L Alkaline Phosphatase (38-126) U/L Serum Total Protein (6.3-8.2) g/dL Albumin (3.5-5.0) g/dL Amylase (30-110) U/L Lipase (23-300) U/L Urine Color (YELLOW) Urine Appearance (CLEAR) Urine pH (5-6) Ur Specific [place] (1.005-1.025) Urine Protein (Negative) Urine Ketones (NEGATIVE) Urine Blood (0-5) Grey/ul Urine Nitrite (NEGATIVE) Urine Bilirubin (NEGATIVE) Urine Urobilinogen (0-1) mg/dL Ur Leukocyte Esterase (NEGATIVE) Urine WBC (Auto) (0-5) /HPF Urine RBC (Auto) (0-2) /HPF U Hyaline Cast (Auto) (0-2) /LPF U Epithel Cells (Auto) (FEW) /HPF Urine Bacteria (Auto) (NEGATIVE) /HPF Urine Mucus (Auto) (NEGATIVE) /HPF Urine Culture Reflexed (NO) Urine Glucose (NEGATIVE) mg/dL Stool Occult Blood POSITIVE (Negative) Slides for Path Review - Progress Progress: improved Progress Note: 10/09/18 22:23 This is a 83-year-old white female with history of arrhythmia, asthma, diabetes , hernia, breast cancer, atrial fibrillation She was released yesterday from the hospital where she was admitted for small bowel obstruction She states that she's been having lower abdominal pain all day long she states she feels like she is constipated. On physical examination patient does have a distended ventral wall hernia in the upper abdomen this does not appear to be tender she also has tenderness with palpation in the lower abdomen. Appropriate labs have been ordered IV morphine and Zofran have been ordered IV normal saline 100 mL per hour have been ordered 10/10/18 01:21 Patient shortly after arrival began to complain bitterly about pain in her abdomen Rectal exam was noted she was noted to have positive stool in her bowel have her finger poked right through it. Patient was given IV morphine normal saline at 100 per hour and Zofran. Patient had a large bowel movement and felt better. Unfortunately CT of the abdomen shows a large complex ventral hernia again demonstrating multiple small bowel loops, appendix and proximal to mid colon there was mild to moderately distended bowel loops within the hernia sac suggesting mild ileus versus partial or developing bowel obstruction There is extensive distal colon diverticulosis. There was distal colon and rectal thickening with mild fat stranding differential diagnosis included mild diverticulitis versus nonspecific distal colitis. There was cholelithiasis. A large hiatal hernia. And mild posterior pleural effusions and bibasilar atelectasis. After return from CT patient did appear to be much more comfortable. It was felt in view of the patient's CT findings, the findings of pleural fluid in the patient's lung bases that patient should most likely be placed on observation. I've discussed case with Dr. richardson for Dr. Wong. Will place patient on observation keep patient nothing by mouth. Provide IV normal saline at 60 mL per hour provide IV morphine as needed for pain, IV Zofran. Dr. Richardson has contacted the patient's nurse and has placed oral orders for further orders. - Departure Time of Disposition: 01:25 Departure Disposition: Observation Clinical Impression: Bilateral pleural effusion Abdominal pain Qualifiers: Abdominal location: lower abdomen, unspecified Qualified Code(s): R10.30 - Lower abdominal pain, unspecified Ventral hernia Qualifiers: Obstruction and gangrene presence: with obstruction but without gangrene Qualified Code(s): K43.6 - Other and unspecified ventral hernia with obstruction , without gangrene Constipation Qualifiers: Constipation type: unspecified constipation type Qualified Code(s): K59.00 - Constipation, unspecified Condition: Fair Critical Care Time: No Referrals: RAY WONG [Primary Care Provider] -
[2018-10-09] MEDS ORDERED: Sodium Chloride 0.9% 1000 ML 1,000 ML IV SCH (22:30)
[2018-10-09] MEDS ORDERED: Sodium Chloride 0.9% 1000 ML 1,000 ML ONE (22:42)
[2018-10-09] MEDS ORDERED: MORPHINE SULFATE 2 MG INJ ONE ×2 (22:42→23:21)
[2018-10-09] MEDS ORDERED: Zofran 4 MG/2 ML VIAL IV ONE (22:57)
[2018-10-09] MEDS ORDERED: Zofran 4 MG/2 ML VIAL ONE (22:58)
[2018-10-09 23:15] LABS: Appearance CLEAR (CLEAR); Bilirubin NEGATIVE (NEGATIVE); Blood SMALL Ery/ul (0-5); Glucose NEGATIVE (NEGATIVE); Ketones NEGATIVE (NEGATIVE); Leukocyte Esterase NEGATIVE (NEGATIVE); Nitrite NEGATIVE (NEGATIVE); Protein,Urine Dip NEGATIVE (Negative); Specific Gravity 1.017 (1.005-1.025); Urobilinogen NEGATIVE mg/dL (0-1)
[2018-10-09 23:16] LABS: ALBUMIN 2.9 g/dL (3.5-5.0); ALKALINE PHOSPHATASE 93 U/L (38-126); AMYLASE 62 U/L (30-110); ANION GAP 9.8 MEQ/L (5-15); BLOOD UREA NITROGEN 17 mg/dL (7-17); CHLORIDE 107 mmol/L (98-107); Calcium 8.4 mg/dL (8.4-10.2); Carbon Dioxide 27 mmol/L (22-30); Creatinine 1 0.64 mg/dL (0.52-1.04); Glucose 162 mg/dL (74-106); LIPASE 11 U/L (23-300); Potassium 3.8 mmol/L (3.5-5.1); SGOT/AST 24 U/L (14-36); SGPT/ALT 13 U/L (0-35); SODIUM 140 mmol/L (137-145); Total Protein 5.7 g/dL (6.3-8.2)
[2018-10-09 23:37] LABS: BASOPHIL % 0.2 % (0.0-0.4); Basophil (Absolute #) 0.01 (0-0.4); Eosinophil % 2.7 % (0.00-5.0); Eosinophil (Absolute #) 0.13 (0-0.5); Granulocyte Absolute (ANC) 3.79 (1.4-6.9); Granulocytes % 78.9 % (36.0-66.0); Hematocrit 29.9 % (35-47); Hemoglobin 8.8 gm/dl (12.0-16.0); Lymphocyte (Absolute #) 0.54 (1.0-4.6); Lymphocytes % 11.3 % (24.0-44.0); Mean Cell Volume 97.1 fl (78-100); Mean Corpuscular Hemoglobin 28.5 pg (26-32); Mean Corpuscular Hgb Concent. 29.4 g/dl (32-36); Monocyte (Absolute #) 0.33 (0.0-1.3); Monocytes % 6.9 % (0.0-12.0); Platelet Count 155 K/mm3 (150-450); Red Blood Count 3.08 M/mm3 (4.1-5.4); Red Cell Distribution Width 15.6 % (11.5-14.0); White Blood Count 4.8 K/mm3 (4.0-10.5)
[2018-10-10 00:52] LABS: Slide Review 1 YES
[2018-10-10] MEDS ORDERED: MORPHINE SULFATE 2 MG INJ IV PRN (02:15)
[2018-10-10] MEDS ORDERED: NovoLOG Insulin SQ PRN (02:15)
[2018-10-10] MEDS ORDERED: Sodium Chloride 0.9% 1000 ML 1,000 ML IV SCH (02:15)
[2018-10-10] MEDS ORDERED: Pepcid 20 MG ONE (04:05)
[2018-10-10] MEDS: Pepcid 20 MG PO SCH ×2 (04:12→21:36)
[2018-10-10 06:09] LABS: Hemoglobin 7.8 gm/dl (12.0-16.0); Mean Cell Volume 97.5 fl (78-100); Mean Corpuscular Hgb Concent. 28.9 g/dl (32-36); Mean Platelet Volume 12.7 fl (6-9.5); Platelet Count 145 K/mm3 (150-450); Red Blood Count 2.77 M/mm3 (4.1-5.4); Red Cell Distribution Width 15.5 % (11.5-14.0); White Blood Count 8.5 K/mm3 (4.0-10.5)
[2018-10-10 06:43] LABS: ALBUMIN 2.2 g/dL (3.5-5.0); ALKALINE PHOSPHATASE 72 U/L (38-126); ANION GAP 7.1 MEQ/L (5-15); BLOOD UREA NITROGEN 17 mg/dL (7-17); CHLORIDE 108 mmol/L (98-107); Calcium 7.8 mg/dL (8.4-10.2); Carbon Dioxide 29 mmol/L (22-30); Creatinine 1 0.62 mg/dL (0.52-1.04); Glucose 150 mg/dL (74-106); Potassium 3.7 mmol/L (3.5-5.1); SGOT/AST 17 U/L (14-36); SGPT/ALT 11 U/L (0-35); SODIUM 140 mmol/L (137-145); Total Protein 4.7 g/dL (6.3-8.2)
[2018-10-10 06:46] LABS: Mean Corpuscular Hemoglobin 28.1 pg (26-32)
[2018-10-10] MEDS ORDERED: ACETAMINOPHEN PO PRN (06:50)
[2018-10-10] MEDS ORDERED: [UNRECOGNIZED DRUG - OTHER] PO PRN (06:50)
[2018-10-10] MEDS ORDERED: DIPHENHYDRAMINE PO PRN (06:50)
[2018-10-10] MEDS ORDERED: MEDICATION INTERVENTION MC SCH (07:30)
[2018-10-10] MEDS ORDERED: TYLENOL EXTRA STRENGTH 500 MG PO PRN (08:00)
[2018-10-10] MEDS ORDERED: BENADRYL 25 MG CAPSULE PO PRN (08:00)
[2018-10-10 08:30] LABS: BAND 3 % (0.0-2.0); Hypochromia 1+; Lymphocytes 16 % (24-44); Neutrophils 81 % (36.0-66.0); Platelet Estimate NORMAL (NORMAL); Total Cells Counted 100
--- NOTE | 2018-10-10 08:56 | XRAY ---
Indication: Lower abdomen pain. Small bowel obstruction. Multiple contiguous axial images obtained through the abdomen and pelvis using 80 cc Isovue 370 contrast only. Comparison: September 22 and September 27, 2018. Lung bases again demonstrates small bibasilar effusions, bilateral compressive atelectasis, borderline cardiomegaly, and large hiatal hernia with partial intrathoracic stomach. There remains large ventral hernia with herniated omental fat and small/large bowel loops. Herniated small bowel loops now demonstrates mild fluid distention with fluid leveling but without bowel wall thickening, either ileus versus partial obstruction. Again scattered descending and sigmoid diverticulosis with now minimal pericolonic stranding concerning for early/mild diverticulitis. Tiny left pelvic free fluid presumed reactive. No walled off fluid collection or free air. Stable gallstone, hepatic cysts, fatty replaced pancreas, bilateral renal cysts, urinary bladder intraluminal air bubble, and moderate aortoiliac calcifications. No AAA or pathologic retroperitoneal lymphadenopathy. Impression: 1. Again large ventral hernia with herniated omental fat and bowel loops. Herniated small bowel bowel loops now fluid distended with fluid leveling, ileus versus partial obstruction. 2. New mild/early diverticulitis involving the descending and sigmoid colon with tiny pelvic free fluid. 3. Stable large hiatal hernia with partial intrathoracic stomach and bibasilar effusions. 4. Stable gallstone, hepatic cyst, bilateral renal cysts, and urinary bladder intraluminal air bubble. Comment: Preliminary interpretation was made by C. No discrepancy. CTDI 23.09
--- NOTE | 2018-10-10 09:01 | PCM.HP ---
History of Present Illness - Chief Complaint Chief Complaint: Abdominal pain, ventral hernia, constipation, blilateral pleural effusion History of Present Illness: is a 83 year old female pt of mine from [facility] with DM and ventral hernia with recent hospitalization with large bowel obstruction (no surgery done ) who was discharged to home 2 d ago and returned to ER last night with abdominal pain. In the ER she had a CT scan which showed again bowel in the ventral hernia, small bowel, with appendix and part of the large bowel. Stranding present concerning for colitis possibly. Final read pending. WBC nl. Hgb was 8.8 yesterday (7.8 this morning). BMP nl. She was manually disimpacted in the ER and felt much better afterward. This morning she is disoriented on awakening. 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 For me she knows she is at [facility] but thinks the year is 1972. Thinks her pain is a lot better. She feels "well enough to go home today." She says she remembers being sick yesterday, "the worst feeling I've ever had before." She did remember being disimpacted. C/o vomiting yesterday to the medical student ( denies to me); denying chest pain/palpitations, no fever. She did have several large BMs overnight according to the nurse. We did have a long discussion again about surgery - she still is adamant that she does not want any abdominal surgery. - Review of Systems All Other Systems: Unable due to condition Medications & Allergies Home Medications: Home Medication List Atenolol 50 mg [Tenormin 50 mg] 50 mg PO DAILY 07/03/16 [History Confirmed 10/09/18] Atorvastatin Calcium [Lipitor 20MG Tablet] 20 mg PO HS 07/03/16 [History Confirmed 10/09/18] Gabapentin [Neurontin] 100 mg PO BID 07/03/16 [History Confirmed 10/09/18] Glimepiride 2 mg [Amaryl 2 MG] 2 mg PO DAILY 07/03/16 [History Confirmed 10/09/18] Zafirlukast 20 mg [Accolate 20 mg] 20 mg PO BID 07/03/16 [History Confirmed 10/09/18] Acetaminophen/Diphenhydramine [Tylenol Pm Ex-Strength Caplet] 2 each PO HS PRN 08/26/16 [History Confirmed 10/09/18] Oxazepam 15 mg PO HS 08/26/16 [History Confirmed 10/09/18] Furosemide 40 mg [Lasix 40 MG] 20 mg PO DAILY 07/31/17 [History Confirmed 10/09/18] Docusate Sodium 100 mg [Colace 100 MG] 200 mg PO HS 08/08/17 [History Confirmed 10/09/18] Vit A/Vit C/Vit E/Zinc/Copper [Preservision Areds Softgel] 1 each PO BID [History Confirmed 10/09/18] Esomeprazole Magnesium [Nexium] 20 mg PO DAILY 10/10/17 [History Confirmed 10/09] PANTOPRAZOLE 40 mg Tablet [Protonix 40MG Tablet] 40 mg PO LUNCH 10/22/17 [ History Confirmed 10/09/18] Promethazine HCl 25 mg [Phenergan 25 mg] 25 mg PO BID 11/21/17 [History Confirmed 10/09/18] Dabigatran Etexilate Mesylate [Pradaxa] 150 mg PO BID 12/24/17 [History Confirmed 10/09/18] Diltiazem HCl [Diltiazem 24Hr ER] 120 mg PO DAILY 09/22/18 [History Confirmed ] Famotidine 20 mg [Pepcid 20 MG] 20 mg PO HS 09/22/18 [History Confirmed ] Gabapentin 100 mg PO EVENING MEAL 09/27/18 [History Confirmed 10/09/18] HydrALAzine HCL 25 MG TAB [Apresoline 25 MG TABLET] 25 mg PO TID #90 tablet 10/08/18 [Rx Confirmed 10/09/18] Hydrocodone Bit/Acetaminophen [Hydrocodon-Acetaminophn 10-325] 1 each PO TID PRN PRN #90 tablet MDD 3 10/08/18 [Rx Confirmed 10/09/18] Allergies/Adverse Reactions: Allergies Allergy/AdvReac Type Severity Reaction Status Date / Time metoclopramide HCl Allergy Verified 09/22/18 09:30 [From Reglan] Sulfa (Sulfonamide Allergy Verified 09/22/18 09:30 Antibiotics) - Past Medical History Past Medical History: Yes Neurological History: No Pertinent History ENT History: No Pertinent History Cardiac History: Arrhythmia, Other Respiratory History: Asthma, Pneumonia Endocrine Medical History: Diabetes Type II Musculoskelatal History: No Pertinent History GI Medical History: Hernia History: No Pertinent History Pyscho-Social History: No Pertinent History Reproductive Disorders: Breast Cancer Comment: A FIB, heart murmer - Female History Are you now?: No - Past Surgical History Past Surgical History: Yes Neuro Surgical History: No Pertinent History Cardiac History: Cardiac Catheterization, Pacemaker Respiratory Surgery: No Pertinent History GI Surgical History: No Pertinent History Genitourinary Surgical Hx: No Pertinent History Musculskeletal Surgical Hx: No Pertinent History Female Surgical History: Mastectomy Other Surgical History: L mastectomy april 10 - Social History Smoking Status: Former smoker How long have you smoked: 10 Exposure to second hand smoke: No Alcohol: None Drug Use: none - Physical Exam Vital Signs: Vital Signs - 24 hr Temp Pulse Resp BP Pulse Ox 10/10/18 08:14 90 L 10/10/18 08:00 98.6 F 73 21 102/52 94 L 10/10/18 04:04 97 10/10/18 03:07 97.9 F 79 18 127/62 94 L 10/10/18 03:00 95 10/10/18 01:40 91 H 96 10/10/18 01:27 94 L 10/10/18 00:40 67 111/68 96 10/09/18 23:50 100 H 97 10/09/18 23:00 93 H 20 138/75 97 10/09/18 22:39 92 H 149/73 94 L 10/09/18 21:49 97.9 F 91 H 18 139/95 94 L Oxygen-Last 24 hours O2 Percentage 2 Liters = 28% O2 Percentage 2 Liters = 28% O2 Percentage 2 Liters = 28% O2 Percentage 2 Liters = 28% General Appearance: no apparent distress, alert, obese Neurologic Exam: cooperative, disoriented (not oriented to year but does seem to remember recent events fairly well) Ears, Nose, Throat Exam: dry mucous membranes Respiratory Exam: normal breath sounds, lungs clear, No crackles/rales, No rhonchi, No wheezing Cardiovascular Exam: normal heart sounds, murmur (II/ sys murmur), irregular ( regularly irregular) Gastrointestinal/Abdomen Exam: soft, normal bowel sounds, tenderness (mild, mid abd), No distention (much less distension than on previous admission), No mass, No guarding, No rebound Back Exam: normal inspection, No rash Extremity Exam: No pedal edema, No swelling Skin Exam: normal color, warm, dry, No rash Results - Labs Lab/Micro Results: Lab Results-Last 24 Hours 10/09/18 10/09/18 10/09/18 Range/Units 22:18 22:30 22:50 WBC 4.8 (4.0-10.5) K/mm3 RBC 3.08 L (4.1-5.4) M/mm3 Hgb 8.8 L (12.0-16.0) gm/dl Hct 29.9 L (35-47) % MCV 97.1 (78-100) fl MCH 28.5 (26-32) pg MCHC 29.4 L (32-36) g/dl RDW 15.6 H (11.5-14.0) % Plt Count 155 (150-450) K/mm3 MPV 12.0 H (6-9.5) fl Gran % 78.9 H (36.0-66.0) % Eos # (Auto) 0.13 (0-0.5) Absolute Lymphs (auto) 0.54 L (1.0-4.6) Absolute Monos (auto) 0.33 (0.0-1.3) Lymphocytes % 11.3 L (24.0-44.0) % Monocytes % 6.9 (0.0-12.0) % Eosinophils % 2.7 (0.00-5.0) % Basophils % 0.2 (0.0-0.4) % Absolute Granulocytes 3.79 (1.4-6.9) Segmented Neutrophils (36.0-66.0) % Band Neutrophils (0.0-2.0) % Lymphocytes (Manual) (24-44) % Basophils # 0.01 (0-0.4) Hypochromia Platelet Estimate (NORMAL) RBC Morphology Sodium (137-145) mmol/L Potassium (3.5-5.1) mmol/L Chloride (98-107) mmol/L Carbon Dioxide (22-30) mmol/L Anion Gap (5-15) MEQ/L BUN (7-17) mg/dL Creatinine (0.52-1.04) mg/dL Estimated GFR ML/MIN Glucose (74-106) mg/dL Calcium (8.4-10.2) mg/dL Total Bilirubin (0.2-1.3) mg/dL AST (14-36) U/L ALT (0-35) U/L Alkaline Phosphatase (38-126) U/L Serum Total Protein (6.3-8.2) g/dL Albumin (3.5-5.0) g/dL Amylase (30-110) U/L Lipase (23-300) U/L Urine Color YELLOW (YELLOW) Urine Appearance CLEAR (CLEAR) Urine pH 7.0 (5-6) Ur Specific [place] 1.017 (1.005-1.025) Urine Protein NEGATIVE (Negative) Urine Ketones NEGATIVE (NEGATIVE) Urine Blood SMALL (0-5) Grey/ul Urine Nitrite NEGATIVE (NEGATIVE) Urine Bilirubin NEGATIVE (NEGATIVE) Urine Urobilinogen NEGATIVE (0-1) mg/dL Ur Leukocyte Esterase NEGATIVE (NEGATIVE) Urine WBC (Auto) 3-5 (0-5) /HPF Urine RBC (Auto) 11-15 (0-2) /HPF U Hyaline Cast (Auto) 0-2 (0-2) /LPF U Epithel Cells (Auto) RARE (FEW) /HPF Urine Bacteria (Auto) RARE (NEGATIVE) /HPF Urine Mucus (Auto) SLIGHT (NEGATIVE) /HPF Urine Culture Reflexed NO (NO) Urine Glucose NEGATIVE (NEGATIVE) mg/dL Stool Occult Blood POSITIVE (Negative) Slides for Path Review YES 10/09/18 10/10/18 10/10/18 Range/Units 22:50 05:35 05:35 WBC 8.5 (4.0-10.5) K/mm3 RBC 2.77 L (4.1-5.4) M/mm3 Hgb 7.8 L (12.0-16.0) gm/dl Hct 27.0 L (35-47) % MCV 97.5 (78-100) fl MCH 28.1 (26-32) pg MCHC 28.9 L D (32-36) g/dl RDW 15.5 H (11.5-14.0) % Plt Count 145 L (150-450) K/mm3 MPV 12.7 H (6-9.5) fl Gran % (36.0-66.0) % Eos # (Auto) (0-0.5) Absolute Lymphs (auto) (1.0-4.6) Absolute Monos (auto) (0.0-1.3) Lymphocytes % (24.0-44.0) % Monocytes % (0.0-12.0) % Eosinophils % (0.00-5.0) % Basophils % (0.0-0.4) % Absolute Granulocytes (1.4-6.9) Segmented Neutrophils 81 H (36.0-66.0) % Band Neutrophils 3 H (0.0-2.0) % Lymphocytes (Manual) 16 L (24-44) % Basophils # (0-0.4) Hypochromia 1+ Platelet Estimate NORMAL (NORMAL) RBC Morphology ABNORMAL Sodium 140 140 (137-145) mmol/L Potassium 3.8 3.7 (3.5-5.1) mmol/L Chloride 107 108 H (98-107) mmol/L Carbon Dioxide 27 29 (22-30) mmol/L Anion Gap 9.8 7.1 (5-15) MEQ/L BUN 17 17 (7-17) mg/dL Creatinine 0.64 0.62 (0.52-1.04) mg/dL Estimated GFR > 60.0 > 60.0 ML/MIN Glucose 162 H 150 H (74-106) mg/dL Calcium 8.4 7.8 L (8.4-10.2) mg/dL Total Bilirubin 0.30 0.20 (0.2-1.3) mg/dL AST 24 17 (14-36) U/L ALT 13 11 (0-35) U/L Alkaline Phosphatase 93 72 (38-126) U/L Serum Total Protein 5.7 L 4.7 L (6.3-8.2) g/dL Albumin 2.9 L 2.2 L (3.5-5.0) g/dL Amylase 62 (30-110) U/L Lipase 11 L (23-300) U/L Urine Color (YELLOW) Urine Appearance (CLEAR) Urine pH (5-6) Ur Specific [place] (1.005-1.025) Urine Protein (Negative) Urine Ketones (NEGATIVE) Urine Blood (0-5) Grey/ul Urine Nitrite (NEGATIVE) Urine Bilirubin (NEGATIVE) Urine Urobilinogen (0-1) mg/dL Ur Leukocyte Esterase (NEGATIVE) Urine WBC (Auto) (0-5) /HPF Urine RBC (Auto) (0-2) /HPF U Hyaline Cast (Auto) (0-2) /LPF U Epithel Cells (Auto) (FEW) /HPF Urine Bacteria (Auto) (NEGATIVE) /HPF Urine Mucus (Auto) (NEGATIVE) /HPF Urine Culture Reflexed (NO) Urine Glucose (NEGATIVE) mg/dL Stool Occult Blood (Negative) Slides for Path Review - Radiology Impressions Radiology Exams & Impressions: Radiology Procedures Category Date Time Status ABDOMEN AND PELVIS W CONTRAST [CT] Stat Exams 10/09/18 23:19 Taken - Other Procedures and Tests Respiratory Therapy 10/10/18 02:15 Oxygen NASAL CANNULA 2 lpm Assessment/Plan (1) Abdominal pain Current Visit: Yes Status: Acute Qualifiers: Abdominal location: lower abdomen, unspecified Qualified Code(s): R10.30 - Lower abdominal pain, unspecified Assessment & Plan: Pt reports much better today and she did have several large BMs. Will try CLD this morning. On CT, initial report with question of diverticulitis vs colitis. Await final read. Code(s): R10.9 - UNSPECIFIED ABDOMINAL PAIN (2) Bilateral pleural effusion Current Visit: Yes Status: Acute Code(s): J90 - PLEURAL EFFUSION, NOT ELSEWHERE CLASSIFIED (3) Ventral hernia Current Visit: Yes Status: Acute Qualifiers: Obstruction and gangrene presence: with obstruction but without gangrene Qualified Code(s): K43.6 - Other and unspecified ventral hernia with obstruction , without gangrene Assessment & Plan: Pt seems adamant about no surgery. Code(s): K43.9 - VENTRAL HERNIA WITHOUT OBSTRUCTION OR GANGRENE (4) Candidal intertrigo Current Visit: No Status: Acute Assessment & Plan: per RN - nystatin cream. Code(s): B37.2 - CANDIDIASIS OF SKIN AND NAIL (5) Large bowel obstruction Current Visit: No Status: Resolved Code(s): K56.609 - UNSP INTESTNL OBST, UNSP TO PARTIAL VERSUS COMPLETE OBST (6) Atrial fibrillation Current Visit: No Status: Chronic Qualifiers: Atrial fibrillation type: paroxysmal Qualified Code(s): I48.0 - Paroxysmal atrial fibrillation Code(s): I48.91 - UNSPECIFIED ATRIAL FIBRILLATION (7) HX: breast cancer Current Visit: No Status: Resolved Code(s): Z85.3 - PERSONAL HISTORY OF MALIGNANT NEOPLASM OF BREAST (8) DNR (do not resuscitate) Current Visit: Yes Status: Acute Assessment & Plan: Pt has signed the DNR order.
[2018-10-10] MEDS: ACCOLATE 20 MG PO SCH ×2 (09:37→21:30)
[2018-10-10] MEDS: Amaryl 2 MG PO SCH (09:37)
[2018-10-10] MEDS: Cardizem CD 120 MG PO SCH (09:37)
[2018-10-10] MEDS: Neurontin 100 MG PO SCH ×3 (09:37→18:46)
[2018-10-10] MEDS: Apresoline 25 MG TABLET PO SCH ×3 (09:37→23:07)
[2018-10-10] MEDS: Ocuvite Tablet PO SCH ×2 (09:38→21:36)
[2018-10-10] MEDS: TENORMIN 50 MG PO SCH (09:38)
[2018-10-10] MEDS: LASIX 20 MG PO SCH (09:38)
[2018-10-10] MEDS: Norco 10/325 MG Tablet PO PRN ×2 (09:45→21:37)
[2018-10-10] MEDS ORDERED: COPPER PO SCH (10:00)
[2018-10-10] MEDS ORDERED: VIT C PO SCH (10:00)
[2018-10-10] MEDS ORDERED: Lasix 40 MG PO SCH (10:00)
[2018-10-10] MEDS ORDERED: ZINC PO SCH (10:00)
[2018-10-10] MEDS ORDERED: VIT E PO SCH (10:00)
[2018-10-10] MEDS ORDERED: VIT A PO SCH (10:00)
[2018-10-10] MEDS: Protonix 40MG Tablet PO SCH (11:58)
[2018-10-10] MEDS: Colace 100 MG PO SCH (21:36)
[2018-10-10] MEDS: ZOCOR 20MG PO SCH (21:37)
[2018-10-10] MEDS: NYSTOP 30 GM CREAM TOP SCH ×2 (21:41→21:42)
[2018-10-10] MEDS ORDERED: OXAZEPAM 15 MG PO SCH (22:00)
[2018-10-10] MEDS ORDERED: NON-FORMULARY ITEM (Atorvastatin Calcium 20 MG) PO SCH (22:00)
[2018-10-11] MEDS ORDERED: D50W 50ML Vial IV ONE
[2018-10-11] MEDS ORDERED: D50W 50 ml Abboject IV ONE ×2 (00:03)
[2018-10-11] MEDS ORDERED: Sodium Chloride 0.9% 250 ML 250 ML IV SCH ×2 (00:30→01:01)
[2018-10-11] MEDS ORDERED: Sodium Chloride 0.9% 500 ML 500 ML IV ONE ×2 (01:53→05:59)
[2018-10-11 02:27] LABS: BASOPHIL % 0.2 % (0.0-0.4); Basophil (Absolute #) 0.01 (0-0.4); Eosinophil % 3.6 % (0.00-5.0); Eosinophil (Absolute #) 0.19 (0-0.5); Granulocyte Absolute (ANC) 3.76 (1.4-6.9); Granulocytes % 70.7 % (36.0-66.0); Hematocrit 24.1 % (35-47); Lymphocyte (Absolute #) 0.81 (1.0-4.6); Lymphocytes % 15.3 % (24.0-44.0); Mean Cell Volume 98.8 fl (78-100); Mean Platelet Volume 11.6 fl (6-9.5); Monocyte (Absolute #) 0.54 (0.0-1.3); Monocytes % 10.2 % (0.0-12.0); Platelet Count 140 K/mm3 (150-450); Red Blood Count 2.44 M/mm3 (4.1-5.4); Red Cell Distribution Width 15.7 % (11.5-14.0); White Blood Count 5.3 K/mm3 (4.0-10.5)
[2018-10-11 02:32] LABS: Mean Corpuscular Hemoglobin 28.6 pg (26-32)
[2018-10-11] MEDS: Dextrose 5% -0.45 NaCl 1000 ML 1,000 ML IV SCH ×2 (02:35→16:42)
[2018-10-11] MEDS ORDERED: LEVOPHED 4 MG/4 ML 4,000 MCG in Dextrose 5%/Water IV Soln. 500 ML 500 ML IV PRN (03:30)
[2018-10-11 04:43] LABS: ABO TYPING B; Antibody Screen NEGATIVE (NEGATIVE); RH TYPING POSITIVE
[2018-10-11] MEDS: FLAGYL 500 MG IVPB 500 MG/100 ML BAG IV SCH ×4 (04:47→23:37)
[2018-10-11] MEDS ORDERED: Lasix 20 MG/2 ML IV PRN (05:21)
[2018-10-11] MEDS: Zosyn 3.375GM/100 Ml D5W 3.375 GM/100 ML IVPB IV SCH ×3 (05:40→17:02)
[2018-10-11] MEDS: Neurontin 100 MG PO SCH ×3 (07:41→17:06)
--- NOTE | 2018-10-11 08:06 | PCM.NOTE ---
Date and Time: 10/11/18 08 Subjective Assessment: Last night pt's blood pressure dropped into the 80s; 500cc bolus of IVF was given and it stayed low. Stat CBC showed hgb 7.0 She was transferred to ICU, given another 500cc bolus and her BP increased to 120s-130s systolic. She did not have good access until this morning when [facility] had to do another IV, thank you. She says her stomach feels "pretty good" this morning. Tolerated CLD yesterday. Had another BM yesterday. Today is oriented to place and time. - Review of Systems Constitutional: No Fever Abdominal/Gastrointestinal: No Abdominal Pain Objective Exam General Appearance: no apparent distress, alert, obese Neurologic Exam: oriented x 3, cooperative Skin Exam: normal color, warm, dry, No rash Respiratory Exam: normal breath sounds, lungs clear, No crackles/rales, No rhonchi, No wheezing Cardiovascular Exam: regular rate/rhythm, normal heart sounds, murmur (II/Vi sys murmur) Gastrointestinal/Abdomen Exam: soft, normal bowel sounds, No distention OBJECTIVE DATA Vital Signs: Vital Signs - 24 hr Temp Pulse Resp BP BP Pulse Ox 10/11/18 07:09 98 10/11/18 04:10 64 18 132/66 97 10/11/18 03:55 98.2 F 77 18 121/64 94 L 10/11/18 02:40 80/42 10/11/18 01:15 80/40 10/11/18 00:35 66/38 10/11/18 00:05 78/39 10/11/18 00:00 98.1 F 63 20 86/44 93 L 10/10/18 20:14 98.3 F 64 25 H 100/67 92 L 10/10/18 16:00 98.4 F 74 18 119/55 94 L 10/10/18 12:00 98.4 F 88 18 126/59 94 L 10/10/18 09:38 80 129/61 10/10/18 08:14 90 L Oxygen-Last 24 hours O2 Percentage 2 Liters = 28% O2 Percentage 2 Liters = 28% O2 Percentage 2 Liters = 28% Pain Assessment - Last Documented Pain Intensity 4 Pain Scale Used FLACC Intake and Output: Intake & Output 11/13/18 11/14/18 11/15/18 11/16/18 11:59 11:59 11:59 11:59 Intake Total 120 2444 Output Total 50 700 Balance 70 1744 Weight 71.8 kg Lab Results: Accuchecks Date 10/11/18 Date 10/11/18 Date 10/10/18 Date 10/10/18 Time 06:53 Time 04:05 Time 16:30 Time 11:30 Accucheck Value: 120 Accucheck Value: 81 Accucheck Value: 107 Accucheck Value: 65 Accucheck Value: 93 Accucheck Value: 41 Accucheck Value: 89 Accucheck Value: 50 Accucheck Value: 55 Accucheck Value: 78 Lab Results-Last 24 Hours 10/10/18 10/10/18 10/11/18 Range/Units 05:35 23:58 02:15 WBC 5.3 (4.0-10.5) K/mm3 RBC 2.44 L (4.1-5.4) M/mm3 Hgb 7.0 L (12.0-16.0) gm/dl Hct 24.1 L (35-47) % MCV 98.8 (78-100) fl MCH 28.6 (26-32) pg MCHC 29.0 L (32-36) g/dl RDW 15.7 H (11.5-14.0) % Plt Count 140 L (150-450) K/mm3 MPV 11.6 H (6-9.5) fl Gran % 70.7 H (36.0-66.0) % Eos # (Auto) 0.19 (0-0.5) Absolute Lymphs (auto) 0.81 L (1.0-4.6) Absolute Monos (auto) 0.54 (0.0-1.3) Lymphocytes % 15.3 L (24.0-44.0) % Monocytes % 10.2 (0.0-12.0) % Eosinophils % 3.6 (0.00-5.0) % Basophils % 0.2 (0.0-0.4) % Absolute Granulocytes 3.76 (1.4-6.9) Segmented Neutrophils 81 H (36.0-66.0) % Band Neutrophils 3 H (0.0-2.0) % Lymphocytes (Manual) 16 L (24-44) % Basophils # 0.01 (0-0.4) Hypochromia 1+ Platelet Estimate NORMAL (NORMAL) RBC Morphology ABNORMAL Glucose 32 L* (74-106) mg/dL ABO Group Rh Factor Antibody Screen (NEGATIVE) Crossmatch (COMPATIBLE) 10/11/18 10/11/18 10/11/18 Range/Units 03:45 03:45 03:45 WBC (4.0-10.5) K/mm3 RBC (4.1-5.4) M/mm3 Hgb (12.0-16.0) gm/dl Hct (35-47) % MCV (78-100) fl MCH (26-32) pg MCHC (32-36) g/dl RDW (11.5-14.0) % Plt Count (150-450) K/mm3 MPV (6-9.5) fl Gran % (36.0-66.0) % Eos # (Auto) (0-0.5) Absolute Lymphs (auto) (1.0-4.6) Absolute Monos (auto) (0.0-1.3) Lymphocytes % (24.0-44.0) % Monocytes % (0.0-12.0) % Eosinophils % (0.00-5.0) % Basophils % (0.0-0.4) % Absolute Granulocytes (1.4-6.9) Segmented Neutrophils (36.0-66.0) % Band Neutrophils (0.0-2.0) % Lymphocytes (Manual) (24-44) % Basophils # (0-0.4) Hypochromia Platelet Estimate (NORMAL) RBC Morphology Glucose (74-106) mg/dL ABO Group B Rh Factor POSITIVE Antibody Screen NEGATIVE (NEGATIVE) Crossmatch COMPATIBLE COMPATIBLE (COMPATIBLE) Radiology Exams: Radiology Procedures Category Date Time Status ABDOMEN AND PELVIS W CONTRAST [CT] Stat Exams 10/09/18 23:19 Completed Multi-Disciplinary Progress Notes: Multi-Disciplinary Progress Notes 10/10/18 11:13 Case Management Note by Neetu Preciado DISCUSSION WITH PT REGARDING NEEDS ON DISCHARGE WITH RECENT READMISSION. DISCUSSED REHAB STAY AT [facility] FOR 18/06 NURSING CARE VS HOME WITH HOME HEALTHCARE SERVICES. PT/ HAVE ADAMANTLY DENIED THE NEED FOR HOME SERVICES. PT REPORTS THAT SHE WILL TALK WITH , [employer]. HESITANT TO GO FOR REHAB, BUT NOT OPPOSED. WILL CONTINUE TO FOLLOW FOR ALL DC NEEDS. Initialized on 10/10/18 11:13 - END OF NOTE Assessment/Plan (1) Anemia Current Visit: No Status: Chronic Qualifiers: Anemia type: iron deficiency Iron deficiency anemia type: chronic blood loss Qualified Code(s): D50.0 - Iron deficiency anemia secondary to blood loss (chronic) Assessment & Plan: Receiving 2 units PRBC today. Will recheck CBC in a.m. and if tolerating diet well may be able to d/c to home on Sunday. Code(s): D64.9 - ANEMIA, UNSPECIFIED (2) Abdominal pain Current Visit: Yes Status: Resolved Qualifiers: Abdominal location: lower abdomen, unspecified Qualified Code(s): R10.30 - Lower abdominal pain, unspecified Assessment & Plan: advancing diet slowly. FLD today. Code(s): R10.9 - UNSPECIFIED ABDOMINAL PAIN (3) Bilateral pleural effusion Current Visit: Yes Status: Acute Code(s): J90 - PLEURAL EFFUSION, NOT ELSEWHERE CLASSIFIED (4) Ventral hernia Current Visit: Yes Status: Chronic Qualifiers: Obstruction and gangrene presence: without obstruction or gangrene Qualified Code(s): K43.9 - Ventral hernia without obstruction or gangrene Assessment & Plan: Doing much better. Does not want surgery. Code(s): K43.9 - VENTRAL HERNIA WITHOUT OBSTRUCTION OR GANGRENE (5) Candidal intertrigo Current Visit: No Status: Chronic Code(s): B37.2 - CANDIDIASIS OF SKIN AND NAIL (6) Large bowel obstruction Current Visit: No Status: Resolved Code(s): K56.609 - UNSP INTESTNL OBST, UNSP TO PARTIAL VERSUS COMPLETE OBST (7) Atrial fibrillation Current Visit: No Status: Chronic Qualifiers: Atrial fibrillation type: paroxysmal Qualified Code(s): I48.0 - Paroxysmal atrial fibrillation Code(s): I48.91 - UNSPECIFIED ATRIAL FIBRILLATION (8) HX: breast cancer Current Visit: No Status: Resolved Code(s): Z85.3 - PERSONAL HISTORY OF MALIGNANT NEOPLASM OF BREAST (9) DNR (do not resuscitate) Current Visit: Yes Status: Acute
[2018-10-11] MEDS: Norco 10/325 MG Tablet PO PRN ×3 (08:32→21:12)
[2018-10-11 08:47] LABS: Appearance SLIGHTLY CLOUDY (CLEAR); Bilirubin NEGATIVE (NEGATIVE); Blood SMALL Ery/ul (0-5); Glucose NEGATIVE (NEGATIVE); Ketones NEGATIVE (NEGATIVE); Leukocyte Esterase MODERATE (NEGATIVE); Nitrite NEGATIVE (NEGATIVE); Protein,Urine Dip NEGATIVE (Negative); Specific Gravity 1.004 (1.005-1.025); Urobilinogen NEGATIVE mg/dL (0-1)
[2018-10-11] MEDS: ACCOLATE 20 MG PO SCH ×2 (09:11→21:14)
[2018-10-11] MEDS: Amaryl 2 MG PO SCH (09:11)
[2018-10-11] MEDS: Cardizem CD 120 MG PO SCH (09:11)
[2018-10-11] MEDS: NYSTOP 30 GM CREAM TOP SCH ×2 (09:12→21:16)
[2018-10-11] MEDS: Apresoline 25 MG TABLET PO SCH ×3 (09:12→21:20)
[2018-10-11] MEDS: TENORMIN 50 MG PO SCH (09:13)
[2018-10-11] MEDS: Protonix 40MG Tablet PO SCH (11:19)
[2018-10-11] MEDS: Ocuvite Tablet PO SCH ×2 (11:24→21:13)
[2018-10-11] MEDS: LASIX 20 MG PO SCH (12:13)
[2018-10-11 14:09] LABS: Hematocrit 36.7 % (35-47); Hemoglobin 11.1 gm/dl (12.0-16.0)
[2018-10-11 15:59] LABS: 027 TOX PROD PRESUMPTIVE NEGATIVE (NEGATIVE); TOXIGENIC C. DIFF ORG NEGATIVE (NEGATIVE)
[2018-10-11] MEDS: Colace 100 MG PO SCH (21:13)
[2018-10-11] MEDS: Pepcid 20 MG PO SCH (21:13)
[2018-10-11] MEDS: ZOCOR 20MG PO SCH (21:14)
[2018-10-11] MEDS: PATIENT OWN MEDICATION PO SCH (21:17)
[2018-10-12] MEDS: Zosyn 3.375GM/100 Ml D5W 3.375 GM/100 ML IVPB IV SCH ×5 (00:24→23:13)
[2018-10-12] MEDS: Dextrose 5% -0.45 NaCl 1000 ML 1,000 ML IV SCH (04:24)
[2018-10-12 05:57] LABS: Hemoglobin 9.9 gm/dl (12.0-16.0); Mean Cell Volume 95.1 fl (78-100); Mean Corpuscular Hemoglobin 28.5 pg (26-32); Platelet Count 130 K/mm3 (150-450); Red Blood Count 3.47 M/mm3 (4.1-5.4); Red Cell Distribution Width 16.2 % (11.5-14.0)
[2018-10-12] MEDS: FLAGYL 500 MG IVPB 500 MG/100 ML BAG IV SCH ×4 (06:04→23:13)
[2018-10-12] MEDS: Norco 10/325 MG Tablet PO PRN ×2 (08:36→20:43)
[2018-10-12] MEDS: Zofran 4 MG/2 ML VIAL IV PRN ×2 (08:36→17:54)
[2018-10-12] MEDS: Cardizem CD 120 MG PO SCH (09:20)
[2018-10-12] MEDS: LASIX 20 MG PO SCH (09:20)
[2018-10-12] MEDS: ACCOLATE 20 MG PO SCH ×2 (09:20→20:42)
[2018-10-12] MEDS: NYSTOP 30 GM CREAM TOP SCH ×2 (09:20→20:42)
[2018-10-12] MEDS: Amaryl 2 MG PO SCH (09:20)
[2018-10-12] MEDS: Ocuvite Tablet PO SCH ×2 (09:20→20:43)
[2018-10-12] MEDS: Neurontin 100 MG PO SCH ×3 (10:46→17:02)
--- NOTE | 2018-10-12 11:10 | PCM.NOTE ---
Date and Time: 10/12/18 1105 Subjective Assessment: Patient reports she doesn't remember much form when she was in the ICU. She reports some continued stomach upset and nausea today. She reports a hemorrhoid that is bleeding. She says she has seen Dr. Pancho Rasheed in the past about her hernia which she has had for at least a year and he told her that he would not do surgery on it unless is was absolutely necessary. She reports she thinks she had to have a blood transfusion in the past too and had one yesterday. - Review of Systems Constitutional: Fatigue Eyes: No Symptoms Ears, Nose, & Throat: No Symptoms Respiratory: No Symptoms Cardiac: No Symptoms Abdominal/Gastrointestinal: Abdominal Pain, Nausea Genitourinary Symptoms: No Symptoms Musculoskeletal: No Symptoms Skin: No Symptoms Objective Exam General Appearance: no apparent distress, alert Neurologic Exam: alert, cooperative, normal mood/affect Skin Exam: normal color, warm, dry, No rash Respiratory Exam: normal breath sounds, lungs clear, No crackles/rales, No rhonchi, No wheezing Cardiovascular Exam: regular rate/rhythm, murmur, other (III/ systolic ejection murmur), No friction rub, No gallop Gastrointestinal/Abdomen Exam: soft, normal bowel sounds, tenderness, distention , hernia, other (large abdominal wall hernia causing distension), No mass, No guarding Extremity Exam: other (no c/c/e) OBJECTIVE DATA Vital Signs: Vital Signs - 24 hr Temp Pulse Resp BP Pulse Ox 10/12/18 09:00 97.5 F 89 18 134/65 97 10/12/18 04:15 97.9 F 66 16 112/58 94 L 10/11/18 23:55 97.9 F 68 18 94/54 96 10/11/18 21:10 132/60 10/11/18 19:51 98.3 F 55 L 18 109/55 95 10/11/18 19:35 96 10/11/18 16:10 97.8 F 74 20 126/58 95 10/11/18 11:51 98 F 68 18 131/47 97 Oxygen-Last 24 hours O2 Percentage 2 Liters = 28% O2 Percentage 2 Liters = 28% O2 Percentage 2 Liters = 28% O2 Percentage 2 Liters = 28% O2 Percentage 2 Liters = 28% O2 Percentage 2 Liters = 28% Oxygen Flowrate (L/min)-RT 2 Pain Assessment - Last Documented Pain Intensity 7 Pain Scale Used 0-10 Pain Scale Intake and Output: Intake & Output 10/10/18 10/11/18 10/12/18 10/13/18 06:59 06:59 06:59 06:59 Intake Total 2564 3556 Output Total 750 3350 Balance 1814 206 Weight 71.8 kg 71.8 kg Lab Results: Accuchecks Date 10/12/18 Date 10/11/18 Date 10/11/18 Date 10/11/18 Time 07:30 Time 22:00 Time 16:27 Time 11:16 Accucheck Value: 73 Accucheck Value: 199 Accucheck Value: 95 Accucheck Value: 99 Lab Results-Last 24 Hours 10/11/18 10/11/18 10/12/18 Range/Units 14:00 15:05 05:20 WBC (4.0-10.5) K/mm3 RBC (4.1-5.4) M/mm3 Hgb 11.1 L D (12.0-16.0) gm/dl Hct 36.7 (35-47) % MCV (78-100) fl MCH (26-32) pg MCHC (32-36) g/dl RDW (11.5-14.0) % Plt Count (150-450) K/mm3 MPV (6-9.5) fl Hemoglobin A1c 5.83 (4.5-6.0) % Stl C. diff Tox B Gene NEGATIVE (NEGATIVE) C.difficile 027-NAP1-B1 PRESUMPTIVE NEGATIVE (NEGATIVE) 10/12/18 Range/Units 05:29 WBC 5.0 (4.0-10.5) K/mm3 RBC 3.47 L (4.1-5.4) M/mm3 Hgb 9.9 L (12.0-16.0) gm/dl Hct 33.0 L (35-47) % MCV 95.1 (78-100) fl MCH 28.5 (26-32) pg MCHC 30.0 L D (32-36) g/dl RDW 16.2 H (11.5-14.0) % Plt Count 130 L (150-450) K/mm3 MPV 12.0 H (6-9.5) fl Hemoglobin A1c (4.5-6.0) % Stl C. diff Tox B Gene (NEGATIVE) C.difficile 027-NAP1-B1 (NEGATIVE) Multi-Disciplinary Progress Notes: Multi-Disciplinary Progress Notes 10/11/18 15:18 Case Management Note by Marleni King AT [facility] VERIFIED THEY RECEIVED INITIAL ADMISSION DOCUMENTS REQUESTED Initialized on 10/11/18 15:18 - END OF NOTE 10/11/18 15:05 Case Management Note by Marleni King S/W PATIENT AND , BOTH CONTINUE TO REFUSE A REHAB STAY BUT AGREE TO HAVING [facility] SET UP. THEY WERE GIVEN PROVIDER PREFERENCE LIST. JERZY AT [facility] CONTACTED. THEY ACCEPTED PATIENT. ALL REQUESTED DOCUMENTS FAXED AT THIS TIME TO [phone]. CONFIRMATION RECEIVED. FAMILY NOTIFIED. NURSING IS TO FAX DC INSTRUCTIONS TO [phone] AND CALL [phone] TO NOTIFY THEM WHEN PATIENT IS DCD HOME. THIS WAS ADDED TO REPORT SHEETS. PATIENT AND SPOUSE FEEL LIKE THEY MANAGE WELL AT HOME. SHE CAN AFFORD ANY SCRIPTS UPON DC AND WILL HAVE TRANSPORTATION FOR ANY FOLLOW-UP APTS. THEY CONTINUE TO REPORT AN ADEQUATE HOME ENVIRONMENT AND DENIES THE NEED FOR ANY NEW EQUIPMENT OR ANY OTHER SERVICES. Initialized on 10/11/18 15:05 - END OF NOTE Assessment/Plan (1) Anemia Current Visit: Yes Status: Acute Onset Date: ~10/10/18 Qualifiers: Anemia type: iron deficiency Iron deficiency anemia type: chronic blood loss Qualified Code(s): D50.0 - Iron deficiency anemia secondary to blood loss (chronic) Assessment & Plan: Hemoccult was positive. Pt received 2 units PRBC's yesterday. Poor candidate for colonoscopy. If continued blood loss, may consider upper endoscopy. Code(s): D64.9 - ANEMIA, UNSPECIFIED (2) Blood in stool Current Visit: Yes Status: Acute Code(s): K92.1 - MELENA (3) Abdominal pain Current Visit: Yes Status: Acute Onset Date: ~10/10/18 Qualifiers: Abdominal location: lower abdomen, unspecified Qualified Code(s): R10.30 - Lower abdominal pain, unspecified Assessment & Plan: Continue zosyn and metronidazole. Code(s): R10.9 - UNSPECIFIED ABDOMINAL PAIN (4) Ventral hernia Current Visit: Yes Status: Chronic Onset Date: ~10/10/18 Qualifiers: Obstruction and gangrene presence: without obstruction or gangrene Qualified Code(s): K43.9 - Ventral hernia without obstruction or gangrene Code(s): K43.9 - VENTRAL HERNIA WITHOUT OBSTRUCTION OR GANGRENE (5) Nausea Current Visit: Yes Status: Acute Code(s): R11.0 - NAUSEA (6) Atrial fibrillation Current Visit: No Status: Chronic Qualifiers: Atrial fibrillation type: paroxysmal Qualified Code(s): I48.0 - Paroxysmal atrial fibrillation Assessment & Plan: I was covering for Dr. Wong when patient was admitted and I held her Pradaxa at that time incase she decided she did want to have surgery. It has still been held and would hold off on starting it now as she just required a transfusion for what appears to have been a GI bleed. Code(s): I48.91 - UNSPECIFIED ATRIAL FIBRILLATION (7) GI bleed Current Visit: Yes Status: Acute Assessment & Plan: Continue protonix. Recheck Hgb tomorrow. Code(s): K92.2 - GASTROINTESTINAL HEMORRHAGE, UNSPECIFIED (8) Urinary tract infection Current Visit: Yes Status: Acute Assessment & Plan: remove catheter; on zosyn. Await culture results currently a gram neg. Code(s): N39.0 - URINARY TRACT INFECTION, SITE NOT SPECIFIED
[2018-10-12] MEDS: Protonix 40MG Tablet PO SCH (11:22)
[2018-10-12] MEDS: PHENERGAN 25 MG PO PRN (12:35)
[2018-10-12] MEDS: Colace 100 MG PO SCH (20:42)
[2018-10-12] MEDS: ZOCOR 20MG PO SCH (20:43)
[2018-10-12] MEDS: PATIENT OWN MEDICATION PO SCH (20:43)
[2018-10-12] MEDS: Pepcid 20 MG PO SCH (20:43)
[2018-10-13 06:16] LABS: ANION GAP 6.7 MEQ/L (5-15); BLOOD UREA NITROGEN 8 mg/dL (7-17); CHLORIDE 109 mmol/L (98-107); Calcium 7.8 mg/dL (8.4-10.2); Carbon Dioxide 26 mmol/L (22-30); Creatinine 1 0.73 mg/dL (0.52-1.04); SODIUM 139 mmol/L (137-145)
[2018-10-13] MEDS: FLAGYL 500 MG IVPB 500 MG/100 ML BAG IV SCH ×4 (06:18→23:26)
[2018-10-13] MEDS: Zosyn 3.375GM/100 Ml D5W 3.375 GM/100 ML IVPB IV SCH ×3 (06:18→17:21)
[2018-10-13 06:27] LABS: Glucose 31 mg/dL (74-106)
[2018-10-13 06:28] LABS: Potassium 2.6 mmol/L (3.5-5.1)
[2018-10-13 06:31] LABS: BASOPHIL % 0.2 % (0.0-0.4); Basophil (Absolute #) 0.01 (0-0.4); Eosinophil % 6.3 % (0.00-5.0); Eosinophil (Absolute #) 0.26 (0-0.5); Granulocyte Absolute (ANC) 2.62 (1.4-6.9); Granulocytes % 63.8 % (36.0-66.0); Hematocrit 32.6 % (35-47); Hemoglobin 10.1 gm/dl (12.0-16.0); Lymphocyte (Absolute #) 0.65 (1.0-4.6); Lymphocytes % 15.8 % (24.0-44.0); Mean Cell Volume 93.9 fl (78-100); Mean Corpuscular Hemoglobin 29.1 pg (26-32); Mean Platelet Volume 12.4 fl (6-9.5); Monocyte (Absolute #) 0.57 (0.0-1.3); Monocytes % 13.9 % (0.0-12.0); Platelet Count 144 K/mm3 (150-450); Red Blood Count 3.47 M/mm3 (4.1-5.4); Red Cell Distribution Width 15.9 % (11.5-14.0); White Blood Count 4.1 K/mm3 (4.0-10.5)
[2018-10-13] MEDS ORDERED: Klor Con 10 MEQ PO ONE (06:52)
[2018-10-13] MEDS: Zofran 4 MG/2 ML VIAL IV PRN ×2 (07:23→18:19)
[2018-10-13] MEDS: Neurontin 100 MG PO SCH ×3 (08:00→17:22)
[2018-10-13] MEDS: Dextrose 5% -0.45 NaCl 1000 ML 1,000 ML IV SCH ×3 (08:16→20:29)
[2018-10-13] MEDS: POTASSIUM CHLORIDE 20 mEq IN WATER 100ML 20 MEQ/100 ML BAG IV SCH ×2 (08:19→10:11)
[2018-10-13] MEDS: PHENERGAN 25 MG PO PRN (10:10)
[2018-10-13] MEDS: Ocuvite Tablet PO SCH ×2 (10:10→20:24)
[2018-10-13] MEDS: Cardizem CD 120 MG PO SCH (10:10)
[2018-10-13] MEDS: ACCOLATE 20 MG PO SCH ×2 (10:10→20:24)
[2018-10-13] MEDS: Norco 10/325 MG Tablet PO PRN ×2 (10:11→20:24)
[2018-10-13] MEDS: NYSTOP 30 GM CREAM TOP SCH ×2 (10:12→20:25)
--- NOTE | 2018-10-13 11:13 | PCM.NOTE ---
Date and Time: 10/13/18 1106 Subjective Assessment: Patient had hypoglycemia on her AM labs this AM. They gave her orange juice and ensure which she says has upset her stomach. She has belching now. Her potassium was also found to be low and she is too nauseated to take potassium by mouth right now. Her urine culture grew E. coli that is susceptible to Zosyn. - Review of Systems Constitutional: Weakness Eyes: No Symptoms Ears, Nose, & Throat: No Symptoms Respiratory: No Symptoms Abdominal/Gastrointestinal: Nausea, No Abdominal Pain, No Vomiting, No Diarrhea , No Constipation Genitourinary Symptoms: No Symptoms Musculoskeletal: No Symptoms Skin: No Symptoms Objective Exam General Appearance: no apparent distress, alert, obese Neurologic Exam: alert, cooperative, normal mood/affect Skin Exam: normal color, warm, dry, No rash Respiratory Exam: normal breath sounds, lungs clear, No crackles/rales, No rhonchi, No wheezing Cardiovascular Exam: regular rate/rhythm, normal heart sounds, No murmur, No friction rub, No gallop Gastrointestinal/Abdomen Exam: soft, normal bowel sounds, distention, other ( large known abdominal wall hernia), No tenderness, No mass, No guarding Extremity Exam: other (no c/c/e) OBJECTIVE DATA Vital Signs: Vital Signs - 24 hr Temp Pulse Resp BP Pulse Ox 10/13/18 09:00 96.5 F 104 H 17 134/62 96 10/13/18 08:22 91 H 16 96 10/13/18 03:59 97.9 F 97 H 16 100/52 96 10/12/18 23:58 98.1 F 89 16 96/53 94 L 10/12/18 20:08 98.0 F 89 19 128/60 97 10/12/18 19:25 97 10/12/18 16:45 97.9 F 101 H 18 144/61 96 10/12/18 13:00 98.2 F 105 H 18 133/62 96 Oxygen-Last 24 hours O2 Percentage 2 Liters = 28% O2 Percentage 2 Liters = 28% O2 Percentage 2 Liters = 28% O2 Percentage 2 Liters = 28% O2 Percentage 2 Liters = 28% Pain Assessment - Last Documented Pain Intensity 2 Pain Scale Used 0-10 Pain Scale Intake and Output: Intake & Output 10/11/18 10/12/18 10/13/18 10/14/18 06:59 06:59 06:59 06:59 Intake Total 9633 3887 1581 Output Total 762 3350 1400 100 Balance 1814 206 977 -100 Weight 71.8 kg Lab Results: Accuchecks Date 10/13/18 Date 10/12/18 Date 10/12/18 Date 10/12/18 Time 07:30 Time 21:38 Time 16:30 Time 11:30 Accucheck Value: 115 Accucheck Value: 129 Accucheck Value: 155 Lab Results-Last 24 Hours 10/13/18 10/13/18 10/13/18 Range/Units 05:15 05:15 05:15 WBC 4.1 (4.0-10.5) K/mm3 RBC 3.47 L (4.1-5.4) M/mm3 Hgb 10.1 L (12.0-16.0) gm/dl Hct 32.6 L (35-47) % MCV 93.9 (78-100) fl MCH 29.1 (26-32) pg MCHC 31.0 L D (32-36) g/dl RDW 15.9 H (11.5-14.0) % Plt Count 144 L (150-450) K/mm3 MPV 12.4 H (6-9.5) fl Gran % 63.8 (36.0-66.0) % Eos # (Auto) 0.26 (0-0.5) Absolute Lymphs (auto) 0.65 L (1.0-4.6) Absolute Monos (auto) 0.57 (0.0-1.3) Lymphocytes % 15.8 L (24.0-44.0) % Monocytes % 13.9 H (0.0-12.0) % Eosinophils % 6.3 H (0.00-5.0) % Basophils % 0.2 (0.0-0.4) % Absolute Granulocytes 2.62 (1.4-6.9) Basophils # 0.01 (0-0.4) Sodium 139 (137-145) mmol/L Potassium 2.6 L* (3.5-5.1) mmol/L Chloride 109 H (98-107) mmol/L Carbon Dioxide 26 (22-30) mmol/L Anion Gap 6.7 (5-15) MEQ/L BUN 8 (7-17) mg/dL Creatinine 0.73 (0.52-1.04) mg/dL Estimated GFR > 60.0 ML/MIN Glucose 31 L* (74-106) mg/dL Calcium 7.8 L (8.4-10.2) mg/dL Magnesium 1.9 (1.6-2.3) mg/dL Assessment/Plan (1) Anemia Current Visit: Yes Status: Acute Onset Date: ~10/10/18 Qualifiers: Anemia type: iron deficiency Iron deficiency anemia type: chronic blood loss Qualified Code(s): D50.0 - Iron deficiency anemia secondary to blood loss (chronic) Assessment & Plan: s/p transfusion during this hospitalization; stable now. Code(s): D64.9 - ANEMIA, UNSPECIFIED (2) Blood in stool Current Visit: Yes Status: Acute Code(s): K92.1 - MELENA (3) Abdominal pain Current Visit: Yes Status: Acute Onset Date: ~10/10/18 Qualifiers: Abdominal location: lower abdomen, unspecified Qualified Code(s): R10.30 - Lower abdominal pain, unspecified Assessment & Plan: Continue antibiotics. Continue monitoring. Code(s): R10.9 - UNSPECIFIED ABDOMINAL PAIN (4) Ventral hernia Current Visit: Yes Status: Chronic Onset Date: ~10/10/18 Qualifiers: Obstruction and gangrene presence: without obstruction or gangrene Qualified Code(s): K43.9 - Ventral hernia without obstruction or gangrene Code(s): K43.9 - VENTRAL HERNIA WITHOUT OBSTRUCTION OR GANGRENE (5) Nausea Current Visit: Yes Status: Acute Code(s): R11.0 - NAUSEA (6) Atrial fibrillation Current Visit: No Status: Chronic Qualifiers: Atrial fibrillation type: paroxysmal Qualified Code(s): I48.0 - Paroxysmal atrial fibrillation Code(s): I48.91 - UNSPECIFIED ATRIAL FIBRILLATION (7) GI bleed Current Visit: Yes Status: Acute Code(s): K92.2 - GASTROINTESTINAL HEMORRHAGE, UNSPECIFIED (8) Urinary tract infection Current Visit: Yes Status: Acute Assessment & Plan: Continue zosyn. Code(s): N39.0 - URINARY TRACT INFECTION, SITE NOT SPECIFIED (9) Hypoglycemia Current Visit: Yes Status: Acute Assessment & Plan: Oral antihyperglycemic medication stopped. Will use low dose sliding scale. Code(s): E16.2 - HYPOGLYCEMIA, UNSPECIFIED (10) DM w/o complication type II Current Visit: Yes Status: Acute Code(s): E11.9 - TYPE 2 DIABETES MELLITUS WITHOUT COMPLICATIONS
[2018-10-13] MEDS ORDERED: NovoLOG Insulin SQ PRN (11:42)
[2018-10-13] MEDS: Protonix 40MG Tablet PO SCH (12:03)
[2018-10-13] MEDS: Pepcid 20 MG PO SCH (20:24)
[2018-10-13] MEDS: ZOCOR 20MG PO SCH (20:24)
[2018-10-13] MEDS: Colace 100 MG PO SCH (20:25)
[2018-10-13] MEDS: PATIENT OWN MEDICATION PO SCH (20:25)
[2018-10-14] MEDS: Zosyn 3.375GM/100 Ml D5W 3.375 GM/100 ML IVPB IV SCH ×4 (00:48→19:37)
[2018-10-14 05:39] LABS: BASOPHIL % 0.2 % (0.0-0.4); Basophil (Absolute #) 0.01 (0-0.4); Eosinophil % 8.2 % (0.00-5.0); Eosinophil (Absolute #) 0.33 (0-0.5); Granulocyte Absolute (ANC) 1.89 (1.4-6.9); Granulocytes % 47.1 % (36.0-66.0); Hemoglobin 10.2 gm/dl (12.0-16.0); Lymphocyte (Absolute #) 1.21 (1.0-4.6); Lymphocytes % 30.1 % (24.0-44.0); Mean Corpuscular Hgb Concent. 30.9 g/dl (32-36); Mean Platelet Volume 11.9 fl (6-9.5); Monocyte (Absolute #) 0.58 (0.0-1.3); Monocytes % 14.4 % (0.0-12.0); Platelet Count 150 K/mm3 (150-450); Red Blood Count 3.51 M/mm3 (4.1-5.4); Red Cell Distribution Width 15.9 % (11.5-14.0)
[2018-10-14 05:49] LABS: ANION GAP 7.2 MEQ/L (5-15); BLOOD UREA NITROGEN 5 mg/dL (7-17); CHLORIDE 111 mmol/L (98-107); Carbon Dioxide 25 mmol/L (22-30); Creatinine 1 0.71 mg/dL (0.52-1.04); SODIUM 140 mmol/L (137-145)
[2018-10-14 06:00] LABS: Glucose 35 mg/dL (74-106)
[2018-10-14] MEDS: PHENERGAN 25 MG PO PRN ×2 (06:42→19:37)
[2018-10-14] MEDS ORDERED: Klor Con 10 MEQ PO ONE ×2 (07:00→07:30)
--- NOTE | 2018-10-14 08:37 | PCM.NOTE ---
Date and Time: 10/14/18830 Subjective Assessment: Pt feeling terrible this morning. Nauseated, burping during exam. BS was in the 30s; after glucose gel into the 60s. Lost her IV access last night and RUE quite edematous and painful. Stomach more distended this morning. She started vomiting yesterday after she was given OJ and ensure; vomited throughout the day. - Review of Systems Constitutional: No Fever Abdominal/Gastrointestinal: Abdominal Pain, Nausea, Vomiting, Diarrhea (liquid stools) Objective Exam General Appearance: moderate distress, alert Neurologic Exam: oriented x 3, cooperative Skin Exam: normal color, warm, dry, No rash Respiratory Exam: normal breath sounds, lungs clear, No crackles/rales, No rhonchi, No wheezing Cardiovascular Exam: regular rate/rhythm, normal heart sounds, No murmur Gastrointestinal/Abdomen Exam: distention (firm distended abdomen), No normal bowel sounds (hypoactive), No tenderness, No guarding, No rebound Extremity Exam: swelling (1+ bilat LE edema) OBJECTIVE DATA Vital Signs: Vital Signs - 24 hr Temp Pulse Resp BP Pulse Ox 10/14/18 07:23 94 L 10/14/18 07:20 97.7 F 100 H 20 166/68 96 10/14/18 04:31 98.0 F 110 H 17 132/60 97 10/14/18 00:58 98.5 F 103 H 19 112/72 95 10/13/18 20:05 98.4 F 111 H 18 131/60 96 10/13/18 19:22 116 H 18 97 10/13/18 16:58 98.3 F 107 H 18 141/63 94 L 10/13/18 11:16 95.1 F 123 H 16 163/94 94 L 10/13/18 09:00 96.5 F 104 H 17 134/62 96 Oxygen-Last 24 hours O2 Percentage 2 Liters = 28% O2 Percentage 2 Liters = 28% O2 Percentage 2 Liters = 28% O2 Percentage 2 Liters = 28% O2 Percentage 2 Liters = 28% O2 Percentage 2 Liters = 28% Pain Assessment - Last Documented Pain Intensity 3 Pain Scale Used 0-10 Pain Scale Intake and Output: Intake & Output 10/11/18 10/12/18 10/13/18 10/14/18 11:59 11:59 11:59 11:59 Intake Total 0942 5908 4067 8710 Output Total 1700 2350 1500 1350 Balance 1104 174 055 376 Weight 71.8 kg Lab Results: Accuchecks Date 10/13/18 Date 10/13/18 Date 10/13/18 Time 22:00 Time 16:30 Time 11:15 Accucheck Value: 114 Accucheck Value: 129 Accucheck Value: 144 Lab Results-Last 24 Hours 10/13/18 10/14/18 10/14/18 Range/Units 14:00 05:12 05:12 WBC 4.0 (4.0-10.5) K/mm3 RBC 3.51 L (4.1-5.4) M/mm3 Hgb 10.2 L (12.0-16.0) gm/dl Hct 33.0 L (35-47) % MCV 94.0 (78-100) fl MCH 29.0 (26-32) pg MCHC 30.9 L (32-36) g/dl RDW 15.9 H (11.5-14.0) % Plt Count 150 (150-450) K/mm3 MPV 11.9 H (6-9.5) fl Gran % 47.1 (36.0-66.0) % Eos # (Auto) 0.33 (0-0.5) Absolute Lymphs (auto) 1.21 (1.0-4.6) Absolute Monos (auto) 0.58 (0.0-1.3) Lymphocytes % 30.1 (24.0-44.0) % Monocytes % 14.4 H (0.0-12.0) % Eosinophils % 8.2 H (0.00-5.0) % Basophils % 0.2 (0.0-0.4) % Absolute Granulocytes 1.89 (1.4-6.9) Basophils # 0.01 (0-0.4) Sodium 140 (137-145) mmol/L Potassium 3.4 L 3.0 L (3.5-5.1) mmol/L Chloride 111 H (98-107) mmol/L Carbon Dioxide 25 (22-30) mmol/L Anion Gap 7.2 (5-15) MEQ/L BUN 5 L (7-17) mg/dL Creatinine 0.71 (0.52-1.04) mg/dL Estimated GFR > 60.0 ML/MIN Glucose 35 L* (74-106) mg/dL Calcium 8.0 L (8.4-10.2) mg/dL Radiology Exams: Radiology Procedures Category Date Time Status ABDOMEN 2 VIEW Stat Exams 10/14/18 Ordered Assessment/Plan (1) Abdominal pain Current Visit: Yes Status: Acute Onset Date: ~10/10/18 Qualifiers: Abdominal location: lower abdomen, unspecified Qualified Code(s): R10.30 - Lower abdominal pain, unspecified Assessment & Plan: Getting stat abd xray - discussed NG tube with pt. Ventral hernia is definitely more firm than previously noted. Her comes in about 10 am and will need to discuss with him that this hernia is continuing to be a real issue - may need to decide to discuss hospice vs decide to possibly have surgery. Code(s): R10.9 - UNSPECIFIED ABDOMINAL PAIN (2) Hypoglycemia Current Visit: Yes Status: Acute Assessment & Plan: BS 38 again, despite being off her sulfonylurea x 48h. May simply be because she has no reserves due to illness. Will consider further workup particularly if she has any interest in surgery. Code(s): E16.2 - HYPOGLYCEMIA, UNSPECIFIED (3) Ventral hernia Current Visit: Yes Status: Chronic Onset Date: ~10/10/18 Qualifiers: Obstruction and gangrene presence: without obstruction or gangrene Qualified Code(s): K43.9 - Ventral hernia without obstruction or gangrene Code(s): K43.9 - VENTRAL HERNIA WITHOUT OBSTRUCTION OR GANGRENE (4) Anemia Current Visit: Yes Status: Acute Onset Date: ~10/10/18 Qualifiers: Anemia type: iron deficiency Iron deficiency anemia type: chronic blood loss Qualified Code(s): D50.0 - Iron deficiency anemia secondary to blood loss (chronic) Code(s): D64.9 - ANEMIA, UNSPECIFIED (5) Bilateral pleural effusion Current Visit: Yes Status: Acute Onset Date: ~10/10/18 Code(s): J90 - PLEURAL EFFUSION, NOT ELSEWHERE CLASSIFIED (6) Candidal intertrigo Current Visit: No Status: Chronic Code(s): B37.2 - CANDIDIASIS OF SKIN AND NAIL (7) Atrial fibrillation Current Visit: No Status: Chronic Qualifiers: Atrial fibrillation type: paroxysmal Qualified Code(s): I48.0 - Paroxysmal atrial fibrillation Code(s): I48.91 - UNSPECIFIED ATRIAL FIBRILLATION (8) HX: breast cancer Current Visit: No Status: Chronic Code(s): Z85.3 - PERSONAL HISTORY OF MALIGNANT NEOPLASM OF BREAST (9) DNR (do not resuscitate) Current Visit: Yes Status: Acute
[2018-10-14] MEDS ORDERED: D50W 50 ml Abboject IV PRN (08:45)
[2018-10-14] MEDS ORDERED: GlucaGen 1 MG IM PRN (08:45)
[2018-10-14] MEDS ORDERED: Glutose 15 GM ORAL GEL PO PRN (08:45)
[2018-10-14] MEDS: Zofran 4 MG/2 ML VIAL IV PRN ×2 (09:17→15:20)
[2018-10-14] MEDS: FLAGYL 500 MG IVPB 500 MG/100 ML BAG IV SCH ×3 (10:00→20:46)
[2018-10-14] MEDS: Ocuvite Tablet PO SCH ×3 (10:09→20:41)
[2018-10-14] MEDS: Norco 10/325 MG Tablet PO PRN ×2 (10:09→20:45)
[2018-10-14] MEDS: Cardizem CD 120 MG PO SCH (10:10)
[2018-10-14] MEDS: ACCOLATE 20 MG PO SCH ×2 (10:10→20:41)
--- NOTE | 2018-10-14 10:10 | XRAY ---
Indication: Abdomen pain and distention. Comparison: October 01, 2018. 2 views of the abdomen remain nonacute and nonobstructed with stable incidental vascular calcifications, multilevel degenerative spondylosis, levorotoscoliosis, old right pubic bone fracture, hiatal hernia, and tiny bibasilar effusions. No new/acute findings.
[2018-10-14] MEDS: Neurontin 100 MG PO SCH ×3 (10:12→18:35)
[2018-10-14] MEDS: NYSTOP 30 GM CREAM TOP SCH ×2 (10:15→22:23)
[2018-10-14] MEDS: Protonix 40MG Tablet PO SCH (11:33)
[2018-10-14 12:37] LABS: 027 TOX PROD PRESUMPTIVE NEGATIVE (NEGATIVE); TOXIGENIC C. DIFF ORG NEGATIVE (NEGATIVE)
[2018-10-14] MEDS: ZOCOR 20MG PO SCH (20:41)
[2018-10-14] MEDS: Pepcid 20 MG PO SCH (20:41)
[2018-10-14] MEDS: PATIENT OWN MEDICATION PO SCH (20:42)
[2018-10-14] MEDS: Colace 100 MG PO SCH (20:52)
[2018-10-15] MEDS: Zosyn 3.375GM/100 Ml D5W 3.375 GM/100 ML IVPB IV SCH ×4 (00:13→17:30)
[2018-10-15] MEDS: FLAGYL 500 MG IVPB 500 MG/100 ML BAG IV SCH ×5 (00:54→23:09)
[2018-10-15] MEDS: Neurontin 100 MG PO SCH ×3 (07:45→18:12)
--- NOTE | 2018-10-15 08:44 | PCM.NOTE ---
Date and Time: 10/15/18 0841 Subjective Assessment: Pt is feeling better, still having Nausea but decreased abd pain. Tolerated 2 cups apple juice this morning. had a couple more solid stools. - Review of Systems Constitutional: No Fever Abdominal/Gastrointestinal: Abdominal Pain, Nausea Objective Exam General Appearance: no apparent distress, alert Neurologic Exam: oriented x 3, cooperative Skin Exam: normal color, warm, dry, No rash Respiratory Exam: normal breath sounds, lungs clear, No crackles/rales, No rhonchi, No wheezing Cardiovascular Exam: regular rate/rhythm, normal heart sounds, No murmur Gastrointestinal/Abdomen Exam: soft, normal bowel sounds, distention (somewhat distended ventral hernia; less so than yesterday), No tenderness OBJECTIVE DATA Vital Signs: Vital Signs - 24 hr Temp Pulse Resp BP Pulse Ox 10/15/18 07:15 98 F 78 20 118/58 95 10/15/18 05:00 98.1 F 106 H 18 132/61 95 10/15/18 01:00 98.3 F 109 H 21 125/59 94 L 10/14/18 21:00 98.3 F 113 H 20 142/74 94 L 10/14/18 20:15 110 H 20 94 L 10/14/18 16:41 98.4 F 110 H 18 166/71 96 10/14/18 13:00 99.2 F 130 H 18 137/81 95 Pain Assessment - Last Documented Pain Intensity 0 Pain Scale Used 0-10 Pain Scale Intake and Output: Intake & Output 10/12/18 10/13/18 10/14/18 10/15/18 11:59 11:59 11:59 11:59 Intake Total 3196 2377 1726 2932 Output Total 2350 1500 1500 300 Balance 846 021 797 2088 Lab Results: Accuchecks Date 10/15/18 Date 10/14/18 Date 10/14/18 Date 10/14/18 Date 10/14/18 Date 10/14/18 Time 07:30 Time 01:21 Time 16:00 Time 11:30 Time 08:47 Time 08:47 Accucheck Value: 74 Accucheck Value: 154 Accucheck Value: 83 Accucheck Value: 76 Accucheck Value: 76 Lab Results-Last 24 Hours 10/14/18 Range/Units 10:32 Stl C. 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 Po intake decreased, 0-25%. Glu 35, K+ 3, BUN 5, hgb 10.2, hct 33. New: Pt with inadequate energy intake as r/t poor nutrition diet a/e/b decreased po intake, regular diet order. Pt may benefit from nutrition support. goal #1) maintain po intake >=75% or consider initiate nutrition support within 3-4 days #2) glu wnl. Will monitor and f/u prn. L.JUAN Coats Initialized on 10/14/18 09:47 - END OF NOTE Assessment/Plan (1) Abdominal pain Current Visit: Yes Status: Acute Onset Date: ~10/10/18 Qualifiers: Abdominal location: lower abdomen, unspecified Qualified Code(s): R10.30 - Lower abdominal pain, unspecified Assessment & Plan: improved. Will see how she tolerates po today. Yesterday evening I checked on p tagain; her abd was less distended and she was feeling a little better. Had offered surgery consult again and she was thinking about. Code(s): R10.9 - UNSPECIFIED ABDOMINAL PAIN (2) Hypoglycemia Current Visit: Yes Status: Resolved Assessment & Plan: BS 74 this a.m. Code(s): E16.2 - HYPOGLYCEMIA, UNSPECIFIED (3) Ventral hernia Current Visit: Yes Status: Chronic Onset Date: ~10/10/18 Qualifiers: Obstruction and gangrene presence: without obstruction or gangrene Qualified Code(s): K43.9 - Ventral hernia without obstruction or gangrene Code(s): K43.9 - VENTRAL HERNIA WITHOUT OBSTRUCTION OR GANGRENE (4) Anemia Current Visit: Yes Status: Acute Onset Date: ~10/10/18 Qualifiers: Anemia type: iron deficiency Iron deficiency anemia type: chronic blood loss Qualified Code(s): D50.0 - Iron deficiency anemia secondary to blood loss (chronic) Assessment & Plan: recheck labs Code(s): D64.9 - ANEMIA, UNSPECIFIED (5) Bilateral pleural effusion Current Visit: Yes Status: Acute Onset Date: ~10/10/18 Code(s): J90 - PLEURAL EFFUSION, NOT ELSEWHERE CLASSIFIED (6) Candidal intertrigo Current Visit: No Status: Chronic Code(s): B37.2 - CANDIDIASIS OF SKIN AND NAIL (7) Atrial fibrillation Current Visit: No Status: Chronic Qualifiers: Atrial fibrillation type: paroxysmal Qualified Code(s): I48.0 - Paroxysmal atrial fibrillation Code(s): I48.91 - UNSPECIFIED ATRIAL FIBRILLATION (8) HX: breast cancer Current Visit: No Status: Chronic Code(s): Z85.3 - PERSONAL HISTORY OF MALIGNANT NEOPLASM OF BREAST (9) DNR (do not resuscitate) Current Visit: Yes Status: Acute
[2018-10-15] MEDS: Norco 10/325 MG Tablet PO PRN ×2 (09:34→20:30)
[2018-10-15] MEDS: Cardizem CD 120 MG PO SCH (09:34)
[2018-10-15] MEDS: ACCOLATE 20 MG PO SCH ×2 (09:34→18:12)
[2018-10-15] MEDS: Ocuvite Tablet PO SCH ×2 (09:34→18:12)
[2018-10-15] MEDS: NYSTOP 30 GM CREAM TOP SCH ×2 (09:34→18:13)
[2018-10-15 09:37] LABS: BASOPHIL % 0.5 % (0.0-0.4); Basophil (Absolute #) 0.02 (0-0.4); Eosinophil % 13.9 % (0.00-5.0); Eosinophil (Absolute #) 0.59 (0-0.5); Granulocyte Absolute (ANC) 1.98 (1.4-6.9); Granulocytes % 46.7 % (36.0-66.0); Hematocrit 35.6 % (35-47); Hemoglobin 11.1 gm/dl (12.0-16.0); Lymphocyte (Absolute #) 0.96 (1.0-4.6); Lymphocytes % 22.6 % (24.0-44.0); Mean Cell Volume 93.7 fl (78-100); Mean Corpuscular Hemoglobin 29.2 pg (26-32); Mean Corpuscular Hgb Concent. 31.2 g/dl (32-36); Mean Platelet Volume 11.8 fl (6-9.5); Monocyte (Absolute #) 0.69 (0.0-1.3); Monocytes % 16.3 % (0.0-12.0); Platelet Count 172 K/mm3 (150-450); Red Cell Distribution Width 16.1 % (11.5-14.0); White Blood Count 4.2 K/mm3 (4.0-10.5)
[2018-10-15] MEDS ORDERED: BENADRYL 25 MG CAPSULE PO PRN (10:30)
[2018-10-15] MEDS ORDERED: TYLENOL EXTRA STRENGTH 500 MG PO PRN (10:30)
[2018-10-15] MEDS: Zofran 4 MG/2 ML VIAL IV PRN ×2 (11:07→17:48)
[2018-10-15 11:18] LABS: ALBUMIN 2.5 g/dL (3.5-5.0); ALKALINE PHOSPHATASE 89 U/L (38-126); ANION GAP 9.5 MEQ/L (5-15); BLOOD UREA NITROGEN 4 mg/dL (7-17); CHLORIDE 113 mmol/L (98-107); Calcium 8.5 mg/dL (8.4-10.2); Carbon Dioxide 23 mmol/L (22-30); Creatinine 1 0.76 mg/dL (0.52-1.04); Glucose 94 mg/dL (74-106); Potassium 3.3 mmol/L (3.5-5.1); SGOT/AST 28 U/L (14-36); SGPT/ALT 15 U/L (0-35); SODIUM 142 mmol/L (137-145); Total Protein 5.5 g/dL (6.3-8.2)
[2018-10-15] MEDS: Protonix 40MG Tablet PO SCH (11:27)
[2018-10-15] MEDS: Dextrose 5% -0.45 NaCl 1000 ML 1,000 ML IV SCH (15:23)
[2018-10-15] MEDS: Pepcid 20 MG PO SCH (20:30)
[2018-10-15] MEDS ORDERED: ZOCOR 20MG PO SCH (20:30)
[2018-10-15] MEDS ORDERED: Colace 100 MG PO SCH (20:30)
[2018-10-15] MEDS: PATIENT OWN MEDICATION PO SCH (20:31)
[2018-10-16] MEDS: Zosyn 3.375GM/100 Ml D5W 3.375 GM/100 ML IVPB IV SCH ×2 (00:04→05:27)
[2018-10-16] MEDS: Zofran 4 MG/2 ML VIAL IV PRN ×2 (05:27→13:20)
[2018-10-16 06:12] LABS: ALBUMIN 2.4 g/dL (3.5-5.0); ALKALINE PHOSPHATASE 81 U/L (38-126); ANION GAP 8.3 MEQ/L (5-15); BLOOD UREA NITROGEN 4 mg/dL (7-17); CHLORIDE 112 mmol/L (98-107); Calcium 8.4 mg/dL (8.4-10.2); Carbon Dioxide 22 mmol/L (22-30); Creatinine 1 0.68 mg/dL (0.52-1.04); Glucose 79 mg/dL (74-106); Potassium 3.2 mmol/L (3.5-5.1); SGOT/AST 27 U/L (14-36); SGPT/ALT 14 U/L (0-35); SODIUM 140 mmol/L (137-145); Total Protein 5.2 g/dL (6.3-8.2)
[2018-10-16] MEDS: FLAGYL 500 MG IVPB 500 MG/100 ML BAG IV SCH (06:13)
[2018-10-16] MEDS: PHENERGAN 25 MG PO PRN (06:20)
[2018-10-16] MEDS: Norco 10/325 MG Tablet PO PRN (07:00)
[2018-10-16] MEDS ORDERED: APRESOLINE 20 MG/ML INJ IV PRN (08:35)
--- NOTE | 2018-10-16 08:36 | PCM.NOTE ---
Date and Time: 10/16/18830 Subjective Assessment: Pt is feeling more nauseated again today, despite 4mg IV zofran at 0530 and 25mg IV phenergan at 0630. Still passing small amounts of stool, more formed than previously noted. She was having increased abd pain and abd distension this morning, which has improved somewhat. Yesterday she ate well; ate potatoes at lunch. She has been considering having the surgery for her hernia and is somewhat tearful during our interview this morning. - Review of Systems Constitutional: No Fever Abdominal/Gastrointestinal: Abdominal Pain, Nausea Objective Exam General Appearance: mild distress, alert, anxiety Neurologic Exam: oriented x 3, cooperative Skin Exam: normal color, warm, dry, No rash Ears, Nose, Throat Exam: moist mucous membranes Respiratory Exam: normal breath sounds, lungs clear, No crackles/rales, No rhonchi, No wheezing Cardiovascular Exam: regular rate/rhythm, normal heart sounds, murmur (II/ sys ) Gastrointestinal/Abdomen Exam: soft, normal bowel sounds, tenderness (mild), distention, No guarding, No rebound Extremity Exam: No pedal edema, No swelling Back Exam: normal inspection, No rash OBJECTIVE DATA Vital Signs: Vital Signs - 24 hr Temp Pulse Resp BP Pulse Ox 10/16/18 07:32 97.6 F 120 H 18 147/72 92 L 10/16/18 04:45 97.7 F 107 H 19 141/66 97 10/16/18 00:27 98.2 F 115 H 16 114/57 96 10/15/18 21:00 98.3 F 101 H 19 187/83 95 10/15/18 20:00 95 10/15/18 16:22 97.7 F 108 H 20 143/72 97 10/15/18 12:53 98.2 F 80 20 120/58 96 Oxygen-Last 24 hours O2 Percentage 2 Liters = 28% O2 Percentage 2 Liters = 28% Pain Assessment - Last Documented Pain Intensity 4 Pain Scale Used 0-10 Pain Scale Intake and Output: Intake & Output 10/13/18 10/14/18 10/15/18 10/16/18 11:59 11:59 11:59 11:59 Intake Total 2377 1726 2932 2904 Output Total 1500 1500 300 400 Balance 006 033 8325 5104 Lab Results: Accuchecks Date 10/16/18 Date 10/15/18 Date 10/15/18 Date 10/15/18 Time 07:30 Time 21:45 Time 16:30 Time 11:30 Accucheck Value: 79 Accucheck Value: 150 Accucheck Value: 130 Accucheck Value: 152 Lab Results-Last 24 Hours 10/15/18 10/15/18 10/16/18 Range/Units 08:30 08:30 05:45 WBC 4.2 (4.0-10.5) K/mm3 RBC 3.80 L (4.1-5.4) M/mm3 Hgb 11.1 L (12.0-16.0) gm/dl Hct 35.6 (35-47) % MCV 93.7 (78-100) fl MCH 29.2 (26-32) pg MCHC 31.2 L D (32-36) g/dl RDW 16.1 H (11.5-14.0) % Plt Count 172 (150-450) K/mm3 MPV 11.8 H (6-9.5) fl Gran % 46.7 (36.0-66.0) % Eos # (Auto) 0.59 H (0-0.5) Absolute Lymphs (auto) 0.96 L (1.0-4.6) Absolute Monos (auto) 0.69 (0.0-1.3) Lymphocytes % 22.6 L (24.0-44.0) % Monocytes % 16.3 H (0.0-12.0) % Eosinophils % 13.9 H (0.00-5.0) % Basophils % 0.5 (0.0-0.4) % Absolute Granulocytes 1.98 (1.4-6.9) Basophils # 0.02 (0-0.4) Sodium 142 140 (137-145) mmol/L Potassium 3.3 L 3.2 L (3.5-5.1) mmol/L Chloride 113 H 112 H (98-107) mmol/L Carbon Dioxide 23 22 (22-30) mmol/L Anion Gap 9.5 8.3 (5-15) MEQ/L BUN 4 L 4 L (7-17) mg/dL Creatinine 0.76 0.68 (0.52-1.04) mg/dL Estimated GFR > 60.0 > 60.0 ML/MIN Glucose 94 79 (74-106) mg/dL Calcium 8.5 8.4 (8.4-10.2) mg/dL Total Bilirubin 0.30 0.30 (0.2-1.3) mg/dL AST 28 27 (14-36) U/L ALT 15 14 (0-35) U/L Alkaline Phosphatase 89 81 (38-126) U/L Serum Total Protein 5.5 L 5.2 L (6.3-8.2) g/dL Albumin 2.5 L 2.4 L (3.5-5.0) g/dL Radiology Exams: Radiology Procedures Category Date Time Status ABDOMEN 2 VIEW Stat Exams 10/14/18 09:55 Completed Multi-Disciplinary Progress Notes: Multi-Disciplinary Progress Notes 10/15/18 10:10 (created 10/15/18 17:20) Case Management Note by Neetu Preciado DISCHARGE PLAN REVIEWED WITH PT AND PT'S . REPORTS THAT THEY ARE PLANNING TO RETURN HOME WITH [facility]. REPORTS THAT THEY ARE GOING TO HAVE A DISCUSSION WITH THEIR CHILDREN, ABOUT SURGERY VS HOSPICE, WHILE THEIR CHILDREN ARE HOME VISITING FOR THE HOLIDAY. REPORTS THAT THEY ARE HOPING THAT THEY CAN DISCHARGE TOMORROW, IF PT IS TOLERATING DIET AND NO ABD PAIN. DENIES ADDNL NEEDS AT PRESENT. WILL CONTINUE TO FOLLOW AND ASSESS FOR ALL DC NEEDS. Initialized on 10/15/18 17:20 - END OF NOTE Assessment/Plan (1) Ventral hernia Current Visit: Yes Status: Chronic Onset Date: ~10/10/18 Qualifiers: Obstruction and gangrene presence: without obstruction or gangrene Qualified Code(s): K43.9 - Ventral hernia without obstruction or gangrene Assessment & Plan: with recent large bowel obstruction. Had an acute care stay, in which surgery was consulted and she refused surgery, followed by a swing bed stay. Was discharged to home and returned less than 48 hours later and was admitted and placed on IV antibiotics as CT scan showed small and large bowel in the hernia with fluid leveling, and early diverticulitis. She is on day #7 of zosyn and flagyl. I am going to d/c the antibiotics in hopes that will improve her nausea. She is passing small amounts of stool at a time. Has had a jesse course and continues to have nausea and abdominal pain. Code(s): K43.9 - VENTRAL HERNIA WITHOUT OBSTRUCTION OR GANGRENE (2) Abdominal pain Current Visit: Yes Status: Acute Onset Date: ~10/10/18 Qualifiers: Abdominal location: lower abdomen, unspecified Qualified Code(s): R10.30 - Lower abdominal pain, unspecified Code(s): R10.9 - UNSPECIFIED ABDOMINAL PAIN (3) Hypoglycemia Current Visit: Yes Status: Resolved Code(s): E16.2 - HYPOGLYCEMIA, UNSPECIFIED (4) Anemia Current Visit: Yes Status: Acute Onset Date: ~10/10/18 Qualifiers: Anemia type: iron deficiency Iron deficiency anemia type: chronic blood loss Qualified Code(s): D50.0 - Iron deficiency anemia secondary to blood loss (chronic) Code(s): D64.9 - ANEMIA, UNSPECIFIED (5) Bilateral pleural effusion Current Visit: Yes Status: Acute Onset Date: ~10/10/18 Code(s): J90 - PLEURAL EFFUSION, NOT ELSEWHERE CLASSIFIED (6) Candidal intertrigo Current Visit: No Status: Chronic Code(s): B37.2 - CANDIDIASIS OF SKIN AND NAIL (7) Atrial fibrillation Current Visit: No Status: Chronic Qualifiers: Atrial fibrillation type: paroxysmal Qualified Code(s): I48.0 - Paroxysmal atrial fibrillation Assessment & Plan: Pt states Dr. Garcia had said he would clear her for emergent but not elective surgery. Code(s): I48.91 - UNSPECIFIED ATRIAL FIBRILLATION (8) HX: breast cancer Current Visit: No Status: Chronic Code(s): Z85.3 - PERSONAL HISTORY OF MALIGNANT NEOPLASM OF BREAST (9) DNR (do not resuscitate) Current Visit: Yes Status: Acute
[2018-10-16] MEDS: Ocuvite Tablet PO SCH (09:36)
[2018-10-16] MEDS: Neurontin 100 MG PO SCH ×2 (09:36→11:43)
[2018-10-16] MEDS: ACCOLATE 20 MG PO SCH (09:36)
[2018-10-16] MEDS: NYSTOP 30 GM CREAM TOP SCH (09:36)
[2018-10-16] MEDS: Cardizem CD 120 MG PO SCH (09:37)
[2018-10-16] MEDS ORDERED: Klor Con 10 MEQ PO SCH (10:00)
[2018-10-16] MEDS: Protonix 40MG Tablet PO SCH (11:43)
--- NOTE | 2018-10-16 13:24 | CONS ---
CONSULT DATE: 10/16/2018 REASON FOR CONSULT: Bowel obstruction. HISTORY: An 83 year-old white female who has been in the hospital for three or four weeks with bowel obstruction, incarcerated ventral hernia. She intermittently opened up and she did not want any surgical intervention and she subsequently made it home for just a day and then she represented. She said she has one day okay and then one day she is bloated up, nauseated and vomiting. She just cannot live this way. She is seen and examined. She has fairly large ventral abdominal hernia. It is reasonably soft. It is incarcerated but certainly not strangulated. She has moderate abdominal distention. She has no peritoneal signs. Plain films consistent with ileus. Her previous CT consistent with partial bowel obstruction. She is alert, oriented and she has decided she would like to have surgical intervention. I think a complete enterolysis and repair of the ventral hernia would solve the problem, this was discussed with her and her and they wish to proceed. Anesthesia has refused anesthetic for this individual at this hospital at this time. We will transfer her up to [facility]. This was discussed with them and we will be proceeding towards [facility].
[2018-10-16 14:30] VITALS: BP 144/72; PULSE 130; O2SAT 96
== END 2018-10-16 14:20 | disposition home or self-care (01) | DRG 392 ==
LOC: ED 21:44 → MED SURG 10-10 02:11 → OBSVTOIN 10-10 08:45 → ICU 10-11 03:01 → MED SURG 10-11 13:33
PROVIDERS: ADMIT Family Medicine; ATTEND Family Medicine
DX: R10.9 Unspecified abdominal pain (principal); J90 Pleural effusion, not elsewhere classified; K56.609 Unspecified intestinal obstruction, unspecified as to partial versus complete obstruction; K92.2 Gastrointestinal hemorrhage, unspecified; N39.0 Urinary tract infection, site not specified; K92.1 Melena; K43.9 Ventral hernia without obstruction or gangrene; B37.2 Candidiasis of skin and nail; K59.00 Constipation, unspecified; K56.600 Partial intestinal obstruction, unspecified as to cause; Z79.01 Long term (current) use of anticoagulants; J45.909 Unspecified asthma, uncomplicated; E11.649 Type 2 diabetes mellitus with hypoglycemia without coma; Z79.4 Long term (current) use of insulin; E11.9 Type 2 diabetes mellitus without complications; R01.1 Cardiac murmur, unspecified; D64.9 Anemia, unspecified; R11.0 Nausea; K44.9 Diaphragmatic hernia without obstruction or gangrene; Z85.3 Personal history of malignant neoplasm of breast; I48.91 Unspecified atrial fibrillation; Z79.899 Other long term (current) drug therapy; Z95.0 Presence of cardiac pacemaker; K57.90 Diverticulosis of intestine, part unspecified, without perforation or abscess without bleeding
CPT/HCPCS: 01916; 36000; 36415; 36430; 74021; 74177; 80048; 80053; 81001; 82150; 82272; 82947; 82962; 83036; 83690; 83735; 84132; 85014; 85018; 85025; 85027; 86850; 86900; 86901; 86922; 87077; 87086; 87186; 87493; 93005; 93268; 94760; 94762; 96360; 96374; 96375; 99100; 99285; P9016; J1940; J2270; J2405; J2543; J3480; A9270-GY

== ENCOUNTER 2018-11-10 09:22 | Inpatient (IN) | payer MEDICARE ==
[2018-11-10] MEDS ORDERED: DUONEB 0.5-3 MG/3 ml Neb IH ONE ×2 (09:35→09:57)
[2018-11-10] MEDS ORDERED: Zofran 4 MG/2 ML VIAL IV ONE (09:37)
[2018-11-10] MEDS ORDERED: Sodium Chloride 0.9% 1000 ML 1,000 ML IV SCH (09:45)
[2018-11-10 09:55] LABS: Basophil (Absolute #) 0 (0-0.4); Eosinophil % 0.5 % (0.00-5.0); Eosinophil (Absolute #) 0.03 (0-0.5); Granulocyte Absolute (ANC) 4.83 (1.4-6.9); Granulocytes % 79.9 % (36.0-66.0); Hematocrit 37.8 % (35-47); Hemoglobin 11.3 gm/dl (12.0-16.0); Lymphocyte (Absolute #) 0.68 (1.0-4.6); Lymphocytes % 11.3 % (24.0-44.0); Mean Cell Volume 99.2 fl (78-100); Mean Corpuscular Hgb Concent. 29.9 g/dl (32-36); Mean Platelet Volume 10.9 fl (6-9.5); Monocytes % 8.3 % (0.0-12.0); Platelet Count 238 K/mm3 (150-450); Red Blood Count 3.81 M/mm3 (4.1-5.4); Red Cell Distribution Width 18.2 % (11.5-14.0)
[2018-11-10 09:58] LABS: Mean Corpuscular Hemoglobin 29.6 pg (26-32)
[2018-11-10] MEDS ORDERED: Zofran 4 MG/2 ML VIAL ONE (10:02)
[2018-11-10 10:05] LABS: Lactic Acid 2.2 (0.4-2.0)
[2018-11-10 10:11] LABS: INR 1.23 (0.8-3.0)
[2018-11-10 10:27] LABS: INFLUENZA A NEGATIVE (NEGATIVE); INFLUENZA B NEGATIVE (NEGATIVE); RESPIRATORY SYNCTIAL VIRUS NEGATIVE (Negative)
[2018-11-10 10:28] LABS: ALBUMIN 3.1 g/dL (3.5-5.0); ALKALINE PHOSPHATASE 113 U/L (38-126); ANION GAP 11.5 MEQ/L (5-15); BLOOD UREA NITROGEN 11 mg/dL (7-17); CHLORIDE 113 mmol/L (98-107); Calcium 8.9 mg/dL (8.4-10.2); Carbon Dioxide 27 mmol/L (22-30); Creatinine 1 0.55 mg/dL (0.52-1.04); Glucose 65 mg/dL (74-106); NT PRO BNP 8460 pg/mL (0-1800); Potassium 3.6 mmol/L (3.5-5.1); SGOT/AST 34 U/L (14-36); SGPT/ALT 17 U/L (0-35); SODIUM 148 mmol/L (137-145); Total Protein 6.5 g/dL (6.3-8.2)
--- NOTE | 2018-11-10 11:01 | ERPHSYRPT ---
- History of Present Illness Time Seen by Provider: 11/10/18 09:24 Source: patient, family, old records Exam Limitations: no limitations Patient Subjective Stated Complaint: "I am being treated for UTI and today had to get my oxygen out because I have been sob today. " Triage Nursing Assessment: Pt aaox3, color pale, resp mildly moderately labored with exertion, stands with assist, Lung sounds clear bilaterally at this time. states has been wheezing some today however. abd soft, nontender, bowel sounds heard. No edema to extemeties noted. Physician History: developed SOB today; no pain; no cough , at rest; worse with exertion; no fever or expsoure or travel; here with ; being treated for UTI; changed ATBs 2- 3 days ago; nauseated; emesis with eating; water ok; Timing/Duration: today (sob), day(s) (2-3 days nausea; ), worse Activities at Onset: rest Severity of Dyspnea-Max: severe Severity of Dyspnea-Current: moderate Possible Cause: occasional episodes Modifying Factors: Improves With: nothing Associated Symptoms: constant, loss of appetite International travel in last 2 weeks: No Allergies/Adverse Reactions: metoclopramide HCl [From Infrafone] Allergy (Verified 09/22/18 09:30) vomiting Sulfa (Sulfonamide Antibiotics) Allergy (Verified 09/22/18 09:30) rash Home Medications: Atenolol 50 mg [Tenormin 50 mg] 50 mg PO DAILY 07/03/16 [History] Atorvastatin Calcium [Lipitor 20MG Tablet] 20 mg PO HS 07/03/16 [History] Gabapentin [Neurontin] 100 mg PO BID 07/03/16 [History] Glimepiride 2 mg [Amaryl 2 MG] 2 mg PO DAILY 07/03/16 [History] Zafirlukast 20 mg [Accolate 20 mg] 20 mg PO BID 07/03/16 [History] Acetaminophen/Diphenhydramine [Tylenol Pm Ex-Strength Caplet] 2 each PO HS PRN 08/26/16 [History] Oxazepam 15 mg PO HS 08/26/16 [History] Furosemide 40 mg [Lasix 40 MG] 20 mg PO DAILY 07/31/17 [History] Docusate Sodium 100 mg [Colace 100 MG] 200 mg PO HS 08/08/17 [History] Vit A/Vit C/Vit E/Zinc/Copper [Preservision Areds Softgel] 1 each PO BID [History] Esomeprazole Magnesium [Nexium] 20 mg PO DAILY 10/10/17 [History] PANTOPRAZOLE 40 mg Tablet [Protonix 40MG Tablet] 40 mg PO LUNCH 10/22/17 [ History] Promethazine HCl 25 mg [Phenergan 25 mg] 25 mg PO Q6H PRN PRN 11/21/17 [ History] Dabigatran Etexilate Mesylate [Pradaxa] 150 mg PO BID 12/24/17 [History] Diltiazem HCl [Diltiazem 24Hr ER] 120 mg PO DAILY 09/22/18 [History] Famotidine 20 mg [Pepcid 20 MG] 20 mg PO HS 09/22/18 [History] Gabapentin 200 mg PO EVENING MEAL 09/27/18 [History] Hx Tetanus, Diphtheria Vaccination/Date Given: Yes Hx Influenza Vaccination/Date Given: Yes Hx Pneumococcal Vaccination/Date Given: Yes Immunizations Up to Date: Yes - Review of Systems Constitutional: No Symptoms Eyes: No Symptoms Ears, Nose, & Throat: No Symptoms Respiratory: Cyanosis, Dyspnea, Dyspnea on Exertion (AYALA), No Cough, No Wheezing Cardiac: Palpitations, No Chest Pain, No Edema, No Syncope Abdominal/Gastrointestinal: Nausea, Vomiting, No Abdominal Pain, No Diarrhea, No Hematemesis, No Hematochezia, No Melena Genitourinary Symptoms: No Symptoms Musculoskeletal: No Symptoms Skin: No Symptoms Neurological: No Symptoms Psychological: No Symptoms Endocrine: No Symptoms Hematologic/Lymphatic: No Symptoms Immunological/Allergic: No Symptoms - Past Medical History Pertinent Past Medical History: Yes Neurological History: No Pertinent History ENT History: No Pertinent History Cardiac History: Arrhythmia, Other Respiratory History: Asthma, Pneumonia Endocrine Medical History: Diabetes Type II Musculoskeletal History: No Pertinent History GI Medical History: Hernia History: No Pertinent History Psycho-Social History: No Pertinent History Female Reproductive Disorders: Breast Cancer Other Medical History: A FIB, heart murmer - Past Surgical History Past Surgical History: Yes Neuro Surgical History: No Pertinent History Cardiac: Cardiac Catheterization, Pacemaker Respiratory: No Pertinent History Gastrointestinal: No Pertinent History Genitourinary: No Pertinent History Musculoskeletal: No Pertinent History Female Surgical History: Mastectomy Other Surgical History: L mastectomy april 10 - Social History Smoking Status: Former smoker How long have you smoked: quit 24 yr Exposure to second hand smoke: No Alcohol Use: None Drug Use: none Patient Lives Alone: No (Lives with spouse) Significant Family History: no pertinent family hx - Female History Hx Now: No - Nursing Vital Signs Nursing Vital Signs: Initial Vital Signs O2 Sat by Pulse Oximetry 90 L 11/10/18 09:35 Pain Scale Pain Intensity 0 - Physical Exam General Appearance: moderate distress (sob), alert, anxiety, thin Eye Exam: PERRL/EOMI, eyes nml inspection Ears, Nose, Throat Exam: hearing grossly normal, normal ENT inspection, normal pharynx Neck Exam: normal inspection, non-tender, supple, full range of motion, No carotid bruit, No JVD, No subcutaneous emphysema Respiratory Exam: respiratory distress, airway intact, diminished breath sounds (bilateral), crackles/rales, wheezing, other, No normal breath sounds, No chest tenderness, No lungs clear, No pleural rub Cardiovascular/Chest Exam: normal heart sounds, murmur (3/6 ELISEO), tachycardia, irregular, No regular rate/rhythm, No edema, No JVD Abdominal/Gastrointestinal Exam: soft, normal bowel sounds, other (well healing incision for recent hernia repair TG of this year), No tenderness, No distention , No guarding, No pulsatile mass, No rebound, No organomegaly Rectal Exam: deferred Extremity Exam: non-tender, normal range of motion, normal inspection, no calf tenderness, no pedal edema, No david's sign Peripheral Pulses Exam: carotid (R): 4+, carotid (L): 4+, femoral (R): 4+, femoral (L): 4+, dorsalis-pedis (R): 3+, dorsalis-pedis (L): 3+ Neurologic Exam: alert, oriented x 3, cooperative, asphalt mixer II-XII nml as tested, nml station & gait Skin Exam: warm, dry, No normal color (pale dusky nail beds), No rash, No petechiae Lymphatic Exam: No adenopathy SpO2 Interpretation: hypoxic, O2 applied SpO2: 95 (after o@; was 87 on RA) Oxygen Delivery: Nasal Cannula - Course Nursing assessment & vital signs reviewed: Yes EKG Interpreted by Me: RATE (6), A-fib (RVR), Left Empire Deviation, NORMAL INTERVALS, NORMAL QRS, Non-specific ST Changes, Other (no acute change form except rate) Rhythm Strip: Rate (116), Atrial Fibrillation, Atrial Tachycardia - Radiology Exams Chest X-ray Interpretation: Interpreted by me, No Pneumothorax, Infiltrates (LLL; ), Other (effusion RLL' pacemaker) - CT Exams Chest CT Interpretation: Tele-radiologist Report, No PE, Other (increased effusion and atelelctasis bilateral) Ordered Tests: Active Orders 24 hr Category Date Time Status Call Admit Doctor for Orders ROUTINE Care 11/10/18 12:28 Ordered Metallurgical Engineering Technician STAT Care 11/10/18 09:36 Active Cath for Specimen-Straight STAT Care 11/10/18 09:36 Active Code Status Order ROUTINE Care 11/10/18 12:28 Ordered EKG-ER Only STAT Care 11/10/18 09:35 Active IV Care Q6H Care 11/10/18 12:28 Ordered IV Insertion STAT Care 11/10/18 09:35 Active Implement CHF Pathway ROUTINE Care 11/10/18 12:28 Ordered Oxygen-ED Only NASAL CANNULA 2 lpm Care 11/10/18 09:[address] in Observation ROUTINE Care 11/10/18 12:28 Ordered Pulse Oximetry (ED) STAT Care 11/10/18 09:35 Active Weight,Daily 0600 Care 11/10/18 12:28 Ordered CHEST 1 VIEW (PORTABLE) Stat Exams 11/10/18 10:04 Taken CHEST WITH CONTRAST [CT] Stat Exams 11/10/18 11:24 Taken BMP AM.LAB Lab 11/11/18 04:00 Ordered CBC AM.LAB Lab 11/11/18 04:00 Ordered CBC W DIFF Stat Lab 11/10/18 09:35 Completed CMP Stat Lab 11/10/18 09:40 Completed D-DIMER QUANTITATION Stat Lab 11/10/18 09:40 Completed Lactic Acid Stat Lab 11/10/18 09:50 Completed Lactic Acid Stat Lab 11/10/18 12:04 Ordered MAGNESIUM Stat Lab 11/10/18 09:40 Completed NT PRO BNP AM.LAB Lab 11/11/18 04:00 Ordered NT PRO BNP Stat Lab 11/10/18 09:40 Completed PROTIME WITH INR Stat Lab 11/10/18 09:40 Completed TROPONIN Q3H Lab 11/10/18 09:40 Completed TROPONIN Q3H Lab 11/10/18 12:45 Ordered TROPONIN Q3H Lab 11/10/18 15:45 Ordered TROPONIN Q3H Lab 11/10/18 18:45 Ordered TROPONIN Q3H Lab 11/10/18 21:45 Ordered UA W/RFX UR CULTURE Stat Lab 11/10/18 10:59 Completed Oxygen NASAL CANNULA 2 lpm RT 11/10/18 12:28 Ordered Peak Expiratory Flow Rate ONCE RT 11/10/18 09:35 Active Respiratory Nebulizer STAT RT 11/10/18 09:37 Active Respiratory Therapy Assessment DAILY RT 11/10/18 10:15 Active Transfer Order Routine Transfer 11/10/18 Ordered Medication Summary Generic Name Dose Route Start Last Admin Trade Name Freq PRN Reason Stop Dose Admin Sodium Chloride 1,000 mls @ 50 mls/hr 11/10/18 09:45 11/10/18 10:06 Sodium Chloride 0.9% 1000 Ml IV 12/10/18 09:44 50 mls/hr .Q20H RICHARD Administration Discontinued Medications Generic Name Dose Route Start Last Admin Trade Name Freq PRN Reason Stop Dose Admin Albuterol/Ipratropium 3 ml 11/10/18 09:35 11/10/18 10:13 Duoneb 0.5-3 Mg/3 Ml Neb IH 11/10/18 09:36 3 ml STAT ONE Administration Albuterol/Ipratropium Confirm 11/10/18 09:57 Duoneb 0.5-3 Mg/3 Ml Neb Administered 11/10/18 09:58 Dose 3 ml IH .STK-MED ONE Ondansetron HCl 4 mg 11/10/18 09:37 11/10/18 10:06 Zofran 4 Mg/2 Ml Vial IV 11/10/18 09:38 4 mg STAT ONE Administration Ondansetron HCl Confirm 11/10/18 10:02 Zofran 4 Mg/2 Ml Vial Administered 11/10/18 10:03 Dose 4 mg .ROUTE .STK-MED ONE Lab/Rad Data: Laboratory Result Diagrams 11/10/18 09:35 11/10/18 09:40 Laboratory Results 11/10/18 11/10/18 11/10/18 Range/Units 10:59 09:50 09:45 WBC (4.0-10.5) K/mm3 RBC (4.1-5.4) M/mm3 Hgb (12.0-16.0) gm/dl Hct (35-47) % MCV (78-100) fl MCH (26-32) pg MCHC (32-36) g/dl RDW (11.5-14.0) % Plt Count (150-450) K/mm3 MPV (6-9.5) fl Gran % (36.0-66.0) % Eos # (Auto) (0-0.5) Absolute Lymphs (auto) (1.0-4.6) Absolute Monos (auto) (0.0-1.3) Lymphocytes % (24.0-44.0) % Monocytes % (0.0-12.0) % Eosinophils % (0.00-5.0) % Basophils % (0.0-0.4) % Absolute Granulocytes (1.4-6.9) Basophils # (0-0.4) PT (9.95-12.35) SECONDS INR (0.8-3.0) D-Dimer (215-500) ng/mL Sodium (137-145) mmol/L Potassium (3.5-5.1) mmol/L Chloride (98-107) mmol/L Carbon Dioxide (22-30) mmol/L Anion Gap (5-15) MEQ/L BUN (7-17) mg/dL Creatinine (0.52-1.04) mg/dL Estimated GFR ML/MIN Glucose (74-106) mg/dL Lactic Acid 2.2 H (0.4-2.0) Calcium (8.4-10.2) mg/dL Magnesium (1.6-2.3) mg/dL Total Bilirubin (0.2-1.3) mg/dL AST (14-36) U/L ALT (0-35) U/L Alkaline Phosphatase (38-126) U/L Troponin I (0.000-0.034) ng/mL NT-Pro-B Natriuret Pep (0-1800) pg/mL Serum Total Protein (6.3-8.2) g/dL Albumin (3.5-5.0) g/dL Urine Color YELLOW (YELLOW) Urine Appearance CLEAR (CLEAR) Urine pH 7.0 (5-6) Ur Specific [place] 1.016 (1.005-1.025) Urine Protein 30 (Negative) Urine Ketones TRACE (NEGATIVE) Urine Blood NEGATIVE (0-5) Grey/ul Urine Nitrite NEGATIVE (NEGATIVE) Urine Bilirubin NEGATIVE (NEGATIVE) Urine Urobilinogen NEGATIVE (0-1) mg/dL Ur Leukocyte Esterase NEGATIVE (NEGATIVE) Urine WBC (Auto) 3-5 (0-5) /HPF Urine RBC (Auto) 0-2 (0-2) /HPF U Epithel Cells (Auto) NONE (FEW) /HPF Urine Bacteria (Auto) NONE (NEGATIVE) /HPF Urine Mucus (Auto) SLIGHT (NEGATIVE) /HPF Urine Culture Reflexed NO (NO) Urine Glucose NEGATIVE (NEGATIVE) mg/dL Influenza Type A Ag NEGATIVE (NEGATIVE) Influenza Type B Ag NEGATIVE (NEGATIVE) RSV (PCR) NEGATIVE (Negative) 11/10/18 11/10/18 11/10/18 Range/Units 09:40 09:40 09:40 WBC (4.0-10.5) K/mm3 RBC (4.1-5.4) M/mm3 Hgb (12.0-16.0) gm/dl Hct (35-47) % MCV (78-100) fl MCH (26-32) pg MCHC (32-36) g/dl RDW (11.5-14.0) % Plt Count (150-450) K/mm3 MPV (6-9.5) fl Gran % (36.0-66.0) % Eos # (Auto) (0-0.5) Absolute Lymphs (auto) (1.0-4.6) Absolute Monos (auto) (0.0-1.3) Lymphocytes % (24.0-44.0) % Monocytes % (0.0-12.0) % Eosinophils % (0.00-5.0) % Basophils % (0.0-0.4) % Absolute Granulocytes (1.4-6.9) Basophils # (0-0.4) PT 14.3 H (9.95-12.35) SECONDS INR 1.23 (0.8-3.0) D-Dimer 1343 H* (215-500) ng/mL Sodium 148 H (137-145) mmol/L Potassium 3.6 (3.5-5.1) mmol/L Chloride 113 H (98-107) mmol/L Carbon Dioxide 27 (22-30) mmol/L Anion Gap 11.5 (5-15) MEQ/L BUN 11 (7-17) mg/dL Creatinine 0.55 (0.52-1.04) mg/dL Estimated GFR > 60.0 ML/MIN Glucose 65 L (74-106) mg/dL Lactic Acid (0.4-2.0) Calcium 8.9 (8.4-10.2) mg/dL Magnesium 2.0 (1.6-2.3) mg/dL Total Bilirubin 0.50 (0.2-1.3) mg/dL AST 34 (14-36) U/L ALT 17 (0-35) U/L Alkaline Phosphatase 113 (38-126) U/L Troponin I 0.013 (0.000-0.034) ng/mL NT-Pro-B Natriuret Pep 8460 H (0-1800) pg/mL Serum Total Protein 6.5 (6.3-8.2) g/dL Albumin 3.1 L (3.5-5.0) g/dL Urine Color (YELLOW) Urine Appearance (CLEAR) Urine pH (5-6) Ur Specific [place] (1.005-1.025) Urine Protein (Negative) Urine Ketones (NEGATIVE) Urine Blood (0-5) Grey/ul Urine Nitrite (NEGATIVE) Urine Bilirubin (NEGATIVE) Urine Urobilinogen (0-1) mg/dL Ur Leukocyte Esterase (NEGATIVE) Urine WBC (Auto) (0-5) /HPF Urine RBC (Auto) (0-2) /HPF U Epithel Cells (Auto) (FEW) /HPF Urine Bacteria (Auto) (NEGATIVE) /HPF Urine Mucus (Auto) (NEGATIVE) /HPF Urine Culture Reflexed (NO) Urine Glucose (NEGATIVE) mg/dL Influenza Type A Ag (NEGATIVE) Influenza Type B Ag (NEGATIVE) RSV (PCR) (Negative) 11/10/18 Range/Units 09:35 WBC 6.0 (4.0-10.5) K/mm3 RBC 3.81 L (4.1-5.4) M/mm3 Hgb 11.3 L (12.0-16.0) gm/dl Hct 37.8 (35-47) % MCV 99.2 (78-100) fl MCH 29.6 (26-32) pg MCHC 29.9 L (32-36) g/dl RDW 18.2 H (11.5-14.0) % Plt Count 238 (150-450) K/mm3 MPV 10.9 H (6-9.5) fl Gran % 79.9 H (36.0-66.0) % Eos # (Auto) 0.03 (0-0.5) Absolute Lymphs (auto) 0.68 L (1.0-4.6) Absolute Monos (auto) 0.50 (0.0-1.3) Lymphocytes % 11.3 L (24.0-44.0) % Monocytes % 8.3 (0.0-12.0) % Eosinophils % 0.5 (0.00-5.0) % Basophils % 0.0 (0.0-0.4) % Absolute Granulocytes 4.83 (1.4-6.9) Basophils # 0 (0-0.4) PT (9.95-12.35) SECONDS INR (0.8-3.0) D-Dimer (215-500) ng/mL Sodium (137-145) mmol/L Potassium (3.5-5.1) mmol/L Chloride (98-107) mmol/L Carbon Dioxide (22-30) mmol/L Anion Gap (5-15) MEQ/L BUN (7-17) mg/dL Creatinine (0.52-1.04) mg/dL Estimated GFR ML/MIN Glucose (74-106) mg/dL Lactic Acid (0.4-2.0) Calcium (8.4-10.2) mg/dL Magnesium (1.6-2.3) mg/dL Total Bilirubin (0.2-1.3) mg/dL AST (14-36) U/L ALT (0-35) U/L Alkaline Phosphatase (38-126) U/L Troponin I (0.000-0.034) ng/mL NT-Pro-B Natriuret Pep (0-1800) pg/mL Serum Total Protein (6.3-8.2) g/dL Albumin (3.5-5.0) g/dL Urine Color (YELLOW) Urine Appearance (CLEAR) Urine pH (5-6) Ur Specific [place] (1.005-1.025) Urine Protein (Negative) Urine Ketones (NEGATIVE) Urine Blood (0-5) Grey/ul Urine Nitrite (NEGATIVE) Urine Bilirubin (NEGATIVE) Urine Urobilinogen (0-1) mg/dL Ur Leukocyte Esterase (NEGATIVE) Urine WBC (Auto) (0-5) /HPF Urine RBC (Auto) (0-2) /HPF U Epithel Cells (Auto) (FEW) /HPF Urine Bacteria (Auto) (NEGATIVE) /HPF Urine Mucus (Auto) (NEGATIVE) /HPF Urine Culture Reflexed (NO) Urine Glucose (NEGATIVE) mg/dL Influenza Type A Ag (NEGATIVE) Influenza Type B Ag (NEGATIVE) RSV (PCR) (Negative) reviewed - Progress Progress: re-examined (after meds and resp treatment) Air Movement: poor Progress Note: 11/10/18 11:08 no significant releif with respiratory treatment; moving air slightly better; Sat on now 95% afteer treatmetn and O2; elevated D dimer [address]; CXR with changes RLL anf LLL suspect infection; p BNP up at 8460; glu low at 65; elevated Na= 148 and Cl 113INR 1.23 on prodaxial; Inf A&B neg RSV negCTNI 0.013; lact 2.2 ; CBC ok; patient in CT checking for PE 11/10/18 11:[address]; family at bedside; results pending 11/10/18 12:25 CT neg for PE ; Dr Wong consulted and will admit to obs; family notified Blood Culture(s) Obtained: Yes Discussed with : Marvin (consulted adn will place in obs) Will see patient in: hospital (observation) Counseled pt/family regarding: lab results, diagnosis, need for follow-up, rad results - Departure Time of Disposition: 12:26 Departure Disposition: Observation Clinical Impression: Atrial fibrillation, Hypoxia, CHF (congestive heart failure), AF w RVR Condition: Serious Critical Care Time: Yes Critical Care Time(excluding separately billable procedures): 30-74 minutes Referrals: RAY WONG [Primary Care Provider] - Instructions: Heart Failure
[2018-11-10 11:08] LABS: Appearance CLEAR (CLEAR); Bilirubin NEGATIVE (NEGATIVE); Blood NEGATIVE Ery/ul (0-5); Glucose NEGATIVE (NEGATIVE); Ketones TRACE (NEGATIVE); Leukocyte Esterase NEGATIVE (NEGATIVE); Nitrite NEGATIVE (NEGATIVE); Protein,Urine Dip 30 (Negative); Specific Gravity 1.016 (1.005-1.025); Urobilinogen NEGATIVE mg/dL (0-1)
[2018-11-10] MEDS ORDERED: Colace 100 MG PO PRN (15:27)
[2018-11-10] MEDS ORDERED: MEDICATION INTERVENTION PO SCH (16:00)
[2018-11-10] MEDS: Protonix 40MG Tablet PO SCH (16:14)
[2018-11-10] MEDS: Neurontin 100 MG PO SCH ×2 (16:14→21:15)
[2018-11-10] MEDS ORDERED: Lasix 40 MG/4 ML IV SCH (17:00)
[2018-11-10] MEDS: PHENERGAN 25 MG PO PRN (17:27)
--- NOTE | 2018-11-10 19:38 | XRAY ---
Indication: Short of breath. Comparison: November 21, 2017. Portable chest demonstrates new moderate bibasilar effusions/atelectasis, right greater than left. Also new cardiomegaly with right sided dual lead pacemaker. Bony thorax intact again with osteopenia, multilevel degenerative changes, and scoliosis. Impression: New cardiomegaly and bibasilar effusions/atelectasis concerning for cardiac decompensation. Superimposed pneumonia not completely excluded.
--- NOTE | 2018-11-10 19:41 | XRAY ---
Indication: Short of breath. Elevated d-dimer. History breast cancer. Multiple contiguous axial images obtained through the chest using 80 cc Isovue 370 contrast and PE protocol. Comparison: July 31, 2017. There is satisfactory opacification of the pulmonary arteries. However mild respiration artifact limits evaluation of the more distal lobar and segmental branches. No filling defect or pulmonary embolus. Heart is borderline enlarged with new right-sided dual lead pacemaker. Aorta remains mildly addressed sclerotic without aneurysm/dissection. No pathologic mediastinal/hilar lymphadenopathy. Stable large hiatal hernia with partial intrathoracic stomach. Examination of the lung parenchyma demonstrates new moderate bilateral effusions with compressive atelectasis, right greater than left. Bony thorax again demonstrates osteopenia, multilevel degenerative spondylosis, and double curvature scoliosis. Again left mastectomy. Limited upper abdomen again demonstrates fatty liver and bilateral renal cysts. Impression: 1. Pulmonary embolus evaluation limited by mild respiration artifact. No gross pulmonary embolus. 2. Borderline cardiomegaly with moderate bilateral effusions with compressive atelectasis. Rule out cardiac decompensation. 3. Stable hiatal hernia with partial intrathoracic stomach, fatty liver, bilateral renal cysts, and left mastectomy. Comment: Preliminary interpretation was made by [facility]. No critical discrepancy. CTDI 22.75
[2018-11-10] MEDS: Dextrose 5% -0.45 NaCl 1000 ML 1,000 ML IV SCH (19:43)
[2018-11-10] MEDS: Zofran 4 MG/2 ML VIAL IV PRN (19:43)
[2018-11-10] MEDS: ACCOLATE 20 MG PO SCH (21:14)
[2018-11-10] MEDS: Pepcid 20 MG PO SCH (21:15)
[2018-11-10] MEDS: Ocuvite Tablet PO SCH (21:15)
[2018-11-10] MEDS: PRADAXA 75 MG PO SCH (21:15)
[2018-11-10] MEDS: Norco 10/325 MG Tablet PO SCH (21:15)
[2018-11-10] MEDS: Zocor 10MG PO SCH (21:15)
[2018-11-10] MEDS ORDERED: ZINC PO SCH (22:00)
[2018-11-10] MEDS ORDERED: VIT A PO SCH (22:00)
[2018-11-10] MEDS ORDERED: VIT C PO SCH (22:00)
[2018-11-10] MEDS ORDERED: VIT E PO SCH (22:00)
[2018-11-10] MEDS ORDERED: NON-FORMULARY ITEM (Atorvastatin Calcium 20 MG) PO SCH (22:00)
[2018-11-10] MEDS ORDERED: COPPER PO SCH (22:00)
[2018-11-10] MEDS ORDERED: OXAZEPAM 15 MG PO SCH (22:00)
[2018-11-11] MEDS ORDERED: MEDICATION INTERVENTION PO SCH (00:06)
[2018-11-11] MEDS: Zofran 4 MG/2 ML VIAL IV PRN ×2 (05:29→10:28)
[2018-11-11 06:07] LABS: Hematocrit 33.7 % (35-47); Hemoglobin 10.2 gm/dl (12.0-16.0); Mean Cell Volume 99.1 fl (78-100); Mean Corpuscular Hgb Concent. 30.3 g/dl (32-36); Mean Platelet Volume 10.9 fl (6-9.5); Platelet Count 199 K/mm3 (150-450); Red Cell Distribution Width 18.4 % (11.5-14.0); White Blood Count 5.2 K/mm3 (4.0-10.5)
[2018-11-11 06:23] LABS: ANION GAP 8.4 MEQ/L (5-15); BLOOD UREA NITROGEN 11 mg/dL (7-17); CHLORIDE 109 mmol/L (98-107); Calcium 8.3 mg/dL (8.4-10.2); Carbon Dioxide 29 mmol/L (22-30); Creatinine 1 0.62 mg/dL (0.52-1.04); Glucose 55 mg/dL (74-106); NT PRO BNP 8520 pg/mL (0-1800); SODIUM 143 mmol/L (137-145)
[2018-11-11 06:26] LABS: Potassium 2.9 mmol/L (3.5-5.1)
[2018-11-11] MEDS: POTASSIUM CHLORIDE 20 mEq IN WATER 100ML 20 MEQ/100 ML BAG IV SCH ×2 (06:56→09:27)
[2018-11-11] MEDS ORDERED: Amaryl 2 MG PO SCH (08:00)
[2018-11-11] MEDS: PHENERGAN 25 MG PO PRN (08:18)
--- NOTE | 2018-11-11 08:54 | PCM.HP ---
History of Present Illness - Chief Complaint Chief Complaint: hypoxia, chf exacerbation History of Present Illness: is a 83 year old female pt of mine from [facility] with afib, CHF, hx breast ca, and recent abd surgery who came to ER with SOB. She was found to have elevated BNP and was given IV lasix. This morning her potassium was 2.9 so she is getting a K+ rider. She is c/o nausea. Also still c/o dysuria and nausea despite having been treated for UTI, recent culture positive from for Enterobacter clocae and pt was changed from keflex to cipro. This morning she is tachycardic. She had recent ventral hernia repair with Dr. Rasheed on 10/18/18 and was feeling better after that until this UTI started. Denies fever. She was hypoglycemic this morning - at home had hypoglycemia down to 47 one day , but has not been checking her blood sugars regularly. - Review of Systems Respiratory: Short Of Breath Abdominal/Gastrointestinal: Nausea, Vomiting Genitourinary Symptoms: Dysuria Musculoskeletal: Arthralgias Psychological: Depression (would like to feel well), No Anxiety, No Suicidal Ideations Medications & Allergies Home Medications: Home Medication List Atenolol 50 mg [Tenormin 50 mg] 50 mg PO DAILY 07/03/16 [History Confirmed 11/10/18] Atorvastatin Calcium [Lipitor 20MG Tablet] 20 mg PO HS 07/03/16 [History Confirmed 11/10/18] Gabapentin [Neurontin] 100 mg PO TID 07/03/16 [History Confirmed 11/10/18] Glimepiride 2 mg [Amaryl 2 MG] 2 mg PO DAILY 07/03/16 [History Confirmed 11/10/18] Zafirlukast 20 mg [Accolate 20 mg] 20 mg PO BID 07/03/16 [History Confirmed 11/10/18] Oxazepam 15 mg PO HS 08/26/16 [History Confirmed 11/10/18] Furosemide 40 mg [Lasix 40 MG] 20 mg PO DAILY 07/31/17 [History Confirmed 11/10/18] Docusate Sodium 100 mg [Colace 100 MG] 200 mg PO HS PRN 08/08/17 [History Confirmed 11/10/18] Vit A/Vit C/Vit E/Zinc/Copper [Preservision Areds Softgel] 1 each PO BID [History Confirmed 11/10/18] Esomeprazole Magnesium [Nexium] 20 mg PO DAILY 10/10/17 [History Confirmed 11/10] PANTOPRAZOLE 40 mg Tablet [Protonix 40MG Tablet] 40 mg PO LUNCH 10/22/17 [ History Confirmed 11/10/18] Promethazine HCl 25 mg [Phenergan 25 mg] 25 mg PO Q6H PRN PRN 11/21/17 [ History Confirmed 11/10/18] Dabigatran Etexilate Mesylate [Pradaxa] 150 mg PO BID 12/24/17 [History Confirmed 11/10/18] Diltiazem HCl [Diltiazem 24Hr ER] 180 mg PO DAILY 09/22/18 [History Confirmed ] Famotidine 20 mg [Pepcid 20 MG] 20 mg PO HS 09/22/18 [History Confirmed ] Hydrocodone/Acetaminophen [[place] 10-325 Tablet] 1 each PO BID 11/10/18 [History Confirmed 11/10/18] Allergies/Adverse Reactions: Allergies Allergy/AdvReac Type Severity Reaction Status Date / Time metoclopramide HCl Allergy Verified 09/22/18 09:30 [From Reglan] Sulfa (Sulfonamide Allergy Verified 09/22/18 09:30 Antibiotics) - Past Medical History Past Medical History: Yes Neurological History: No Pertinent History ENT History: No Pertinent History Cardiac History: Arrhythmia, Other Respiratory History: Asthma, Pneumonia Endocrine Medical History: Diabetes Type II Musculoskelatal History: No Pertinent History GI Medical History: Hernia History: No Pertinent History Pyscho-Social History: No Pertinent History Reproductive Disorders: Breast Cancer Comment: A FIB, heart murmer - Female History Are you now?: No - Past Surgical History Past Surgical History: Yes Neuro Surgical History: No Pertinent History Cardiac History: Cardiac Catheterization, Pacemaker Respiratory Surgery: No Pertinent History GI Surgical History: No Pertinent History, Hernia Repair Genitourinary Surgical Hx: No Pertinent History Musculskeletal Surgical Hx: No Pertinent History Female Surgical History: Mastectomy Other Surgical History: L mastectomy april 10, VENTRAL HERNIA REPAIR - Social History Smoking Status: Former smoker How long have you smoked: quit 24 yr Exposure to second hand smoke: No Alcohol: None Drug Use: none Significant Family History: no pertinent family hx - Physical Exam Vital Signs: Vital Signs - 24 hr Temp Pulse Resp BP Pulse Ox 11/11/18 07:05 98.0 F 110 H 18 137/70 95 11/11/18 04:00 98.7 F 103 H 18 144/76 96 11/10/18 23:57 98.2 F 108 H 17 112/62 95 11/10/18 20:04 94 L 11/10/18 19:48 98.2 F 118 H 18 137/66 94 L 11/10/18 16:00 97.9 F 118 H 18 147/72 94 L 11/10/18 13:56 98.0 F 129 H 18 182/102 92 L 11/10/18 13:10 98.0 F 129 H 18 182/102 92 L 11/10/18 13:00 98.0 F 129 H 18 182/102 92 L 11/10/18 12:31 95 11/10/18 12:01 110 H 18 136/107 94 L 11/10/18 10:12 118 H 16 95 11/10/18 09:51 94 L 11/10/18 09:36 97.9 F 108 H 20 199/121 94 L 11/10/18 09:35 90 L Oxygen-Last 24 hours O2 Percentage 2 Liters = 28% O2 Percentage 2 Liters = 28% O2 Percentage 2 Liters = 28% O2 Percentage 2 Liters = 28% O2 Percentage 2 Liters = 28% O2 Percentage 2 Liters = 28% O2 Percentage 2 Liters = 28% O2 Percentage 2 Liters = 28% O2 Percentage 2 Liters = 28% O2 Percentage 2 Liters = 28% O2 Percentage 2 Liters = 28% General Appearance: mild distress (nauseated), alert Neurologic Exam: oriented x 3, cooperative Eye Exam: eyes nml inspection Ears, Nose, Throat Exam: moist mucous membranes Respiratory Exam: normal breath sounds, lungs clear, crackles/rales (mild bases bilat), No rhonchi Cardiovascular Exam: murmur (III/ sys murmur), tachycardia, irregular Gastrointestinal/Abdomen Exam: soft, normal bowel sounds, other (midline incision well approximated. steri strips present. firm area to L of midline in the midportion of the incision.), No tenderness Back Exam: normal inspection, No rash Extremity Exam: normal inspection, No pedal edema, No swelling Skin Exam: normal color, warm, dry, No rash Results - Labs Lab/Micro Results: Accuchecks Date 11/10/18 Date 11/10/18 Date 11/10/18 Time 22:00 Time 19:00 Time 17:00 Accucheck Value: 71 Accucheck Value: 88 Accucheck Value: 37 Lab Results-Last 24 Hours 11/10/18 11/10/18 11/10/18 Range/Units 09:35 09:40 09:40 WBC 6.0 (4.0-10.5) K/mm3 RBC 3.81 L (4.1-5.4) M/mm3 Hgb 11.3 L (12.0-16.0) gm/dl Hct 37.8 (35-47) % MCV 99.2 (78-100) fl MCH 29.6 (26-32) pg MCHC 29.9 L (32-36) g/dl RDW 18.2 H (11.5-14.0) % Plt Count 238 (150-450) K/mm3 MPV 10.9 H (6-9.5) fl Gran % 79.9 H (36.0-66.0) % Eos # (Auto) 0.03 (0-0.5) Absolute Lymphs (auto) 0.68 L (1.0-4.6) Absolute Monos (auto) 0.50 (0.0-1.3) Lymphocytes % 11.3 L (24.0-44.0) % Monocytes % 8.3 (0.0-12.0) % Eosinophils % 0.5 (0.00-5.0) % Basophils % 0.0 (0.0-0.4) % Absolute Granulocytes 4.83 (1.4-6.9) Basophils # 0 (0-0.4) PT 14.3 H (9.95-12.35) SECONDS INR 1.23 (0.8-3.0) D-Dimer 1343 H* (215-500) ng/mL Sodium 148 H (137-145) mmol/L Potassium 3.6 (3.5-5.1) mmol/L Chloride 113 H (98-107) mmol/L Carbon Dioxide 27 (22-30) mmol/L Anion Gap 11.5 (5-15) MEQ/L BUN 11 (7-17) mg/dL Creatinine 0.55 (0.52-1.04) mg/dL Estimated GFR > 60.0 ML/MIN Glucose 65 L (74-106) mg/dL Lactic Acid (0.4-2.0) Calcium 8.9 (8.4-10.2) mg/dL Magnesium 2.0 (1.6-2.3) mg/dL Total Bilirubin 0.50 (0.2-1.3) mg/dL AST 34 (14-36) U/L ALT 17 (0-35) U/L Alkaline Phosphatase 113 (38-126) U/L Troponin I (0.000-0.034) ng/mL NT-Pro-B Natriuret Pep 8460 H (0-1800) pg/mL Serum Total Protein 6.5 (6.3-8.2) g/dL Albumin 3.1 L (3.5-5.0) g/dL Prealbumin (17.6-36.0) mg/dL Urine Color (YELLOW) Urine Appearance (CLEAR) Urine pH (5-6) Ur Specific [place] (1.005-1.025) Urine Protein (Negative) Urine Ketones (NEGATIVE) Urine Blood (0-5) Grey/ul Urine Nitrite (NEGATIVE) Urine Bilirubin (NEGATIVE) Urine Urobilinogen (0-1) mg/dL Ur Leukocyte Esterase (NEGATIVE) Urine WBC (Auto) (0-5) /HPF Urine RBC (Auto) (0-2) /HPF U Epithel Cells (Auto) (FEW) /HPF Urine Bacteria (Auto) (NEGATIVE) /HPF Urine Mucus (Auto) (NEGATIVE) /HPF Urine Culture Reflexed (NO) Urine Glucose (NEGATIVE) mg/dL Influenza Type A Ag (NEGATIVE) Influenza Type B Ag (NEGATIVE) RSV (PCR) (Negative) 11/10/18 11/10/18 11/10/18 Range/Units 09:40 09:45 09:50 WBC (4.0-10.5) K/mm3 RBC (4.1-5.4) M/mm3 Hgb (12.0-16.0) gm/dl Hct (35-47) % MCV (78-100) fl MCH (26-32) pg MCHC (32-36) g/dl RDW (11.5-14.0) % Plt Count (150-450) K/mm3 MPV (6-9.5) fl Gran % (36.0-66.0) % Eos # (Auto) (0-0.5) Absolute Lymphs (auto) (1.0-4.6) Absolute Monos (auto) (0.0-1.3) Lymphocytes % (24.0-44.0) % Monocytes % (0.0-12.0) % Eosinophils % (0.00-5.0) % Basophils % (0.0-0.4) % Absolute Granulocytes (1.4-6.9) Basophils # (0-0.4) PT (9.95-12.35) SECONDS INR (0.8-3.0) D-Dimer (215-500) ng/mL Sodium (137-145) mmol/L Potassium (3.5-5.1) mmol/L Chloride (98-107) mmol/L Carbon Dioxide (22-30) mmol/L Anion Gap (5-15) MEQ/L BUN (7-17) mg/dL Creatinine (0.52-1.04) mg/dL Estimated GFR ML/MIN Glucose (74-106) mg/dL Lactic Acid 2.2 H (0.4-2.0) Calcium (8.4-10.2) mg/dL Magnesium (1.6-2.3) mg/dL Total Bilirubin (0.2-1.3) mg/dL AST (14-36) U/L ALT (0-35) U/L Alkaline Phosphatase (38-126) U/L Troponin I 0.013 (0.000-0.034) ng/mL NT-Pro-B Natriuret Pep (0-1800) pg/mL Serum Total Protein (6.3-8.2) g/dL Albumin (3.5-5.0) g/dL Prealbumin (17.6-36.0) mg/dL Urine Color (YELLOW) Urine Appearance (CLEAR) Urine pH (5-6) Ur Specific [place] (1.005-1.025) Urine Protein (Negative) Urine Ketones (NEGATIVE) Urine Blood (0-5) Grey/ul Urine Nitrite (NEGATIVE) Urine Bilirubin (NEGATIVE) Urine Urobilinogen (0-1) mg/dL Ur Leukocyte Esterase (NEGATIVE) Urine WBC (Auto) (0-5) /HPF Urine RBC (Auto) (0-2) /HPF U Epithel Cells (Auto) (FEW) /HPF Urine Bacteria (Auto) (NEGATIVE) /HPF Urine Mucus (Auto) (NEGATIVE) /HPF Urine Culture Reflexed (NO) Urine Glucose (NEGATIVE) mg/dL Influenza Type A Ag NEGATIVE (NEGATIVE) Influenza Type B Ag NEGATIVE (NEGATIVE) RSV (PCR) NEGATIVE (Negative) 11/10/18 11/10/18 11/10/18 Range/Units 10:59 13:00 13:15 WBC (4.0-10.5) K/mm3 RBC (4.1-5.4) M/mm3 Hgb (12.0-16.0) gm/dl Hct (35-47) % MCV (78-100) fl MCH (26-32) pg MCHC (32-36) g/dl RDW (11.5-14.0) % Plt Count (150-450) K/mm3 MPV (6-9.5) fl Gran % (36.0-66.0) % Eos # (Auto) (0-0.5) Absolute Lymphs (auto) (1.0-4.6) Absolute Monos (auto) (0.0-1.3) Lymphocytes % (24.0-44.0) % Monocytes % (0.0-12.0) % Eosinophils % (0.00-5.0) % Basophils % (0.0-0.4) % Absolute Granulocytes (1.4-6.9) Basophils # (0-0.4) PT (9.95-12.35) SECONDS INR (0.8-3.0) D-Dimer (215-500) ng/mL Sodium (137-145) mmol/L Potassium (3.5-5.1) mmol/L Chloride (98-107) mmol/L Carbon Dioxide (22-30) mmol/L Anion Gap (5-15) MEQ/L BUN (7-17) mg/dL Creatinine (0.52-1.04) mg/dL Estimated GFR ML/MIN Glucose (74-106) mg/dL Lactic Acid 1.5 (0.4-2.0) Calcium (8.4-10.2) mg/dL Magnesium (1.6-2.3) mg/dL Total Bilirubin (0.2-1.3) mg/dL AST (14-36) U/L ALT (0-35) U/L Alkaline Phosphatase (38-126) U/L Troponin I < 0.012 (0.000-0.034) ng/mL NT-Pro-B Natriuret Pep (0-1800) pg/mL Serum Total Protein (6.3-8.2) g/dL Albumin (3.5-5.0) g/dL Prealbumin (17.6-36.0) mg/dL Urine Color YELLOW (YELLOW) Urine Appearance CLEAR (CLEAR) Urine pH 7.0 (5-6) Ur Specific [place] 1.016 (1.005-1.025) Urine Protein 30 (Negative) Urine Ketones TRACE (NEGATIVE) Urine Blood NEGATIVE (0-5) Grey/ul Urine Nitrite NEGATIVE (NEGATIVE) Urine Bilirubin NEGATIVE (NEGATIVE) Urine Urobilinogen NEGATIVE (0-1) mg/dL Ur Leukocyte Esterase NEGATIVE (NEGATIVE) Urine WBC (Auto) 3-5 (0-5) /HPF Urine RBC (Auto) 0-2 (0-2) /HPF U Epithel Cells (Auto) NONE (FEW) /HPF Urine Bacteria (Auto) NONE (NEGATIVE) /HPF Urine Mucus (Auto) SLIGHT (NEGATIVE) /HPF Urine Culture Reflexed NO (NO) Urine Glucose NEGATIVE (NEGATIVE) mg/dL Influenza Type A Ag (NEGATIVE) Influenza Type B Ag (NEGATIVE) RSV (PCR) (Negative) 11/10/18 11/10/18 11/10/18 Range/Units 14:38 15:45 19:12 WBC (4.0-10.5) K/mm3 RBC (4.1-5.4) M/mm3 Hgb (12.0-16.0) gm/dl Hct (35-47) % MCV (78-100) fl MCH (26-32) pg MCHC (32-36) g/dl RDW (11.5-14.0) % Plt Count (150-450) K/mm3 MPV (6-9.5) fl Gran % (36.0-66.0) % Eos # (Auto) (0-0.5) Absolute Lymphs (auto) (1.0-4.6) Absolute Monos (auto) (0.0-1.3) Lymphocytes % (24.0-44.0) % Monocytes % (0.0-12.0) % Eosinophils % (0.00-5.0) % Basophils % (0.0-0.4) % Absolute Granulocytes (1.4-6.9) Basophils # (0-0.4) PT (9.95-12.35) SECONDS INR (0.8-3.0) D-Dimer (215-500) ng/mL Sodium (137-145) mmol/L Potassium (3.5-5.1) mmol/L Chloride (98-107) mmol/L Carbon Dioxide (22-30) mmol/L Anion Gap (5-15) MEQ/L BUN (7-17) mg/dL Creatinine (0.52-1.04) mg/dL Estimated GFR ML/MIN Glucose (74-106) mg/dL Lactic Acid (0.4-2.0) Calcium (8.4-10.2) mg/dL Magnesium (1.6-2.3) mg/dL Total Bilirubin (0.2-1.3) mg/dL AST (14-36) U/L ALT (0-35) U/L Alkaline Phosphatase (38-126) U/L Troponin I < 0.012 0.014 (0.000-0.034) ng/mL NT-Pro-B Natriuret Pep (0-1800) pg/mL Serum Total Protein (6.3-8.2) g/dL Albumin (3.5-5.0) g/dL Prealbumin 12.30 L (17.6-36.0) mg/dL Urine Color (YELLOW) Urine Appearance (CLEAR) Urine pH (5-6) Ur Specific [place] (1.005-1.025) Urine Protein (Negative) Urine Ketones (NEGATIVE) Urine Blood (0-5) Grey/ul Urine Nitrite (NEGATIVE) Urine Bilirubin (NEGATIVE) Urine Urobilinogen (0-1) mg/dL Ur Leukocyte Esterase (NEGATIVE) Urine WBC (Auto) (0-5) /HPF Urine RBC (Auto) (0-2) /HPF U Epithel Cells (Auto) (FEW) /HPF Urine Bacteria (Auto) (NEGATIVE) /HPF Urine Mucus (Auto) (NEGATIVE) /HPF Urine Culture Reflexed (NO) Urine Glucose (NEGATIVE) mg/dL Influenza Type A Ag (NEGATIVE) Influenza Type B Ag (NEGATIVE) RSV (PCR) (Negative) 11/10/18 11/11/18 11/11/18 Range/Units 22:15 05:30 05:30 WBC 5.2 (4.0-10.5) K/mm3 RBC 3.40 L (4.1-5.4) M/mm3 Hgb 10.2 L (12.0-16.0) gm/dl Hct 33.7 L (35-47) % MCV 99.1 (78-100) fl MCH 30.0 (26-32) pg MCHC 30.3 L (32-36) g/dl RDW 18.4 H (11.5-14.0) % Plt Count 199 (150-450) K/mm3 MPV 10.9 H (6-9.5) fl Gran % (36.0-66.0) % Eos # (Auto) (0-0.5) Absolute Lymphs (auto) (1.0-4.6) Absolute Monos (auto) (0.0-1.3) Lymphocytes % (24.0-44.0) % Monocytes % (0.0-12.0) % Eosinophils % (0.00-5.0) % Basophils % (0.0-0.4) % Absolute Granulocytes (1.4-6.9) Basophils # (0-0.4) PT (9.95-12.35) SECONDS INR (0.8-3.0) D-Dimer (215-500) ng/mL Sodium 143 (137-145) mmol/L Potassium 2.9 L* (3.5-5.1) mmol/L Chloride 109 H (98-107) mmol/L Carbon Dioxide 29 (22-30) mmol/L Anion Gap 8.4 (5-15) MEQ/L BUN 11 (7-17) mg/dL Creatinine 0.62 (0.52-1.04) mg/dL Estimated GFR > 60.0 ML/MIN Glucose 55 L (74-106) mg/dL Lactic Acid (0.4-2.0) Calcium 8.3 L (8.4-10.2) mg/dL Magnesium (1.6-2.3) mg/dL Total Bilirubin (0.2-1.3) mg/dL AST (14-36) U/L ALT (0-35) U/L Alkaline Phosphatase (38-126) U/L Troponin I 0.017 (0.000-0.034) ng/mL NT-Pro-B Natriuret Pep 8520 H (0-1800) pg/mL Serum Total Protein (6.3-8.2) g/dL Albumin (3.5-5.0) g/dL Prealbumin (17.6-36.0) mg/dL Urine Color (YELLOW) Urine Appearance (CLEAR) Urine pH (5-6) Ur Specific [place] (1.005-1.025) Urine Protein (Negative) Urine Ketones (NEGATIVE) Urine Blood (0-5) Grey/ul Urine Nitrite (NEGATIVE) Urine Bilirubin (NEGATIVE) Urine Urobilinogen (0-1) mg/dL Ur Leukocyte Esterase (NEGATIVE) Urine WBC (Auto) (0-5) /HPF Urine RBC (Auto) (0-2) /HPF U Epithel Cells (Auto) (FEW) /HPF Urine Bacteria (Auto) (NEGATIVE) /HPF Urine Mucus (Auto) (NEGATIVE) /HPF Urine Culture Reflexed (NO) Urine Glucose (NEGATIVE) mg/dL Influenza Type A Ag (NEGATIVE) Influenza Type B Ag (NEGATIVE) RSV (PCR) (Negative) Accuchecks Date 11/10/18 Date 11/10/18 Date 11/10/18 Time 22:00 Time 19:00 Time 17:00 Accucheck Value: 71 Accucheck Value: 88 Accucheck Value: 37 - Radiology Impressions Radiology Exams & Impressions: Radiology Procedures Category Date Time Status CHEST 1 VIEW (PORTABLE) Stat Exams 11/10/18 10:04 Completed CHEST WITH CONTRAST [CT] Stat Exams 11/10/18 11:24 Completed - Other Procedures and Tests Respiratory Therapy 11/10/18 12:28 Oxygen NASAL CANNULA 2 lpm Assessment/Plan (1) Atrial fibrillation with RVR Current Visit: Yes Status: Acute Assessment & Plan: will give 2.5mg IV lopressor and have nurse give her diltiazem early. Code(s): I48.91 - UNSPECIFIED ATRIAL FIBRILLATION (2) CHF (congestive heart failure) Current Visit: Yes Status: Acute Qualifiers: Heart failure chronicity: acute on chronic Assessment & Plan: echo - last done Dec 2017 per pt. Code(s): I50.9 - HEART FAILURE, UNSPECIFIED (3) UTI (urinary tract infection) Current Visit: Yes Status: Acute Qualifiers: Urinary tract infection type: acute cystitis Hematuria presence: without hematuria Qualified Code(s): N30.00 - Acute cystitis without hematuria Assessment & Plan: starting meropenem based on culture from 11/05/18. 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 Code(s): E11.9 - TYPE 2 DIABETES MELLITUS WITHOUT COMPLICATIONS (5) Hypoglycemia Current Visit: No Status: Resolved Code(s): E16.2 - HYPOGLYCEMIA, UNSPECIFIED (6) DNR (do not resuscitate) Current Visit: No Status: Chronic
[2018-11-11] MEDS ORDERED: LOPRESSOR 5 MG/5 ML INJECTION IV ONE (08:57)
[2018-11-11] MEDS: Cardizem CD 180 MG PO SCH (09:11)
[2018-11-11] MEDS: Furosemide 100mg/10 ml Vial IV SCH (09:17)
[2018-11-11] MEDS ORDERED: TENORMIN 50 MG PO SCH (10:00)
[2018-11-11] MEDS ORDERED: NON-FORMULARY ITEM (Esomeprazole Magnesium [Nexium] 20 MG) PO SCH (10:00)
[2018-11-11] MEDS: Norco 10/325 MG Tablet PO SCH ×2 (11:31→21:34)
[2018-11-11] MEDS: PRADAXA 75 MG PO SCH ×2 (11:31→21:33)
[2018-11-11] MEDS: Neurontin 100 MG PO SCH ×2 (11:32→21:34)
[2018-11-11] MEDS: MEROPENEM-0.9% NACL 1 GRAM/50 1 GM/50 ML PIGGYBACK IV SCH ×2 (11:43→21:33)
[2018-11-11] MEDS: Ocuvite Tablet PO SCH ×2 (12:02→21:33)
[2018-11-11] MEDS ORDERED: Cardizem IV 50 MG/10 ML IV ONE (12:08)
[2018-11-11] MEDS: Protonix 40MG Tablet PO SCH (12:17)
[2018-11-11] MEDS: ACCOLATE 20 MG PO SCH ×2 (13:59→21:47)
[2018-11-11] MEDS: Dextrose 5% -0.45 NaCl 1000 ML 1,000 ML IV SCH (19:57)
[2018-11-11] MEDS: Zocor 10MG PO SCH (21:33)
[2018-11-11] MEDS: Pepcid 20 MG PO SCH (21:34)
[2018-11-11] MEDS: PATIENT OWN MEDICATION PO SCH (21:35)
[2018-11-11] MEDS: Lopressor 50 MG PO SCH (21:47)
[2018-11-12] MEDS: MEROPENEM-0.9% NACL 1 GRAM/50 1 GM/50 ML PIGGYBACK IV SCH ×3 (06:21→21:45)
[2018-11-12] MEDS: Zofran 4 MG/2 ML VIAL IV PRN ×2 (08:09→21:46)
--- NOTE | 2018-11-12 08:28 | PCM.NOTE ---
Date and Time: 11/12/18818 Subjective Assessment: Pt had tachycardia to the 140s yesterday but cardiology thought this was more related to her UTI. She was changed from atenolol to metoprolol BID. Her HR has been better. She does complain of nausea this morning. Tolerated most of her food yesterday but did vomit up the noodles last night, she thinks they were "too hard." Urinating frequently per staff, but pt is not that concerned about that. She is passing small amounts of soft stool often (when she urinates ). - Review of Systems Constitutional: No Fever Abdominal/Gastrointestinal: Nausea, Vomiting Objective Exam General Appearance: mild distress, alert Neurologic Exam: oriented x 3, cooperative Skin Exam: normal color, warm, dry, No rash Respiratory Exam: normal breath sounds, lungs clear, No crackles/rales, No rhonchi, No wheezing Cardiovascular Exam: regular rate/rhythm, normal heart sounds, No murmur Gastrointestinal/Abdomen Exam: soft, normal bowel sounds, other (midline wound intact; there is mild erythema to the right of the midportion of the wound. There is mild erythema but no exudate at the superior portion of the wound. to the L of the mid portion of the wound there is a firm nontender area), No tenderness Extremity Exam: normal inspection OBJECTIVE DATA Vital Signs: Vital Signs - 24 hr Temp Pulse Resp BP Pulse Ox 11/12/18 07:32 91 L 11/12/18 07:01 97.7 F 94 H 18 134/72 94 L 11/12/18 04:00 97.9 F 85 18 144/73 95 11/12/18 00:00 94 H 14 11/11/18 20:00 99 F 105 H 14 138/73 96 11/11/18 19:29 98 11/11/18 16:00 98.3 F 102 H 18 142/85 95 11/11/18 11:31 126 H 11/11/18 11:28 98.5 F 119 H 18 135/91 97 Oxygen-Last 24 hours O2 Percentage 2 Liters = 28% O2 Percentage 2 Liters = 28% O2 Percentage 2 Liters = 28% O2 Percentage 2 Liters = 28% O2 Percentage 2 Liters = 28% O2 Percentage 2 Liters = 28% Pain Assessment - Last Documented Pain Intensity 5 Pain Scale Used [facility] Intake and Output: Intake & Output 11/09/18 11/10/1818 11/12/18 11:59 11:59 11:59 11:59 Intake Total 420 2414 Output Total 2300 750 Balance -1880 1664 Weight 72.575 kg 73 kg 73.1 kg Lab Results: Accuchecks Date 11/11/18 Date 11/11/18 Date 11/11/18 Time 21:30 Time 16:30 Time 11:30 Accucheck Value: 119 Accucheck Value: 87 Accucheck Value: 62 Lab Results-Last 24 Hours 11/11/18 11/11/18 Range/Units 05:30 13:18 Potassium 3.5 D (3.5-5.1) mmol/L TSH 3rd Generation 0.796 (0.47-4.68) mIU/L Radiology Exams: Radiology Procedures Category Date Time Status ABDOMEN 2 VIEW Routine Exams 11/12/18 Ordered CHEST 1 VIEW (PORTABLE) Stat Exams 11/10/18 10:04 Completed CHEST WITH CONTRAST [CT] Stat Exams 11/10/18 11:24 Completed Multi-Disciplinary Progress Notes: Multi-Disciplinary Progress Notes 11/11/18 12:55 Case Management Note by Neetu Preciado FROM [facility] RETURNED CALL. NOTIFIED OF INPT STATUS. TO CALL [phone] TO REPORT DISCHARGE AND FAX ORDERS TO [phone]. Initialized on 11/11/18 12:55 - END OF NOTE 11/11/18 11:23 Case Management Note by Neetu Preciado CALL TO [place] TO REPORT PT IS HERE IN HOSPITAL. MESSAGE LEFT FOR GERRY PARKER. Initialized on 11/11/18 11:23 - END OF NOTE 11/11/18 08:45 (created 11/11/18 11:31) Case Management Note by Neetu Preciado PT'S HEART RATE ELEVATED, RUNNING 130'S - 150'S, AFIB, PT IS CURRENTLY ASYMPTOMATIC. DR. OCHOA NOTIFIED PER GERRY VEGA. Initialized on 11/11/18 11:31 - END OF NOTE Assessment/Plan (1) Atrial fibrillation with RVR Current Visit: Yes Status: Resolved Code(s): I48.91 - UNSPECIFIED ATRIAL FIBRILLATION (2) CHF (congestive heart failure) Current Visit: Yes Status: Acute Qualifiers: Heart failure chronicity: acute on chronic Assessment & Plan: Labs pending. She is not complaining of SOB currently. Code(s): I50.9 - HEART FAILURE, UNSPECIFIED (3) UTI (urinary tract infection) Current Visit: Yes Status: Acute Qualifiers: Urinary tract infection type: acute cystitis Hematuria presence: without hematuria Qualified Code(s): N30.00 - Acute cystitis without hematuria Assessment & Plan: On IV merrem day #2. Code(s): N39.0 - URINARY TRACT INFECTION, SITE NOT SPECIFIED (4) DM w/o complication type II Current Visit: No Status: Chronic Qualifiers: Diabetes mellitus terminal make up operator insulin use: without terminal make up operator use Qualified Code(s): E11.9 - Type 2 diabetes mellitus without complications Code(s): E11.9 - TYPE 2 DIABETES MELLITUS WITHOUT COMPLICATIONS (5) Hypoglycemia Current Visit: No Status: Resolved Assessment & Plan: Better, on IV fluids with dextrose. Code(s): E16.2 - HYPOGLYCEMIA, UNSPECIFIED (6) DNR (do not resuscitate) Current Visit: No Status: Chronic (7) Atrial fibrillation Current Visit: Yes Status: Chronic Qualifiers: Assessment & Plan: on pradaxa and metoprolol. Appreciate cardiology consult, thank you! Code(s): I48.91 - UNSPECIFIED ATRIAL FIBRILLATION
[2018-11-12 09:13] LABS: BASOPHIL % 0.2 % (0.0-0.4); Basophil (Absolute #) 0.01 (0-0.4); Eosinophil (Absolute #) 0.38 (0-0.5); Granulocyte Absolute (ANC) 3.01 (1.4-6.9); Granulocytes % 63.4 % (36.0-66.0); Hematocrit 35.9 % (35-47); Lymphocyte (Absolute #) 0.79 (1.0-4.6); Lymphocytes % 16.6 % (24.0-44.0); Mean Cell Volume 98.4 fl (78-100); Mean Corpuscular Hemoglobin 30.1 pg (26-32); Mean Corpuscular Hgb Concent. 30.6 g/dl (32-36); Mean Platelet Volume 11.2 fl (6-9.5); Monocyte (Absolute #) 0.56 (0.0-1.3); Monocytes % 11.8 % (0.0-12.0); Platelet Count 202 K/mm3 (150-450); Red Blood Count 3.65 M/mm3 (4.1-5.4); Red Cell Distribution Width 18.1 % (11.5-14.0); White Blood Count 4.8 K/mm3 (4.0-10.5)
--- NOTE | 2018-11-12 09:25 | XRAY ---
Indication: Nausea. Comparison: October 14, 2018. 2 views of the abdomen remain nonacute and nonobstructed again with incidental scattered vascular calcifications, multilevel degenerative spondylosis, levorotoscoliosis, old right pubic bone fracture, large hiatal hernia, and tiny bibasilar effusions. No new/acute findings.
[2018-11-12] MEDS: Neurontin 100 MG PO SCH ×3 (09:59→21:23)
[2018-11-12] MEDS: PRADAXA 75 MG PO SCH ×2 (10:00→21:21)
[2018-11-12] MEDS: PYRIDIUM 200 MG PO SCH ×3 (10:00→21:22)
[2018-11-12] MEDS: Cardizem CD 180 MG PO SCH (10:00)
[2018-11-12] MEDS: Lopressor 50 MG PO SCH ×2 (10:00→21:22)
[2018-11-12] MEDS: Ocuvite Tablet PO SCH ×2 (10:00→21:23)
[2018-11-12] MEDS: Furosemide 100mg/10 ml Vial IV SCH (10:01)
[2018-11-12] MEDS: Norco 10/325 MG Tablet PO SCH ×2 (10:01→21:21)
[2018-11-12 10:02] LABS: ANION GAP 9.7 MEQ/L (5-15); BLOOD UREA NITROGEN 9 mg/dL (7-17); CHLORIDE 106 mmol/L (98-107); Calcium 8.3 mg/dL (8.4-10.2); Carbon Dioxide 31 mmol/L (22-30); Creatinine 1 0.66 mg/dL (0.52-1.04); Glucose 126 mg/dL (74-106); NT PRO BNP 5420 pg/mL (0-1800); Potassium 3.4 mmol/L (3.5-5.1); SODIUM 143 mmol/L (137-145)
[2018-11-12] MEDS: Protonix 40MG Tablet PO SCH (11:59)
[2018-11-12] MEDS: ACCOLATE 20 MG PO SCH ×2 (12:00→21:23)
[2018-11-12] MEDS: PATIENT OWN MEDICATION PO SCH (21:20)
[2018-11-12] MEDS: Zocor 10MG PO SCH (21:22)
[2018-11-12] MEDS: Pepcid 20 MG PO SCH (21:22)
[2018-11-12] MEDS: Dextrose 5% -0.45 NaCl 1000 ML 1,000 ML IV SCH (21:23)
[2018-11-13] MEDS: MEROPENEM-0.9% NACL 1 GRAM/50 1 GM/50 ML PIGGYBACK IV SCH ×3 (05:33→20:55)
[2018-11-13] MEDS: Zofran 4 MG/2 ML VIAL IV PRN ×2 (08:06→18:10)
--- NOTE | 2018-11-13 09:00 | PCM.NOTE ---
Date and Time: 11/13/18 08 Subjective Assessment: Pt's BS in 70s this morning. She tolerated more po and overall felt better yesterday. Up much less urinating last night per RN; not mentioned by pt. At home she takes phenergan po ac/hs for her persistent nausea. Took zofran after breakfast this morning. Still having dysuria. - Review of Systems Constitutional: No Fever Abdominal/Gastrointestinal: Nausea Objective Exam General Appearance: no apparent distress, alert, obese Neurologic Exam: oriented x 3, cooperative Skin Exam: normal color, warm, dry, No rash Respiratory Exam: normal breath sounds, lungs clear, No crackles/rales, No rhonchi, No wheezing Cardiovascular Exam: normal heart sounds, murmur (III/ sys murmur), irregular Gastrointestinal/Abdomen Exam: soft, normal bowel sounds, No tenderness, No distention, No mass, No guarding, No rebound Extremity Exam: No pedal edema, No swelling Back Exam: normal inspection, No rash OBJECTIVE DATA Vital Signs: Vital Signs - 24 hr Temp Pulse Resp BP Pulse Ox 11/13/18 07:55 97.8 F 92 H 18 144/67 97 11/13/18 07:31 98 11/13/18 04:00 97.6 F 79 16 117/56 96 11/13/18 00:00 98.1 F 81 18 99/55 98 11/12/18 20:00 98.3 F 103 H 17 107/59 98 11/12/18 19:24 99 11/12/18 16:00 98.0 F 106 H 18 144/73 99 11/12/18 12:00 98.1 F 109 H 18 166/81 93 L Oxygen-Last 24 hours O2 Percentage 2 Liters = 28% O2 Percentage 2 Liters = 28% O2 Percentage 2 Liters = 28% O2 Percentage 2 Liters = 28% O2 Percentage 2 Liters = 28% Pain Assessment - Last Documented Pain Intensity 0 Pain Scale Used [facility] Intake and Output: Intake & Output 11/10/18 11/11/18 11/12/18 11/13/18 11:59 11:59 11:59 11:59 Intake Total 420 2694 2776 Output Total 2300 1100 1650 Balance -1880 1594 1126 Weight 72.575 kg 73 kg 73.1 kg 73.3 kg Lab Results: Accuchecks Date 11/12/18 Date 11/12/18 Date 11/12/18 Time 22:00 Time 16:30 Time 11:30 Accucheck Value: 171 Accucheck Value: 119 Accucheck Value: 109 Lab Results-Last 24 Hours 11/12/18 11/12/18 Range/Units 08:42 08:42 WBC 4.8 (4.0-10.5) K/mm3 RBC 3.65 L (4.1-5.4) M/mm3 Hgb 11.0 L (12.0-16.0) gm/dl Hct 35.9 (35-47) % MCV 98.4 (78-100) fl MCH 30.1 (26-32) pg MCHC 30.6 L (32-36) g/dl RDW 18.1 H (11.5-14.0) % Plt Count 202 (150-450) K/mm3 MPV 11.2 H (6-9.5) fl Gran % 63.4 (36.0-66.0) % Eos # (Auto) 0.38 (0-0.5) Absolute Lymphs (auto) 0.79 L (1.0-4.6) Absolute Monos (auto) 0.56 (0.0-1.3) Lymphocytes % 16.6 L (24.0-44.0) % Monocytes % 11.8 (0.0-12.0) % Eosinophils % 8.0 H (0.00-5.0) % Basophils % 0.2 (0.0-0.4) % Absolute Granulocytes 3.01 (1.4-6.9) Basophils # 0.01 (0-0.4) Sodium 143 (137-145) mmol/L Potassium 3.4 L (3.5-5.1) mmol/L Chloride 106 (98-107) mmol/L Carbon Dioxide 31 H (22-30) mmol/L Anion Gap 9.7 (5-15) MEQ/L BUN 9 (7-17) mg/dL Creatinine 0.66 (0.52-1.04) mg/dL Estimated GFR > 60.0 ML/MIN Glucose 126 H (74-106) mg/dL Calcium 8.3 L (8.4-10.2) mg/dL NT-Pro-B Natriuret Pep 5420 H (0-1800) pg/mL Radiology Exams: Radiology Procedures Category Date Time Status ABDOMEN 2 VIEW Routine Exams 11/12/18 09:17 Completed Assessment/Plan (1) CHF (congestive heart failure) Current Visit: Yes Status: Acute Qualifiers: Heart failure chronicity: acute on chronic Assessment & Plan: decreased crackles in bases this morning and BNP is improved. Continue lasix 80mg IV daily. May be able to d/c home tomorrow. Code(s): I50.9 - HEART FAILURE, UNSPECIFIED (2) UTI (urinary tract infection) Current Visit: Yes Status: Acute Qualifiers: Urinary tract infection type: acute cystitis Hematuria presence: without hematuria Qualified Code(s): N30.00 - Acute cystitis without hematuria Assessment & Plan: on meropenem. Would like her to finish 3d; may be able to d/c home tomorrow. if still sx would refer to urology. 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 Code(s): E16.2 - HYPOGLYCEMIA, UNSPECIFIED (5) DNR (do not resuscitate) Current Visit: No Status: Chronic (6) Atrial fibrillation Current Visit: Yes Status: Chronic Qualifiers: Code(s): I48.91 - UNSPECIFIED ATRIAL FIBRILLATION
[2018-11-13 09:21] LABS: Hematocrit 37.2 % (35-47); Hemoglobin 11.4 gm/dl (12.0-16.0); Mean Cell Volume 98.2 fl (78-100); Mean Corpuscular Hgb Concent. 30.6 g/dl (32-36); Mean Platelet Volume 11.2 fl (6-9.5); Platelet Count 203 K/mm3 (150-450); Red Blood Count 3.79 M/mm3 (4.1-5.4); White Blood Count 5.6 K/mm3 (4.0-10.5)
[2018-11-13] MEDS: Neurontin 100 MG PO SCH ×4 (10:18→21:21)
[2018-11-13] MEDS: Cardizem CD 180 MG PO SCH (10:19)
[2018-11-13] MEDS: Furosemide 100mg/10 ml Vial IV SCH (10:19)
[2018-11-13] MEDS: Norco 10/325 MG Tablet PO SCH ×2 (10:20→20:56)
[2018-11-13] MEDS: Lopressor 50 MG PO SCH ×2 (10:20→20:56)
[2018-11-13] MEDS: Ocuvite Tablet PO SCH ×2 (10:21→20:56)
[2018-11-13] MEDS: PRADAXA 75 MG PO SCH ×2 (10:21→20:56)
[2018-11-13 10:26] LABS: ANION GAP 11.1 MEQ/L (5-15); BLOOD UREA NITROGEN 10 mg/dL (7-17); CHLORIDE 104 mmol/L (98-107); Calcium 8.1 mg/dL (8.4-10.2); Carbon Dioxide 30 mmol/L (22-30); Creatinine 1 0.67 mg/dL (0.52-1.04); Glucose 172 mg/dL (74-106); NT PRO BNP 3290 pg/mL (0-1800); Potassium 3.5 mmol/L (3.5-5.1); SODIUM 142 mmol/L (137-145)
[2018-11-13] MEDS: PHENERGAN 25 MG PO SCH ×3 (11:50→20:56)
[2018-11-13] MEDS: ACCOLATE 20 MG PO SCH ×2 (11:50→20:56)
[2018-11-13] MEDS: Protonix 40MG Tablet PO SCH (11:50)
[2018-11-13] MEDS: Pepcid 20 MG PO SCH (20:56)
[2018-11-13] MEDS: Zocor 10MG PO SCH (20:56)
[2018-11-13] MEDS: PATIENT OWN MEDICATION PO SCH (20:57)
[2018-11-14] MEDS: Dextrose 5% -0.45 NaCl 1000 ML 1,000 ML IV SCH (01:22)
[2018-11-14] MEDS: MEROPENEM-0.9% NACL 1 GRAM/50 1 GM/50 ML PIGGYBACK IV SCH (05:25)
[2018-11-14 07:24] VITALS: BP 126/68; PULSE 80
[2018-11-14 07:27] VITALS: O2SAT 96
[2018-11-14] MEDS: PHENERGAN 25 MG PO SCH (07:46)
--- NOTE | 2018-11-14 08:39 | PCM.DS ---
Discharge Summary Date of Admission: 11/11/18 08:49 Admitting Physician: RAY OCHOA Consults: Consults on Case 11/11/18 12:15 Tele-Health Consult ROUTINE Primary Care Provider: RAY OCHOA Allergies Allergies metoclopramide HCl [From Reglan] Allergy (Verified 09/22/18 09:30) vomiting Sulfa (Sulfonamide Antibiotics) Allergy (Verified 09/22/18 09:30) rash Hospital Summary - Hospital Course Hospital Course: Pt is 83 yo female pt of mine with CHF, recent bowel surgery for ventral hernia , atrial fibrillation and hx breast cancer who was admitted through ER with CHF exacerbation due to SOB. She was also found to have UTI prior to admission but was still symptomatic so antibiotic was changed to merropenem this is day #4. Will be discharged to home without antibiotics. Nausea/vomiting has been a big issue during her stay but with scheduled phenergan as she takes at home it has been improved. this is not a new issue but a chronic one. She did have elevated HR to the 140s during her stay. Dr. Han was consulted and felt this was likely due to the UTI. He did change her atenolol to metoprolol. Pt to have home health at home. - Vitals & Intake/Output Vital Signs: Vital Signs Temperature 97.9 F 11/14/18 07:23 Pulse Rate 80 11/14/18 07:23 Respiratory Rate 18 11/14/18 07:23 Blood Pressure 126/68 11/14/18 07:23 O2 Sat by Pulse Oximetry 96 11/14/18 07:27 Oxygen-Last Documented O2 Percentage 2 Liters = 28% Intake & Output: Intake & Output 11/11/18 11/12/18 11/13/18 11/14/18 11:59 11:59 11:59 11:59 Intake Total 420 2694 2976 2368 Output Total 2300 1100 1650 900 Balance -1880 1594 1326 1468 Weight 73 kg 73.1 kg 73.3 kg 73.8 kg - Lab Result Diagrams: 11/13/18 09:05 11/13/18 09:05 Lab Results-Last 24 Hrs: Accuchecks Date 11/13/18 Date 11/13/18 Date 11/13/18 Time 22:00 Time 16:30 Time 11:30 Accucheck Value: 136 Accucheck Value: 138 Accucheck Value: 146 Lab Results-Last 24 Hours 11/13/18 11/13/18 Range/Units 09:05 09:05 WBC 5.6 (4.0-10.5) K/mm3 RBC 3.79 L (4.1-5.4) M/mm3 Hgb 11.4 L (12.0-16.0) gm/dl Hct 37.2 (35-47) % MCV 98.2 (78-100) fl MCH 30.0 (26-32) pg MCHC 30.6 L (32-36) g/dl RDW 18.0 H (11.5-14.0) % Plt Count 203 (150-450) K/mm3 MPV 11.2 H (6-9.5) fl Sodium 142 (137-145) mmol/L Potassium 3.5 (3.5-5.1) mmol/L Chloride 104 (98-107) mmol/L Carbon Dioxide 30 (22-30) mmol/L Anion Gap 11.1 (5-15) MEQ/L BUN 10 (7-17) mg/dL Creatinine 0.67 (0.52-1.04) mg/dL Estimated GFR > 60.0 ML/MIN Glucose 172 H (74-106) mg/dL Calcium 8.1 L (8.4-10.2) mg/dL NT-Pro-B Natriuret Pep 3290 H (0-1800) pg/mL Micro Results-Entire Visit: Accuchecks Date 11/13/18 Date 11/13/18 Date 11/13/18 Time 22:00 Time 16:30 Time 11:30 Accucheck Value: 136 Accucheck Value: 138 Accucheck Value: 146 - Radiology Exams Ordered Rad Exams-Entire Visit: Radiology Procedures Category Date Time Status ABDOMEN 2 VIEW Routine Exams 11/12/18 09:17 Completed - Procedures and Test Procedures and Tests throughout Hospitalization: Therapy Orders & Screens 11/10/18 09:35 Peak Expiratory Flow Rate ONCE Comment: Reason For Exam: 11/10/18 10:15 Respiratory Therapy Assessment DAILY Comment: Diagnosis: Shortness of Breath 11/10/18 12:28 Oxygen NASAL CANNULA 2 lpm Comment: Diagnosis: Shortness of Breath 11/10/18 14:38 OT Screen per Nursing Assess ONCE Comment: Protocol Order Physician Instructions: Greater than 3 points order OT Admission Screening Reason For Exam: Triggered on Admission Diagnosis: hypoxia, chf exacerbation Open Wound/Cellutlitis/Pressure Ulcers: No Acute Fx/ORIF/Change in wt bearing status: No Severe MUSCULOSKELETAL pain: No ADL Dysfunction: Yes Acute CVA w/Hemiparesis/Hemiplegia: No Decreased Functional Mobility/Strength: Yes Sprain/Strain: No Acute Post-op Mobility Dysfunction: No Total Points: 4 PT Screen per Nursing Assess ONCE Comment: Protocol Order Physician Instructions: Greater than 3 points order PT Admission Screenin Reason For Exam: Triggered on Admission Diagnosis: hypoxia, chf exacerbation Open Wound/Cellutlitis/Pressure Ulcers: No Acute Fx/ORIF/Change in wt bearing status: No Severe MUSCULOSKELETAL pain: No ADL Dysfunction: Yes Acute CVA w/Hemiparesis/Hemiplegia: No Decreased Functional Mobility/Strength: Yes Sprain/Strain: No Acute Post-op Mobility Dysfunction: No Total Points: 4 Discharge Exam General Appearance: no apparent distress, alert Neurologic Exam: oriented x 3, cooperative Skin Exam: normal color, warm, dry, No rash Neck Exam: normal inspection, non-tender, No lymphadenopathy Respiratory Exam: normal breath sounds, lungs clear, No crackles/rales, No rhonchi, No wheezing Cardiovascular Exam: normal heart sounds, irregular, No murmur Gastrointestinal/Abdomen Exam: soft, normal bowel sounds, other (firm area to L of midline incision. Incision well approximated. decreased erythema on superior portion and to the R of midportion), No tenderness, No distention Final Diagnosis/Problem List - Final Discharge Diagnosis/Problem (1) CHF (congestive heart failure) Current Visit: Yes Status: Acute Assessment & Plan: Doing much better, BNP is better and crackles are gone from lungs. (2) UTI (urinary tract infection) Current Visit: Yes Status: Acute Assessment & Plan: treated adequately with 3 days of IV meropenem. (3) DM w/o complication type II Current Visit: No Status: Chronic (4) Hypoglycemia Current Visit: No Status: Resolved (5) DNR (do not resuscitate) Current Visit: No Status: Chronic (6) Atrial fibrillation Current Visit: Yes Status: Chronic Assessment & Plan: d/c atenelol and home on metoprolol. (7) Nausea & vomiting Current Visit: Yes Status: Acute Assessment & Plan: chronic; ok to continue phenergan ac/hs and zofran prn - Discharge Disposition: Home, Self-Care Condition: Stable Prescriptions: New Metoprolol Tartrate 50 mg [Lopressor 50 MG] 50 mg PO BID #60 tablet Continue Zafirlukast 20 mg [Accolate 20 mg] 20 mg PO BID Atorvastatin Calcium [Lipitor 20MG Tablet] 20 mg PO HS Gabapentin [Neurontin] 100 mg PO TID Oxazepam 15 mg PO HS Furosemide 40 mg [Lasix 40 MG] 20 mg PO DAILY Docusate Sodium 100 mg [Colace 100 MG] 200 mg PO HS PRN PRN Reason: Constipation Vit A/Vit C/Vit E/Zinc/Copper [Preservision Areds Softgel] 1 each PO BID Esomeprazole Magnesium [Nexium] 20 mg PO DAILY PANTOPRAZOLE 40 mg Tablet [Protonix 40MG Tablet] 40 mg PO LUNCH Promethazine HCl 25 mg [Phenergan 25 mg] 25 mg PO Q6H PRN PRN PRN Reason: Nausea/Vomiting Dabigatran Etexilate Mesylate [Pradaxa] 150 mg PO BID Diltiazem HCl [Diltiazem 24Hr ER] 180 mg PO DAILY Famotidine 20 mg [Pepcid 20 MG] 20 mg PO HS Hydrocodone/Acetaminophen [[place] 10-325 Tablet] 1 each PO BID Discontinued Glimepiride 2 mg [Amaryl 2 MG] 2 mg PO DAILY Atenolol 50 mg [Tenormin 50 mg] 50 mg PO DAILY Follow up with: SERVANDO HAN [CONSULTING PHYSICIAN] - 1 Week JARAD BONILLA [ACTIVE STAFF] - 11/14/18 3:00 pm RAY OCHOA [Primary Care Provider] - 1 Week
[2018-11-14] MEDS: Norco 10/325 MG Tablet PO SCH (09:18)
[2018-11-14] MEDS: Lopressor 50 MG PO SCH (09:18)
[2018-11-14] MEDS: Neurontin 100 MG PO SCH (09:18)
[2018-11-14] MEDS: PRADAXA 75 MG PO SCH (09:18)
[2018-11-14] MEDS: Ocuvite Tablet PO SCH (09:18)
[2018-11-14] MEDS: Cardizem CD 180 MG PO SCH (09:18)
== END 2018-11-14 11:25 | disposition home health service (06) | DRG 292 ==
LOC: ED 09:22 → MED SURG 12:55 → OBSVTOIN 11-11 08:49
PROVIDERS: ADMIT Family Medicine; ATTEND Family Medicine
DX: I50.32 Chronic diastolic (congestive) heart failure (principal); N39.0 Urinary tract infection, site not specified; I38 Endocarditis, valve unspecified; E11.649 Type 2 diabetes mellitus with hypoglycemia without coma; I48.91 Unspecified atrial fibrillation; R11.2 Nausea with vomiting, unspecified; R09.02 Hypoxemia; I50.9 Heart failure, unspecified; I25.10 Atherosclerotic heart disease of native coronary artery without angina pectoris; E78.5 Hyperlipidemia, unspecified; Z79.01 Long term (current) use of anticoagulants; Z79.899 Other long term (current) drug therapy; Z95.0 Presence of cardiac pacemaker; J45.909 Unspecified asthma, uncomplicated; E11.9 Type 2 diabetes mellitus without complications; Z85.3 Personal history of malignant neoplasm of breast; R10.11 Right upper quadrant pain
CPT/HCPCS: 36000; 36415; 71045; 71260; 74021; 80048; 80053; 81001; 82962; 83605; 83735; 83880; 84132; 84134; 84443; 84484; 85025; 85027; 85379; 85610; 87631; 93005; 93041; 93268; 94150; 94640; 94760; 96360; 96361; 96374; 99285; G0378; P9612; Q3014; J1940; J2405; J3480; A9270-GY; J2185

== ENCOUNTER 2018-12-07 08:26 | Inpatient (IN) | payer MEDICARE ==
[2018-12-07] MEDS ORDERED: Sodium Chloride 0.9% 1000 ML 1,000 ML IV STA (09:12)
[2018-12-07] MEDS ORDERED: Pepcid 20 MG VIAL IV ONE ×3 (09:12→09:59)
[2018-12-07] MEDS ORDERED: Zofran 4 MG/2 ML VIAL IV ONE (09:13)
[2018-12-07] MEDS ORDERED: Sodium Chloride 0.9% 1000 ML 1,000 ML ONE (09:16)
[2018-12-07] MEDS ORDERED: Zofran 4 MG/2 ML VIAL ONE (09:16)
[2018-12-07 09:22] LABS: Hematocrit 33.9 % (35-47); Hemoglobin 10.3 gm/dl (12.0-16.0); Mean Cell Volume 100.6 fl (78-100); Mean Corpuscular Hgb Concent. 30.4 g/dl (32-36); Platelet Count 156 K/mm3 (150-450); Red Blood Count 3.37 M/mm3 (4.1-5.4); Red Cell Distribution Width 19.4 % (11.5-14.0); White Blood Count 4.1 K/mm3 (4.0-10.5)
[2018-12-07 09:25] LABS: Mean Corpuscular Hemoglobin 30.5 pg (26-32)
--- NOTE | 2018-12-07 09:36 | ERPHSYRPT ---
- History of Present Illness Time Seen by Provider: 12/07/18 09:33 Source: patient, family Exam Limitations: no limitations Patient Subjective Stated Complaint: Been going to Dr. Wong for daily injections for a UTI, she thinks it's an antibiotic, abdominal pain, weakness, and not eating Triage Nursing Assessment: Pt reports that she was diagnosed with a UTI from Dr. Wong on 11/26/2018 and has been going to her office for the past 4 days and has received injections that she believes is an antibiotic, today would be day 5 and she was to go to [facility], she c/o of burning during urination and also when she is not, abdominal pain at approx the umbilicus, weakness, gets nauseas when thinks about food and has had only a few crackers in a weeks time, denies problems with bowels, tachycardic, wears oxygen at home, no edema, Physician History: The patient is an 83-year-old female with her complaining of suprapubic pelvic pain and pain with urination that began November 26. She has been taking Keflex for the UTI that was diagnosed. She has been taking Rocephin IM injections for the last 4 days as well. She has not eaten much in the last few days. She hasn't been drinking very much either. She doesn't feel well. She denies fever. Her past medical history is significant for HTN, CHF, UTI, high cholesterol, A. fib, DM, bowel obstruction with surgery, breast cancer, double mastectomy, hernia repair. Timing/Duration: week(s) (2), gradual onset, worse Severity: moderate Modifying Factors: Improves With: nothing Associated Symptoms: nausea, abdominal pain Allergies/Adverse Reactions: metoclopramide HCl [From Reglan] Allergy (Verified 12/07/18 09:04) vomiting Sulfa (Sulfonamide Antibiotics) Allergy (Verified 12/07/18 09:04) rash Home Medications: Atorvastatin Calcium [Lipitor 20MG Tablet] 20 mg PO HS 07/03/16 [History] Gabapentin [Neurontin] 100 mg PO TID 07/03/16 [History] Oxazepam 15 mg PO HS 08/26/16 [History] Furosemide 40 mg [Lasix 40 MG] 40 mg PO DAILY 07/31/17 [History] Docusate Sodium 100 mg [Colace 100 MG] 200 mg PO HS PRN 08/08/17 [History] Vit A/Vit C/Vit E/Zinc/Copper [Preservision Areds Softgel] 1 each PO BID [History] Esomeprazole Magnesium [Nexium] 20 mg PO DAILY 10/10/17 [History] PANTOPRAZOLE 40 mg Tablet [Protonix 40MG Tablet] 40 mg PO LUNCH 10/22/17 [ History] Promethazine HCl 25 mg [Phenergan 25 mg] 25 mg PO Q6H PRN PRN 11/21/17 [ History] Dabigatran Etexilate Mesylate [Pradaxa] 150 mg PO BID 12/24/17 [History] Diltiazem HCl [Diltiazem 24Hr ER] 180 mg PO DAILY 09/22/18 [History] Famotidine 20 mg [Pepcid 20 MG] 10 mg PO HS 09/22/18 [History] Hydrocodone/Acetaminophen [[place] 10-325 Tablet] 1 each PO BID 11/10/18 [History] Dabigatran Etexilate Mesylate [Pradaxa] 150 mg PO BID 12/07/18 [History] Hx Tetanus, Diphtheria Vaccination/Date Given: Yes Hx Influenza Vaccination/Date Given: Yes Hx Pneumococcal Vaccination/Date Given: Yes - Review of Systems Constitutional: Malaise Eyes: No Symptoms Ears, Nose, & Throat: No Symptoms Respiratory: Dyspnea Cardiac: No Chest Pain, No Edema, No Syncope Abdominal/Gastrointestinal: No Abdominal Pain, No Nausea, No Vomiting, No Diarrhea Genitourinary Symptoms: No Dysuria Musculoskeletal: No Back Pain, No Neck Pain Skin: No Rash Neurological: No Dizziness, No Focal Weakness, No Sensory Changes Psychological: No Symptoms Endocrine: No Symptoms Hematologic/Lymphatic: No Symptoms Immunological/Allergic: No Symptoms All Other Systems: Reviewed and Negative - Past Medical History Pertinent Past Medical History: Yes Neurological History: No Pertinent History ENT History: No Pertinent History Cardiac History: Arrhythmia, Other Respiratory History: Asthma, Pneumonia Endocrine Medical History: Diabetes Type II Musculoskeletal History: No Pertinent History GI Medical History: Hernia History: No Pertinent History Psycho-Social History: No Pertinent History Female Reproductive Disorders: Breast Cancer Other Medical History: A FIB, heart murmer - Past Surgical History Past Surgical History: Yes Neuro Surgical History: No Pertinent History Cardiac: Cardiac Catheterization, Pacemaker Respiratory: No Pertinent History Gastrointestinal: No Pertinent History, Hernia Repair Genitourinary: No Pertinent History Musculoskeletal: No Pertinent History Female Surgical History: Mastectomy Other Surgical History: L mastectomy april 10, VENTRAL HERNIA REPAIR - Social History Smoking Status: Former smoker How long have you smoked: quit 24 yr Exposure to second hand smoke: No Alcohol Use: None Drug Use: none Patient Lives Alone: No Significant Family History: no pertinent family hx - Female History Hx Now: No - Nursing Vital Signs Nursing Vital Signs: Initial Vital Signs Temperature 98.5 F 12/07/18 08:45 Pulse Rate 120 H 12/07/18 08:45 Blood Pressure 131/85 12/07/18 08:45 O2 Sat by Pulse Oximetry 89 L 12/07/18 08:45 Pain Scale Pain Intensity 4 - Physical Exam General Appearance: mild distress Eye Exam: PERRL/EOMI, eyes nml inspection Ears, Nose, Throat Exam: normal ENT inspection, TMs normal, pharynx normal, moist mucous membranes Neck Exam: normal inspection, non-tender, supple, full range of motion Respiratory Exam: normal breath sounds, lungs clear, No respiratory distress Cardiovascular Exam: regular rate/rhythm, normal heart sounds, normal peripheral pulses Gastrointestinal/Abdomen Exam: tenderness (suprapubic) Pelvic Exam: not done Rectal Exam: not done Back Exam: normal inspection, normal range of motion, No CVA tenderness, No vertebral tenderness Extremity Exam: normal inspection, normal range of motion, pelvis stable Neurologic Exam: alert, oriented x 3, cooperative, normal mood/affect, nml cerebellar function, nml station & gait, sensation nml, No motor deficits Skin Exam: normal color, warm, dry, No rash Lymphatic Exam: No adenopathy SpO2 Interpretation: normal SpO2: 89 Oxygen Delivery: Room Air - Radiology Exams Chest X-ray Interpretation: Interpreted by me, Other (bilateral pleural effusions) - CT Exams Abdomen/Pelvis CT Interpretation: Tele-radiologist Report (per Dr Pardo), Other (Moderate bilateral pleural effusions. Large hiatal hernia. Cholelithiasis without evidence of acute cholecystitis. Ventral abdominal wall hernia repair with pocket of fluid superficial to the mesh likely residual postoperative changes. Diverticulosis without acute diverticulitis. Normal appendix.) Ordered Tests: Active Orders 24 hr Category Date Time Status Clean Catch Urine Specimen STAT Care 12/07/18 09:10 Active IV Insertion STAT Care 12/07/18 09:10 Active ABDOMEN AND PELVIS W/0 CONTRAS [CT] Stat Exams 12/07/18 09:10 Taken CHEST 2 VIEWS (PA AND LAT) Stat Exams 12/07/18 09:36 Taken BLOOD CULTURE Stat Lab 12/07/18 09:00 Received CBC Stat Lab 12/07/18 09:16 Completed CMP Stat Lab 12/07/18 09:16 Completed CULTURE,URINE Stat Lab 12/07/18 10:35 Received LIPASE Stat Lab 12/07/18 09:00 Completed Lactic Acid Stat Lab 12/07/18 09:09 Completed NT PRO BNP Stat Lab 12/07/18 11:22 Ordered TROPONIN Q3H Lab 12/07/18 09:00 Completed TROPONIN Q3H Lab 12/07/18 12:45 Ordered TROPONIN Q3H Lab 12/07/18 15:45 Ordered TROPONIN Q3H Lab 12/07/18 18:45 Ordered TROPONIN Q3H Lab 12/07/18 21:45 Ordered UA W/RFX UR CULTURE Stat Lab 12/07/18 10:35 Completed Medication Summary Discontinued Medications Generic Name Dose Route Start Last Admin Trade Name Freq PRN Reason Stop Dose Admin Famotidine 20 mg 12/07/18 09:12 12/07/18 09:20 Pepcid 20 Mg Vial IV 12/07/18 09:13 20 mg STAT ONE Administration Famotidine Confirm 12/07/18 09:16 Pepcid 20 Mg Vial Administered 12/07/18 09:17 Dose 20 mg IV .STK-MED ONE Famotidine Confirm 12/07/18 09:59 Pepcid 20 Mg Vial Administered 12/07/18 10:00 Dose 20 mg IV .STK-MED ONE Furosemide 40 mg 12/07/18 11:22 Lasix 40 Mg/4 Ml IV 12/07/18 11:23 STAT ONE Furosemide Confirm 12/07/18 11:25 Lasix 40 Mg/4 Ml Administered 12/07/18 11:26 Dose 40 mg .ROUTE .STK-MED ONE Sodium Chloride 1,000 mls @ 999 mls/hr 12/07/18 09:12 12/07/18 09:20 Sodium Chloride 0.9% 1000 Ml IV 12/07/18 10:12 999 mls/hr .Q1H1M STA Administration Sodium Chloride Confirm 12/07/18 09:16 Sodium Chloride 0.9% 1000 Ml Administered 12/07/18 09:17 Dose 1,000 mls @ ud .ROUTE .STK-MED ONE Ondansetron HCl 4 mg 12/07/18 09:13 12/07/18 09:20 Zofran 4 Mg/2 Ml Vial IV 12/07/18 09:14 4 mg STAT ONE Administration Ondansetron HCl Confirm 12/07/18 09:16 Zofran 4 Mg/2 Ml Vial Administered 12/07/18 09:17 Dose 4 mg .ROUTE .STK-MED ONE Lab/Rad Data: Laboratory Result Diagrams 12/07/18 09:16 12/07/18 09:16 Laboratory Results 12/07/18 12/07/18 12/07/18 Range/Units 10:35 09:16 09:16 WBC 4.1 (4.0-10.5) K/mm3 RBC 3.37 L (4.1-5.4) M/mm3 Hgb 10.3 L (12.0-16.0) gm/dl Hct 33.9 L (35-47) % MCV 100.6 H (78-100) fl MCH 30.5 (26-32) pg MCHC 30.4 L (32-36) g/dl RDW 19.4 H (11.5-14.0) % Plt Count 156 (150-450) K/mm3 MPV 11.0 H (6-9.5) fl Sodium 143 (137-145) mmol/L Potassium 3.7 (3.5-5.1) mmol/L Chloride 115 H (98-107) mmol/L Carbon Dioxide 23 (22-30) mmol/L Anion Gap 8.3 (5-15) MEQ/L BUN 11 (7-17) mg/dL Creatinine 0.55 (0.52-1.04) mg/dL Estimated GFR > 60.0 ML/MIN Glucose 147 H (74-106) mg/dL Lactic Acid (0.4-2.0) Calcium 8.5 (8.4-10.2) mg/dL Total Bilirubin 0.50 (0.2-1.3) mg/dL AST 20 (14-36) U/L ALT 11 (0-35) U/L Alkaline Phosphatase 112 (38-126) U/L Troponin I (0.000-0.034) ng/mL Serum Total Protein 5.6 L (6.3-8.2) g/dL Albumin 2.6 L (3.5-5.0) g/dL Lipase (23-300) U/L Urine Color YELLOW (YELLOW) Urine Appearance CLEAR (CLEAR) Urine pH 6.0 (5-6) Ur Specific Henry 1.026 (1.005-1.025) Urine Protein 30 (Negative) Urine Ketones TRACE (NEGATIVE) Urine Blood SMALL (0-5) Grey/ul Urine Nitrite NEGATIVE (NEGATIVE) Urine Bilirubin NEGATIVE (NEGATIVE) Urine Urobilinogen NEGATIVE (0-1) mg/dL Ur Leukocyte Esterase NEGATIVE (NEGATIVE) Urine WBC (Auto) 6-10 (0-5) /HPF Urine RBC (Auto) 16-25 (0-2) /HPF U Epithel Cells (Auto) NONE (FEW) /HPF Urine Bacteria (Auto) NONE (NEGATIVE) /HPF Urine Mucus (Auto) SLIGHT (NEGATIVE) /HPF Urine Culture Reflexed YES (NO) Urine Glucose NEGATIVE (NEGATIVE) mg/dL 12/07/18 12/07/18 12/07/18 Range/Units 09:09 09:00 09:00 WBC (4.0-10.5) K/mm3 RBC (4.1-5.4) M/mm3 Hgb (12.0-16.0) gm/dl Hct (35-47) % MCV (78-100) fl MCH (26-32) pg MCHC (32-36) g/dl RDW (11.5-14.0) % Plt Count (150-450) K/mm3 MPV (6-9.5) fl Sodium (137-145) mmol/L Potassium (3.5-5.1) mmol/L Chloride (98-107) mmol/L Carbon Dioxide (22-30) mmol/L Anion Gap (5-15) MEQ/L BUN (7-17) mg/dL Creatinine (0.52-1.04) mg/dL Estimated GFR ML/MIN Glucose (74-106) mg/dL Lactic Acid 1.5 (0.4-2.0) Calcium (8.4-10.2) mg/dL Total Bilirubin (0.2-1.3) mg/dL AST (14-36) U/L ALT (0-35) U/L Alkaline Phosphatase (38-126) U/L Troponin I < 0.012 (0.000-0.034) ng/mL Serum Total Protein (6.3-8.2) g/dL Albumin (3.5-5.0) g/dL Lipase 27 (23-300) U/L Urine Color (YELLOW) Urine Appearance (CLEAR) Urine pH (5-6) Ur Specific Henry (1.005-1.025) Urine Protein (Negative) Urine Ketones (NEGATIVE) Urine Blood (0-5) Grey/ul Urine Nitrite (NEGATIVE) Urine Bilirubin (NEGATIVE) Urine Urobilinogen (0-1) mg/dL Ur Leukocyte Esterase (NEGATIVE) Urine WBC (Auto) (0-5) /HPF Urine RBC (Auto) (0-2) /HPF U Epithel Cells (Auto) (FEW) /HPF Urine Bacteria (Auto) (NEGATIVE) /HPF Urine Mucus (Auto) (NEGATIVE) /HPF Urine Culture Reflexed (NO) Urine Glucose (NEGATIVE) mg/dL - Progress Progress: unchanged Discussed with : Marvin Will see patient in: hospital (full admit) Counseled pt/family regarding: lab results, diagnosis, rad results - Departure Time of Disposition: 11:30 Departure Disposition: In-patient Admission (per Dr Wong) Clinical Impression: CHF (congestive heart failure) Condition: Stable Critical Care Time: No Referrals: RAY WONG [Primary Care Provider] - Instructions: Heart Failure
[2018-12-07 09:37] LABS: ALBUMIN 2.6 g/dL (3.5-5.0); ALKALINE PHOSPHATASE 112 U/L (38-126); ANION GAP 8.3 MEQ/L (5-15); BLOOD UREA NITROGEN 11 mg/dL (7-17); CHLORIDE 115 mmol/L (98-107); Calcium 8.5 mg/dL (8.4-10.2); Carbon Dioxide 23 mmol/L (22-30); Creatinine 1 0.55 mg/dL (0.52-1.04); Glucose 147 mg/dL (74-106); Potassium 3.7 mmol/L (3.5-5.1); SGOT/AST 20 U/L (14-36); SGPT/ALT 11 U/L (0-35); SODIUM 143 mmol/L (137-145); Total Protein 5.6 g/dL (6.3-8.2)
[2018-12-07 10:48] LABS: Appearance CLEAR (CLEAR); Bilirubin NEGATIVE (NEGATIVE); Blood SMALL Ery/ul (0-5); Glucose NEGATIVE (NEGATIVE); Ketones TRACE (NEGATIVE); Leukocyte Esterase NEGATIVE (NEGATIVE); Mucus SLIGHT /HPF (NEGATIVE); Nitrite NEGATIVE (NEGATIVE); Protein,Urine Dip 30 (Negative); Specific Gravity 1.026 (1.005-1.025); Urobilinogen NEGATIVE mg/dL (0-1)
[2018-12-07] MEDS ORDERED: Lasix 40 MG/4 ML IV ONE (11:22)
[2018-12-07] MEDS ORDERED: Lasix 40 MG/4 ML ONE (11:25)
[2018-12-07] MEDS ORDERED: Ditropan 5 MG PO STA (13:23)
[2018-12-07] MEDS ORDERED: Colace 100 MG PO PRN (14:56)
[2018-12-07] MEDS: PHENERGAN 25 MG PO PRN (15:44)
[2018-12-07] MEDS: Neurontin 100 MG PO SCH ×2 (15:44→21:22)
[2018-12-07] MEDS ORDERED: Lasix 40 MG/4 ML IV SCH (17:00)
--- NOTE | 2018-12-07 17:22 | XRAY ---
Indication: Short of breath. Comparison: November 10, 2018. PA/lateral chest again demonstrates bibasilar effusion/atelectasis again right greater than left. Heart remains borderline enlarged with right-sided dual-lead pacemaker. No new cardiopulmonary abnormalities.
[2018-12-07] MEDS ORDERED: Cardizem 30 MG PO ONE (20:14)
--- NOTE | 2018-12-07 20:23 | PCM.HP ---
History of Present Illness - Chief Complaint Chief Complaint: CHF History of Present Illness: is a 83 year old female pt of mine from [facility] with PMHx breast ca (s/ p mastectomy), ventral hernia (s/p repair in Sep 2018), hx PE, atrial fibrillation, DM, pacemaker, , HTN, hx CVA, CHF, and hx GI hemorrhage who came to ER with persistent dysuria and nausea. She was found to have +UCx this week and has been coming to the office for rocephin IM (was to get her 5th and final dose from [facility] today). Thought she was feeling better 2 d ago, then yesterday felt worse again. Prior to this she was in the hospital wiht a UCx + UTI and was treated and released to home. She has chronic nausea but she states this is different; has not been taking much po. In the ER was found to have bilat pleural effusions and elevated BNP (to 7990) and was given IV lasix and admitted. Her HR is in the 120s-130s but she did not have her cardizem today. C/o increased SOB for the past 3-4d. Denies cough. - Review of Systems Constitutional: No Fever Abdominal/Gastrointestinal: Abdominal Pain (4/10 periumbilical pain), Nausea, Other (bilat throbbing flank pain, new past 3-4 d.) Genitourinary Symptoms: No Hematuria All Other Systems: Reviewed and Negative Medications & Allergies Home Medications: Home Medication List Atorvastatin Calcium [Lipitor 20MG Tablet] 20 mg PO HS 07/03/16 [History Confirmed 12/07/18] Gabapentin [Neurontin] 100 mg PO TID 07/03/16 [History Confirmed 12/07/18] Oxazepam 15 mg PO HS 08/26/16 [History Confirmed 12/07/18] Furosemide 40 mg [Lasix 40 MG] 40 mg PO DAILY 07/31/17 [History Confirmed 12/07/18] Docusate Sodium 100 mg [Colace 100 MG] 200 mg PO DAILY PRN 08/08/17 [ History Confirmed 12/07/18] Vit A/Vit C/Vit E/Zinc/Copper [Preservision Areds Softgel] 1 each PO BID [History Confirmed 12/07/18] Esomeprazole Magnesium [Nexium] 20 mg PO DAILY 10/10/17 [History Confirmed 12/07] PANTOPRAZOLE 40 mg Tablet [Protonix 40MG Tablet] 40 mg PO LUNCH 10/22/17 [ History Confirmed 12/07/18] Promethazine HCl 25 mg [Phenergan 25 mg] 25 mg PO Q6H PRN 11/21/17 [ History Confirmed 12/07/18] Diltiazem HCl [Diltiazem 24Hr ER] 180 mg PO DAILY 09/22/18 [History Confirmed ] Famotidine 20 mg [Pepcid 20 MG] 10 mg PO HS 09/22/18 [History Confirmed ] Hydrocodone/Acetaminophen [[place] 10-325 Tablet] 1 each PO BID PRN 11/10/18 [ History Confirmed 12/07/18] Dabigatran Etexilate Mesylate [Pradaxa] 150 mg PO BID 12/07/18 [History Confirmed 12/07/18] Allergies/Adverse Reactions: Allergies Allergy/AdvReac Type Severity Reaction Status Date / Time metoclopramide HCl Allergy Verified 12/07/18 09:04 [From Reglan] Sulfa (Sulfonamide Allergy Verified 12/07/18 09:04 Antibiotics) - Past Medical History Past Medical History: Yes Neurological History: No Pertinent History ENT History: No Pertinent History Cardiac History: Arrhythmia, Other Respiratory History: Asthma, Pneumonia Endocrine Medical History: Diabetes Type II Musculoskelatal History: No Pertinent History GI Medical History: Hernia History: No Pertinent History Pyscho-Social History: No Pertinent History Reproductive Disorders: Breast Cancer Comment: A FIB, heart murmer - Female History Are you now?: No - Past Surgical History Past Surgical History: Yes Neuro Surgical History: No Pertinent History Cardiac History: Cardiac Catheterization, Pacemaker Respiratory Surgery: No Pertinent History GI Surgical History: No Pertinent History, Hernia Repair Genitourinary Surgical Hx: No Pertinent History Musculskeletal Surgical Hx: No Pertinent History Female Surgical History: Mastectomy Other Surgical History: L mastectomy april 10, VENTRAL HERNIA REPAIR - Social History Smoking Status: Never smoker How long have you smoked: quit 24 yr Exposure to second hand smoke: No Alcohol: None Drug Use: none Significant Family History: no pertinent family hx - Physical Exam Vital Signs: Vital Signs - 24 hr Temp Pulse Resp BP Pulse Ox 12/07/18 19:27 98.6 F 132 H 18 124/74 96 12/07/18 16:00 98.7 F 130 H 20 133/88 95 12/07/18 13:40 97.9 F 130 H 18 213/94 93 L 12/07/18 12:24 98.5 F 120 H 160/102 89 L 12/07/18 12:14 92 L 12/07/18 11:34 89 L 12/07/18 10:06 16 160/102 98 12/07/18 08:45 98.5 F 120 H 131/85 89 L Oxygen-Last 24 hours O2 Percentage 2 Liters = 28% Oxygen Flowrate (L/min)-RT 2 General Appearance: no apparent distress, alert Neurologic Exam: oriented x 3, cooperative Eye Exam: eyes nml inspection Ears, Nose, Throat Exam: moist mucous membranes Neck Exam: normal inspection, non-tender, No lymphadenopathy Respiratory Exam: normal breath sounds, lungs clear, No crackles/rales, No rhonchi, No wheezing Cardiovascular Exam: murmur (III/ sys murmur), tachycardia, irregular Gastrointestinal/Abdomen Exam: soft, other (midline incision well healed. firm area to L of midline near umbilicus is decreased in size from previous exam.), No normal bowel sounds (increased), No tenderness, No distention, No guarding, No rebound Back Exam: normal inspection, No CVA tenderness, No rash Results - Labs Lab/Micro Results: Lab Results-Last 24 Hours 12/07/18 12/07/18 12/07/18 Range/Units 09:00 09:00 09:09 WBC (4.0-10.5) K/mm3 RBC (4.1-5.4) M/mm3 Hgb (12.0-16.0) gm/dl Hct (35-47) % MCV (78-100) fl MCH (26-32) pg MCHC (32-36) g/dl RDW (11.5-14.0) % Plt Count (150-450) K/mm3 MPV (6-9.5) fl Sodium (137-145) mmol/L Potassium (3.5-5.1) mmol/L Chloride (98-107) mmol/L Carbon Dioxide (22-30) mmol/L Anion Gap (5-15) MEQ/L BUN (7-17) mg/dL Creatinine (0.52-1.04) mg/dL Estimated GFR ML/MIN Glucose (74-106) mg/dL Lactic Acid 1.5 (0.4-2.0) Calcium (8.4-10.2) mg/dL Total Bilirubin (0.2-1.3) mg/dL AST (14-36) U/L ALT (0-35) U/L Alkaline Phosphatase (38-126) U/L Troponin I < 0.012 (0.000-0.034) ng/mL NT-Pro-B Natriuret Pep (0-1800) pg/mL Serum Total Protein (6.3-8.2) g/dL Albumin (3.5-5.0) g/dL Lipase 27 (23-300) U/L Urine Color (YELLOW) Urine Appearance (CLEAR) Urine pH (5-6) Ur Specific [place] (1.005-1.025) Urine Protein (Negative) Urine Ketones (NEGATIVE) Urine Blood (0-5) Grey/ul Urine Nitrite (NEGATIVE) Urine Bilirubin (NEGATIVE) Urine Urobilinogen (0-1) mg/dL Ur Leukocyte Esterase (NEGATIVE) Urine WBC (Auto) (0-5) /HPF Urine RBC (Auto) (0-2) /HPF U Epithel Cells (Auto) (FEW) /HPF Urine Bacteria (Auto) (NEGATIVE) /HPF Urine Mucus (Auto) (NEGATIVE) /HPF Urine Culture Reflexed (NO) Urine Glucose (NEGATIVE) mg/dL 12/07/18 12/07/18 12/07/18 Range/Units 09:16 09:16 09:16 WBC 4.1 (4.0-10.5) K/mm3 RBC 3.37 L (4.1-5.4) M/mm3 Hgb 10.3 L (12.0-16.0) gm/dl Hct 33.9 L (35-47) % MCV 100.6 H (78-100) fl MCH 30.5 (26-32) pg MCHC 30.4 L (32-36) g/dl RDW 19.4 H (11.5-14.0) % Plt Count 156 (150-450) K/mm3 MPV 11.0 H (6-9.5) fl Sodium 143 (137-145) mmol/L Potassium 3.7 (3.5-5.1) mmol/L Chloride 115 H (98-107) mmol/L Carbon Dioxide 23 (22-30) mmol/L Anion Gap 8.3 (5-15) MEQ/L BUN 11 (7-17) mg/dL Creatinine 0.55 (0.52-1.04) mg/dL Estimated GFR > 60.0 ML/MIN Glucose 147 H (74-106) mg/dL Lactic Acid (0.4-2.0) Calcium 8.5 (8.4-10.2) mg/dL Total Bilirubin 0.50 (0.2-1.3) mg/dL AST 20 (14-36) U/L ALT 11 (0-35) U/L Alkaline Phosphatase 112 (38-126) U/L Troponin I (0.000-0.034) ng/mL NT-Pro-B Natriuret Pep 7990 H (0-1800) pg/mL Serum Total Protein 5.6 L (6.3-8.2) g/dL Albumin 2.6 L (3.5-5.0) g/dL Lipase (23-300) U/L Urine Color (YELLOW) Urine Appearance (CLEAR) Urine pH (5-6) Ur Specific [place] (1.005-1.025) Urine Protein (Negative) Urine Ketones (NEGATIVE) Urine Blood (0-5) Grey/ul Urine Nitrite (NEGATIVE) Urine Bilirubin (NEGATIVE) Urine Urobilinogen (0-1) mg/dL Ur Leukocyte Esterase (NEGATIVE) Urine WBC (Auto) (0-5) /HPF Urine RBC (Auto) (0-2) /HPF U Epithel Cells (Auto) (FEW) /HPF Urine Bacteria (Auto) (NEGATIVE) /HPF Urine Mucus (Auto) (NEGATIVE) /HPF Urine Culture Reflexed (NO) Urine Glucose (NEGATIVE) mg/dL 12/07/18 12/07/18 12/07/18 Range/Units 10:35 13:00 15:55 WBC (4.0-10.5) K/mm3 RBC (4.1-5.4) M/mm3 Hgb (12.0-16.0) gm/dl Hct (35-47) % MCV (78-100) fl MCH (26-32) pg MCHC (32-36) g/dl RDW (11.5-14.0) % Plt Count (150-450) K/mm3 MPV (6-9.5) fl Sodium (137-145) mmol/L Potassium (3.5-5.1) mmol/L Chloride (98-107) mmol/L Carbon Dioxide (22-30) mmol/L Anion Gap (5-15) MEQ/L BUN (7-17) mg/dL Creatinine (0.52-1.04) mg/dL Estimated GFR ML/MIN Glucose (74-106) mg/dL Lactic Acid (0.4-2.0) Calcium (8.4-10.2) mg/dL Total Bilirubin (0.2-1.3) mg/dL AST (14-36) U/L ALT (0-35) U/L Alkaline Phosphatase (38-126) U/L Troponin I < 0.012 < 0.012 (0.000-0.034) ng/mL NT-Pro-B Natriuret Pep (0-1800) pg/mL Serum Total Protein (6.3-8.2) g/dL Albumin (3.5-5.0) g/dL Lipase (23-300) U/L Urine Color YELLOW (YELLOW) Urine Appearance CLEAR (CLEAR) Urine pH 6.0 (5-6) Ur Specific [place] 1.026 (1.005-1.025) Urine Protein 30 (Negative) Urine Ketones TRACE (NEGATIVE) Urine Blood SMALL (0-5) Grey/ul Urine Nitrite NEGATIVE (NEGATIVE) Urine Bilirubin NEGATIVE (NEGATIVE) Urine Urobilinogen NEGATIVE (0-1) mg/dL Ur Leukocyte Esterase NEGATIVE (NEGATIVE) Urine WBC (Auto) 6-10 (0-5) /HPF Urine RBC (Auto) 16-25 (0-2) /HPF U Epithel Cells (Auto) NONE (FEW) /HPF Urine Bacteria (Auto) NONE (NEGATIVE) /HPF Urine Mucus (Auto) SLIGHT (NEGATIVE) /HPF Urine Culture Reflexed YES (NO) Urine Glucose NEGATIVE (NEGATIVE) mg/dL 12/07/18 Range/Units 18:46 WBC (4.0-10.5) K/mm3 RBC (4.1-5.4) M/mm3 Hgb (12.0-16.0) gm/dl Hct (35-47) % MCV (78-100) fl MCH (26-32) pg MCHC (32-36) g/dl RDW (11.5-14.0) % Plt Count (150-450) K/mm3 MPV (6-9.5) fl Sodium (137-145) mmol/L Potassium (3.5-5.1) mmol/L Chloride (98-107) mmol/L Carbon Dioxide (22-30) mmol/L Anion Gap (5-15) MEQ/L BUN (7-17) mg/dL Creatinine (0.52-1.04) mg/dL Estimated GFR ML/MIN Glucose (74-106) mg/dL Lactic Acid (0.4-2.0) Calcium (8.4-10.2) mg/dL Total Bilirubin (0.2-1.3) mg/dL AST (14-36) U/L ALT (0-35) U/L Alkaline Phosphatase (38-126) U/L Troponin I < 0.012 (0.000-0.034) ng/mL NT-Pro-B Natriuret Pep (0-1800) pg/mL Serum Total Protein (6.3-8.2) g/dL Albumin (3.5-5.0) g/dL Lipase (23-300) U/L Urine Color (YELLOW) Urine Appearance (CLEAR) Urine pH (5-6) Ur Specific [place] (1.005-1.025) Urine Protein (Negative) Urine Ketones (NEGATIVE) Urine Blood (0-5) Grey/ul Urine Nitrite (NEGATIVE) Urine Bilirubin (NEGATIVE) Urine Urobilinogen (0-1) mg/dL Ur Leukocyte Esterase (NEGATIVE) Urine WBC (Auto) (0-5) /HPF Urine RBC (Auto) (0-2) /HPF U Epithel Cells (Auto) (FEW) /HPF Urine Bacteria (Auto) (NEGATIVE) /HPF Urine Mucus (Auto) (NEGATIVE) /HPF Urine Culture Reflexed (NO) Urine Glucose (NEGATIVE) mg/dL - Radiology Impressions Radiology Exams & Impressions: Radiology Procedures Category Date Time Status ABDOMEN AND PELVIS W/0 CONTRAS [CT] Stat Exams 12/07/18 09:10 Taken CHEST 2 VIEWS (PA AND LAT) IN AM Exams 12/08/18 06:00 Ordered CHEST 2 VIEWS (PA AND LAT) Stat Exams 12/07/18 09:36 Completed - Other Procedures and Tests Respiratory Therapy 12/07/18 12:14 Oxygen NASAL CANNULA 2 lpm 12/08/18 06:00 EKG IN AM Assessment/Plan (1) Bilateral pleural effusion Current Visit: No Status: Acute Onset Date: ~12/07/18 Code(s): J90 - PLEURAL EFFUSION, NOT ELSEWHERE CLASSIFIED (2) CHF (congestive heart failure) Current Visit: Yes Status: Acute Onset Date: ~12/07/18 Qualifiers: Heart failure type: diastolic Heart failure chronicity: acute on chronic Qualified Code(s): I50.33 - Acute on chronic diastolic (congestive) heart failure Assessment & Plan: Last echo Dec 2017. Sees Dr. Garcia. Code(s): I50.9 - HEART FAILURE, UNSPECIFIED (3) Atrial fibrillation Current Visit: No Status: Chronic Qualifiers: Atrial fibrillation type: chronic Qualified Code(s): I48.2 - Chronic atrial fibrillation Assessment & Plan: Rapid HR likely due to not having her rate controlling med today. Give short acting diltiazem now and resume regular dose tomorrow. Code(s): I48.91 - UNSPECIFIED ATRIAL FIBRILLATION (4) Nausea Current Visit: No Status: Acute Onset Date: ~12/07/18 Assessment & Plan: acute on chronic. Code(s): R11.0 - NAUSEA (5) Failure of outpatient treatment Current Visit: No Status: Acute Onset Date: ~10/10/18 Assessment & Plan: on IV rocephin here. Will add pyridium; she may have a component of bladder irritation superimposed on her recent UTIs. She does have an upcoming appt with urology scheduled. Code(s): Z78.9 - OTHER SPECIFIED HEALTH STATUS (6) UTI (urinary tract infection) Current Visit: No Status: Acute Qualifiers: Urinary tract infection type: acute cystitis Hematuria presence: without hematuria Qualified Code(s): N30.00 - Acute cystitis without hematuria Code(s): N39.0 - URINARY TRACT INFECTION, SITE NOT SPECIFIED (7) DM w/o complication type II Current Visit: No Status: Chronic Qualifiers: Diabetes mellitus group home insulin use: without rat exterminator use Qualified Code(s): E11.9 - Type 2 diabetes mellitus without complications Code(s): E11.9 - TYPE 2 DIABETES MELLITUS WITHOUT COMPLICATIONS (8) Renal insufficiency Current Visit: No Status: Chronic
[2018-12-07] MEDS: ROCEPHIN 1 Gm-D5w 50 ml Bag** 1 G/50 ML IVPB IV SCH (21:22)
[2018-12-07] MEDS: Lopressor 50 MG PO SCH (21:22)
[2018-12-07] MEDS: PATIENT OWN MEDICATION PO SCH (21:22)
[2018-12-07] MEDS: Ocuvite Tablet PO SCH (21:22)
[2018-12-07] MEDS: Ditropan 5 MG PO SCH (21:22)
[2018-12-07] MEDS: Pepcid 20 MG PO SCH (21:23)
[2018-12-07] MEDS: PRADAXA 75 MG PO SCH (21:23)
[2018-12-07] MEDS: Norco 10/325 MG Tablet PO SCH (21:48)
[2018-12-07] MEDS ORDERED: VIT C PO SCH (22:00)
[2018-12-07] MEDS ORDERED: ZINC PO SCH (22:00)
[2018-12-07] MEDS ORDERED: VIT A PO SCH (22:00)
[2018-12-07] MEDS ORDERED: VIT E PO SCH (22:00)
[2018-12-07] MEDS ORDERED: ZOCOR 20MG PO SCH (22:00)
[2018-12-07] MEDS ORDERED: NON-FORMULARY ITEM (Atorvastatin Calcium 20 MG) PO SCH (22:00)
[2018-12-07] MEDS ORDERED: COPPER PO SCH (22:00)
[2018-12-07] MEDS ORDERED: OXAZEPAM 15 MG PO SCH (22:00)
[2018-12-07] MEDS: Vitamin B-6 (Pyridoxine) 100 MG PO SCH (22:09)
[2018-12-08 06:01] LABS: Hematocrit 32.3 % (35-47); Hemoglobin 9.6 gm/dl (12.0-16.0); Mean Cell Volume 101.9 fl (78-100); Mean Corpuscular Hgb Concent. 29.7 g/dl (32-36); Mean Platelet Volume 11.3 fl (6-9.5); Platelet Count 148 K/mm3 (150-450); Red Blood Count 3.17 M/mm3 (4.1-5.4); Red Cell Distribution Width 19.2 % (11.5-14.0); White Blood Count 3.9 K/mm3 (4.0-10.5)
[2018-12-08 06:02] LABS: Mean Corpuscular Hemoglobin 30.2 pg (26-32)
[2018-12-08 06:30] LABS: ANION GAP 6.7 MEQ/L (5-15); BLOOD UREA NITROGEN 10 mg/dL (7-17); CHLORIDE 110 mmol/L (98-107); Carbon Dioxide 28 mmol/L (22-30); Creatinine 1 0.61 mg/dL (0.52-1.04); Glucose 90 mg/dL (74-106); NT PRO BNP 5960 pg/mL (0-1800); SODIUM 142 mmol/L (137-145)
[2018-12-08] MEDS ORDERED: Sodium Chloride 0.9% 500 ML 500 ML IV ONE (06:46)
[2018-12-08] MEDS: POTASSIUM CHLORIDE 20 mEq IN WATER 100ML 20 MEQ/100 ML BAG IV SCH ×2 (06:48→10:05)
[2018-12-08] MEDS ORDERED: Sodium Chloride 0.9% 500 ML 500 ML IV SCH (06:49)
[2018-12-08] MEDS: PHENERGAN 25 MG PO PRN (07:58)
--- NOTE | 2018-12-08 08:37 | XRAY ---
Indication: Follow-up CHF. Comparison: One day earlier. AP/lateral chest unchanged again demonstrating bibasilar effusions/atelectasis and borderline cardiomegaly with right sided dual lead pacemaker. No new cardiopulmonary abnormalities.
[2018-12-08] MEDS: Norco 10/325 MG Tablet PO SCH ×2 (08:39→22:19)
[2018-12-08] MEDS: Ocuvite Tablet PO SCH ×2 (08:40→22:20)
[2018-12-08] MEDS: PRADAXA 75 MG PO SCH ×2 (08:40→22:21)
[2018-12-08] MEDS: Lotensin 10 MG PO SCH (08:40)
[2018-12-08] MEDS: Cardizem CD 180 MG PO SCH (08:40)
[2018-12-08] MEDS: Lasix 40 MG/4 ML IV SCH (08:40)
[2018-12-08] MEDS: Lopressor 50 MG PO SCH ×2 (08:40→22:20)
[2018-12-08] MEDS: ROCEPHIN 1 Gm-D5w 50 ml Bag** 1 G/50 ML IVPB IV SCH (08:41)
[2018-12-08] MEDS: Ditropan 5 MG PO SCH ×2 (08:43→22:20)
[2018-12-08] MEDS: Neurontin 100 MG PO SCH ×3 (08:43→22:20)
[2018-12-08] MEDS: Vitamin B-6 (Pyridoxine) 100 MG PO SCH ×3 (08:50→22:19)
[2018-12-08] MEDS ORDERED: Cardizem CD 120 MG PO SCH (10:00)
[2018-12-08] MEDS ORDERED: Protonix 40MG Tablet PO SCH (10:00)
[2018-12-08] MEDS ORDERED: NON-FORMULARY ITEM (Esomeprazole Magnesium [Nexium] 20 MG) PO SCH (10:00)
[2018-12-08] MEDS ORDERED: Lasix 40 MG PO SCH (10:00)
[2018-12-08] MEDS: Protonix 40MG Tablet PO SCH (11:49)
--- NOTE | 2018-12-08 14:39 | PCM.NOTE ---
Date and Time: 12/08/18 1434 Subjective Assessment: She is feeling less dysuria. Still having frequent urination. unsure if she's less dyspneic because she's not really exerting herself. Overall feeling somewhat better today; less nauseated. - Review of Systems Constitutional: No Fever Abdominal/Gastrointestinal: Nausea Objective Exam General Appearance: no apparent distress, alert (sitting up in chair) Neurologic Exam: oriented x 3, cooperative Skin Exam: normal color, warm, dry, No rash Respiratory Exam: normal breath sounds, lungs clear, crackles/rales (faint at bases bilat), No rhonchi, No wheezing Cardiovascular Exam: normal heart sounds, murmur (II/ sys murmur), irregular Extremity Exam: swelling (trace pretibial edema bilat) OBJECTIVE DATA Vital Signs: Vital Signs - 24 hr Temp Pulse Resp BP Pulse Ox 12/08/18 12:33 95 12/08/18 12:00 97.9 F 96 H 18 89/61 98 12/08/18 08:00 98.2 F 104 H 19 159/80 94 L 12/08/18 04:00 97.9 F 90 16 121/68 83 L 12/07/18 23:44 97.9 F 89 21 134/86 92 L 12/07/18 19:27 98.6 F 132 H 18 124/74 96 12/07/18 16:00 98.7 F 130 H 20 133/88 95 Oxygen-Last 24 hours O2 Percentage 2 Liters = 28% O2 Percentage 2 Liters = 28% O2 Percentage 2 Liters = 28% O2 Percentage 2 Liters = 28% Pain Assessment - Last Documented Pain Intensity 0 Pain Scale Used 0-10 Pain Scale Intake and Output: Intake & Output 12/06/18 12/07/18 12/08/18 12/09/18 11:59 11:59 11:59 11:59 Intake Total 420 120 Output Total 1700 1200 Balance -1280 -1080 Weight 72.575 kg 70.8 kg Lab Results: Lab Results-Last 24 Hours 12/07/18 12/07/18 12/07/18 Range/Units 15:55 18:46 21:46 WBC (4.0-10.5) K/mm3 RBC (4.1-5.4) M/mm3 Hgb (12.0-16.0) gm/dl Hct (35-47) % MCV (78-100) fl MCH (26-32) pg MCHC (32-36) g/dl RDW (11.5-14.0) % Plt Count (150-450) K/mm3 MPV (6-9.5) fl Sodium (137-145) mmol/L Potassium (3.5-5.1) mmol/L Chloride (98-107) mmol/L Carbon Dioxide (22-30) mmol/L Anion Gap (5-15) MEQ/L BUN (7-17) mg/dL Creatinine (0.52-1.04) mg/dL Estimated GFR ML/MIN Glucose (74-106) mg/dL Calcium (8.4-10.2) mg/dL Troponin I < 0.012 < 0.012 < 0.012 (0.000-0.034) ng/mL NT-Pro-B Natriuret Pep (0-1800) pg/mL 12/08/18 12/08/18 Range/Units 05:35 05:35 WBC 3.9 L (4.0-10.5) K/mm3 RBC 3.17 L (4.1-5.4) M/mm3 Hgb 9.6 L (12.0-16.0) gm/dl Hct 32.3 L (35-47) % MCV 101.9 H (78-100) fl MCH 30.2 (26-32) pg MCHC 29.7 L (32-36) g/dl RDW 19.2 H (11.5-14.0) % Plt Count 148 L (150-450) K/mm3 MPV 11.3 H (6-9.5) fl Sodium 142 (137-145) mmol/L Potassium 3.0 L (3.5-5.1) mmol/L Chloride 110 H (98-107) mmol/L Carbon Dioxide 28 (22-30) mmol/L Anion Gap 6.7 (5-15) MEQ/L BUN 10 (7-17) mg/dL Creatinine 0.61 (0.52-1.04) mg/dL Estimated GFR > 60.0 ML/MIN Glucose 90 (74-106) mg/dL Calcium 8.0 L (8.4-10.2) mg/dL Troponin I (0.000-0.034) ng/mL NT-Pro-B Natriuret Pep 5960 H (0-1800) pg/mL Radiology Exams: Radiology Procedures Category Date Time Status ABDOMEN AND PELVIS W/0 CONTRAS [CT] Stat Exams 12/07/18 09:10 Taken CHEST 2 VIEWS (PA AND LAT) IN AM Exams 12/08/18 06:00 Completed CHEST 2 VIEWS (PA AND LAT) Stat Exams 12/07/18 09:36 Completed ECHO W/2D AND DOPPLER [US] Routine Exams 12/09/18 07:00 Ordered Multi-Disciplinary Progress Notes: Multi-Disciplinary Progress Notes 12/08/18 14:10 Case Management Note by Davida Russell DISCHARGE PLAN REVIEWED WITH THE PATIENT. PATIENT NORMALLY LIVES AT HOME WITH HER SIGNIFICANT OTHER, SHE HAS A WALKER AND USES OXYGEN, NORMALLY 2LNC, 24/7 AND VENDOR IS [employer]. SHE ALSO HAS [facility] IN PLACE. AND FAX D/C TO [phone]. HER SIGNIFICANT OTHER CONTACTED THEM PRIOR TO COMING TO THE HOSPITAL. SHE HAS TRANSPORTATION AND MEANS TO GET PRESCRIPTIONS. SHE DENIES NEED FOR ANY OTHER SERVICE/DME. WILL CONTINUE TO MONITOR FOR ALL D /C NEEDS. MEDICARE PAPERS EXPLAINED, SIGNED AND COPIES GIVEN TO THE PATIENT, WITH ORIGINALS IN THE CHART. Initialized on 12/08/18 14:10 - END OF NOTE 12/08/18 04:31 Respiratory Note by Elian Worrell PT HAS AN OVERNIGHT PULSE OX STUDY ORDERED. PT WAS 92% ON 2LPM AND I REMOVED O2 , PLACED OPO PROBE ON, AND EXPLAINED TO PT WHAT WE WERE DOING FOR THE NIGHT. PT KNOWS TO CALL FOR RT IF SHE BEGINS TO FEEL SOB OR HAVE DIFFICULTY OVERNIGHT W /O O2. Initialized on 12/08/18 04:31 - END OF NOTE Assessment/Plan (1) CHF (congestive heart failure) Current Visit: Yes Status: Acute Onset Date: ~12/07/18 Qualifiers: Heart failure type: diastolic Heart failure chronicity: acute on chronic Qualified Code(s): I50.33 - Acute on chronic diastolic (congestive) heart failure Assessment & Plan: BNP has improved. On 80mg IV lasix daily. Will recheck BNP in a.m. Clinically she appears to be feeling better. Code(s): I50.9 - HEART FAILURE, UNSPECIFIED (2) Atrial fibrillation Current Visit: No Status: Chronic Qualifiers: Atrial fibrillation type: chronic Qualified Code(s): I48.2 - Chronic atrial fibrillation Assessment & Plan: stable. much better back on her home meds. Code(s): I48.91 - UNSPECIFIED ATRIAL FIBRILLATION (3) Nausea Current Visit: No Status: Chronic Onset Date: ~12/07/18 Assessment & Plan: somewhat improved. Code(s): R11.0 - NAUSEA (4) Failure of outpatient treatment Current Visit: Yes Status: Acute Onset Date: ~12/07/18 Code(s): Z78.9 - OTHER SPECIFIED HEALTH STATUS (5) UTI (urinary tract infection) Current Visit: Yes Status: Acute Onset Date: ~12/07/18 Qualifiers: Urinary tract infection type: acute cystitis Hematuria presence: without hematuria Qualified Code(s): N30.00 - Acute cystitis without hematuria Assessment & Plan: will finish day #7 of rocephin today - plan to stop it tomorrow. On pyridium for chronic dysuria. Code(s): N39.0 - URINARY TRACT INFECTION, SITE NOT SPECIFIED (6) DM w/o complication type II Current Visit: No Status: Chronic Qualifiers: Diabetes mellitus usp insulin use: without usp use Qualified Code(s): E11.9 - Type 2 diabetes mellitus without complications Code(s): E11.9 - TYPE 2 DIABETES MELLITUS WITHOUT COMPLICATIONS (7) Renal insufficiency Current Visit: No Status: Chronic Assessment & Plan: renal function good today; BUN 10/Cr 0.61. (8) Hypokalemia Current Visit: Yes Status: Acute Assessment & Plan: likely due to increased diuresis from IV lasix. Add potassium po. Code(s): E87.6 - HYPOKALEMIA
[2018-12-08] MEDS: Klor Con 10 MEQ PO SCH ×2 (15:20→22:19)
[2018-12-08] MEDS: Pepcid 20 MG PO SCH (22:20)
[2018-12-08] MEDS: PATIENT OWN MEDICATION PO SCH (22:20)
[2018-12-09 05:41] LABS: Hematocrit 31.9 % (35-47); Hemoglobin 9.5 gm/dl (12.0-16.0); Mean Cell Volume 101.3 fl (78-100); Mean Corpuscular Hgb Concent. 29.8 g/dl (32-36); Mean Platelet Volume 11.2 fl (6-9.5); Platelet Count 133 K/mm3 (150-450); Red Blood Count 3.15 M/mm3 (4.1-5.4); Red Cell Distribution Width 19.3 % (11.5-14.0); White Blood Count 3.5 K/mm3 (4.0-10.5)
[2018-12-09 05:55] LABS: Mean Corpuscular Hemoglobin 30.1 pg (26-32)
[2018-12-09 05:59] LABS: ANION GAP 7.4 MEQ/L (5-15); BLOOD UREA NITROGEN 12 mg/dL (7-17); CHLORIDE 109 mmol/L (98-107); Carbon Dioxide 29 mmol/L (22-30); Creatinine 1 0.65 mg/dL (0.52-1.04); Glucose 78 mg/dL (74-106); Potassium 3.7 mmol/L (3.5-5.1); SODIUM 142 mmol/L (137-145)
[2018-12-09 08:00] VITALS: BP 131/84; PULSE 96; O2SAT 92
--- NOTE | 2018-12-09 08:21 | XRAY ---
Indication: Abdomen pain. Multiple contiguous axial images obtained through the abdomen and pelvis without contrast as ordered. Comparison: October 09, 2018. Lung bases demonstrates increasing moderate bibasilar effusions with compressive atelectasis. Heart remains borderline enlarged. Stable large hiatal hernia with partial intrathoracic stomach. Previous large ventral hernia has been surgically repaired. Tiny midline incisional fluid collection measuring 3.5 cm in diameter and 1 cm in thickness. Noncontrasted stomach and bowel loops appear nonobstructed. Again scattered descending and sigmoid diverticulosis. No free fluid/air. Stable tiny gallstone, hepatic cyst, bilateral renal cysts, fatty replaced pancreas, urinary bladder intraluminal air bubble, and moderate aortoiliac calcifications. Osseous structures intact with stable moderate/advanced multilevel degenerative spondylosis, levorotoscoliosis, and grade 2 L5 spondylolisthesis. Impression: 1. Status post ventral hernia repair with now tiny incisional fluid collection as detailed presumed postoperative hematoma/seroma. Infection not completely excluded in the right clinical setting. 2. Increasing moderate bibasilar pleural effusions/atelectasis. 3. Stable large hiatal hernia with partial intrathoracic stomach, gallstone, hepatic cyst, bilateral renal cysts, urinary bladder intraluminal air bubble, multilevel degenerative spondylosis, levorotoscoliosis, and grade 2 L5 spondylolisthesis. Comment: Preliminary interpretation was made by [facility]. No discrepancy. CTDI 23.23
--- NOTE | 2018-12-09 08:55 | PCM.DS ---
Discharge Summary Date of Admission: 12/07/18 12:13 Admitting Physician: RAY OCHOA Primary Care Provider: RAY OCHOA Allergies Allergies metoclopramide HCl [From Reglan] Allergy (Verified 12/07/18 09:04) vomiting Sulfa (Sulfonamide Antibiotics) Allergy (Verified 12/07/18 09:04) rash Hospital Summary - Hospital Course Hospital Course: Pt is 83 yo female pt of mine from [facility] with CHF, s/p mastectomy, s/p ventral hernia repair, with afib who was seen in the ER with nausea and UTI tx; was found to have elevated BNP so admitted for CHF exacerbation. She has gradually felt better. BNP improved today (3800, down from 7990 on admission). Potassium was low during her stay so po potassium was added. She had a positive UCx again from 12/07/18. Will discharge to home and may need to change antibiotics when final culture is in. Pt is on pyridium; dysuria is improved. She will be discharged to home on pyridium. Seeing urology this month. - Vitals & Intake/Output Vital Signs: Vital Signs Temperature 98.3 F 12/09/18 07:59 Pulse Rate 96 H 12/09/18 07:59 Respiratory Rate 18 12/09/18 07:59 Blood Pressure 131/84 12/09/18 07:59 O2 Sat by Pulse Oximetry 92 L 12/09/18 08:46 Oxygen-Last Documented O2 Percentage 2 Liters = 28% Intake & Output: Intake & Output 12/06/18 12/07/18 12/08/18 12/09/18 11:59 11:59 11:59 11:59 Intake Total 420 1329 Output Total 1700 2250 Balance -1280 -921 Weight 72.575 kg 70.8 kg 67.6 kg - Lab Result Diagrams: 12/09/18 05:15 12/09/18 05:15 Lab Results-Last 24 Hrs: Lab Results-Last 24 Hours 12/08/18 12/09/18 12/09/18 Range/Units 18:03 05:15 05:15 WBC 3.5 L (4.0-10.5) K/mm3 RBC 3.15 L (4.1-5.4) M/mm3 Hgb 9.5 L (12.0-16.0) gm/dl Hct 31.9 L (35-47) % MCV 101.3 H (78-100) fl MCH 30.1 (26-32) pg MCHC 29.8 L (32-36) g/dl RDW 19.3 H (11.5-14.0) % Plt Count 133 L (150-450) K/mm3 MPV 11.2 H (6-9.5) fl Sodium 142 (137-145) mmol/L Potassium 3.8 D 3.7 (3.5-5.1) mmol/L Chloride 109 H (98-107) mmol/L Carbon Dioxide 29 (22-30) mmol/L Anion Gap 7.4 (5-15) MEQ/L BUN 12 (7-17) mg/dL Creatinine 0.65 (0.52-1.04) mg/dL Estimated GFR > 60.0 ML/MIN Glucose 78 (74-106) mg/dL Calcium 8.0 L (8.4-10.2) mg/dL NT-Pro-B Natriuret Pep (0-1800) pg/mL 12/09/18 Range/Units 05:15 WBC (4.0-10.5) K/mm3 RBC (4.1-5.4) M/mm3 Hgb (12.0-16.0) gm/dl Hct (35-47) % MCV (78-100) fl MCH (26-32) pg MCHC (32-36) g/dl RDW (11.5-14.0) % Plt Count (150-450) K/mm3 MPV (6-9.5) fl Sodium (137-145) mmol/L Potassium (3.5-5.1) mmol/L Chloride (98-107) mmol/L Carbon Dioxide (22-30) mmol/L Anion Gap (5-15) MEQ/L BUN (7-17) mg/dL Creatinine (0.52-1.04) mg/dL Estimated GFR ML/MIN Glucose (74-106) mg/dL Calcium (8.4-10.2) mg/dL NT-Pro-B Natriuret Pep 3800 H (0-1800) pg/mL Micro Results-Entire Visit: Microbiology 12/07/18 10:35 Urine Culture - Preliminary Clean Catch Midstream GRAM POSITIVE ID AND SENSITIVITY PENDING 12/07/18 09:16 Blood Culture - Preliminary Blood NO GROWTH TO DATE 12/07/18 09:00 Blood Culture - Preliminary Blood NO GROWTH TO DATE - Radiology Exams Ordered Rad Exams-Entire Visit: Radiology Procedures Category Date Time Status ABDOMEN AND PELVIS W/0 CONTRAS [CT] Stat Exams 12/07/18 09:10 Completed CHEST 2 VIEWS (PA AND LAT) IN AM Exams 12/08/18 06:00 Completed CHEST 2 VIEWS (PA AND LAT) Stat Exams 12/07/18 09:36 Completed ECHO W/2D AND DOPPLER [US] Routine Exams 12/09/18 07:00 Taken - Procedures and Test Procedures and Tests throughout Hospitalization: Therapy Orders & Screens 12/07/18 12:14 Oxygen NASAL CANNULA 2 lpm Comment: Diagnosis: CHF 12/08/18 06:00 EKG IN AM Comment: 12/08/18 14:38 PT Eval & Treat ( Order) ROUTINE Reason for Eval:: weakness, deconditioning Diagnosis: CHF 12/08/18 21:28 Respiratory Therapy Assessment DAILY Comment: Diagnosis: CHF Discharge Exam General Appearance: no apparent distress, alert Neurologic Exam: oriented x 3, cooperative Skin Exam: normal color, warm, dry, No rash Respiratory Exam: normal breath sounds, lungs clear, No crackles/rales, No rhonchi, No wheezing Cardiovascular Exam: normal heart sounds, murmur (II/ sys murmur), irregular Gastrointestinal/Abdomen Exam: soft, normal bowel sounds, No tenderness, No distention, No mass Final Diagnosis/Problem List - Final Discharge Diagnosis/Problem (1) CHF (congestive heart failure) Current Visit: Yes Status: Acute Onset Date: ~12/07/18 Assessment & Plan: Home on home dose of lasix. (2) Atrial fibrillation Current Visit: No Status: Chronic (3) Nausea Current Visit: No Status: Resolved Onset Date: ~12/07/18 (4) Failure of outpatient treatment Current Visit: Yes Status: Resolved Onset Date: ~12/07/18 (5) UTI (urinary tract infection) Current Visit: Yes Status: Acute Onset Date: ~12/07/18 Assessment & Plan: finished 7d rocephin, but there is another positive culture pending. (6) DM w/o complication type II Current Visit: No Status: Chronic (7) Renal insufficiency Current Visit: No Status: Chronic (8) Hypokalemia Current Visit: Yes Status: Acute (9) Chronic hypoxemic respiratory failure Current Visit: Yes Status: Acute Assessment & Plan: on overnight pulse ox on RA she had desaturation - should continue the 2L NC at night. - Discharge Disposition: Home, Self-Care Condition: Stable Prescriptions: New Metoprolol Tartrate 50 mg [Lopressor 50 MG] 50 mg PO BID tablet Benazepril HCl 10 mg [Lotensin 10 MG] 10 mg PO QAM tablet Continue Atorvastatin Calcium [Lipitor 20MG Tablet] 20 mg PO HS Gabapentin [Neurontin] 100 mg PO TID Oxazepam 15 mg PO HS Furosemide 40 mg [Lasix 40 MG] 40 mg PO DAILY Docusate Sodium 100 mg [Colace 100 MG] 200 mg PO DAILY PRN PRN Reason: Constipation Vit A/Vit C/Vit E/Zinc/Copper [Preservision Areds Softgel] 1 each PO BID Esomeprazole Magnesium [Nexium] 20 mg PO DAILY PANTOPRAZOLE 40 mg Tablet [Protonix 40MG Tablet] 40 mg PO LUNCH Promethazine HCl 25 mg [Phenergan 25 mg] 25 mg PO Q6H PRN Diltiazem HCl [Diltiazem 24Hr ER] 180 mg PO DAILY Famotidine 20 mg [Pepcid 20 MG] 10 mg PO HS Hydrocodone/Acetaminophen [[place] 10-325 Tablet] 1 each PO BID PRN PRN Reason: Pain Dabigatran Etexilate Mesylate [Pradaxa] 150 mg PO BID Follow up with: RAY OCHOA [Primary Care Provider] - 1 Week
[2018-12-09] MEDS: Neurontin 100 MG PO SCH (10:48)
[2018-12-09] MEDS: Klor Con 10 MEQ PO SCH (10:48)
[2018-12-09] MEDS: Ocuvite Tablet PO SCH (10:48)
[2018-12-09] MEDS: Lotensin 10 MG PO SCH (10:49)
[2018-12-09] MEDS: Cardizem CD 180 MG PO SCH (10:49)
[2018-12-09] MEDS: Norco 10/325 MG Tablet PO SCH (10:49)
[2018-12-09] MEDS: PRADAXA 75 MG PO SCH (10:49)
[2018-12-09] MEDS: Lopressor 50 MG PO SCH (10:50)
[2018-12-09] MEDS: Protonix 40MG Tablet PO SCH (10:50)
[2018-12-09] MEDS: Lasix 40 MG/4 ML IV SCH (10:51)
[2018-12-09] MEDS: Vitamin B-6 (Pyridoxine) 100 MG PO SCH (10:51)
[2018-12-09] MEDS: Ditropan 5 MG PO SCH (10:54)
--- NOTE | 2018-12-12 07:41 | ECHO ---
DATE OF PROCEDURE: 12/09/2018 CLINICAL INFORMATION: Congestive heart failure. The M-mode 2D, and Doppler echocardiogram including color flow Doppler shows the left ventricle is normal in size at 3.2 cm. The septal wall is thickened at 1.7 cm. The left ventricular posterior wall is thickened at 1.2 cm. There is no apical thrombus present. There is normal contractility of the left ventricle with an ejection fraction calculated at 68%. The right ventricle is grossly normal in size and function. The left atrium is mildly dilated at 4.6 cm. The interatrial septum is intact. The right atrium is normal. There is aortic valvular calcification with a mean gradient of 24 mm of Mercury. The peak gradient is 35 mm of Mercury consistent with mild aortic stenosis. There is mitral valvular calcification associated with mild to moderate mitral regurgitation present. There is moderate to severe tricuspid regurgitation. The right ventricular systolic pressure is elevated at 53 mm of Mercury consistent with moderate pulmonary hypertension. The pulmonic valve is not well visualized. There is mild pulmonic regurgitation. The aortic root is not well visualized. There is no pericardial effusion present. IMPRESSION: 1) MILD CALCIFIC AORTIC STENOSIS. 2) NORMAL CONTRACTILITY OF THE LEFT VENTRICLE. 3) MODERATE ASYMMETRIC LEFT VENTRICULAR HYPERTROPHY. 4) MILD TO MODERATE MITRAL REGURGITATION. 5) MODERATE TO SEVERE TRICUSPID REGURGITATION. 6) MODERATE PULMONARY HYPERTENSION. 7) MILD PULMONIC REGURGITATION. 8) THERE IS NO APICAL THROMBUS PRESENT.
== END 2018-12-09 11:30 | disposition home health service (06) | DRG 292 ==
LOC: ED 08:26 → MED SURG 12:12 → UNDOADMIN 12:12 → MED SURG 12:13
PROVIDERS: ADMIT Family Medicine; ATTEND Family Medicine
DX: I50.9 Heart failure, unspecified (principal); N39.0 Urinary tract infection, site not specified; J96.11 Chronic respiratory failure with hypoxia; J90 Pleural effusion, not elsewhere classified; E11.9 Type 2 diabetes mellitus without complications; R11.0 Nausea; Z78.9 Other specified health status; J45.909 Unspecified asthma, uncomplicated; N28.9 Disorder of kidney and ureter, unspecified; E87.6 Hypokalemia; Z85.3 Personal history of malignant neoplasm of breast; I10 Essential (primary) hypertension; I48.91 Unspecified atrial fibrillation; E78.00 Pure hypercholesterolemia, unspecified; Z86.73 Personal history of transient ischemic attack (TIA), and cerebral infarction without residual deficits; Z95.0 Presence of cardiac pacemaker; Z90.10 Acquired absence of unspecified breast and nipple; Z79.01 Long term (current) use of anticoagulants; Z79.899 Other long term (current) drug therapy; Z99.81 Dependence on supplemental oxygen
CPT/HCPCS: 36000; 36415; 71046; 74176; 80048; 80053; 81001; 83605; 83690; 83880; 84132; 84484; 85027; 87040; 87077; 87086; 87186; 93005; 93306; 94760; 94762; 96360; 96361; 96374; 96375; 99285; J0696; J1940; J2405; J3480; A9270-GY

== ENCOUNTER 2018-12-26 08:31 | Observation (INO) | payer MEDICARE ==
--- NOTE | 2018-12-26 09:17 | ERPHSYRPT ---
- History of Present Illness Time Seen by Provider: 12/26/18 09:10 Historian: patient, family Exam Limitations: no limitations Patient Subjective Stated Complaint: states having mid abd pain for four days. vomited two days ago and has decreased appetite. denies diarrhea. Triage Nursing Assessment: to room per w/c. skin w/d, color pale, resp nonlabored. abd soft, tender mid abd. normal bowel sounds throughout. patient moaning occasionally and holding abd. Physician History: The patient is an 83-year-old female with her complaining of weakness, loss of appetite, not drinking much, lower abdominal pain with radiation through to her back, and episodes of vomiting for the last 5 days. Her finally convinced her to come to the ER. She had called her doctor, Dr. Wong , yesterday. She has a history of UTIs that she thinks is happening again. She denies fever or chills. Her past medical history significant for breast cancer, HTN, CHF, stroke, UTI, and A. fib. She had a recent hernia repair in September. She denies any other abdominal surgeries. Pt is DNR. Timing/Duration: day(s) (5), gradual onset, worse Activities at Onset: none Quality: aching Abdominal Pain Onset Location: LLQ, suprapubic Pain Radiation: back Severity of Pain-Max: moderate Severity of Pain-Current: moderate Associated Symptoms: loss of appetite, nausea, vomiting, weakness, No diarrhea Previous symptoms: same symptoms as today Allergies/Adverse Reactions: metoclopramide HCl [From Reglan] Allergy (Verified 12/26/18 08:56) vomiting Sulfa (Sulfonamide Antibiotics) Allergy (Verified 12/26/18 08:56) rash Home Medications: Atorvastatin Calcium [Lipitor 20MG Tablet] 20 mg PO HS 07/03/16 [History] Gabapentin [Neurontin] 100 mg PO TID 07/03/16 [History] Oxazepam 15 mg PO HS 08/26/16 [History] Furosemide 40 mg [Lasix 40 MG] 40 mg PO DAILY 07/31/17 [History] Docusate Sodium 100 mg [Colace 100 MG] 300 mg PO HS 08/08/17 [History] Vit A/Vit C/Vit E/Zinc/Copper [Preservision Areds Softgel] 1 each PO BID [History] Esomeprazole Magnesium [Nexium] 20 mg PO DAILY 10/10/17 [History] PANTOPRAZOLE 40 mg Tablet [Protonix 40MG Tablet] 40 mg PO LUNCH 10/22/17 [ History] Promethazine HCl 25 mg [Phenergan 25 mg] 25 mg PO Q6H PRN 11/21/17 [ History] Diltiazem HCl [Diltiazem 24Hr ER] 180 mg PO DAILY 09/22/18 [History] Famotidine 20 mg [Pepcid 20 MG] 10 mg PO HS 09/22/18 [History] Hydrocodone/Acetaminophen [[place] 10-325 Tablet] 1 each PO BID PRN 11/10/18 [ History] Dabigatran Etexilate Mesylate [Pradaxa] 150 mg PO BID 12/07/18 [History] Acetaminophen/Dp-Hydram HCl [Tylenol Pm Ex-Strength Geltab] 2 each PO HS [History] B Complex with Vitamin C [Vitamin B Complex-C] 1 each PO DAILY 12/26/18 [History ] Cholecalciferol (Vitamin D3) [Vitamin D3] 1,000 unit PO DAILY 12/26/18 [History] Glimepiride 2 mg [Amaryl 2 MG] 2 mg PO DAILY 12/26/18 [History] Mirabegron [Myrbetriq] 25 mg PO DAILY 12/26/18 [History] Zafirlukast 20 mg [Accolate 20 mg] 20 mg PO BID 12/26/18 [History] Hx Tetanus, Diphtheria Vaccination/Date Given: Yes Hx Influenza Vaccination/Date Given: Yes Hx Pneumococcal Vaccination/Date Given: Yes - Review of Systems Constitutional: Lethargy, Weakness Eyes: No Symptoms Ears, Nose, & Throat: No Symptoms Respiratory: No Cough, No Dyspnea Cardiac: No Chest Pain, No Edema, No Syncope Abdominal/Gastrointestinal: Abdominal Pain, Nausea, Vomiting, Appetite Changes, No Diarrhea Genitourinary Symptoms: No Symptoms Musculoskeletal: Back Pain Skin: No Rash Neurological: No Dizziness, No Focal Weakness, No Sensory Changes Psychological: No Symptoms Endocrine: No Symptoms Hematologic/Lymphatic: No Symptoms Immunological/Allergic: No Symptoms All Other Systems: Reviewed and Negative - Past Medical History Pertinent Past Medical History: Yes Neurological History: No Pertinent History ENT History: No Pertinent History Cardiac History: Arrhythmia, Other Respiratory History: Asthma, Pneumonia Endocrine Medical History: Diabetes Type II Musculoskeletal History: No Pertinent History GI Medical History: Hernia History: No Pertinent History Psycho-Social History: No Pertinent History Female Reproductive Disorders: Breast Cancer Other Medical History: A FIB, heart murmer - Past Surgical History Past Surgical History: Yes Neuro Surgical History: No Pertinent History Cardiac: Cardiac Catheterization, Pacemaker Respiratory: No Pertinent History Gastrointestinal: No Pertinent History, Hernia Repair Genitourinary: No Pertinent History Musculoskeletal: No Pertinent History Female Surgical History: Mastectomy Other Surgical History: L mastectomy april 10, VENTRAL HERNIA REPAIR - Social History Smoking Status: Never smoker How long have you smoked: quit 24 yr Exposure to second hand smoke: No Alcohol Use: None Drug Use: none Patient Lives Alone: No Significant Family History: no pertinent family hx - Female History Hx Now: No - Nursing Vital Signs Nursing Vital Signs: Initial Vital Signs Temperature 97.9 F 12/26/18 08:37 Pulse Rate 113 H 12/26/18 08:37 Respiratory Rate 20 12/26/18 08:37 Blood Pressure 151/87 12/26/18 08:37 O2 Sat by Pulse Oximetry 96 12/26/18 08:37 Pain Scale Pain Intensity 5 - Physical Exam General Appearance: moderate distress Eye Exam: PERRL/EOMI, eyes nml inspection Ears, Nose, Throat Exam: dry mucous membranes Neck Exam: normal inspection, non-tender, supple, full range of motion Respiratory Exam: normal breath sounds, lungs clear Cardiovascular Exam: murmur, tachycardia, irregular Gastrointestinal/Abdomen Exam: tenderness (LLQ) Pelvic Exam: not done Rectal Exam: not done Back Exam: normal inspection, normal range of motion, No CVA tenderness, No vertebral tenderness Extremity Exam: normal inspection, normal range of motion, pelvis stable Neurologic Exam: alert, oriented x 3, cooperative, normal mood/affect, nml cerebellar function, sensation nml, No motor deficits Skin Exam: normal color, warm, dry SpO2 Interpretation: normal SpO2: 96 O2 Delivery: Room Air - Course EKG Interpreted by Me: RATE, A-fib, NORMAL AXIS, Other (A-fib seen on EKG from .) - CT Exams Abdomen/Pelvis CT Interpretation: Negative (no new acute findings), Tele-radiologist Report ( per Dr Matos), Other (stable moderate bibasilr pleural effusions/atelecstasis, cardiomegaly.) Ordered Tests: Active Orders 24 hr Category Date Time Status Cath for Specimen-Straight STAT Care 12/26/18 09:25 Active EKG-ER Only STAT Care 12/26/18 09:23 Active IV Insertion STAT Care 12/26/18 09:23 Active ABDOMEN AND PELVIS W/0 CONTRAS [CT] Stat Exams 12/26/18 09:37 Completed AMYLASE Stat Lab 12/26/18 08:43 Completed BLOOD CULTURE Stat Lab 12/26/18 10:10 Received CBC W DIFF Stat Lab 12/26/18 08:43 Completed CMP Stat Lab 12/26/18 08:43 Completed CULTURE,URINE Stat Lab 12/26/18 09:42 Received LIPASE Stat Lab 12/26/18 08:43 Completed Lactic Acid Stat Lab 12/26/18 09:30 Results PROTIME WITH INR Stat Lab 12/26/18 08:43 Completed TROPONIN Q3H Lab 12/26/18 09:30 Completed TROPONIN Q3H Lab 12/26/18 12:30 Ordered TROPONIN Q3H Lab 12/26/18 15:30 Ordered TROPONIN Q3H Lab 12/26/18 18:30 Ordered TROPONIN Q3H Lab 12/26/18 21:30 Ordered UA W/RFX UR CULTURE Stat Lab 12/26/18 09:42 Completed Medication Summary Discontinued Medications Generic Name Dose Route Start Last Admin Trade Name Freq PRN Reason Stop Dose Admin Famotidine 20 mg 12/26/18 09:23 12/26/18 10:02 Pepcid 20 Mg Vial IV 12/26/18 09:24 20 mg STAT ONE Administration Famotidine Confirm 12/26/18 09:55 Pepcid 20 Mg Vial Administered 12/26/18 09:56 Dose 20 mg IV .STK-MED ONE Sodium Chloride 1,000 mls @ 999 mls/hr 12/26/18 09:23 12/26/18 10:01 Sodium Chloride 0.9% 1000 Ml IV 12/26/18 10:23 999 mls/hr .Q1H1M STA Administration Sodium Chloride Confirm 12/26/18 09:56 Sodium Chloride 0.9% 1000 Ml Administered 12/26/18 09:57 Dose 1,000 mls @ ud .ROUTE .STK-MED ONE Morphine Sulfate 4 mg 12/26/18 09:55 12/26/18 10:01 Morphine Sulfate 4 Mg Inj IV 12/26/18 09:56 4 mg STAT ONE Administration Morphine Sulfate Confirm 12/26/18 10:00 Morphine Sulfate 4 Mg Inj Administered 12/26/18 10:01 Dose 4 mg .ROUTE .STK-MED ONE Ondansetron HCl 4 mg 12/26/18 09:23 12/26/18 10:06 Zofran Odt 4 Mg PO 12/26/18 09:24 Not Given STAT ONE Ondansetron HCl Confirm 12/26/18 09:55 Zofran 4 Mg/2 Ml Vial Administered 12/26/18 09:56 Dose 4 mg .ROUTE .STK-MED ONE Ondansetron HCl 4 mg 12/26/18 10:04 12/26/18 10:06 Zofran 4 Mg/2 Ml Vial IV 12/26/18 10:05 4 mg STAT ONE Administration Lab/Rad Data: Laboratory Result Diagrams 12/26/18 08:43 12/26/18 08:43 Laboratory Results 12/26/18 12/26/18 12/26/18 Range/Units 09:42 09:30 09:30 WBC (4.0-10.5) K/mm3 RBC (4.1-5.4) M/mm3 Hgb (12.0-16.0) gm/dl Hct (35-47) % MCV (78-100) fl MCH (26-32) pg MCHC (32-36) g/dl RDW (11.5-14.0) % Plt Count (150-450) K/mm3 MPV (6-9.5) fl Gran % (36.0-66.0) % Eos # (Auto) (0-0.5) Absolute Lymphs (auto) (1.0-4.6) Absolute Monos (auto) (0.0-1.3) Lymphocytes % (24.0-44.0) % Monocytes % (0.0-12.0) % Eosinophils % (0.00-5.0) % Basophils % (0.0-0.4) % Absolute Granulocytes (1.4-6.9) Basophils # (0-0.4) PT (9.95-12.35) SECONDS INR (0.8-3.0) Sodium (137-145) mmol/L Potassium (3.5-5.1) mmol/L Chloride (98-107) mmol/L Carbon Dioxide (22-30) mmol/L Anion Gap (5-15) MEQ/L BUN (7-17) mg/dL Creatinine (0.52-1.04) mg/dL Estimated GFR ML/MIN Glucose (74-106) mg/dL Lactic Acid 2.8 H (0.4-2.0) Calcium (8.4-10.2) mg/dL Total Bilirubin (0.2-1.3) mg/dL AST (14-36) U/L ALT (0-35) U/L Alkaline Phosphatase (38-126) U/L Troponin I < 0.012 (0.000-0.034) ng/mL Serum Total Protein (6.3-8.2) g/dL Albumin (3.5-5.0) g/dL Amylase (30-110) U/L Lipase (23-300) U/L Urine Color YELLOW (YELLOW) Urine Appearance CLEAR (CLEAR) Urine pH 6.0 (5-6) Ur Specific [place] 1.023 (1.005-1.025) Urine Protein NEGATIVE (Negative) Urine Ketones TRACE (NEGATIVE) Urine Blood SMALL (0-5) Grey/ul Urine Nitrite NEGATIVE (NEGATIVE) Urine Bilirubin NEGATIVE (NEGATIVE) Urine Urobilinogen NEGATIVE (0-1) mg/dL Ur Leukocyte Esterase NEGATIVE (NEGATIVE) Urine WBC (Auto) 6-10 (0-5) /HPF Urine RBC (Auto) 6-10 (0-2) /HPF U Epithel Cells (Auto) RARE (FEW) /HPF Urine Bacteria (Auto) FEW (NEGATIVE) /HPF Calcium Oxalate Crystal 3-5 (NEGATIVE) /HPF Urine Mucus (Auto) SLIGHT (NEGATIVE) /HPF Urine Culture Reflexed YES (NO) Urine Glucose NEGATIVE (NEGATIVE) mg/dL 12/26/18 12/26/18 12/26/18 Range/Units 08:43 08:43 08:43 WBC 4.8 (4.0-10.5) K/mm3 RBC 3.60 L (4.1-5.4) M/mm3 Hgb 11.4 L (12.0-16.0) gm/dl Hct 36.0 (35-47) % MCV 100.0 (78-100) fl MCH 31.6 (26-32) pg MCHC 31.7 L (32-36) g/dl RDW 18.9 H (11.5-14.0) % Plt Count 163 (150-450) K/mm3 MPV 11.9 H (6-9.5) fl Gran % 55.9 (36.0-66.0) % Eos # (Auto) 0.19 (0-0.5) Absolute Lymphs (auto) 1.41 (1.0-4.6) Absolute Monos (auto) 0.51 (0.0-1.3) Lymphocytes % 29.3 (24.0-44.0) % Monocytes % 10.6 (0.0-12.0) % Eosinophils % 4.0 (0.00-5.0) % Basophils % 0.2 (0.0-0.4) % Absolute Granulocytes 2.69 (1.4-6.9) Basophils # 0.01 (0-0.4) PT 13.4 H (9.95-12.35) SECONDS INR 1.15 (0.8-3.0) Sodium 145 (137-145) mmol/L Potassium 3.4 L (3.5-5.1) mmol/L Chloride 114 H (98-107) mmol/L Carbon Dioxide 22 (22-30) mmol/L Anion Gap 11.7 (5-15) MEQ/L BUN 17 (7-17) mg/dL Creatinine 0.59 (0.52-1.04) mg/dL Estimated GFR > 60.0 ML/MIN Glucose 142 H (74-106) mg/dL Lactic Acid (0.4-2.0) Calcium 8.7 (8.4-10.2) mg/dL Total Bilirubin 0.60 (0.2-1.3) mg/dL AST 35 (14-36) U/L ALT 16 (0-35) U/L Alkaline Phosphatase 118 (38-126) U/L Troponin I (0.000-0.034) ng/mL Serum Total Protein 6.3 (6.3-8.2) g/dL Albumin 3.0 L (3.5-5.0) g/dL Amylase 46 (30-110) U/L Lipase 31 (23-300) U/L Urine Color (YELLOW) Urine Appearance (CLEAR) Urine pH (5-6) Ur Specific [place] (1.005-1.025) Urine Protein (Negative) Urine Ketones (NEGATIVE) Urine Blood (0-5) Grey/ul Urine Nitrite (NEGATIVE) Urine Bilirubin (NEGATIVE) Urine Urobilinogen (0-1) mg/dL Ur Leukocyte Esterase (NEGATIVE) Urine WBC (Auto) (0-5) /HPF Urine RBC (Auto) (0-2) /HPF U Epithel Cells (Auto) (FEW) /HPF Urine Bacteria (Auto) (NEGATIVE) /HPF Calcium Oxalate Crystal (NEGATIVE) /HPF Urine Mucus (Auto) (NEGATIVE) /HPF Urine Culture Reflexed (NO) Urine Glucose (NEGATIVE) mg/dL - Progress Progress: improved Progress Note: 12/26/18 11:21 The patient was given Zofran 4 mg, morphine 4 mg, and fluids by IV. She is feeling better. I discussed with Dr. Wong about keeping the patient in the hospital here for fluids and weakness. Dr. Wong wanted me to discuss with the patient if she wanted to go to a hospital where her specialists are located. The patient wants to stay at this hospital. Discussed with : Marvin Will see patient in: hospital (observation) Counseled pt/family regarding: lab results, diagnosis, rad results - Departure Time of Disposition: 11:21 Departure Disposition: Observation (per Dr Wong) Clinical Impression: UTI (urinary tract infection), Vomiting, Hypokalemia, A-fib Condition: Stable Critical Care Time: No Referrals: RAY WONG [Primary Care Provider] -
[2018-12-26] MEDS ORDERED: ZOFRAN ODT 4 MG PO ONE (09:23)
[2018-12-26] MEDS ORDERED: Sodium Chloride 0.9% 1000 ML 1,000 ML IV STA (09:23)
[2018-12-26] MEDS ORDERED: Pepcid 20 MG VIAL IV ONE ×2 (09:23→09:55)
[2018-12-26 09:33] LABS: Lactic Acid 2.8 (0.4-2.0)
[2018-12-26 09:48] LABS: BASOPHIL % 0.2 % (0.0-0.4); Basophil (Absolute #) 0.01 (0-0.4); Eosinophil (Absolute #) 0.19 (0-0.5); Granulocyte Absolute (ANC) 2.69 (1.4-6.9); Granulocytes % 55.9 % (36.0-66.0); Hemoglobin 11.4 gm/dl (12.0-16.0); Lymphocyte (Absolute #) 1.41 (1.0-4.6); Lymphocytes % 29.3 % (24.0-44.0); Mean Corpuscular Hgb Concent. 31.7 g/dl (32-36); Mean Platelet Volume 11.9 fl (6-9.5); Monocyte (Absolute #) 0.51 (0.0-1.3); Monocytes % 10.6 % (0.0-12.0); Platelet Count 163 K/mm3 (150-450); Red Cell Distribution Width 18.9 % (11.5-14.0); White Blood Count 4.8 K/mm3 (4.0-10.5)
[2018-12-26 09:49] LABS: Mean Corpuscular Hemoglobin 31.6 pg (26-32)
[2018-12-26 09:52] LABS: Appearance CLEAR (CLEAR); Bacteria FEW /HPF (NEGATIVE); Bilirubin NEGATIVE (NEGATIVE); Blood SMALL Ery/ul (0-5); Epithelial Cells RARE /HPF (FEW); Glucose NEGATIVE (NEGATIVE); Ketones TRACE (NEGATIVE); Leukocyte Esterase NEGATIVE (NEGATIVE); Mucus SLIGHT /HPF (NEGATIVE); Nitrite NEGATIVE (NEGATIVE); Protein,Urine Dip NEGATIVE (Negative); Specific Gravity 1.023 (1.005-1.025); Urobilinogen NEGATIVE mg/dL (0-1)
[2018-12-26] MEDS ORDERED: MORPHINE SULFATE 4 MG INJ IV ONE (09:55)
[2018-12-26] MEDS ORDERED: Zofran 4 MG/2 ML VIAL ONE (09:55)
[2018-12-26] MEDS ORDERED: Sodium Chloride 0.9% 1000 ML 1,000 ML ONE (09:56)
[2018-12-26] MEDS ORDERED: MORPHINE SULFATE 4 MG INJ ONE (10:00)
[2018-12-26] MEDS ORDERED: Zofran 4 MG/2 ML VIAL IV ONE (10:04)
--- NOTE | 2018-12-26 10:06 | XRAY ---
Indication: Bilateral abdominal pain. Nausea and vomiting. Multiple contiguous axial images obtained through the abdomen and pelvis without contrast as ordered. Comparison: 12/07/18. Lung bases demonstrates grossly stable moderate bibasilar effusions with compressive atelectasis, cardiomegaly, and large hiatal hernia with partial intrathoracic stomach. Stable ventral hernia repair with clearing of previous incisional fluid collection. No new ventral or inguinal hernias. Noncontrasted stomach and bowel loops remaining nonobstructed again with scattered descending/sigmoid diverticulosis. No free fluid/air. Stable tiny gallstone, hepatic cyst, bilateral renal cysts, fatty replaced pancreas, and moderate aortoiliac calcifications. Remaining liver, gallbladder, pancreas, spleen, adrenal glands, kidneys, ureters, bladder, and uterus appear unremarkable for noncontrast exam. Osseous structures intact with stable moderate/advanced multilevel degenerative spondylosis, levorotoscoliosis, and grade 2 L5 spondylolisthesis. Impression: 1. Again status post ventral hernia repair with now clearing of previous incisional fluid. 2. Stable moderate bibasilar pleural effusion/atelectasis, cardiomegaly, large hiatal hernia with partial intrathoracic stomach, gallstone, hepatic cyst, bilateral renal cysts, multilevel degenerative spondylosis, levorotoscoliosis, and grade 2 L5 spondylolisthesis. 3. No new or acute intra-abdominal/pelvic abnormalities on this noncontrast exam. CTDI 19.60
[2018-12-26 10:28] LABS: INR 1.15 (0.8-3.0); PROTIME 13.4 SECONDS (9.95-12.35)
[2018-12-26 10:34] LABS: ALKALINE PHOSPHATASE 118 U/L (38-126); AMYLASE 46 U/L (30-110); ANION GAP 11.7 MEQ/L (5-15); BLOOD UREA NITROGEN 17 mg/dL (7-17); CHLORIDE 114 mmol/L (98-107); Calcium 8.7 mg/dL (8.4-10.2); Carbon Dioxide 22 mmol/L (22-30); Creatinine 1 0.59 mg/dL (0.52-1.04); Glucose 142 mg/dL (74-106); LIPASE 31 U/L (23-300); Potassium 3.4 mmol/L (3.5-5.1); SGOT/AST 35 U/L (14-36); SGPT/ALT 16 U/L (0-35); SODIUM 145 mmol/L (137-145); Total Protein 6.3 g/dL (6.3-8.2)
[2018-12-26] MEDS ORDERED: ROCEPHIN 1 Gm-D5w 50 ml Bag** 1 G/50 ML IVPB IV STA (11:23)
[2018-12-26] MEDS ORDERED: Klor Con 10 MEQ PO ONE ×2 (11:24→11:28)
[2018-12-26] MEDS ORDERED: ROCEPHIN 1 Gm-D5w 50 ml Bag** 1 G/50 ML IVPB IV ONE (11:28)
[2018-12-26] MEDS ORDERED: TYLENOL 325 MG PO PRN (14:01)
[2018-12-26] MEDS: Sodium Chloride 0.9% 1000 ML 1,000 ML IV SCH ×2 (14:30→18:42)
[2018-12-26] MEDS: MORPHINE SULFATE 4 MG INJ IV PRN ×2 (14:46→18:43)
[2018-12-26] MEDS ORDERED: Cardizem CD 180 MG PO SCH (16:30)
[2018-12-26] MEDS ORDERED: MEDICATION INTERVENTION MC SCH ×2 (17:00)
[2018-12-26] MEDS ORDERED: Cardizem IV 50 MG/10 ML IV ONE (20:25)
[2018-12-26] MEDS: ACCOLATE 20 MG PO SCH (21:41)
[2018-12-26] MEDS: Colace 100 MG PO SCH (21:42)
[2018-12-26] MEDS: Pepcid 20 MG PO SCH (21:43)
[2018-12-26] MEDS: Neurontin 100 MG PO SCH (21:43)
[2018-12-26] MEDS: PRADAXA 75 MG PO SCH (21:45)
[2018-12-26] MEDS: Lopressor 50 MG PO SCH (21:45)
[2018-12-26] MEDS ORDERED: Pepcid 20 MG VIAL IV SCH (22:00)
[2018-12-26] MEDS ORDERED: ZINC PO SCH (22:00)
[2018-12-26] MEDS ORDERED: ACETAMINOPHEN PO SCH (22:00)
[2018-12-26] MEDS ORDERED: ZOCOR 20MG PO SCH (22:00)
[2018-12-26] MEDS ORDERED: VIT E PO SCH (22:00)
[2018-12-26] MEDS ORDERED: COPPER PO SCH (22:00)
[2018-12-26] MEDS ORDERED: NON-FORMULARY ITEM (Atorvastatin Calcium 20 MG) PO SCH (22:00)
[2018-12-26] MEDS ORDERED: VIT C PO SCH (22:00)
[2018-12-26] MEDS ORDERED: VIT A PO SCH (22:00)
[2018-12-26] MEDS ORDERED: OXAZEPAM 15 MG PO SCH (22:00)
[2018-12-26] MEDS ORDERED: DP HYDRAM HCL PO SCH (22:00)
[2018-12-26] MEDS: Norco 10/325 MG Tablet PO PRN (22:01)
[2018-12-26] MEDS: Ocuvite Tablet PO SCH (22:02)
[2018-12-26] MEDS: TYLENOL EXTRA STRENGTH 500 MG PO SCH (22:02)
[2018-12-26] MEDS: PATIENT OWN MEDICATION PO SCH (22:02)
[2018-12-26] MEDS: BENADRYL 25 MG CAPSULE PO SCH (22:02)
[2018-12-27] MEDS: Sodium Chloride 0.9% 1000 ML 1,000 ML IV SCH ×3 (03:18→20:21)
[2018-12-27 05:58] LABS: BASOPHIL % 0.5 % (0.0-0.4); Basophil (Absolute #) 0.02 (0-0.4); Eosinophil % 8.1 % (0.00-5.0); Eosinophil (Absolute #) 0.34 (0-0.5); Granulocyte Absolute (ANC) 2.05 (1.4-6.9); Granulocytes % 48.5 % (36.0-66.0); Hematocrit 31.5 % (35-47); Hemoglobin 9.5 gm/dl (12.0-16.0); Lymphocyte (Absolute #) 1.22 (1.0-4.6); Lymphocytes % 28.9 % (24.0-44.0); Mean Cell Volume 102.9 fl (78-100); Mean Corpuscular Hgb Concent. 30.2 g/dl (32-36); Mean Platelet Volume 11.4 fl (6-9.5); Monocyte (Absolute #) 0.59 (0.0-1.3); Platelet Count 129 K/mm3 (150-450); Red Blood Count 3.06 M/mm3 (4.1-5.4); Red Cell Distribution Width 18.9 % (11.5-14.0); White Blood Count 4.2 K/mm3 (4.0-10.5)
[2018-12-27 06:23] LABS: ANION GAP 6.1 MEQ/L (5-15); BLOOD UREA NITROGEN 15 mg/dL (7-17); CHLORIDE 116 mmol/L (98-107); Calcium 7.7 mg/dL (8.4-10.2); Carbon Dioxide 24 mmol/L (22-30); Creatinine 1 0.57 mg/dL (0.52-1.04); Glucose 80 mg/dL (74-106); Potassium 3.6 mmol/L (3.5-5.1); SODIUM 143 mmol/L (137-145)
--- NOTE | 2018-12-27 08:32 | PCM.HP ---
History of Present Illness - Chief Complaint Chief Complaint: abd pain History of Present Illness: is a 83 year old female pt of mine from [facility] with afib, CHF, DM, HTN , aortic stenosis, hx PE recurrent UTIs, hx breast cancer that was admitted through ER with UTI and afib with RVR. She had started having dysuria 5d ago and started having epigastric pain and vomiting 4d ago. Tolerating less po. This morning she is not nauseated. no vomiting since admission. She is denying abd pain. Her heart rate last night was up to the 140s, afib. She received 10mg IV cardizem and then 50mg more lopressor on top of her usual dose. This morning her heart rate was in the 70s-80s. - Review of Systems Abdominal/Gastrointestinal: Abdominal Pain, Nausea, Vomiting Genitourinary Symptoms: Dysuria, Frequency (until yesterday) Psychological: No Depression Medications & Allergies Home Medications: Home Medication List Atorvastatin Calcium [Lipitor 20MG Tablet] 20 mg PO HS 07/03/16 [History Confirmed 12/26/18] Gabapentin [Neurontin] 100 mg PO TID 07/03/16 [History Confirmed 12/26/18] Oxazepam 15 mg PO HS 08/26/16 [History Confirmed 12/26/18] Furosemide 40 mg [Lasix 40 MG] 40 mg PO DAILY PRN 07/31/17 [History Confirmed 12/26/18] Docusate Sodium 100 mg [Colace 100 MG] 300 mg PO HS 08/08/17 [History Confirmed 12/26/18] Vit A/Vit C/Vit E/Zinc/Copper [Preservision Areds Softgel] 1 each PO BID [History Confirmed 12/26/18] Esomeprazole Magnesium [Nexium] 20 mg PO DAILY 10/10/17 [History Confirmed 12/26] PANTOPRAZOLE 40 mg Tablet [Protonix 40MG Tablet] 40 mg PO LUNCH 10/22/17 [ History Confirmed 12/26/18] Promethazine HCl 25 mg [Phenergan 25 mg] 25 mg PO Q6H PRN 11/21/17 [ History Confirmed 12/26/18] Diltiazem HCl [Diltiazem 24Hr ER] 180 mg PO DAILY 09/22/18 [History Confirmed ] Famotidine 20 mg [Pepcid 20 MG] 10 mg PO HS 09/22/18 [History Confirmed ] Hydrocodone/Acetaminophen [[place] 10-325 Tablet] 1 each PO BID PRN 11/10/18 [ History Confirmed 12/26/18] Dabigatran Etexilate Mesylate [Pradaxa] 150 mg PO BID 12/07/18 [History Confirmed 12/26/18] Metoprolol Tartrate 50 mg [Lopressor 50 MG] 50 mg PO BID tablet 12/09/18 [Rx Confirmed 12/26/18] Acetaminophen/Dp-Hydram HCl [Tylenol Pm Ex-Strength Geltab] 2 each PO HS [History Confirmed 12/26/18] B Complex with Vitamin C [Vitamin B Complex-C] 1 each PO DAILY 12/26/18 [ History Confirmed 12/26/18] Cholecalciferol (Vitamin D3) [Vitamin D3] 1,000 unit PO DAILY 12/26/18 [History Confirmed 12/26/18] Glimepiride 2 mg [Amaryl 2 MG] 2 mg PO DAILY 12/26/18 [History Confirmed 12/26/18] Mirabegron [Myrbetriq] 25 mg PO DAILY 12/26/18 [History Confirmed 12/26/18] Zafirlukast 20 mg [Accolate 20 mg] 20 mg PO BID 12/26/18 [History Confirmed 12/26/18] Allergies/Adverse Reactions: Allergies Allergy/AdvReac Type Severity Reaction Status Date / Time metoclopramide HCl Allergy Verified 12/26/18 08:56 [From Reglan] Sulfa (Sulfonamide Allergy Verified 12/26/18 08:56 Antibiotics) - Past Medical History Past Medical History: Yes Neurological History: No Pertinent History ENT History: No Pertinent History Cardiac History: Arrhythmia, Other Respiratory History: Asthma, Pneumonia Endocrine Medical History: Diabetes Type II Musculoskelatal History: No Pertinent History GI Medical History: Hernia History: No Pertinent History Pyscho-Social History: No Pertinent History Reproductive Disorders: Breast Cancer Comment: A FIB, heart murmer - Female History Are you now?: No - Past Surgical History Past Surgical History: Yes Neuro Surgical History: No Pertinent History Cardiac History: Cardiac Catheterization, Pacemaker Respiratory Surgery: No Pertinent History GI Surgical History: No Pertinent History, Hernia Repair Genitourinary Surgical Hx: No Pertinent History Musculskeletal Surgical Hx: No Pertinent History Female Surgical History: Mastectomy Other Surgical History: L mastectomy april 10, VENTRAL HERNIA REPAIR - Social History Smoking Status: Never smoker How long have you smoked: quit 24 yr Exposure to second hand smoke: No Alcohol: None Drug Use: none Significant Family History: no pertinent family hx - Physical Exam Vital Signs: Vital Signs - 24 hr Temp Pulse Resp BP BP Pulse Ox 12/27/18 07:48 98.1 F 94 H 15 162/74 98 12/27/18 07:31 16 12/27/18 04:00 97.7 F 73 16 130/69 96 12/27/18 00:00 16 12/26/18 23:50 98.6 F 87 16 118/57 97 12/26/18 22:12 82 16 96 12/26/18 20:00 98.4 F 120 H 17 186/87 93 L 12/26/18 16:00 97.9 F 136 H 18 172/75 92 L 12/26/18 15:09 98.7 F 141 H 16 173/87 93 L 12/26/18 14:55 96 12/26/18 14:07 108 H 18 136/81 93 L 12/26/18 14:01 93 L 12/26/18 13:43 133 H 16 133/104 12/26/18 12:27 125 H 16 130/92 96 12/26/18 11:28 96 12/26/18 11:13 132 H 16 140/100 94 L 12/26/18 10:19 113 H 20 152/78 96 12/26/18 08:37 97.9 F 113 H 20 151/87 96 Oxygen-Last 24 hours O2 Percentage 2 Liters = 28% O2 Percentage 2 Liters = 28% O2 Percentage 2 Liters = 28% O2 Percentage 2 Liters = 28% O2 Percentage 2 Liters = 28% O2 Percentage 2 Liters = 28% O2 Percentage 2 Liters = 28% General Appearance: no apparent distress, alert Neurologic Exam: oriented x 3, cooperative Eye Exam: eyes nml inspection Ears, Nose, Throat Exam: moist mucous membranes Respiratory Exam: normal breath sounds, lungs clear, No crackles/rales, No rhonchi, No wheezing Cardiovascular Exam: regular rate/rhythm, normal heart sounds, murmur (II/ sys murmur) Gastrointestinal/Abdomen Exam: soft, normal bowel sounds, tenderness (epigastrum ), No distention, No mass, No guarding, No rebound Extremity Exam: normal inspection, No pedal edema, No swelling Skin Exam: normal color, warm, dry, No rash Results - Labs Lab/Micro Results: Accuchecks Date 12/27/18 Date 12/26/18 Date 12/26/18 Time 07:31 Time 22:00 Time 17:08 Accucheck Value: 90 Accucheck Value: 89 Lab Results-Last 24 Hours 12/26/18 12/26/18 12/26/18 Range/Units 08:43 08:43 08:43 WBC 4.8 (4.0-10.5) K/mm3 RBC 3.60 L (4.1-5.4) M/mm3 Hgb 11.4 L (12.0-16.0) gm/dl Hct 36.0 (35-47) % MCV 100.0 (78-100) fl MCH 31.6 (26-32) pg MCHC 31.7 L (32-36) g/dl RDW 18.9 H (11.5-14.0) % Plt Count 163 (150-450) K/mm3 MPV 11.9 H (6-9.5) fl Gran % 55.9 (36.0-66.0) % Eos # (Auto) 0.19 (0-0.5) Absolute Lymphs (auto) 1.41 (1.0-4.6) Absolute Monos (auto) 0.51 (0.0-1.3) Lymphocytes % 29.3 (24.0-44.0) % Monocytes % 10.6 (0.0-12.0) % Eosinophils % 4.0 (0.00-5.0) % Basophils % 0.2 (0.0-0.4) % Absolute Granulocytes 2.69 (1.4-6.9) Basophils # 0.01 (0-0.4) PT 13.4 H (9.95-12.35) SECONDS INR 1.15 (0.8-3.0) Sodium 145 (137-145) mmol/L Potassium 3.4 L (3.5-5.1) mmol/L Chloride 114 H (98-107) mmol/L Carbon Dioxide 22 (22-30) mmol/L Anion Gap 11.7 (5-15) MEQ/L BUN 17 (7-17) mg/dL Creatinine 0.59 (0.52-1.04) mg/dL Estimated GFR > 60.0 ML/MIN Glucose 142 H (74-106) mg/dL Lactic Acid (0.4-2.0) Calcium 8.7 (8.4-10.2) mg/dL Total Bilirubin 0.60 (0.2-1.3) mg/dL AST 35 (14-36) U/L ALT 16 (0-35) U/L Alkaline Phosphatase 118 (38-126) U/L Troponin I (0.000-0.034) ng/mL Serum Total Protein 6.3 (6.3-8.2) g/dL Albumin 3.0 L (3.5-5.0) g/dL Amylase 46 (30-110) U/L Lipase 31 (23-300) U/L Urine Color (YELLOW) Urine Appearance (CLEAR) Urine pH (5-6) Ur Specific [place] (1.005-1.025) Urine Protein (Negative) Urine Ketones (NEGATIVE) Urine Blood (0-5) Grey/ul Urine Nitrite (NEGATIVE) Urine Bilirubin (NEGATIVE) Urine Urobilinogen (0-1) mg/dL Ur Leukocyte Esterase (NEGATIVE) Urine WBC (Auto) (0-5) /HPF Urine RBC (Auto) (0-2) /HPF U Epithel Cells (Auto) (FEW) /HPF Urine Bacteria (Auto) (NEGATIVE) /HPF Calcium Oxalate Crystal (NEGATIVE) /HPF Urine Mucus (Auto) (NEGATIVE) /HPF Urine Culture Reflexed (NO) Urine Glucose (NEGATIVE) mg/dL 12/26/18 12/26/18 12/26/18 Range/Units 09:30 09:30 09:42 WBC (4.0-10.5) K/mm3 RBC (4.1-5.4) M/mm3 Hgb (12.0-16.0) gm/dl Hct (35-47) % MCV (78-100) fl MCH (26-32) pg MCHC (32-36) g/dl RDW (11.5-14.0) % Plt Count (150-450) K/mm3 MPV (6-9.5) fl Gran % (36.0-66.0) % Eos # (Auto) (0-0.5) Absolute Lymphs (auto) (1.0-4.6) Absolute Monos (auto) (0.0-1.3) Lymphocytes % (24.0-44.0) % Monocytes % (0.0-12.0) % Eosinophils % (0.00-5.0) % Basophils % (0.0-0.4) % Absolute Granulocytes (1.4-6.9) Basophils # (0-0.4) PT (9.95-12.35) SECONDS INR (0.8-3.0) Sodium (137-145) mmol/L Potassium (3.5-5.1) mmol/L Chloride (98-107) mmol/L Carbon Dioxide (22-30) mmol/L Anion Gap (5-15) MEQ/L BUN (7-17) mg/dL Creatinine (0.52-1.04) mg/dL Estimated GFR ML/MIN Glucose (74-106) mg/dL Lactic Acid 2.8 H (0.4-2.0) Calcium (8.4-10.2) mg/dL Total Bilirubin (0.2-1.3) mg/dL AST (14-36) U/L ALT (0-35) U/L Alkaline Phosphatase (38-126) U/L Troponin I < 0.012 (0.000-0.034) ng/mL Serum Total Protein (6.3-8.2) g/dL Albumin (3.5-5.0) g/dL Amylase (30-110) U/L Lipase (23-300) U/L Urine Color YELLOW (YELLOW) Urine Appearance CLEAR (CLEAR) Urine pH 6.0 (5-6) Ur Specific [place] 1.023 (1.005-1.025) Urine Protein NEGATIVE (Negative) Urine Ketones TRACE (NEGATIVE) Urine Blood SMALL (0-5) Grey/ul Urine Nitrite NEGATIVE (NEGATIVE) Urine Bilirubin NEGATIVE (NEGATIVE) Urine Urobilinogen NEGATIVE (0-1) mg/dL Ur Leukocyte Esterase NEGATIVE (NEGATIVE) Urine WBC (Auto) 6-10 (0-5) /HPF Urine RBC (Auto) 6-10 (0-2) /HPF U Epithel Cells (Auto) RARE (FEW) /HPF Urine Bacteria (Auto) FEW (NEGATIVE) /HPF Calcium Oxalate Crystal 3-5 (NEGATIVE) /HPF Urine Mucus (Auto) SLIGHT (NEGATIVE) /HPF Urine Culture Reflexed YES (NO) Urine Glucose NEGATIVE (NEGATIVE) mg/dL 12/26/18 12/26/18 12/26/18 Range/Units 11:42 12:30 15:40 WBC (4.0-10.5) K/mm3 RBC (4.1-5.4) M/mm3 Hgb (12.0-16.0) gm/dl Hct (35-47) % MCV (78-100) fl MCH (26-32) pg MCHC (32-36) g/dl RDW (11.5-14.0) % Plt Count (150-450) K/mm3 MPV (6-9.5) fl Gran % (36.0-66.0) % Eos # (Auto) (0-0.5) Absolute Lymphs (auto) (1.0-4.6) Absolute Monos (auto) (0.0-1.3) Lymphocytes % (24.0-44.0) % Monocytes % (0.0-12.0) % Eosinophils % (0.00-5.0) % Basophils % (0.0-0.4) % Absolute Granulocytes (1.4-6.9) Basophils # (0-0.4) PT (9.95-12.35) SECONDS INR (0.8-3.0) Sodium (137-145) mmol/L Potassium (3.5-5.1) mmol/L Chloride (98-107) mmol/L Carbon Dioxide (22-30) mmol/L Anion Gap (5-15) MEQ/L BUN (7-17) mg/dL Creatinine (0.52-1.04) mg/dL Estimated GFR ML/MIN Glucose (74-106) mg/dL Lactic Acid 1.5 (0.4-2.0) Calcium (8.4-10.2) mg/dL Total Bilirubin (0.2-1.3) mg/dL AST (14-36) U/L ALT (0-35) U/L Alkaline Phosphatase (38-126) U/L Troponin I < 0.012 < 0.012 (0.000-0.034) ng/mL Serum Total Protein (6.3-8.2) g/dL Albumin (3.5-5.0) g/dL Amylase (30-110) U/L Lipase (23-300) U/L Urine Color (YELLOW) Urine Appearance (CLEAR) Urine pH (5-6) Ur Specific [place] (1.005-1.025) Urine Protein (Negative) Urine Ketones (NEGATIVE) Urine Blood (0-5) Grey/ul Urine Nitrite (NEGATIVE) Urine Bilirubin (NEGATIVE) Urine Urobilinogen (0-1) mg/dL Ur Leukocyte Esterase (NEGATIVE) Urine WBC (Auto) (0-5) /HPF Urine RBC (Auto) (0-2) /HPF U Epithel Cells (Auto) (FEW) /HPF Urine Bacteria (Auto) (NEGATIVE) /HPF Calcium Oxalate Crystal (NEGATIVE) /HPF Urine Mucus (Auto) (NEGATIVE) /HPF Urine Culture Reflexed (NO) Urine Glucose (NEGATIVE) mg/dL 12/26/18 12/27/18 12/27/18 Range/Units 18:51 05:20 05:20 WBC 4.2 (4.0-10.5) K/mm3 RBC 3.06 L (4.1-5.4) M/mm3 Hgb 9.5 L (12.0-16.0) gm/dl Hct 31.5 L (35-47) % MCV 102.9 H (78-100) fl MCH 31.0 (26-32) pg MCHC 30.2 L (32-36) g/dl RDW 18.9 H (11.5-14.0) % Plt Count 129 L (150-450) K/mm3 MPV 11.4 H (6-9.5) fl Gran % 48.5 (36.0-66.0) % Eos # (Auto) 0.34 (0-0.5) Absolute Lymphs (auto) 1.22 (1.0-4.6) Absolute Monos (auto) 0.59 (0.0-1.3) Lymphocytes % 28.9 (24.0-44.0) % Monocytes % 14.0 H (0.0-12.0) % Eosinophils % 8.1 H (0.00-5.0) % Basophils % 0.5 (0.0-0.4) % Absolute Granulocytes 2.05 (1.4-6.9) Basophils # 0.02 (0-0.4) PT (9.95-12.35) SECONDS INR (0.8-3.0) Sodium 143 (137-145) mmol/L Potassium 3.6 (3.5-5.1) mmol/L Chloride 116 H (98-107) mmol/L Carbon Dioxide 24 (22-30) mmol/L Anion Gap 6.1 (5-15) MEQ/L BUN 15 (7-17) mg/dL Creatinine 0.57 (0.52-1.04) mg/dL Estimated GFR > 60.0 ML/MIN Glucose 80 (74-106) mg/dL Lactic Acid (0.4-2.0) Calcium 7.7 L (8.4-10.2) mg/dL Total Bilirubin (0.2-1.3) mg/dL AST (14-36) U/L ALT (0-35) U/L Alkaline Phosphatase (38-126) U/L Troponin I < 0.012 (0.000-0.034) ng/mL Serum Total Protein (6.3-8.2) g/dL Albumin (3.5-5.0) g/dL Amylase (30-110) U/L Lipase (23-300) U/L Urine Color (YELLOW) Urine Appearance (CLEAR) Urine pH (5-6) Ur Specific [place] (1.005-1.025) Urine Protein (Negative) Urine Ketones (NEGATIVE) Urine Blood (0-5) Grey/ul Urine Nitrite (NEGATIVE) Urine Bilirubin (NEGATIVE) Urine Urobilinogen (0-1) mg/dL Ur Leukocyte Esterase (NEGATIVE) Urine WBC (Auto) (0-5) /HPF Urine RBC (Auto) (0-2) /HPF U Epithel Cells (Auto) (FEW) /HPF Urine Bacteria (Auto) (NEGATIVE) /HPF Calcium Oxalate Crystal (NEGATIVE) /HPF Urine Mucus (Auto) (NEGATIVE) /HPF Urine Culture Reflexed (NO) Urine Glucose (NEGATIVE) mg/dL Microbiology 12/26/18 09:42 Urine Culture - Preliminary Catherized GRAM POSITIVE ID AND SENSITIVITY PENDING Accuchecks Date 12/27/18 Date 12/26/18 Date 12/26/18 Time 07:31 Time 22:00 Time 17:08 Accucheck Value: 90 Accucheck Value: 89 - Radiology Impressions Radiology Exams & Impressions: Radiology Procedures Category Date Time Status ABDOMEN AND PELVIS W/0 CONTRAS [CT] Stat Exams 12/26/18 09:37 Completed - Other Procedures and Tests Respiratory Therapy 12/26/18 14:54 Oxygen NASAL CANNULA 2 lpm 12/26/18 15:06 Respiratory Therapy Assessment DAILY Assessment/Plan (1) UTI (urinary tract infection) Current Visit: Yes Status: Acute Onset Date: ~12/07/18 Qualifiers: Urinary tract infection type: acute cystitis Hematuria presence: without hematuria Qualified Code(s): N30.00 - Acute cystitis without hematuria Assessment & Plan: On rocephin IV daily. She went to urology and did not have an infection at that time. When she is discharged would like her to go home on keflex 250mg 1 po daily for prophylaxis. Code(s): N39.0 - URINARY TRACT INFECTION, SITE NOT SPECIFIED (2) Hypokalemia Current Visit: Yes Status: Resolved Code(s): E87.6 - HYPOKALEMIA (3) Atrial fibrillation Current Visit: Yes Status: Chronic Qualifiers: Atrial fibrillation type: permanent Qualified Code(s): I48.2 - Chronic atrial fibrillation Assessment & Plan: will increase her cardizem to 240mg/d Code(s): I48.91 - UNSPECIFIED ATRIAL FIBRILLATION (4) Abdominal pain Current Visit: No Status: Acute Onset Date: ~12/07/18 Qualifiers: Abdominal location: lower abdomen, unspecified Qualified Code(s): R10.30 - Lower abdominal pain, unspecified Assessment & Plan: would like her to have an EGD; she is reluctant but discussing with her . Code(s): R10.9 - UNSPECIFIED ABDOMINAL PAIN (5) Polyuria Current Visit: No Status: Resolved Assessment & Plan: will continue her antispasmodic med started by urology. improved. Code(s): R35.8 - OTHER POLYURIA (6) Renal insufficiency Current Visit: No Status: Chronic Assessment & Plan: renal function normal today.
[2018-12-27] MEDS: ACCOLATE 20 MG PO SCH ×2 (09:36→22:32)
[2018-12-27] MEDS: Cardizem CD 240 MG PO SCH (09:36)
[2018-12-27] MEDS: Neurontin 100 MG PO SCH ×3 (09:37→22:46)
[2018-12-27] MEDS: Lopressor 50 MG PO SCH ×2 (09:37→22:46)
[2018-12-27] MEDS: PRADAXA 75 MG PO SCH ×2 (09:38→22:32)
[2018-12-27] MEDS: Ocuvite Tablet PO SCH ×2 (09:38→22:31)
[2018-12-27] MEDS ORDERED: ROCEPHIN 1 Gm-D5w 50 ml Bag** 1 G/50 ML IVPB IV SCH (10:00)
[2018-12-27] MEDS ORDERED: Cardizem CD 120 MG PO SCH (10:00)
[2018-12-27] MEDS ORDERED: NON-FORMULARY ITEM (Mirabegron [Myrbetriq] 25 MG) PO SCH (10:00)
[2018-12-27] MEDS: Norco 10/325 MG Tablet PO PRN ×2 (10:03→22:32)
[2018-12-27] MEDS: NYSTOP OINTMENT 15 GM TOP SCH ×5 (10:04→22:48)
[2018-12-27] MEDS: Zofran 4 MG/2 ML VIAL IV PRN ×2 (10:04→16:10)
[2018-12-27] MEDS ORDERED: Phenergan 25 MG INJ IV ONE (11:45)
[2018-12-27] MEDS ORDERED: Protonix 40MG Tablet PO SCH ×2 (12:00)
[2018-12-27] MEDS ORDERED: PROTONIX 40 MG IV IV SCH (12:00)
[2018-12-27] MEDS: PROTONIX 40 MG IV IV SCH (12:34)
[2018-12-27] MEDS: MORPHINE SULFATE 4 MG INJ IV PRN ×2 (12:38→16:16)
[2018-12-27] MEDS: Colace 100 MG PO SCH (22:30)
[2018-12-27] MEDS: PATIENT OWN MEDICATION PO SCH (22:31)
[2018-12-27] MEDS: Pepcid 20 MG PO SCH (22:32)
[2018-12-27] MEDS: TYLENOL EXTRA STRENGTH 500 MG PO SCH (22:40)
[2018-12-27] MEDS: BENADRYL 25 MG CAPSULE PO SCH (22:40)
[2018-12-28] MEDS: Sodium Chloride 0.9% 1000 ML 1,000 ML IV SCH (06:25)
[2018-12-28] MEDS ORDERED: OMNIPEN PO SCH (09:00)
[2018-12-28] MEDS: Lopressor 50 MG PO SCH (09:15)
[2018-12-28] MEDS: Cardizem CD 240 MG PO SCH (09:15)
[2018-12-28] MEDS: ACCOLATE 20 MG PO SCH (09:15)
[2018-12-28] MEDS: PROTONIX 40 MG IV IV SCH (09:15)
[2018-12-28] MEDS: Neurontin 100 MG PO SCH (09:16)
[2018-12-28] MEDS: NYSTOP OINTMENT 15 GM TOP SCH (09:16)
[2018-12-28] MEDS: PRADAXA 75 MG PO SCH (09:17)
[2018-12-28] MEDS: Ocuvite Tablet PO SCH (09:17)
[2018-12-28] MEDS: Norco 10/325 MG Tablet PO PRN (09:29)
[2018-12-28] MEDS ORDERED: PEN-VEE K PO SCH (09:30)
--- NOTE | 2018-12-28 10:55 | PCM.DCORD ---
- Discharge Discharge Date: 12/28/18 Disposition: Home, Self-Care Condition: Good Prescriptions: New Ampicillin Trihydrate 500 mg PO QID #28 capsule Diltiazem HCl 240 mg [Cardizem CD 240 MG] 240 mg PO DAILY #30 cap Continue Atorvastatin Calcium [Lipitor 20MG Tablet] 20 mg PO HS Gabapentin [Neurontin] 100 mg PO TID Oxazepam 15 mg PO HS Furosemide 40 mg [Lasix 40 MG] 40 mg PO DAILY PRN PRN Reason: Shortness Of Breath Docusate Sodium 100 mg [Colace 100 MG] 300 mg PO HS Vit A/Vit C/Vit E/Zinc/Copper [Preservision Areds Softgel] 1 each PO BID Esomeprazole Magnesium [Nexium] 20 mg PO DAILY PANTOPRAZOLE 40 mg Tablet [Protonix 40MG Tablet] 40 mg PO LUNCH Promethazine HCl 25 mg [Phenergan 25 mg] 25 mg PO Q6H PRN Famotidine 20 mg [Pepcid 20 MG] 10 mg PO HS Hydrocodone/Acetaminophen [[place] 10-325 Tablet] 1 each PO BID PRN PRN Reason: Pain Dabigatran Etexilate Mesylate [Pradaxa] 150 mg PO BID Metoprolol Tartrate 50 mg [Lopressor 50 MG] 50 mg PO BID tablet Zafirlukast 20 mg [Accolate 20 mg] 20 mg PO BID Mirabegron [Myrbetriq] 25 mg PO DAILY Glimepiride 2 mg [Amaryl 2 MG] 2 mg PO DAILY Cholecalciferol (Vitamin D3) [Vitamin D3] 1,000 unit PO DAILY B Complex with Vitamin C [Vitamin B Complex-C] 1 each PO DAILY Acetaminophen/Dp-Hydram HCl [Tylenol Pm Ex-Strength Geltab] 2 each PO HS Discontinued Diltiazem HCl [Diltiazem 24Hr ER] 180 mg PO DAILY Additional Instructions: Oxygen 2 Liters by nasal cannula. Return to ER or call Dr. Wong's office if fever, abdominal pain, vomiting or any other concerns. Follow up with: RAY WONG [Primary Care Provider] - 1 Week
[2018-12-28 12:20] VITALS: BP 140/69; PULSE 89; O2SAT 94
[2018-12-28] MEDS: Zofran 4 MG/2 ML VIAL IV PRN (12:24)
--- NOTE | 2018-12-31 13:03 | DS ---
DISCHARGE DIAGNOSES: 1) URINARY TRACT INFECTION. 2) VOMITING, NOW RESOLVED. 3) ATRIAL FIBRILLATION. 4) ANEMIA. DISCHARGE PHYSICAL EXAMINATION: VITALS: Temperature current 97.7F, temperature max 98.7F, heart rate 78 to 88, respiratory rate 18 to 20, blood pressure 119 to 154 over 68 to 96, weight 67.9 kg. Oxygen saturation 98 to 99% on 2 liters nasal cannula. GENERAL: The patient is a pleasant talkative lady lying in bed in no acute distress. Her is at the bedside. She is on oxygen by nasal cannula. CVS: Her heart has a 2/6 systolic ejection murmur heard best at the left upper sternal border and left lower sternal border. She has regular rhythm. No gallops or rubs. CHEST: Clear to auscultation on the left. Fine crackles at the base on the right. Equal breath sounds. No wheezing. ABDOMEN: Soft, nontender, nondistended with normal bowel sounds. EXTREMITIES: No clubbing, cyanosis or edema. SKIN: Warm, dry and intact. HOSPITAL COURSE: 1) URINARY TRACT INFECTION: She had a urine culture from 12/26/2018 that grew Enterococcus faecalis. She was switched from ceftriaxone to penicillin VK. On the day of discharge from the hospital will finish ampicillin orally 500 mg p.o. for seven days. She will take that four times a day. She will follow up closely with Dr. Wong next week and keep her follow up appointment with the urologist in early January. 2) VOMITING: This had resolved during her hospital stay and she was able to eat breakfast this morning. 3) ATRIAL FIBRILLATION: She was continued on Pradaxa for anticoagulation. Her Cardizem was increased from 180 mg a day to 240 mg a day for better rate control. Dr. Wong noted when she first came her heart rate was high in the 140's and it is currently in the 80's. 4) ANEMIA: Her hemoglobin the day before discharge was stable at 9.5. Her primary care doctor can follow up her anemia as an outpatient.
== END 2018-12-28 13:00 | disposition home health service (06) ==
LOC: ED 08:31 → MED SURG 13:55
PROVIDERS: ADMIT Family Medicine; ATTEND Family Medicine
DX: N39.0 Urinary tract infection, site not specified (principal); B95.2 Enterococcus as the cause of diseases classified elsewhere; R11.10 Vomiting, unspecified; I48.91 Unspecified atrial fibrillation; D64.9 Anemia, unspecified; E11.9 Type 2 diabetes mellitus without complications; I10 Essential (primary) hypertension; Z86.711 Personal history of pulmonary embolism; Z85.3 Personal history of malignant neoplasm of breast; E87.6 Hypokalemia; R10.9 Unspecified abdominal pain; R35.8 Other polyuria; N28.9 Disorder of kidney and ureter, unspecified; Z79.899 Other long term (current) drug therapy; Z79.01 Long term (current) use of anticoagulants
CPT/HCPCS: 36000; 36415; 74176; 80048; 80053; 81001; 82150; 82962; 83605; 83690; 84484; 85025; 85610; 87040; 87077; 87086; 87186; 93005; 93268; 94760; 94762; 96360; 96365; 96374; 96375; 99285; G0378; P9612; J0696; J2270; J2405; J2550; A9270-GY

== ENCOUNTER 2019-01-04 02:52 | Inpatient (IN) | payer MEDICARE ==
[2019-01-04] MEDS ORDERED: Zofran 4 MG/2 ML VIAL IV ONE ×2 (03:34→07:01)
[2019-01-04] MEDS ORDERED: DILTIAZEM HCL 25 MG/5 ML VIAL IV STA (03:37)
--- NOTE | 2019-01-04 03:38 | ERPHSYRPT ---
- History of Present Illness Time Seen by Provider: 01/04/19 03:29 Source: patient, family Exam Limitations: no limitations Patient Subjective Stated Complaint: patient woke up with pain in upper mid abdomen, radiating into her back and complaining she couldn't breathe. felt like heart was racing/fluttering Triage Nursing Assessment: pt brought back via w/c, assisted to bed with assist. resp labored. SOB, o2 sat 98% with 2L per n/c. Alert, speech clear, skin pink, warm and dry. c/o nausea, no diaphoresis. heart rate irreg 120's to 140's Afib. Physician History: The patient is an 83-year-old female with her complaining of not feeling well for the past 2 days. She has been nauseated. Because of that, she has not been taking her medicines. Tonight she woke up with her heart racing and not being able to breathe well. She has some abdominal pain as well. Her past medical history is significant for breast cancer, HTN, CHF, stroke, high cholesterol, UTI, and A. fib. She had a recent hernia repair in September. Timing/Duration: hour(s) (1) Activities at Onset: none Quality: other (racing heart) Location: central Chest Pain Radiation: no radiation Modifying Factors: Improves With: nothing Nitro Today/Relief: no nitro taken today Aspirin Treatment Today: no aspirin today Associated Symptoms: nausea, abdominal pain, chest pain Prior Chest Pain/Cardiac Workup: recently seen/treated, recent hospitalization Allergies/Adverse Reactions: metoclopramide HCl [From Reglan] Allergy (Verified 12/26/18 08:56) vomiting Sulfa (Sulfonamide Antibiotics) Allergy (Verified 12/26/18 08:56) rash Home Medications: Atorvastatin Calcium [Lipitor 20MG Tablet] 20 mg PO HS 07/03/16 [History] Gabapentin [Neurontin] 100 mg PO TID 07/03/16 [History] Oxazepam 15 mg PO HS 08/26/16 [History] Furosemide 40 mg [Lasix 40 MG] 40 mg PO DAILY PRN 07/31/17 [History] Docusate Sodium 100 mg [Colace 100 MG] 300 mg PO HS 08/08/17 [History] Vit A/Vit C/Vit E/Zinc/Copper [Preservision Areds Softgel] 1 each PO BID [History] Esomeprazole Magnesium [Nexium] 20 mg PO DAILY 10/10/17 [History] PANTOPRAZOLE 40 mg Tablet [Protonix 40MG Tablet] 40 mg PO LUNCH 10/22/17 [ History] Promethazine HCl 25 mg [Phenergan 25 mg] 25 mg PO Q6H PRN 11/21/17 [ History] Famotidine 20 mg [Pepcid 20 MG] 10 mg PO HS 09/22/18 [History] Hydrocodone/Acetaminophen [Latimer 10-325 Tablet] 1 each PO BID PRN 11/10/18 [ History] Dabigatran Etexilate Mesylate [Pradaxa] 150 mg PO BID 12/07/18 [History] Acetaminophen/Dp-Hydram HCl [Tylenol Pm Ex-Strength Geltab] 2 each PO HS [History] B Complex with Vitamin C [Vitamin B Complex-C] 1 each PO DAILY 12/26/18 [History ] Cholecalciferol (Vitamin D3) [Vitamin D3] 1,000 unit PO DAILY 12/26/18 [History] Mirabegron [Myrbetriq] 25 mg PO DAILY 12/26/18 [History] Zafirlukast 20 mg [Accolate 20 mg] 20 mg PO BID 12/26/18 [History] Diltiazem HCl 240 mg [Cardizem CD 240 MG] 240 mg PO DAILY 01/04/19 [ History] Hx Tetanus, Diphtheria Vaccination/Date Given: Yes Hx Influenza Vaccination/Date Given: Yes Hx Pneumococcal Vaccination/Date Given: Yes Immunizations Up to Date: Yes - Review of Systems Constitutional: No Fever, No Chills Eyes: No Symptoms Ears, Nose, & Throat: No Symptoms Respiratory: No Cough, No Dyspnea Cardiac: Palpitations Abdominal/Gastrointestinal: Abdominal Pain, Nausea Genitourinary Symptoms: No Dysuria Musculoskeletal: No Back Pain, No Neck Pain Skin: No Rash Neurological: No Dizziness, No Focal Weakness, No Sensory Changes Psychological: No Symptoms Endocrine: No Symptoms Hematologic/Lymphatic: No Symptoms Immunological/Allergic: No Symptoms All Other Systems: Reviewed and Negative - Past Medical History Pertinent Past Medical History: Yes Neurological History: No Pertinent History ENT History: No Pertinent History Cardiac History: Arrhythmia, Other Respiratory History: Asthma, Pneumonia Endocrine Medical History: Diabetes Type II Musculoskeletal History: No Pertinent History GI Medical History: Hernia History: No Pertinent History Psycho-Social History: No Pertinent History Female Reproductive Disorders: Breast Cancer Other Medical History: A FIB, heart murmer - Past Surgical History Past Surgical History: Yes Neuro Surgical History: No Pertinent History Cardiac: Cardiac Catheterization, Pacemaker Respiratory: No Pertinent History Gastrointestinal: No Pertinent History, Hernia Repair Genitourinary: No Pertinent History Musculoskeletal: No Pertinent History Female Surgical History: Mastectomy Other Surgical History: L mastectomy april 10, VENTRAL HERNIA REPAIR - Social History Smoking Status: Never smoker How long have you smoked: quit 24 yr Exposure to second hand smoke: No Alcohol Use: None Drug Use: none Patient Lives Alone: No Significant Family History: no pertinent family hx - Female History Hx Now: No - Nursing Vital Signs Nursing Vital Signs: Initial Vital Signs Pulse Rate 140 H 01/04/19 02:53 Blood Pressure 168/98 01/04/19 02:53 O2 Sat by Pulse Oximetry 98 01/04/19 02:53 Pain Scale Pain Intensity 6 - Physical Exam General Appearance: moderate distress Eye Exam: PERRL/EOMI, eyes nml inspection Ears, Nose, Throat Exam: normal ENT inspection, moist mucous membranes Neck Exam: normal inspection, non-tender, supple Respiratory Exam: normal breath sounds, lungs clear, No respiratory distress Cardiovascular Exam: tachycardia, irregular Gastrointestinal/Abdomen Exam: soft, No tenderness, No mass Pelvic Exam: not done Rectal Exam: not done Back Exam: normal inspection, No CVA tenderness, No vertebral tenderness Extremity Exam: normal inspection, normal range of motion Neurologic Exam: alert, oriented x 3, cooperative, normal mood/affect, nml cerebellar function, sensation nml, No motor deficits Skin Exam: normal color, warm, dry Lymphatic Exam: No adenopathy SpO2 Interpretation: normal SpO2: 98 O2 Delivery: Nasal Cannula (2L) - Course EKG Interpreted by Me: A-fib (a-fib with RVR), NORMAL AXIS, NORMAL QRS, NORMAL ST-T, Other (prior EKG from 12/26/18 shows a-fib.) - CT Exams Abdomen/Pelvis CT Interpretation: Tele-radiologist Report (per Dr [place] ), Other ( diverticulosis; gallstone;bilateral pleural effusions;) Ordered Tests: Active Orders 24 hr Category Date Time Status Web Site Developer STAT Care 01/04/19 03:12 Active EKG-ER Only STAT Care 01/04/19 03:12 Active IV Insertion STAT Care 01/04/19 03:12 Active Oxygen-ED Only Nasal Cannula 2 lpm Care 01/04/19 03:12 Active ABDOMEN AND PELVIS W/0 CONTRAS [CT] Stat Exams 01/04/19 04:33 Taken CHEST 1 VIEW (PORTABLE) Stat Exams 01/04/19 03:35 Taken AMYLASE Stat Lab 01/04/19 03:44 Completed CBC W DIFF Stat Lab 01/04/19 03:44 Completed CMP Stat Lab 01/04/19 03:44 Completed LIPASE Stat Lab 01/04/19 03:44 Completed Lactic Acid Stat Lab 01/04/19 03:36 Completed Lactic Acid Stat Lab 01/04/19 06:41 Completed NT PRO BNP Stat Lab 01/04/19 03:44 Completed PROTIME WITH INR Stat Lab 01/04/19 03:44 Completed TROPONIN Q3H Lab 01/04/19 03:44 Completed TROPONIN Q3H Lab 01/04/19 06:45 Received TROPONIN Q3H Lab 01/04/19 09:45 Ordered TROPONIN Q3H Lab 01/04/19 12:45 Ordered TROPONIN Q3H Lab 01/04/19 15:45 Ordered UA W/RFX UR CULTURE Stat Lab 01/04/19 05:31 Completed Medication Summary Generic Name Dose Route Start Last Admin Trade Name Freq PRN Reason Stop Dose Admin Sodium Chloride 1,000 mls @ 100 mls/hr 01/04/19 03:45 01/04/19 03:52 Sodium Chloride 0.9% 1000 Ml IV 02/03/19 03:44 100 mls/hr .Q10H RICHARD Administration Diltiazem HCl 100 mls @ 5 mls/hr 01/04/19 04:34 01/04/19 05:11 Cardizem Drip 100 Mg/100 Ml D5w IV 02/03/19 04:33 7 mg/hr .Q20H PRN 7 mls/hr HEART RATE/ A-FIB Titration Protocol 5 MG/HR Discontinued Medications Generic Name Dose Route Start Last Admin Trade Name Freq PRN Reason Stop Dose Admin Diltiazem HCl Confirm 01/04/19 03:42 Cardizem Iv 50 Mg/10 Ml Administered 01/04/19 03:43 Dose 50 mg IV .STK-MED ONE Diltiazem HCl 20 mg 01/04/19 03:50 01/04/19 03:52 Cardizem Iv 50 Mg/10 Ml IV 01/04/19 03:51 20 mg STAT ONE Administration Ondansetron HCl 4 mg 01/04/19 03:34 01/04/19 03:52 Zofran 4 Mg/2 Ml Vial IV 01/04/19 03:35 4 mg STAT ONE Administration Ondansetron HCl Confirm 01/04/19 03:42 Zofran 4 Mg/2 Ml Vial Administered 01/04/19 03:43 Dose 4 mg .ROUTE .STK-MED ONE Promethazine HCl 25 mg 01/04/19 05:29 01/04/19 05:35 Phenergan 25 Mg Inj IM 01/04/19 05:30 25 mg STAT ONE Administration Promethazine HCl Confirm 01/04/19 05:31 Phenergan 25 Mg Inj Administered 01/04/19 05:32 Dose 25 mg .ROUTE .STK-MED ONE Lab/Rad Data: Laboratory Result Diagrams 01/04/19 03:44 01/04/19 03:44 Laboratory Results 01/04/19 01/04/19 01/04/19 Range/Units 06:41 05:31 03:44 WBC (4.0-10.5) K/mm3 RBC (4.1-5.4) M/mm3 Hgb (12.0-16.0) gm/dl Hct (35-47) % MCV (78-100) fl MCH (26-32) pg MCHC (32-36) g/dl RDW (11.5-14.0) % Plt Count (150-450) K/mm3 MPV (6-9.5) fl Gran % (36.0-66.0) % Eos # (Auto) (0-0.5) Absolute Lymphs (auto) (1.0-4.6) Absolute Monos (auto) (0.0-1.3) Lymphocytes % (24.0-44.0) % Monocytes % (0.0-12.0) % Eosinophils % (0.00-5.0) % Basophils % (0.0-0.4) % Absolute Granulocytes (1.4-6.9) Basophils # (0-0.4) PT (9.95-12.35) SECONDS INR (0.8-3.0) Sodium (137-145) mmol/L Potassium (3.5-5.1) mmol/L Chloride (98-107) mmol/L Carbon Dioxide (22-30) mmol/L Anion Gap (5-15) MEQ/L BUN (7-17) mg/dL Creatinine (0.52-1.04) mg/dL Estimated GFR ML/MIN Glucose (74-106) mg/dL Lactic Acid 0.9 (0.4-2.0) Calcium (8.4-10.2) mg/dL Total Bilirubin (0.2-1.3) mg/dL AST (14-36) U/L ALT (0-35) U/L Alkaline Phosphatase (38-126) U/L Troponin I < 0.012 (0.000-0.034) ng/mL NT-Pro-B Natriuret Pep (0-1800) pg/mL Serum Total Protein (6.3-8.2) g/dL Albumin (3.5-5.0) g/dL Amylase (30-110) U/L Lipase (23-300) U/L Urine Color YELLOW (YELLOW) Urine Appearance CLEAR (CLEAR) Urine pH 6.0 (5-6) Ur Specific Amoret 1.017 (1.005-1.025) Urine Protein NEGATIVE (Negative) Urine Ketones TRACE (NEGATIVE) Urine Blood MODERATE (0-5) Grey/ul Urine Nitrite NEGATIVE (NEGATIVE) Urine Bilirubin NEGATIVE (NEGATIVE) Urine Urobilinogen NEGATIVE (0-1) mg/dL Ur Leukocyte Esterase NEGATIVE (NEGATIVE) Urine WBC (Auto) 6-10 (0-5) /HPF Urine RBC (Auto) 11-15 (0-2) /HPF U Epithel Cells (Auto) NONE (FEW) /HPF Urine Bacteria (Auto) NONE SEEN (NEGATIVE) /HPF Calcium Oxalate Crystal 0-2 (NEGATIVE) /HPF Other Casts (Auto) 0-2 (NEGATIVE) /LPF Urine Mucus (Auto) SLIGHT (NEGATIVE) /HPF Urine Culture Reflexed NO (NO) Urine Glucose NEGATIVE (NEGATIVE) mg/dL 01/04/19 01/04/19 01/04/19 Range/Units 03:44 03:44 03:44 WBC 5.1 (4.0-10.5) K/mm3 RBC 3.46 L (4.1-5.4) M/mm3 Hgb 11.1 L (12.0-16.0) gm/dl Hct 36.3 (35-47) % MCV 104.9 H (78-100) fl MCH 32.0 (26-32) pg MCHC 30.6 L (32-36) g/dl RDW 18.7 H (11.5-14.0) % Plt Count 134 L (150-450) K/mm3 MPV 11.6 H (6-9.5) fl Gran % 49.1 (36.0-66.0) % Eos # (Auto) 0.31 (0-0.5) Absolute Lymphs (auto) 1.74 (1.0-4.6) Absolute Monos (auto) 0.52 (0.0-1.3) Lymphocytes % 34.3 (24.0-44.0) % Monocytes % 10.3 (0.0-12.0) % Eosinophils % 6.1 H (0.00-5.0) % Basophils % 0.2 (0.0-0.4) % Absolute Granulocytes 2.49 (1.4-6.9) Basophils # 0.01 (0-0.4) PT 14.4 H (9.95-12.35) SECONDS INR 1.24 (0.8-3.0) Sodium 143 (137-145) mmol/L Potassium 3.9 (3.5-5.1) mmol/L Chloride 112 H (98-107) mmol/L Carbon Dioxide 24 (22-30) mmol/L Anion Gap 10.7 (5-15) MEQ/L BUN 11 (7-17) mg/dL Creatinine 0.57 (0.52-1.04) mg/dL Estimated GFR > 60.0 ML/MIN Glucose 122 H (74-106) mg/dL Lactic Acid (0.4-2.0) Calcium 8.7 (8.4-10.2) mg/dL Total Bilirubin 0.50 (0.2-1.3) mg/dL AST 29 (14-36) U/L ALT 17 (0-35) U/L Alkaline Phosphatase 118 (38-126) U/L Troponin I (0.000-0.034) ng/mL NT-Pro-B Natriuret Pep 7250 H (0-1800) pg/mL Serum Total Protein 6.3 (6.3-8.2) g/dL Albumin 3.0 L (3.5-5.0) g/dL Amylase 33 (30-110) U/L Lipase 24 (23-300) U/L Urine Color (YELLOW) Urine Appearance (CLEAR) Urine pH (5-6) Ur Specific Amoret (1.005-1.025) Urine Protein (Negative) Urine Ketones (NEGATIVE) Urine Blood (0-5) Grey/ul Urine Nitrite (NEGATIVE) Urine Bilirubin (NEGATIVE) Urine Urobilinogen (0-1) mg/dL Ur Leukocyte Esterase (NEGATIVE) Urine WBC (Auto) (0-5) /HPF Urine RBC (Auto) (0-2) /HPF U Epithel Cells (Auto) (FEW) /HPF Urine Bacteria (Auto) (NEGATIVE) /HPF Calcium Oxalate Crystal (NEGATIVE) /HPF Other Casts (Auto) (NEGATIVE) /LPF Urine Mucus (Auto) (NEGATIVE) /HPF Urine Culture Reflexed (NO) Urine Glucose (NEGATIVE) mg/dL 01/04/19 Range/Units 03:36 WBC (4.0-10.5) K/mm3 RBC (4.1-5.4) M/mm3 Hgb (12.0-16.0) gm/dl Hct (35-47) % MCV (78-100) fl MCH (26-32) pg MCHC (32-36) g/dl RDW (11.5-14.0) % Plt Count (150-450) K/mm3 MPV (6-9.5) fl Gran % (36.0-66.0) % Eos # (Auto) (0-0.5) Absolute Lymphs (auto) (1.0-4.6) Absolute Monos (auto) (0.0-1.3) Lymphocytes % (24.0-44.0) % Monocytes % (0.0-12.0) % Eosinophils % (0.00-5.0) % Basophils % (0.0-0.4) % Absolute Granulocytes (1.4-6.9) Basophils # (0-0.4) PT (9.95-12.35) SECONDS INR (0.8-3.0) Sodium (137-145) mmol/L Potassium (3.5-5.1) mmol/L Chloride (98-107) mmol/L Carbon Dioxide (22-30) mmol/L Anion Gap (5-15) MEQ/L BUN (7-17) mg/dL Creatinine (0.52-1.04) mg/dL Estimated GFR ML/MIN Glucose (74-106) mg/dL Lactic Acid 2.1 H (0.4-2.0) Calcium (8.4-10.2) mg/dL Total Bilirubin (0.2-1.3) mg/dL AST (14-36) U/L ALT (0-35) U/L Alkaline Phosphatase (38-126) U/L Troponin I (0.000-0.034) ng/mL NT-Pro-B Natriuret Pep (0-1800) pg/mL Serum Total Protein (6.3-8.2) g/dL Albumin (3.5-5.0) g/dL Amylase (30-110) U/L Lipase (23-300) U/L Urine Color (YELLOW) Urine Appearance (CLEAR) Urine pH (5-6) Ur Specific Amoret (1.005-1.025) Urine Protein (Negative) Urine Ketones (NEGATIVE) Urine Blood (0-5) Grey/ul Urine Nitrite (NEGATIVE) Urine Bilirubin (NEGATIVE) Urine Urobilinogen (0-1) mg/dL Ur Leukocyte Esterase (NEGATIVE) Urine WBC (Auto) (0-5) /HPF Urine RBC (Auto) (0-2) /HPF U Epithel Cells (Auto) (FEW) /HPF Urine Bacteria (Auto) (NEGATIVE) /HPF Calcium Oxalate Crystal (NEGATIVE) /HPF Other Casts (Auto) (NEGATIVE) /LPF Urine Mucus (Auto) (NEGATIVE) /HPF Urine Culture Reflexed (NO) Urine Glucose (NEGATIVE) mg/dL - Progress Progress: improved Air Movement: good Blood Culture(s) Obtained: No Antibiotics given: No Discussed with : Ronnie Will see patient in: hospital (full admit) Counseled pt/family regarding: lab results, diagnosis, rad results - Departure Time of Disposition: :05 Departure Disposition: In-patient Admission (per Dr Trujillo) Clinical Impression: Atrial fibrillation with RVR, CHF (congestive heart failure), Pleural effusion , Vomiting Condition: Good Critical Care Time: No Referrals: RAY OCHOA [Primary Care Provider] - Instructions: Heart Failure
[2019-01-04] MEDS ORDERED: Zofran 4 MG/2 ML VIAL ONE ×2 (03:42→07:54)
[2019-01-04] MEDS ORDERED: Cardizem IV 50 MG/10 ML IV ONE ×2 (03:42→03:50)
[2019-01-04] MEDS ORDERED: Sodium Chloride 0.9% 1000 ML 1,000 ML IV SCH (03:45)
[2019-01-04 03:46] LABS: Lactic Acid 2.1 (0.4-2.0)
[2019-01-04 03:48] LABS: BASOPHIL % 0.2 % (0.0-0.4); Basophil (Absolute #) 0.01 (0-0.4); Eosinophil % 6.1 % (0.00-5.0); Eosinophil (Absolute #) 0.31 (0-0.5); Granulocyte Absolute (ANC) 2.49 (1.4-6.9); Granulocytes % 49.1 % (36.0-66.0); Hematocrit 36.3 % (35-47); Hemoglobin 11.1 gm/dl (12.0-16.0); Lymphocyte (Absolute #) 1.74 (1.0-4.6); Lymphocytes % 34.3 % (24.0-44.0); Mean Cell Volume 104.9 fl (78-100); Mean Corpuscular Hgb Concent. 30.6 g/dl (32-36); Mean Platelet Volume 11.6 fl (6-9.5); Monocyte (Absolute #) 0.52 (0.0-1.3); Monocytes % 10.3 % (0.0-12.0); Platelet Count 134 K/mm3 (150-450); Red Blood Count 3.46 M/mm3 (4.1-5.4); Red Cell Distribution Width 18.7 % (11.5-14.0); White Blood Count 5.1 K/mm3 (4.0-10.5)
[2019-01-04 04:08] LABS: INR 1.24 (0.8-3.0); PROTIME 14.4 SECONDS (9.95-12.35)
[2019-01-04 04:20] LABS: ALKALINE PHOSPHATASE 118 U/L (38-126); AMYLASE 33 U/L (30-110); ANION GAP 10.7 MEQ/L (5-15); BLOOD UREA NITROGEN 11 mg/dL (7-17); CHLORIDE 112 mmol/L (98-107); Calcium 8.7 mg/dL (8.4-10.2); Carbon Dioxide 24 mmol/L (22-30); Creatinine 1 0.57 mg/dL (0.52-1.04); Glucose 122 mg/dL (74-106); LIPASE 24 U/L (23-300); NT PRO BNP 7250 pg/mL (0-1800); Potassium 3.9 mmol/L (3.5-5.1); SGOT/AST 29 U/L (14-36); SGPT/ALT 17 U/L (0-35); SODIUM 143 mmol/L (137-145); Total Protein 6.3 g/dL (6.3-8.2)
[2019-01-04] MEDS ORDERED: CARDIZEM DRIP 100 MG/100 ML D5W 100 ML IV ONE (04:35)
[2019-01-04] MEDS: CARDIZEM DRIP 100 MG/100 ML D5W 100 ML IV PRN ×2 (04:46→14:30)
[2019-01-04] MEDS ORDERED: Phenergan 25 MG INJ IM ONE (05:29)
[2019-01-04] MEDS ORDERED: Phenergan 25 MG INJ ONE (05:31)
[2019-01-04 05:46] LABS: Appearance CLEAR (CLEAR); Bilirubin NEGATIVE (NEGATIVE); Blood MODERATE Ery/ul (0-5); Calcium Oxalate Crystals 0-2 /HPF (NEGATIVE); Glucose NEGATIVE (NEGATIVE); Ketones TRACE (NEGATIVE); Leukocyte Esterase NEGATIVE (NEGATIVE); Mucus SLIGHT /HPF (NEGATIVE); Nitrite NEGATIVE (NEGATIVE); Protein,Urine Dip NEGATIVE (Negative); Specific Gravity 1.017 (1.005-1.025); Urobilinogen NEGATIVE mg/dL (0-1)
[2019-01-04 05:50] LABS: Bacteria NONE SEEN /HPF (NEGATIVE)
[2019-01-04] MEDS ORDERED: Lasix 20 MG/2 ML IV STA (06:58)
[2019-01-04] MEDS ORDERED: Pepcid 20 MG VIAL IV ONE ×2 (07:00→07:54)
[2019-01-04] MEDS ORDERED: MORPHINE SULFATE 2 MG INJ IV ONE ×2 (07:01→07:45)
[2019-01-04] MEDS ORDERED: Lasix 40 MG/4 ML ONE (07:55)
[2019-01-04] MEDS ORDERED: MORPHINE SULFATE 2 MG INJ ONE (07:55)
--- NOTE | 2019-01-04 08:13 | XRAY ---
Indication: Upper quadrant pain. Multiple contiguous axial images obtained through the abdomen and pelvis without contrast as ordered. Comparison: December 26, 2018. Lung bases again demonstrates moderate bibasilar effusions with compressive atelectasis, cardiomegaly, and large hiatal hernia with partial intrathoracic stomach. Noncontrasted stomach and bowel loops again appear nonobstructed with scattered colonic diverticulosis without diverticulitis. No free fluid/air. Stable tiny gallstone, hepatic cyst, bilateral renal cysts, fatty replaced pancreas, and moderate aortoiliac calcifications. Again previous ventral hernia repair with intact mesh graft and no suspicious fluid/air collection. Remaining liver, gallbladder, pancreas, spleen, adrenal glands, kidneys, ureters, bladder, and uterus appear unremarkable for noncontrast exam. Osseous structures again demonstrates multilevel degenerative spondylosis, scoliosis, and grade 2 L4-L5 spondylolisthesis. Impression: 1. Stable gallstone, colonic diverticulosis, hepatic cyst, bilateral renal cysts, degenerative spondylosis, scoliosis, and grade 2 spondylolisthesis. 2. No new or acute intra-abdominal/pelvic abnormalities on this noncontrast exam. 3. Lower chest again demonstrates moderate bibasilar effusions/atelectasis, cardiomegaly, and large hiatal hernia. Comment: Preliminary interpretation was made by [facility]. No discrepancy. CTDI 23.25
--- NOTE | 2019-01-04 08:15 | XRAY ---
Indication: Palpitations. Comparison: December 08, 2018. Portable chest unchanged again demonstrating bibasilar effusions/atelectasis right greater than left, borderline cardiomegaly, right dual lead pacemaker, osteopenia, and bony degenerative changes. No new cardiopulmonary abnormalities.
[2019-01-04] MEDS ORDERED: MORPHINE SULFATE 2 MG INJ IV PRN ×2 (09:18→11:35)
[2019-01-04] MEDS ORDERED: CARDIZEM DRIP 100 MG/100 ML D5W 100 ML IV PRN (09:18)
[2019-01-04] MEDS ORDERED: Zofran 4 MG/2 ML VIAL IV PRN (09:18)
[2019-01-04] MEDS ORDERED: TYLENOL 325 MG PO PRN (09:18)
[2019-01-04] MEDS: Sodium Chloride 0.9% 1000 ML 1,000 ML IV SCH ×2 (09:53→14:30)
[2019-01-04] MEDS: Phenergan 25 MG INJ IM PRN (10:55)
[2019-01-04] MEDS ORDERED: MORPHINE SULFATE 4 MG INJ IV PRN (11:39)
--- NOTE | 2019-01-04 11:41 | PCM.HP ---
History of Present Illness - Chief Complaint Chief Complaint: afib/rvr History of Present Illness: is a 83 year old female patient of Dr Wong who has been recently admitted, she came to the ER last night with complaints of her heart racing and abdominal pain. She has had problems with recurrent UTI, has an extensive cardiac history including a fib and dual lead pacemaker, followed by Dr Garcia. She is nauseated but no vomiting, very poor historian but doesn't seem to report any change in bowel habits. she was found to be in afib with RVR on arrival, is on pradaxa as well as cardizem 240mg daily and lopressor 50mg bid, she is having diffused abdominal pain, no focal issues. - Review of Systems Constitutional: Weakness, No Fever, No Chills Cardiac: Palpitations, No Chest Pain, No Edema Abdominal/Gastrointestinal: Abdominal Pain, Nausea, No Vomiting, No Diarrhea, No Constipation, No Hematemesis, No Hematochezia, No Melena Genitourinary Symptoms: No Dysuria Skin: No Rash All Other Systems: Reviewed and Negative Medications & Allergies Home Medications: Home Medication List Atorvastatin Calcium [Lipitor 20MG Tablet] 20 mg PO HS 07/03/16 [History Confirmed 01/04/19] Gabapentin [Neurontin] 100 mg PO TID 07/03/16 [History Confirmed 01/04/19] Oxazepam 15 mg PO HS 08/26/16 [History Confirmed 01/04/19] Furosemide 40 mg [Lasix 40 MG] 40 mg PO DAILY PRN 07/31/17 [History Confirmed 01/04/19] Docusate Sodium 100 mg [Colace 100 MG] 300 mg PO HS 08/08/17 [History Confirmed 01/04/19] Vit A/Vit C/Vit E/Zinc/Copper [Preservision Areds Softgel] 1 each PO BID [History Confirmed 01/04/19] Esomeprazole Magnesium [Nexium] 20 mg PO DAILY 10/10/17 [History Confirmed 01/04] PANTOPRAZOLE 40 mg Tablet [Protonix 40MG Tablet] 40 mg PO LUNCH 10/22/17 [ History Confirmed 01/04/19] Promethazine HCl 25 mg [Phenergan 25 mg] 25 mg PO Q6H PRN 11/21/17 [ History Confirmed 01/04/19] Famotidine 20 mg [Pepcid 20 MG] 10 mg PO HS 09/22/18 [History Confirmed ] Hydrocodone/Acetaminophen [Brandon 10-325 Tablet] 1 each PO BID PRN 11/10/18 [ History Confirmed 01/04/19] Dabigatran Etexilate Mesylate [Pradaxa] 150 mg PO BID 12/07/18 [History Confirmed 01/04/19] Metoprolol Tartrate 50 mg [Lopressor 50 MG] 50 mg PO BID tablet 12/09/18 [Rx Confirmed 01/04/19] Acetaminophen/Dp-Hydram HCl [Tylenol Pm Ex-Strength Geltab] 2 each PO HS [History Confirmed 01/04/19] B Complex with Vitamin C [Vitamin B Complex-C] 1 each PO DAILY 12/26/18 [ History Confirmed 01/04/19] Cholecalciferol (Vitamin D3) [Vitamin D3] 1,000 unit PO DAILY 12/26/18 [History Confirmed 01/04/19] Mirabegron [Myrbetriq] 25 mg PO DAILY 12/26/18 [History Confirmed 01/04/19] Zafirlukast 20 mg [Accolate 20 mg] 20 mg PO BID 12/26/18 [History Confirmed 01/04/19] Diltiazem HCl 240 mg [Cardizem CD 240 MG] 240 mg PO DAILY 01/04/19 [ History Confirmed 01/04/19] Allergies/Adverse Reactions: Allergies Allergy/AdvReac Type Severity Reaction Status Date / Time metoclopramide HCl Allergy Verified 12/26/18 08:56 [From Reglan] Sulfa (Sulfonamide Allergy Verified 12/26/18 08:56 Antibiotics) - Past Medical History Past Medical History: Yes Neurological History: No Pertinent History ENT History: No Pertinent History Cardiac History: Arrhythmia, Other Respiratory History: Asthma, Pneumonia Endocrine Medical History: Diabetes Type II Musculoskelatal History: No Pertinent History GI Medical History: Hernia History: No Pertinent History Pyscho-Social History: No Pertinent History Reproductive Disorders: Breast Cancer Comment: A FIB, heart murmer - Female History Are you now?: Yes - Past Surgical History Past Surgical History: Yes Neuro Surgical History: No Pertinent History Cardiac History: Cardiac Catheterization, Pacemaker Respiratory Surgery: No Pertinent History GI Surgical History: No Pertinent History, Hernia Repair Genitourinary Surgical Hx: No Pertinent History Musculskeletal Surgical Hx: No Pertinent History Female Surgical History: Mastectomy Other Surgical History: L mastectomy april 10, VENTRAL HERNIA REPAIR - Social History Smoking Status: Never smoker How long have you smoked: quit 24 yr Exposure to second hand smoke: No Alcohol: None Drug Use: none Significant Family History: no pertinent family hx - Physical Exam Vital Signs: Vital Signs - 24 hr Temp Pulse Pulse Resp BP BP Pulse Ox 01/04/19 11:00 129 H 22 136/87 95 01/04/19 10:00 110 H 15 142/98 96 01/04/19 09:24 97 F 120 H 17 143/98 97 01/04/19 09:18 97 01/04/19 09:00 97 F 120 H 17 143/98 01/04/19 08:29 116 H 18 138/93 96 01/04/19 07:16 98 01/04/19 06:40 119 H 21 139/89 96 01/04/19 05:46 120 H 17 130/88 01/04/19 05:15 116 H 20 139/91 95 01/04/19 04:46 120 H 29 H 173/99 01/04/19 03:57 102 H 18 147/79 95 01/04/19 02:53 140 H 140 H 168/98 98 Oxygen-Last 24 hours O2 Percentage 2 Liters = 28% O2 Percentage 2 Liters = 28% O2 Percentage 2 Liters = 28% O2 Percentage 2 Liters = 28% O2 Percentage 2 Liters = 28% O2 Percentage 2 Liters = 28% O2 Percentage 2 Liters = 28% O2 Percentage 2 Liters = 28% O2 Percentage 2 Liters = 28% Oxygen Flowrate (L/min)-RT 2 Oxygen Flowrate (L/min)-RT 2 Oxygen Flowrate (L/min)-RT 2 General Appearance: no apparent distress, alert, other (pale and weak appearing) Cardiovascular Exam: tachycardia, irregular Gastrointestinal/Abdomen Exam: soft, normal bowel sounds, other (well healed midline incision, slight tenderness in epigastrium near left border of incision. no defect, no redness, no warmth. normal bowel sounds noted), No tenderness, No mass Extremity Exam: normal inspection, normal range of motion, pelvis stable Skin Exam: normal color, warm, dry, No rash Results - Labs Lab/Micro Results: Accuchecks Date 01/04/19 Time 11:10 Accucheck Value: 124 Lab Results-Last 24 Hours 01/04/19 01/04/19 01/04/19 Range/Units 03:36 03:44 03:44 WBC 5.1 (4.0-10.5) K/mm3 RBC 3.46 L (4.1-5.4) M/mm3 Hgb 11.1 L (12.0-16.0) gm/dl Hct 36.3 (35-47) % MCV 104.9 H (78-100) fl MCH 32.0 (26-32) pg MCHC 30.6 L (32-36) g/dl RDW 18.7 H (11.5-14.0) % Plt Count 134 L (150-450) K/mm3 MPV 11.6 H (6-9.5) fl Gran % 49.1 (36.0-66.0) % Eos # (Auto) 0.31 (0-0.5) Absolute Lymphs (auto) 1.74 (1.0-4.6) Absolute Monos (auto) 0.52 (0.0-1.3) Lymphocytes % 34.3 (24.0-44.0) % Monocytes % 10.3 (0.0-12.0) % Eosinophils % 6.1 H (0.00-5.0) % Basophils % 0.2 (0.0-0.4) % Absolute Granulocytes 2.49 (1.4-6.9) Basophils # 0.01 (0-0.4) PT (9.95-12.35) SECONDS INR (0.8-3.0) Sodium 143 (137-145) mmol/L Potassium 3.9 (3.5-5.1) mmol/L Chloride 112 H (98-107) mmol/L Carbon Dioxide 24 (22-30) mmol/L Anion Gap 10.7 (5-15) MEQ/L BUN 11 (7-17) mg/dL Creatinine 0.57 (0.52-1.04) mg/dL Estimated GFR > 60.0 ML/MIN Glucose 122 H (74-106) mg/dL Lactic Acid 2.1 H (0.4-2.0) Calcium 8.7 (8.4-10.2) mg/dL Total Bilirubin 0.50 (0.2-1.3) mg/dL AST 29 (14-36) U/L ALT 17 (0-35) U/L Alkaline Phosphatase 118 (38-126) U/L Troponin I (0.000-0.034) ng/mL NT-Pro-B Natriuret Pep 7250 H (0-1800) pg/mL Serum Total Protein 6.3 (6.3-8.2) g/dL Albumin 3.0 L (3.5-5.0) g/dL Amylase 33 (30-110) U/L Lipase 24 (23-300) U/L Urine Color (YELLOW) Urine Appearance (CLEAR) Urine pH (5-6) Ur Specific Newton (1.005-1.025) Urine Protein (Negative) Urine Ketones (NEGATIVE) Urine Blood (0-5) Grey/ul Urine Nitrite (NEGATIVE) Urine Bilirubin (NEGATIVE) Urine Urobilinogen (0-1) mg/dL Ur Leukocyte Esterase (NEGATIVE) Urine WBC (Auto) (0-5) /HPF Urine RBC (Auto) (0-2) /HPF U Epithel Cells (Auto) (FEW) /HPF Urine Bacteria (Auto) (NEGATIVE) /HPF Calcium Oxalate Crystal (NEGATIVE) /HPF Other Casts (Auto) (NEGATIVE) /LPF Urine Mucus (Auto) (NEGATIVE) /HPF Urine Culture Reflexed (NO) Urine Glucose (NEGATIVE) mg/dL 01/04/19 01/04/19 01/04/19 Range/Units 03:44 03:44 05:31 WBC (4.0-10.5) K/mm3 RBC (4.1-5.4) M/mm3 Hgb (12.0-16.0) gm/dl Hct (35-47) % MCV (78-100) fl MCH (26-32) pg MCHC (32-36) g/dl RDW (11.5-14.0) % Plt Count (150-450) K/mm3 MPV (6-9.5) fl Gran % (36.0-66.0) % Eos # (Auto) (0-0.5) Absolute Lymphs (auto) (1.0-4.6) Absolute Monos (auto) (0.0-1.3) Lymphocytes % (24.0-44.0) % Monocytes % (0.0-12.0) % Eosinophils % (0.00-5.0) % Basophils % (0.0-0.4) % Absolute Granulocytes (1.4-6.9) Basophils # (0-0.4) PT 14.4 H (9.95-12.35) SECONDS INR 1.24 (0.8-3.0) Sodium (137-145) mmol/L Potassium (3.5-5.1) mmol/L Chloride (98-107) mmol/L Carbon Dioxide (22-30) mmol/L Anion Gap (5-15) MEQ/L BUN (7-17) mg/dL Creatinine (0.52-1.04) mg/dL Estimated GFR ML/MIN Glucose (74-106) mg/dL Lactic Acid (0.4-2.0) Calcium (8.4-10.2) mg/dL Total Bilirubin (0.2-1.3) mg/dL AST (14-36) U/L ALT (0-35) U/L Alkaline Phosphatase (38-126) U/L Troponin I < 0.012 (0.000-0.034) ng/mL NT-Pro-B Natriuret Pep (0-1800) pg/mL Serum Total Protein (6.3-8.2) g/dL Albumin (3.5-5.0) g/dL Amylase (30-110) U/L Lipase (23-300) U/L Urine Color YELLOW (YELLOW) Urine Appearance CLEAR (CLEAR) Urine pH 6.0 (5-6) Ur Specific Newton 1.017 (1.005-1.025) Urine Protein NEGATIVE (Negative) Urine Ketones TRACE (NEGATIVE) Urine Blood MODERATE (0-5) Grey/ul Urine Nitrite NEGATIVE (NEGATIVE) Urine Bilirubin NEGATIVE (NEGATIVE) Urine Urobilinogen NEGATIVE (0-1) mg/dL Ur Leukocyte Esterase NEGATIVE (NEGATIVE) Urine WBC (Auto) 6-10 (0-5) /HPF Urine RBC (Auto) 11-15 (0-2) /HPF U Epithel Cells (Auto) NONE (FEW) /HPF Urine Bacteria (Auto) NONE SEEN (NEGATIVE) /HPF Calcium Oxalate Crystal 0-2 (NEGATIVE) /HPF Other Casts (Auto) 0-2 (NEGATIVE) /LPF Urine Mucus (Auto) SLIGHT (NEGATIVE) /HPF Urine Culture Reflexed NO (NO) Urine Glucose NEGATIVE (NEGATIVE) mg/dL 01/04/19 01/04/19 Range/Units 06:41 06:45 WBC (4.0-10.5) K/mm3 RBC (4.1-5.4) M/mm3 Hgb (12.0-16.0) gm/dl Hct (35-47) % MCV (78-100) fl MCH (26-32) pg MCHC (32-36) g/dl RDW (11.5-14.0) % Plt Count (150-450) K/mm3 MPV (6-9.5) fl Gran % (36.0-66.0) % Eos # (Auto) (0-0.5) Absolute Lymphs (auto) (1.0-4.6) Absolute Monos (auto) (0.0-1.3) Lymphocytes % (24.0-44.0) % Monocytes % (0.0-12.0) % Eosinophils % (0.00-5.0) % Basophils % (0.0-0.4) % Absolute Granulocytes (1.4-6.9) Basophils # (0-0.4) PT (9.95-12.35) SECONDS INR (0.8-3.0) Sodium (137-145) mmol/L Potassium (3.5-5.1) mmol/L Chloride (98-107) mmol/L Carbon Dioxide (22-30) mmol/L Anion Gap (5-15) MEQ/L BUN (7-17) mg/dL Creatinine (0.52-1.04) mg/dL Estimated GFR ML/MIN Glucose (74-106) mg/dL Lactic Acid 0.9 (0.4-2.0) Calcium (8.4-10.2) mg/dL Total Bilirubin (0.2-1.3) mg/dL AST (14-36) U/L ALT (0-35) U/L Alkaline Phosphatase (38-126) U/L Troponin I < 0.012 (0.000-0.034) ng/mL NT-Pro-B Natriuret Pep (0-1800) pg/mL Serum Total Protein (6.3-8.2) g/dL Albumin (3.5-5.0) g/dL Amylase (30-110) U/L Lipase (23-300) U/L Urine Color (YELLOW) Urine Appearance (CLEAR) Urine pH (5-6) Ur Specific Newton (1.005-1.025) Urine Protein (Negative) Urine Ketones (NEGATIVE) Urine Blood (0-5) Grey/ul Urine Nitrite (NEGATIVE) Urine Bilirubin (NEGATIVE) Urine Urobilinogen (0-1) mg/dL Ur Leukocyte Esterase (NEGATIVE) Urine WBC (Auto) (0-5) /HPF Urine RBC (Auto) (0-2) /HPF U Epithel Cells (Auto) (FEW) /HPF Urine Bacteria (Auto) (NEGATIVE) /HPF Calcium Oxalate Crystal (NEGATIVE) /HPF Other Casts (Auto) (NEGATIVE) /LPF Urine Mucus (Auto) (NEGATIVE) /HPF Urine Culture Reflexed (NO) Urine Glucose (NEGATIVE) mg/dL Accuchecks Date 01/04/19 Time 11:10 Accucheck Value: 124 - Radiology Impressions Radiology Exams & Impressions: Radiology Procedures Category Date Time Status ABDOMEN AND PELVIS W/0 CONTRAS [CT] Stat Exams 01/04/19 04:33 Completed CHEST 1 VIEW (PORTABLE) Stat Exams 01/04/19 03:35 Completed - Other Procedures and Tests Respiratory Therapy 01/04/19 09:18 Oxygen Nasal Cannula 2 lpm Assessment/Plan (1) Atrial fibrillation with RVR Current Visit: Yes Status: Acute Assessment & Plan: heart rate in low 100's currently on cardizem gtt 10mg/hr, on lopressor 50mg bid. will consult with Dr Garcia, may well need addition of antiarrythmic etc. continue pradaxa at this time. patient code status is SCO Code(s): I48.91 - UNSPECIFIED ATRIAL FIBRILLATION (2) CHF (congestive heart failure) Current Visit: Yes Status: Acute Onset Date: ~12/07/18 Qualifiers: Assessment & Plan: good diuresis since admission, appears fairly euvolemic on exam this morning. will monitor Code(s): I50.9 - HEART FAILURE, UNSPECIFIED (3) Abdominal pain Current Visit: No Status: Acute Onset Date: ~12/07/18 Assessment & Plan: no obvious etiology, ct scan shows nothing acute. gallstone noted, with nausea may be related. continue clear liquids, may consult surgery if not improving with treatment of cardiac issues but does not appear to have a surgical abdomen or need for intervention at this time. Code(s): R10.9 - UNSPECIFIED ABDOMINAL PAIN
[2019-01-04] MEDS: Lopressor 50 MG PO SCH ×2 (12:25→20:54)
[2019-01-04] MEDS: PRADAXA 75 MG PO SCH ×2 (12:25→20:54)
[2019-01-04] MEDS: ACCOLATE 20 MG PO SCH ×2 (12:25→20:53)
[2019-01-04] MEDS ORDERED: MEDICATION INTERVENTION MC SCH (13:30)
[2019-01-04] MEDS ORDERED: Morphine PCA 1 MG/ML 30 ML IV PRN (14:23)
[2019-01-04] MEDS: Neurontin 100 MG PO SCH ×2 (14:30→20:53)
[2019-01-04] MEDS: Cardizem CD 240 MG PO SCH (14:30)
[2019-01-04] MEDS: Colace 100 MG PO SCH (20:53)
[2019-01-04] MEDS: TYLENOL EXTRA STRENGTH 500 MG PO SCH (20:53)
[2019-01-04] MEDS: ZOCOR 20MG PO SCH (20:54)
[2019-01-04] MEDS: BENADRYL 25 MG CAPSULE PO SCH (20:54)
[2019-01-04] MEDS ORDERED: NON-FORMULARY ITEM (Atorvastatin Calcium 20 MG) PO SCH (22:00)
[2019-01-04] MEDS ORDERED: ACETAMINOPHEN PO SCH (22:00)
[2019-01-04] MEDS ORDERED: DP HYDRAM HCL PO SCH (22:00)
[2019-01-04] MEDS ORDERED: Pepcid 20 MG PO SCH (22:00)
[2019-01-04] MEDS ORDERED: Pepcid 20 MG VIAL IV SCH (22:00)
[2019-01-05] MEDS: Norco 10/325 MG Tablet PO PRN ×2 (03:23→14:46)
[2019-01-05 05:44] LABS: BASOPHIL % 0.5 % (0.0-0.4); Basophil (Absolute #) 0.02 (0-0.4); Eosinophil % 8.7 % (0.00-5.0); Eosinophil (Absolute #) 0.37 (0-0.5); Granulocyte Absolute (ANC) 2.18 (1.4-6.9); Granulocytes % 51.1 % (36.0-66.0); Hemoglobin 10.1 gm/dl (12.0-16.0); Lymphocyte (Absolute #) 1.04 (1.0-4.6); Lymphocytes % 24.4 % (24.0-44.0); Mean Cell Volume 101.9 fl (78-100); Mean Corpuscular Hgb Concent. 31.6 g/dl (32-36); Mean Platelet Volume 11.2 fl (6-9.5); Monocyte (Absolute #) 0.65 (0.0-1.3); Monocytes % 15.3 % (0.0-12.0); Platelet Count 112 K/mm3 (150-450); Red Blood Count 3.14 M/mm3 (4.1-5.4); Red Cell Distribution Width 18.5 % (11.5-14.0); White Blood Count 4.3 K/mm3 (4.0-10.5)
[2019-01-05 05:47] LABS: Mean Corpuscular Hemoglobin 32.1 pg (26-32)
[2019-01-05 05:59] LABS: ALBUMIN 2.5 g/dL (3.5-5.0); ALKALINE PHOSPHATASE 100 U/L (38-126); ANION GAP 6.1 MEQ/L (5-15); BLOOD UREA NITROGEN 7 mg/dL (7-17); CHLORIDE 110 mmol/L (98-107); Carbon Dioxide 28 mmol/L (22-30); Creatinine 1 0.51 mg/dL (0.52-1.04); Glucose 86 mg/dL (74-106); MAGNESIUM 1.9 mg/dL (1.6-2.3); Potassium 3.3 mmol/L (3.5-5.1); SGOT/AST 29 U/L (14-36); SGPT/ALT 15 U/L (0-35); SODIUM 140 mmol/L (137-145); Total Protein 5.4 g/dL (6.3-8.2)
--- NOTE | 2019-01-05 08:56 | PCM.NOTE ---
Date and Time: 01/05/19 0854 Subjective Assessment: patient is feeling better, has diuresed quite well since arrival. lost IV access overnight. her abdominal pain has resolved, she is tolerating clears. she is rate controlled on po meds at this time Objective Exam General Appearance: no apparent distress, alert Respiratory Exam: normal breath sounds, lungs clear, No respiratory distress Cardiovascular Exam: regular rate/rhythm, normal heart sounds Gastrointestinal/Abdomen Exam: soft, No tenderness, No mass Extremity Exam: normal inspection, normal range of motion OBJECTIVE DATA Vital Signs: Vital Signs - 24 hr Temp Pulse Resp BP Pulse Ox 01/05/19 08:00 80 01/05/19 07:27 97.8 F 86 20 150/95 96 01/05/19 04:00 98.1 F 88 18 154/95 93 L 01/05/19 03:59 83 01/05/19 02:31 95 01/05/19 00:01 83 01/05/19 00:00 98.2 F 88 20 149/94 95 01/04/19 22:31 96 01/04/19 20:24 86 20 96 01/04/19 20:00 99.0 F 94 H 24 148/88 96 01/04/19 18:23 98 01/04/19 15:59 98.8 F 92 H 17 140/58 96 01/04/19 15:00 94 H 18 123/71 97 01/04/19 14:00 99 F 83 19 136/88 97 01/04/19 12:55 90 15 140/95 98 01/04/19 11:55 114 H 17 142/67 96 01/04/19 11:00 129 H 22 136/87 95 01/04/19 10:00 110 H 15 142/98 96 01/04/19 09:24 97 F 120 H 17 143/98 97 01/04/19 09:18 97 01/04/19 09:00 97 F 120 H 17 143/98 Oxygen-Last 24 hours O2 Percentage 2 Liters = 28% O2 Percentage 2 Liters = 28% O2 Percentage 2 Liters = 28% O2 Percentage 2 Liters = 28% O2 Percentage 2 Liters = 28% O2 Percentage 2 Liters = 28% O2 Percentage 2 Liters = 28% O2 Percentage 2 Liters = 28% O2 Percentage 2 Liters = 28% O2 Percentage 2 Liters = 28% O2 Percentage 2 Liters = 28% O2 Percentage 2 Liters = 28% Oxygen Flowrate (L/min)-RT 2 Oxygen Flowrate (L/min)-RT 2 Oxygen Flowrate (L/min)-RT 2 Oxygen Flowrate (L/min)-RT 2 Oxygen Flowrate (L/min)-RT 2 Oxygen Flowrate (L/min)-RT 2 Oxygen Flowrate (L/min)-RT 2 Oxygen Flowrate (L/min)-RT 2 Pain Assessment - Last Documented Pain Intensity 3 Pain Scale Used 0-10 Pain Scale,FLACC Intake and Output: Intake & Output 01/02/19 01/03/19 01/04/19 01/05/19 11:59 11:59 11:59 11:59 Intake Total 2587 Output Total 1000 1825 Balance -1000 762 Weight 68.039 kg Lab Results: Accuchecks Date 01/05/19 Date 01/04/19 Date 01/04/19 Date 01/04/19 Time 07:45 Time 22:00 Time 02:13 Time 11:10 Accucheck Value: 96 Accucheck Value: 128 Accucheck Value: 124 Lab Results-Last 24 Hours 01/05/19 01/05/19 Range/Units 05:15 05:15 WBC 4.3 (4.0-10.5) K/mm3 RBC 3.14 L (4.1-5.4) M/mm3 Hgb 10.1 L (12.0-16.0) gm/dl Hct 32.0 L (35-47) % MCV 101.9 H (78-100) fl MCH 32.1 H (26-32) pg MCHC 31.6 L (32-36) g/dl RDW 18.5 H (11.5-14.0) % Plt Count 112 L (150-450) K/mm3 MPV 11.2 H (6-9.5) fl Gran % 51.1 (36.0-66.0) % Eos # (Auto) 0.37 (0-0.5) Absolute Lymphs (auto) 1.04 (1.0-4.6) Absolute Monos (auto) 0.65 (0.0-1.3) Lymphocytes % 24.4 (24.0-44.0) % Monocytes % 15.3 H (0.0-12.0) % Eosinophils % 8.7 H (0.00-5.0) % Basophils % 0.5 (0.0-0.4) % Absolute Granulocytes 2.18 (1.4-6.9) Basophils # 0.02 (0-0.4) Sodium 140 (137-145) mmol/L Potassium 3.3 L (3.5-5.1) mmol/L Chloride 110 H (98-107) mmol/L Carbon Dioxide 28 (22-30) mmol/L Anion Gap 6.1 (5-15) MEQ/L BUN 7 (7-17) mg/dL Creatinine 0.51 L (0.52-1.04) mg/dL Estimated GFR > 60.0 ML/MIN Glucose 86 (74-106) mg/dL Calcium 8.0 L (8.4-10.2) mg/dL Magnesium 1.9 (1.6-2.3) mg/dL Total Bilirubin 0.50 (0.2-1.3) mg/dL AST 29 (14-36) U/L ALT 15 (0-35) U/L Alkaline Phosphatase 100 (38-126) U/L Serum Total Protein 5.4 L (6.3-8.2) g/dL Albumin 2.5 L (3.5-5.0) g/dL Radiology Exams: Radiology Procedures Category Date Time Status ABDOMEN AND PELVIS W/0 CONTRAS [CT] Stat Exams 01/04/19 04:33 Completed CHEST 1 VIEW (PORTABLE) Stat Exams 01/04/19 03:35 Completed Assessment/Plan (1) Atrial fibrillation with RVR Current Visit: Yes Status: Acute Assessment & Plan: on cardizem and lopressor po, rate controlled and on oral anticoagulant. stable at this time. Code(s): I48.91 - UNSPECIFIED ATRIAL FIBRILLATION (2) CHF (congestive heart failure) Current Visit: Yes Status: Acute Onset Date: ~12/07/18 Qualifiers: Assessment & Plan: looks great today, will replace minimal potassium deficit. likely can discharge tomorrow if tolerates regular diet today and no GI issues Code(s): I50.9 - HEART FAILURE, UNSPECIFIED (3) Abdominal pain Current Visit: No Status: Acute Onset Date: ~01/12/19 Assessment & Plan: resolved, doing well Code(s): R10.9 - UNSPECIFIED ABDOMINAL PAIN
[2019-01-05] MEDS ORDERED: K-LYTE 25 MEQ PO ONE (08:57)
[2019-01-05] MEDS: Neurontin 100 MG PO SCH ×3 (09:38→23:53)
[2019-01-05] MEDS: Cardizem CD 240 MG PO SCH (09:38)
[2019-01-05] MEDS: Lopressor 50 MG PO SCH ×2 (09:38→23:53)
[2019-01-05] MEDS: LASIX 20 MG PO SCH (09:38)
[2019-01-05] MEDS ORDERED: Lasix 20 MG/2 ML IV SCH (10:00)
[2019-01-05] MEDS ORDERED: NON-FORMULARY ITEM (Mirabegron [Myrbetriq] 25 MG) PO SCH (10:00)
[2019-01-05] MEDS ORDERED: NON-FORMULARY ITEM (Esomeprazole Magnesium [Nexium] 20 MG) PO SCH (10:00)
[2019-01-05] MEDS: ACCOLATE 20 MG PO SCH ×2 (10:20→23:53)
[2019-01-05] MEDS: Klor Con 10 MEQ PO SCH ×2 (10:20→23:53)
[2019-01-05] MEDS: PRADAXA 75 MG PO SCH ×2 (10:20→23:54)
[2019-01-05] MEDS: Phenergan 25 MG INJ IM PRN (11:16)
[2019-01-05] MEDS: Protonix 40MG Tablet PO SCH (14:46)
[2019-01-05] MEDS ORDERED: OXAZEPAM 15 MG PO SCH (22:00)
[2019-01-05] MEDS: Colace 100 MG PO SCH (23:53)
[2019-01-05] MEDS: BENADRYL 25 MG CAPSULE PO SCH (23:53)
[2019-01-05] MEDS: TYLENOL EXTRA STRENGTH 500 MG PO SCH (23:54)
[2019-01-05] MEDS: PATIENT OWN MEDICATION PO SCH (23:54)
[2019-01-05] MEDS: ZOCOR 20MG PO SCH (23:54)
[2019-01-06] MEDS: Norco 10/325 MG Tablet PO PRN ×4 (01:44→20:57)
[2019-01-06] MEDS: Phenergan 25 MG INJ IM PRN (05:36)
[2019-01-06 05:53] LABS: BASOPHIL % 0.2 % (0.0-0.4); Basophil (Absolute #) 0.01 (0-0.4); Eosinophil (Absolute #) 0.19 (0-0.5); Granulocyte Absolute (ANC) 2.74 (1.4-6.9); Granulocytes % 57.3 % (36.0-66.0); Hematocrit 32.9 % (35-47); Hemoglobin 10.4 gm/dl (12.0-16.0); Lymphocytes % 27.2 % (24.0-44.0); Mean Cell Volume 101.2 fl (78-100); Mean Corpuscular Hgb Concent. 31.6 g/dl (32-36); Mean Platelet Volume 11.4 fl (6-9.5); Monocyte (Absolute #) 0.54 (0.0-1.3); Monocytes % 11.3 % (0.0-12.0); Platelet Count 124 K/mm3 (150-450); Red Blood Count 3.25 M/mm3 (4.1-5.4); Red Cell Distribution Width 17.9 % (11.5-14.0); White Blood Count 4.8 K/mm3 (4.0-10.5)
[2019-01-06 06:02] LABS: ANION GAP 6.9 MEQ/L (5-15); BLOOD UREA NITROGEN 8 mg/dL (7-17); CHLORIDE 106 mmol/L (98-107); Carbon Dioxide 31 mmol/L (22-30); Creatinine 1 0.59 mg/dL (0.52-1.04); Glucose 97 mg/dL (74-106); Potassium 3.5 mmol/L (3.5-5.1); SODIUM 140 mmol/L (137-145)
[2019-01-06] MEDS: Neurontin 100 MG PO SCH ×3 (08:02→20:56)
[2019-01-06] MEDS: PRADAXA 75 MG PO SCH ×2 (08:02→20:57)
[2019-01-06] MEDS: ACCOLATE 20 MG PO SCH ×2 (08:04→20:56)
[2019-01-06] MEDS: LASIX 20 MG PO SCH (08:04)
[2019-01-06] MEDS: Cardizem CD 240 MG PO SCH (08:04)
[2019-01-06] MEDS: Lopressor 50 MG PO SCH ×2 (08:05→20:58)
--- NOTE | 2019-01-06 08:46 | PCM.NOTE ---
Date and Time: 01/06/19 08 Subjective Assessment: Pt did not take her p.m. meds last night. This morning her HR is in the 130s so the RN gave her a.m. meds early. She is feeling tired this morning. - Review of Systems Constitutional: No Fever Abdominal/Gastrointestinal: Nausea (earlier this morning) Objective Exam General Appearance: mild distress, alert Neurologic Exam: oriented x 3, cooperative Skin Exam: normal color, warm, dry, No rash Respiratory Exam: lungs clear, diminished breath sounds (worse in RLL), No crackles/rales, No rhonchi, No wheezing Cardiovascular Exam: regular rate/rhythm, normal heart sounds, No murmur Gastrointestinal/Abdomen Exam: soft, normal bowel sounds, No tenderness, No distention, No mass, No guarding, No rebound Extremity Exam: No pedal edema, No swelling Back Exam: normal inspection, No rash OBJECTIVE DATA Vital Signs: Vital Signs - 24 hr Temp Pulse Resp BP Pulse Ox 01/06/19 08:00 97.7 F 106 H 20 123/97 96 01/06/19 04:00 98.5 F 99 H 27 H 139/86 98 01/06/19 00:00 99.0 F 96 H 25 H 102/64 98 01/05/19 20:15 97 01/05/19 19:49 98 01/05/19 19:34 98.3 F 92 H 21 102/64 98 01/05/19 16:00 101 H 17 120/79 97 01/05/19 12:00 89 22 158/106 94 L Oxygen-Last 24 hours O2 Percentage 2 Liters = 28% O2 Percentage 2 Liters = 28% O2 Percentage 2 Liters = 28% O2 Percentage 2 Liters = 28% O2 Percentage 2 Liters = 28% O2 Percentage 2 Liters = 28% Pain Assessment - Last Documented Pain Intensity 5 Pain Scale Used 0-10 Pain Scale Intake and Output: Intake & Output 01/03/19 01/04/19 01/05/19 01/06/19 11:59 11:59 11:59 11:59 Intake Total 2587 720 Output Total 1000 1825 2750 Balance -1000 762 -2030 Weight 68.039 kg Lab Results: Accuchecks Date 01/06/19 Date 01/05/19 Date 01/05/19 Date 01/05/19 Time 07:30 Time 21:50 Time 16:33 Time 11:17 Accucheck Value: 97 Accucheck Value: 118 Accucheck Value: 115 Accucheck Value: 129 Lab Results-Last 24 Hours 01/06/19 01/06/19 Range/Units 04:55 04:55 WBC 4.8 (4.0-10.5) K/mm3 RBC 3.25 L (4.1-5.4) M/mm3 Hgb 10.4 L (12.0-16.0) gm/dl Hct 32.9 L (35-47) % MCV 101.2 H (78-100) fl MCH 32.0 (26-32) pg MCHC 31.6 L (32-36) g/dl RDW 17.9 H (11.5-14.0) % Plt Count 124 L (150-450) K/mm3 MPV 11.4 H (6-9.5) fl Gran % 57.3 (36.0-66.0) % Eos # (Auto) 0.19 (0-0.5) Absolute Lymphs (auto) 1.30 (1.0-4.6) Absolute Monos (auto) 0.54 (0.0-1.3) Lymphocytes % 27.2 (24.0-44.0) % Monocytes % 11.3 (0.0-12.0) % Eosinophils % 4.0 (0.00-5.0) % Basophils % 0.2 (0.0-0.4) % Absolute Granulocytes 2.74 (1.4-6.9) Basophils # 0.01 (0-0.4) Sodium 140 (137-145) mmol/L Potassium 3.5 (3.5-5.1) mmol/L Chloride 106 (98-107) mmol/L Carbon Dioxide 31 H (22-30) mmol/L Anion Gap 6.9 (5-15) MEQ/L BUN 8 (7-17) mg/dL Creatinine 0.59 (0.52-1.04) mg/dL Estimated GFR > 60.0 ML/MIN Glucose 97 (74-106) mg/dL Calcium 8.0 L (8.4-10.2) mg/dL Assessment/Plan (1) Atrial fibrillation with RVR Current Visit: Yes Status: Acute Assessment & Plan: I think worse this a.m. because she didn't take her meds last night. Would expect her rate to improve over the next hour or so. Code(s): I48.91 - UNSPECIFIED ATRIAL FIBRILLATION (2) CHF (congestive heart failure) Current Visit: Yes Status: Acute Onset Date: ~12/07/18 Qualifiers: Code(s): I50.9 - HEART FAILURE, UNSPECIFIED (3) Abdominal pain Current Visit: No Status: Acute Onset Date: ~12/07/18 Qualifiers: Abdominal location: generalized Qualified Code(s): R10.84 - Generalized abdominal pain Assessment & Plan: Recurrent. Her CT was non acute. I discussed again referring her to Dr. Puentes. She said when she thinks about it she just has "a feeling of dread." This prompted a discussion of possible hospice referral - if she would prefer to stay home and comfortable that might be a good option. When her arrives today someone will discuss pros and cons with them. Code(s): R10.9 - UNSPECIFIED ABDOMINAL PAIN (4) Chronic hypoxemic respiratory failure Current Visit: No Status: Chronic (5) Cyclical vomiting Current Visit: No Status: Chronic Qualifiers: Vomiting Intractability: non-intractable Nausea presence: unspecified Qualified Code(s): G43.A0 - Cyclical vomiting, not intractable (6) DM w/o complication type II Current Visit: No Status: Chronic Qualifiers: Diabetes mellitus long-term insulin use: without termite inspector use Qualified Code(s): E11.9 - Type 2 diabetes mellitus without complications Assessment & Plan: BS 90s-110s here. Code(s): E11.9 - TYPE 2 DIABETES MELLITUS WITHOUT COMPLICATIONS (7) DNR (do not resuscitate) Current Visit: No Status: Chronic
[2019-01-06] MEDS: Protonix 40MG Tablet PO SCH (12:18)
[2019-01-06] MEDS: Colace 100 MG PO SCH (20:56)
[2019-01-06] MEDS: ZOCOR 20MG PO SCH (20:58)
[2019-01-06] MEDS: PATIENT OWN MEDICATION PO SCH (21:10)
[2019-01-06] MEDS: BENADRYL 25 MG CAPSULE PO SCH (21:10)
[2019-01-06] MEDS: TYLENOL EXTRA STRENGTH 500 MG PO SCH (21:11)
[2019-01-07 07:22] VITALS: O2SAT 95
--- NOTE | 2019-01-07 09:03 | PCM.DS ---
Discharge Summary Date of Admission: 01/04/19 08:49 Admitting Physician: JAE OCASIO Consults: Consults on Case 01/04/19 11:34 Consult Cardiology ROUTINE Primary Care Provider: RAY OCHOA Allergies Allergies metoclopramide HCl [From Reglan] Allergy (Verified 12/26/18 08:56) vomiting Sulfa (Sulfonamide Antibiotics) Allergy (Verified 12/26/18 08:56) [facility] Hospital Summary - Hospital Course Hospital Course: Pt is 83 yo pt of mine with PMHx PE, PMHx Breast ca, with afib, CHF, , DM, and HTN who came in through ER complaining of weakness. Found to be in afib with RVR. Was admitted to ICU with piper salazar and Dr. Han was consulted. Her rate corrected and she resumed her home medications with normalization of HR. That evening she refused her p.m. meds due to nausea and in the morning her HR was 110-130. Her a.m. meds were given a bit early and her HR was nl throughout the day. This morning she is not feeling weak or nauseated. We discussed possible hospice placement yesterday as she is reluctant to have any further procedures done. She will discuss with her and children. Information was provided by discharge planning. If not going home on hospice, she will go home on home health. - Vitals & Intake/Output Vital Signs: Vital Signs Temperature 98.2 F 01/07/19 07:20 Pulse Rate 85 01/07/19 07:20 Respiratory Rate 18 01/07/19 07:20 Blood Pressure 122/58 01/07/19 07:20 O2 Sat by Pulse Oximetry 95 01/07/19 07:20 Oxygen-Last Documented O2 Percentage 2 Liters = 28% Intake & Output: Intake & Output 01/04/19 01/05/19 01/06/19 01/07/19 11:59 11:59 11:59 11:59 Intake Total 2587 720 600 Output Total 1000 1825 2750 1350 Balance -1000 762 -2029 -750 Weight 68.039 kg 67.9 kg - Lab Result Diagrams: 01/06/19 04:55 01/06/19 04:55 Lab Results-Last 24 Hrs: Accuchecks Date 01/07/19 Date 01/06/19 Date 01/06/19 Date 01/06/19 Time 07:19 Time 21:00 Time 16:30 Time 11:30 Accucheck Value: 76 Accucheck Value: 134 Accucheck Value: 133 Accucheck Value: 108 Micro Results-Entire Visit: Microbiology 01/04/19 07:20 Urine Culture - Final Urine, Indwelling Catheter NO GROWTH Accuchecks Date 01/07/19 Date 01/06/19 Date 01/06/19 Date 01/06/19 Time 07:19 Time 21:00 Time 16:30 Time 11:30 Accucheck Value: 76 Accucheck Value: 134 Accucheck Value: 133 Accucheck Value: 108 - Procedures and Test Procedures and Tests throughout Hospitalization: Therapy Orders & Screens 01/04/19 09:18 Oxygen Nasal Cannula 2 lpm Comment: 01/04/19 20:43 Respiratory Therapy Assessment DAILY Comment: Diagnosis: afib/rvr Discharge Exam General Appearance: no apparent distress, alert Neurologic Exam: oriented x 3, cooperative Skin Exam: normal color, warm, dry, No rash Respiratory Exam: normal breath sounds, lungs clear, No crackles/rales, No rhonchi, No wheezing Cardiovascular Exam: normal heart sounds, murmur (II/ sys murmur), irregular Extremity Exam: No pedal edema, No swelling Back Exam: normal inspection, No rash Final Diagnosis/Problem List - Final Discharge Diagnosis/Problem (1) Atrial fibrillation with RVR Current Visit: Yes Status: Resolved Assessment & Plan: Now regular rate. Continues to be in afib, which is chronic. No longer feeling weak. She just does not perfuse well when she is in RVR. Continue home meds. (2) CHF (congestive heart failure) Current Visit: Yes Status: Chronic Onset Date: ~12/07/18 (3) Chronic hypoxemic respiratory failure Current Visit: No Status: Chronic (4) Cyclical vomiting Current Visit: No Status: Chronic (5) DM w/o complication type II Current Visit: No Status: Chronic (6) DNR (do not resuscitate) Current Visit: No Status: Chronic Assessment & Plan: Agree hospice is a reasonable option if she is agreeable. - Discharge Disposition: Home, Self-Care Condition: Stable Prescriptions: Continue Atorvastatin Calcium [Lipitor 20MG Tablet] 20 mg PO HS Gabapentin [Neurontin] 100 mg PO TID Oxazepam 15 mg PO HS Furosemide 40 mg [Lasix 40 MG] 40 mg PO DAILY PRN PRN Reason: Shortness Of Breath Docusate Sodium 100 mg [Colace 100 MG] 300 mg PO HS Vit A/Vit C/Vit E/Zinc/Copper [Preservision Areds Softgel] 1 each PO BID Esomeprazole Magnesium [Nexium] 20 mg PO DAILY PANTOPRAZOLE 40 mg Tablet [Protonix 40MG Tablet] 40 mg PO LUNCH Promethazine HCl 25 mg [Phenergan 25 mg] 25 mg PO Q6H PRN Famotidine 20 mg [Pepcid 20 MG] 10 mg PO HS Hydrocodone/Acetaminophen [Byers 10-325 Tablet] 1 each PO BID PRN PRN Reason: Pain Dabigatran Etexilate Mesylate [Pradaxa] 150 mg PO BID Metoprolol Tartrate 50 mg [Lopressor 50 MG] 50 mg PO BID tablet Zafirlukast 20 mg [Accolate 20 mg] 20 mg PO BID Mirabegron [Myrbetriq] 25 mg PO DAILY Cholecalciferol (Vitamin D3) [Vitamin D3] 1,000 unit PO DAILY B Complex with Vitamin C [Vitamin B Complex-C] 1 each PO DAILY Acetaminophen/Dp-Hydram HCl [Tylenol Pm Ex-Strength Geltab] 2 each PO HS Diltiazem HCl 240 mg [Cardizem CD 240 MG] 240 mg PO DAILY Instructions: Heart Failure and Atrial Fibrillation, Medicines for Atrial Fibrillation, Metoprolol Follow up with: SERVANDO HAN [CONSULTING PHYSICIAN] - 1 Week RAY OCHOA [Primary Care Provider] - 1 Week
[2019-01-07] MEDS: ACCOLATE 20 MG PO SCH (09:18)
[2019-01-07] MEDS: Cardizem CD 240 MG PO SCH (09:18)
[2019-01-07] MEDS: Neurontin 100 MG PO SCH (09:18)
[2019-01-07] MEDS: Lopressor 50 MG PO SCH (09:19)
[2019-01-07] MEDS: Norco 10/325 MG Tablet PO PRN (09:19)
[2019-01-07] MEDS: PRADAXA 75 MG PO SCH (09:19)
[2019-01-07] MEDS: LASIX 20 MG PO SCH (09:19)
[2019-01-07 12:36] VITALS: BP 128/83; PULSE 100
[2019-01-07] MEDS: Protonix 40MG Tablet PO SCH (12:37)
== END 2019-01-07 13:00 | disposition home or self-care (01) | DRG 309 ==
LOC: ED 02:52 → ICU 08:49 → MED SURG 01-06 15:00
PROVIDERS: ADMIT Family Medicine; ATTEND Family Medicine
DX: I48.91 Unspecified atrial fibrillation (principal); J96.11 Chronic respiratory failure with hypoxia; I50.9 Heart failure, unspecified; J90 Pleural effusion, not elsewhere classified; R07.9 Chest pain, unspecified; E11.9 Type 2 diabetes mellitus without complications; R11.2 Nausea with vomiting, unspecified; Z95.0 Presence of cardiac pacemaker; Z79.899 Other long term (current) drug therapy; G43.A0 Cyclical vomiting, in migraine, not intractable; R10.9 Unspecified abdominal pain; R53.1 Weakness; I10 Essential (primary) hypertension; Z85.3 Personal history of malignant neoplasm of breast
CPT/HCPCS: 36000; 36415; 51702; 71045; 74176; 80048; 80053; 81001; 82150; 82962; 83605; 83690; 83735; 83880; 84484; 85025; 85610; 87086; 93005; 93041; 94760; 96360; 96361; 96372; 96374; 96375; 96376; 99285; J1940; J2270; J2405; J2550; A9270-GY